=== PATIENT | male | born 1950 | race Caucasian/White ===

== ENCOUNTER 2019-05-26 05:28 | Observation (INO) ==
--- NOTE | 2019-05-26 05:36 | Emergency Department Note ---
ED Disposition <Jae Ramirez - Last Filed: 05/26/19 08:30> Condition on Discharge: Fair - Critical Care Critical Care Time: No <Anjum Hendricks - Last Filed: 05/27/19 08:10> Clinical Impression: Community acquired pneumonia Qualifiers: Laterality: left Lung location: lower lobe of lung Qualified Code(s): J18.1 - Lobar pneumonia, unspecified organism Disposition: Admitted as Observation Attestation: On 05/26/19, the high probability of a clinically significant, sudden or life threatening deterioration of the following system(s) required my full and direct attention, intervention and personal management. The time I documented below is in addition to time spent performing reported procedures but includes the following listed in this critical care notation. Medical Decision Making - Lab Data Result diagrams: 05/26/19 05:30 05/26/19 05:30 <Jae Ramirez - Last Filed: 05/26/19 08:30> - Conrad Inquiry Pt receiving controlled substance: No Conrad was queried for this patient: Yes Reference #:: [id number] Comment: 39 rxs. - Lab Data Result diagrams: 05/27/19 06:21 05/27/19 06:21 - Radiology Data #1 Image(s): Chest Image Reviewed: Yes I reviewed the patient's radiology image - Physician Consults Physician Consulted: Yudy Time: 08:15 Reason -: Admission Comment/Response: Agrees to admit the patient to the hospital. We discussed the patient's clinical information, including history, exam, laboratory and radiology results and ED course. Per hospital procedure, I will write temporary bridge inpatient orders on the patient. Specific orders requested by the admitting physician: Continue Rocephin, Zithromax, nebulizer treatments - Reevaluation(s) Time: 07:12 <Anjum Hendricks - Last Filed: 05/27/19 08:10> Vital Signs: 05/26/19 05:32 05/26/19 06:19 05/26/19 07:34 Temperature 98.1 F 99.9 F H Temperature Source Oral Oral Pulse Rate Pulse Rate [Right] 103 H 94 H 89 Respiratory Rate 20 18 Blood Pressure Blood Pressure [Right Arm] 154/72 H 160/58 H Blood Pressure Mean [Right Arm] 99 92 Blood Pressure Source Blood Pressure Source [Right Arm] Automatic Cuff Blood Pressure Position Blood Pressure Position [Right Arm] Supine 02 Sat by Pulse Oximetry 96 94 L Oxygen Delivery Method Room Air 05/26/19 08:21 05/26/19 08:37 05/26/19 08:42 Temperature 98.6 F 98.9 F Temperature Source Oral Temporal Artery Scan Pulse Rate 92 H Pulse Rate [Right] 88 88 Respiratory Rate 18 14 Blood Pressure 115/54 L Blood Pressure [Right Arm] 130/67 117/57 L Blood Pressure Mean [Right Arm] 88 77 Blood Pressure Source Automatic Cuff Blood Pressure Source [Right Arm] Automatic Cuff Blood Pressure Position Supine Blood Pressure Position [Right Arm] Supine 02 Sat by Pulse Oximetry 93 L 95 Oxygen Delivery Method Room Air Nasal Cannula - Lab Data Lab Results 05/26/19 05:30: WBC 9.4, RBC 4.83, Hgb 13.9 L, Hct 44.7, MCV 92.6, MCH 28.9, MCHC 31.2 L, RDW 13.5, Plt Count 226, MPV 7.7, Neut % (Auto) 87.5 H, Lymph % (Auto) 8.8 L, [place] % (Auto) 2.3, Eos % (Auto) 1.2, Baso % (Auto) 0.1, Neut # (Auto) 8.2 H, Lymph # (Auto) 0.8, [place] # (Auto) 0.2, Eos # (Auto) 0.1, Baso # (Auto) 0.0, Total Counted 100, Neutrophils % (Manual) 81 H, Band Neutrophils % 3.0, Lymphocytes % (Manual) 9 L, Atypical Lymphs % 3.0, Monocytes % (Manual) 4, Platelet Estimate Normal 05/26/19 05:30: Sodium 144, Potassium 3.4 L, Chloride 105, Carbon Dioxide 30, Anion Gap 12.4, BUN 14, Creatinine 0.84, Estimated Creat Clear 127, Estimated GFR 91, Est GFR ( Amer) 110, Glucose 119 H, Calcium 8.4 L, Total Bilirubin 0.8, AST 22, ALT 33, Alkaline Phosphatase 52, Troponin I < 0.02, Total Protein 6.6, Albumin 3.5, Globulin 3.1, Albumin/Globulin Ratio 1.1 05/26/19 05:30: D-Dimer 293 05/26/19 06:00: Lactate 1.2 05/26/19 06:13: Urine Color Yellow, Urine Appearance Clear, Urine pH 7.0, Ur Specific [place] 1.015, Urine Protein Negative, Urine Glucose (UA) Trace, Urine Ketones Negative, Urine Blood Negative, Urine Nitrate Negative, Urine Bilirubin Negative, Urine Urobilinogen 1.0, Ur Leukocyte Esterase Negative, Urine RBC None, Urine WBC None, Ur Squamous Epith Cells Occasional, Urine Bacteria Trace Orders (Tests/Meds): ED MEDICATIONS Generic Name Dose Route Start Last Admin Trade Name Freq PRN Reason Stop Dose Admin Acetaminophen 650 mg 05/26/19 09:02 Acetaminophen 325mg Tab PO 06/25/19 09:01 Q4HP PRN As Needed for Fever or Pain Albuterol/Ipratropium 3 ml 05/26/19 10:00 05/27/19 06:10 Duoneb 3ml Neb IH 06/25/19 09:59 3 ml QIDRT KOBE Administration Amlodipine Besylate 10 mg 05/26/19 09:02 05/26/19 11:52 Norvasc 10mg Tablet PO 06/25/19 09:01 10 mg DAILY KOBE Administration Cyclobenzaprine HCl 10 mg 05/26/19 09:02 Flexeril 10mg Tablet PO 06/25/19 09:01 TIDP PRN Muscle Spasm Finasteride 5 mg 05/26/19 21:00 05/26/19 20:36 Proscar 5mg Tablet PO 06/25/19 20:59 5 mg HS KOBE Administration Azithromycin 500 mg/ Sodium 250 mls @ 250 mls/hr 05/27/19 07:00 05/27/19 06:22 Chloride IV 06/09/19 06:59 250 mls/hr Q24H KOBE Administration Protocol Ceftriaxone Sodium 1 gm/ 50 mls @ 100 mls/hr 05/27/19 08:00 Sodium Chloride IV 06/09/19 07:59 Q24H KOBE Protocol Sodium Chloride 1,000 mls @ 50 mls/hr 05/26/19 09:02 05/27/19 06:22 Sod Chlor 0.9% 1000ml Bag IV 06/25/19 09:01 50 mls/hr .Q20H KOBE Administration Ondansetron HCl 4 mg 05/26/19 09:02 Zofran 4mg/2ml Vial IV 06/25/19 09:01 Q8HP PRN Nausea Oxycodone HCl 30 mg 05/26/19 09:07 Oxyir 5mg Tablet PO 06/25/19 09:06 Q6HP PRN Severe Pain Sodium Chloride 3 ml 05/26/19 09:28 Sodium Chloride 3% 15ml [facility] 06/25/19 09:27 ONCE PRN INDUCE [employer]UM [employer]LECTION Sodium Chloride 10 ml 05/26/19 10:39 Saline Flush 10ml Syringe IV 06/25/19 10:38 NEEDED PRN Maintain IV Site Tamsulosin HCl 0.4 mg 05/26/19 21:00 05/26/19 20:42 Flomax 0.4mg Capsule PO 06/25/19 20:59 Not Given HS KOBE Terazosin HCl 10 mg 05/26/19 21:00 05/26/19 20:39 Hytrin 5mg Capsule PO 06/25/19 20:59 10 mg HS KOBE Administration Discontinued Medications Generic Name Dose Route Start Last Admin Trade Name Freq PRN Reason Stop Dose Admin Acetaminophen 650 mg 05/26/19 06:25 05/26/19 06:41 Acetaminophen 325mg Tab PO 05/26/19 06:26 650 mg ONCE ONE Administration Albuterol/Ipratropium 3 ml 05/26/19 10:00 05/26/19 07:42 Duoneb 3ml [facility] 06/25/19 09:59 3 ml QIDRT KOBE Administration Finasteride 5 mg 05/26/19 09:02 05/26/19 16:20 Proscar 5mg Tablet PO 06/25/19 09:01 Not Given DAILY KOBE Azithromycin 500 mg/ Sodium 250 mls @ 250 mls/hr 05/26/19 06:15 05/26/19 06:41 Chloride IV 06/09/19 06:14 250 mls/hr Q24H KOBE Administration Protocol Ceftriaxone Sodium 1 gm/ 50 mls @ 100 mls/hr 05/26/19 06:15 05/26/19 06:20 Sodium Chloride IV 06/09/19 06:14 100 mls/hr Q24H KOBE Administration Protocol Pt's Own Med 7.5 mg 05/27/19 09:00 Meloxicam 7.5 Mg Tab PO 06/26/19 08:59 DAILY KOBE ORDERS Category Date Time Status Blood Culture Stat Micro 05/26/19 06:00 Received - Radiology Data #1 Airspace disease left base (Anjum Hendricks) - ECG Data Tracing #1 EKG interpreted by Anjum Hendricks MD: Rhythm: sinus tachycardia Rate: 106 [place]: normal Ectopy: none Conduction: normal ST Segment Changes: Nonspecific T Wave Changes: Nonspecific Q Waves: none No evidence of acute ischemia or injury Prior electrocardiagrams reviewed. No change from prior tracings. (Tushar Hendricks ) - Reevaluation(s) Reevaluation #1: Patient states he does not feel good at all. Does not feel well enough to go home. States short of breath off and on. (Anjum Hendricks) Medical Decision Narrative: Rounds are made , patient had been dispos'd to admit to [facility]. He has no complaints, seems compfortable, appreciaie ofr [facility] (Jae Ramirez) General Adult HPI <Jae Ramirez - Last Filed: 05/26/19 08:30> <Anjum Hendricks - Last Filed: 05/27/19 08:10> - General Stated complaint: Tachycardia Time Seen by Provider: 05/26/19 05:34 - History of Present Illness HPI narrative: Woke up from sleep tonight feeling like he had some sinus drainage and had a coughing spell. Benson like he was short of breath. Used his rescue inhaler. D eveloped shaking and chills. Had pain on both sides of his neck. Applied a pulse oximeter and saw that his heart rate was in the 140s and oxygen saturation was 92%. Currently says he feels weak, cold, and short of breath. Says he has a diagnosis of COPD. Smokes 1 cigarette every 2 to 3 days. No recent hospitalizations. (Anjum Hendricks) - Related Data Home Medications Medication Instructions Recorded Confirmed Amlodipine Besylate [Norvasc 10mg 10 mg PO DAILY 04/09/19 05/26/19 tablet] Tamsulosin HCl [Flomax 0.4mg 0.4 mg PO HS 04/09/19 05/26/19 capsule] cyclobenzaprine 10 mg tablet 10 mg PO TID PRN 04/22/19 05/26/19 finasteride 5 mg tablet 5 mg PO HS 04/22/19 05/26/19 oxycodone 30 mg tablet 30 mg PO Q4-6H PRN 04/22/19 05/26/19 terazosin 10 mg capsule 10 mg PO QHS 04/22/19 05/26/19 Meloxicam 15 mg PO DAILY 05/26/19 05/26/19 Testosterone Cypionate 200 mg IM WEEKLY 05/26/19 05/26/19 Previous Rx's Medication Instructions Recorded Azithromycin [Azithromycin 500mg 500 mg PO DAILY 1 Days #1 tab 05/27/19 Tab] Cefdinir [Omnicef 300mg Capsule] 300 mg PO BID 7 Days #14 cap 05/27/19 Allergies Allergy/AdvReac Type Severity Reaction Status Date / Time No Known Allergies Allergy Verified 05/26/19 05:37 [facility] History I have reviewed the patient's past medical history: Yes Medical History: Reports:: Diabetes Mellitus Type 1, Hypertension Amputation: No Fractures: No - Social History Smoking Status: Former smoker Alcohol Intake: never Alcohol Intake Frequency:: other Substance Use Type: denies use Occupational Status: employed Housing: house Household Members: none <EladioAnjum - Last Filed: 05/27/19 08:10> - Hepatitis A Screen Attestation statement:: This patient has been screened for Hepatitis A risk factors. ROS Obtained: Yes All systems reviewed & no additional complaints - Constitutional Constitutional: Reports chills, Denies fever(s), Reports weakness - ENT Ears, Nose, Mouth, and Throat: Reports post nasal drip - Cardiovascular Cardiovascular: Denies chest pain, Reports rapid heart rate - Respiratory Respiratory: Yes cough, Yes dyspnea - Gastrointestinal Gastrointestingal: Denies: abdominal pain, vomiting <JaleesaefrainAnjum - Last Filed: 05/27/19 08:10> Physical Exam - General General appearance: alert, in no apparent distress - Head Head exam: atraumatic, normocephalic - Eye Eye exam: Present: normal appearance, EOMI - ENT ENT exam: Present: mucous membranes moist - Neck Neck exam: Present: normal inspection, trachea midline - Chest Chest inspection: Present: normal inspection, symmetric chest wall rise - Respiratory Respiratory exam: Present: normal lung sounds bilaterally. Absent: respiratory distress - Cardiovascular Cardiovascular exam: Present: regular rate, normal rhythm, normal heart sounds, other (HR 90) - Abdominal Exam Abdominal exam: Present: soft, normal bowel sounds. Absent: distention, tenderness, guarding - Extremities Exam Extremities exam: Present: normal inspection - Neurological Exam Neurological exam: Present: alert, oriented X3 - Psychiatric Psychiatric exam: Present: anxious - Skin Skin exam: Present: warm, dry <Anjum Hendricks - Last Filed: 05/27/19 08:10>
[2019-05-26 05:51] LABS: Basophils % 0.1 % (0.1-2.0); Eosinophils # 0.1 K/mm3 (0.0-0.4); Eosinophils % 1.2 % (0.1-12.0); Hematocrit 44.7 % (42.0-52.0); Hemoglobin 13.9 g/dL (14.1-18.0); Lymphocytes # 0.8 K/mm3 (0.7-4.5); Lymphocytes % 8.8 % (10-50); Mean Corpuscular HGB Conc 31.2 g/dL (31.8-35.4); Mean Corpuscular Volume 92.6 fl (80-94); Mean Platelet Volume 7.7 fl (7.4-10.4); Monocytes # 0.2 K/mm3 (0.1-1.0); Monocytes % 2.3 % (1.7-9.3); Neutrophils # 8.2 K/mm3 (1.8-7.8); Neutrophils % 87.5 % (37.0-80.0); Platelet Count 226 K/mm3 (142-424); Red Blood Count 4.83 M/mm3 (4.60-6.20); Red Cell Distribution Width 13.5 % (11.5-17.5); White Blood Count 9.4 K/mm3 (4.8-10.8)
[2019-05-26 06:02] LABS: Alanine Aminotransferase 33 U/L (12-78); Albumin Level 3.5 gm/dL (3.4-5.0); Albumin/Globulin Ratio 1.1 (1.1-1.8); Alkaline Phosphatase 52 U/L (46-116); Anion Gap 12.4 mEq/L (5-15); Aspartate Amino Transferase 22 U/L (15-37); Bilirubin,Total 0.8 mg/dL (0.2-1.0); Blood Urea Nitrogen 14 mg/dL (7-18); Calcium 8.4 mg/dL (8.5-10.1); Carbon Dioxide 30 mmol/L (21.0-32.0); Chloride 105 mmol/L (98-107); Globulin 3.1 gm/dl (1.3-3.2); Glucose 119 mg/dL (74-106); Sodium 144 mmol/L (136-145); Total Protein,Serum 6.6 gm/dL (6.4-8.2)
[2019-05-26 06:09] LABS: Lymphocytes % 9 % (10-50); Monocytes % 4 % (2-9); Neutrophils % 81 % (42-76); Total Cells Counted 100
[2019-05-26 07:20] LABS: Microscopic, Urine URINE MICROSCOPIC (MICROSCOPIC)
[2019-05-26 07:22] LABS: Appearance,Urine CLEAR (Clear); Bilirubin,Urine Negative (Negative); Blood, Urine Negative (Negative); Color,Urine YELLOW (Yellow); Glucose,Urine (UA) TRACE (Negative); Ketones,Urine Negative (Negative); Leukocyte Esterase,Urine Negative (Negative); Protein,Urine Negative (Negative); Specific Gravity, Urine 1.015 (1.005-1.030)
[2019-05-26 07:28] LABS: Bacteria,Urine Trace /lpf; Squamous Epithelial Cell,Urine Occasional #/hpf (0-5)
--- NOTE | 2019-05-26 12:49 | Pharmacy Consult Notes ---
[facility] Pharmacy VTE Monitoring - Patient Demographics Admission date: 05/26/19 Report Date: 05/26/19 Time: 12:49 Allergies/Adverse Reactions: Patient Allergies No Known Allergies Allergy (Verified 05/26/19 05:37) Height: 1.88 m Weight: 128.537 kg Patient Problems: Current Active Problems (Updated 05/26/19 @ 07:13 by Anjum Hendricks MD) Community acquired pneumonia (Acute) - VTE Risk Labs: VTE Related Lab Results Hgb 13.9 g/dL (14.1-18.0) L 05/26/19 05:30 Hct 44.7 % (42.0-52.0) 05/26/19 05:30 Plt Count 226 K/mm3 (142-424) 05/26/19 05:30 BUN 14 mg/dL (7-18) 05/26/19 05:30 Creatinine 0.84 mg/dL (0.70-1.30) 05/26/19 05:30 Estimated Creat Clear 127 mL/min (50-200) 05/26/19 05:30 VTE Score: 3 VTE Risk Level: Low Risk - Prophylaxis VTE Prophylaxis Ordered?: Yes Types of VTE Prophylaxis: TEDS Knee High Location of Applied Device: Bilateral Lower Extremeties
--- NOTE | 2019-05-26 14:07 | History & Physical Report ---
*Admission Date: 05/26/19 *Chief complaint: Cough/congestion/shortness of air *History of present illness: 68-year-old white male, patient of Dr. Lopez, who suffers from obesity, asthma/emphysema, insulin requiring diabetes and chronic opiate dependence who came to the emergency department early this morning with a chief complaint of chest heaviness, coughing and a feeling of subjective fever and shortness of air. In the emergency department work-up revealed new infiltrate in the left chest consistent with bacterial pneumonia. Given his multiple comorbid conditions he was admitted to hospital for intravenous antibiotics and enhanced pulmonary toilet. [facility] History I have reviewed the patient's past medical history: Yes Medical History: Reports:: Asthma, Chronic Obstructive Pulmonary Disease (COPD), Diabetes Mellitus Type 2, Hypertension Denies:: Cancer, Internal Pacemaker, MRSA *Have you ever received a pneumonia vaccine?: Yes *Have you received a flu vaccine this season?: Yes Other Surgeries: No: Pacemaker Amputation: No Fractures: No - *Social History Educational Level: Completed High School Smoking Status: Light tobacco smoker Tobacco Type: cigarettes # Packs/Day (cigarettes): 1 Alcohol Intake: former Alcohol Intake Frequency:: other Substance Use Type: denies use *Occupational Status:: retired Housing: house Household Members: none *Travel in the last 8 weeks: None - Psychiatric History Expresses thoughts of harming self/others: None Suicide Plan Description: No Plan Family Hx:: No significant family history Review of Systems - Review of Systems Review of systems:: pertinent systems reviewed and negative unless documented below - Constitutional Reports fatigue, Reports fever(s), Denies anorexia, Denies body ache(s), Denies malaise - Eyes Denies blind spots, Denies blurry vision, Denies bulging eyes - ENT Denies abnormal hearing, Denies dizziness, Denies dry mouth - *Cardiovascular Reports shortness of breath, Reports shortness of breath with activity, Denies chest pain, Denies excessive sweating, Denies generalized swelling, Denies irregular heart rhythm - *Respiratory Reports change in phlegm color, Reports chest congestion, Reports cough, Reports shortness of breath, Reports shortness of breath with activity, Reports excessive phlegm production - *Gastrointestinal Denies abdominal pain, Denies change in stools - *Musculoskeletal Denies abnormal walking - Integumentary/Breasts Denies acne, Denies hair loss, Denies bleeding lesions - *Neurologic Reports weakness, Denies abnormal walking, Denies abnormal hearing Meds Home Medications Medication Instructions Recorded Confirmed Type Amlodipine Besylate [Norvasc 10mg 10 mg PO DAILY 04/09/19 05/26/19 History tablet] Tamsulosin HCl [Flomax 0.4mg 0.4 mg PO HS 04/09/19 05/26/19 History capsule] cyclobenzaprine 10 mg tablet 10 mg PO TID PRN 04/22/19 05/26/19 History finasteride 5 mg tablet 5 mg PO HS 04/22/19 05/26/19 History oxycodone 30 mg tablet 30 mg PO Q4-6H PRN 04/22/19 05/26/19 History terazosin 10 mg capsule 10 mg PO QHS 04/22/19 05/26/19 History Meloxicam 15 mg PO DAILY 05/26/19 05/26/19 History Allergies Allergy/AdvReac Type Severity Reaction Status Date / Time No Known Allergies Allergy Verified 05/26/19 05:37 Exam Vital signs and Labs for Last 24 Hours: Temp Pulse Resp BP Pulse Ox 98.9 F 92 H 14 115/54 L 95 05/26/19 08:42 05/26/19 08:42 05/26/19 08:42 05/26/19 08:42 05/26/19 08:37 Laboratory Results - last 24 hr 05/26/19 05:30: WBC 9.4, RBC 4.83, Hgb 13.9 L, Hct 44.7, MCV 92.6, MCH 28.9, MCHC 31.2 L, RDW 13.5, Plt Count 226, MPV 7.7, Neut % (Auto) 87.5 H, Lymph % (Auto) 8.8 L, [place] % (Auto) 2.3, Eos % (Auto) 1.2, Baso % (Auto) 0.1, Neut # (Auto) 8.2 H, Lymph # (Auto) 0.8, [place] # (Auto) 0.2, Eos # (Auto) 0.1, Baso # (Auto) 0.0, Total Counted 100, Neutrophils % (Manual) 81 H, Band Neutrophils % 3.0, Lymphocytes % (Manual) 9 L, Atypical Lymphs % 3.0, Monocytes % (Manual) 4, Platelet Estimate Normal 07/01/19 05:30: Sodium 144, Potassium 3.4 L, Chloride 105, Carbon Dioxide 30, Anion Gap 12.4, BUN 14, Creatinine 0.84, Estimated Creat Clear 127, Estimated GFR 91, Est GFR ( Amer) 110, Glucose 119 H, Calcium 8.4 L, Total Bili lemos 0.8, AST 22, ALT 33, Alkaline Phosphatase 52, Troponin I < 0.02, Total Protein 6.6, Albumin 3.5, Globulin 3.1, Albumin/Globulin Ratio 1.1 05/26/19 05:30: D-Dimer 293 05/26/19 06:00: Lactate 1.2 05/26/19 06:13: Urine Color Yellow, Urine Appearance Clear, Urine pH 7.0, Ur Specific [place] 1.015, Urine Protein Negative, Urine Glucose (UA) Trace, Urine Ketones Negative, Urine Blood Negative, Urine Nitrate Negative, Urine Bilirubin Negative, Urine Urobilinogen 1.0, Ur Leukocyte Esterase Negative, Urine RBC None, Urine WBC None, Ur Squamous Epith Cells Occasional, Urine Bacteria Trace I & O for Last 24 hours: Intake & Output 05/24/19 05/25/19 05/26/19 05/27/19 11:59 11:59 11:59 11:59 Intake Total 300 / 300 240 / 240 Balance 300 / 300 240 / 240 Weight 283 lb 6 oz Narrative: Patient is pleasant, alert, oropharynx clear and moist. No JVD. Lungs have rhonchi in both bases, especially on the left side. No expiratory wheezing. fairly good air entry. Heart rate regular. Abdomen soft and nontender, obesity limits exam. No edema or clubbing or cyanosis. Able to move all extremities well. No cranial nerve deficits. Assessment and Plan (1) Obesity Current visit: Yes Status: Acute Category: Medical Code(s): E66.9 - Obesity, unspecified Complicates all aspects of his care (2) Chronic, continuous use of opioids Current visit: Yes Status: Acute Category: Medical Code(s): F11.90 - Opioid use, unspecified, uncomplicated Complicates all aspects of his care, perhaps contributes to respiratory insufficiency (3) Community acquired pneumonia Current visit: Yes Status: Acute Qualifiers: Laterality: left Lung location: lower lobe of lung Qualified Code(s): J18.1 - Lobar pneumonia, unspecified organism Category: Medical Code(s): J18.9 - Pneumonia, unspecified organism Agree with admission for pulmonary toilet, IV antibiotics (4) Emphysema lung Current visit: Yes Status: Acute Category: Medical Code(s): J43.9 - Emphysema, unspecified Uncertain emphysema type, record deficit. Continue pulmonary toilet
[2019-05-27 06:41] LABS: Basophils % 0.3 % (0.1-2.0); Eosinophils # 0.1 K/mm3 (0.0-0.4); Hematocrit 40.6 % (42.0-52.0); Lymphocytes # 1.4 K/mm3 (0.7-4.5); Mean Corpuscular HGB Conc 31.9 g/dL (31.8-35.4); Mean Corpuscular Volume 92.8 fl (80-94); Mean Platelet Volume 8.2 fl (7.4-10.4); Monocytes # 0.3 K/mm3 (0.1-1.0); Monocytes % 4.9 % (1.7-9.3); Neutrophils # 4.4 K/mm3 (1.8-7.8); Neutrophils % 71.9 % (37.0-80.0); Platelet Count 209 K/mm3 (142-424); Red Blood Count 4.38 M/mm3 (4.60-6.20); Red Cell Distribution Width 13.6 % (11.5-17.5); White Blood Count 6.2 K/mm3 (4.8-10.8)
[2019-05-27 07:00] LABS: Albumin/Globulin Ratio 1.1 (1.1-1.8); Anion Gap 9.1 mEq/L (5-15); Bilirubin,Total 0.9 mg/dL (0.2-1.0); Calcium 8.2 mg/dL (8.5-10.1); Globulin 2.8 gm/dl (1.3-3.2); Total Protein,Serum 5.8 gm/dL (6.4-8.2)
--- NOTE | 2019-05-27 08:01 | Discharge Summary ---
General - General Admission date:: 05/26/19 Discharge date: 05/27/19 HPI HPI: 68-year-old white male, patient of Dr. Lopez, who suffers from obesity, asthma/emphysema, insulin requiring diabetes and chronic opiate dependence who came to the emergency department early this morning with a chief complaint of chest heaviness, coughing and a feeling of subjective fever and shortness of air. In the emergency department work-up revealed new infiltrate in the left chest consistent with bacterial pneumonia. Given his multiple comorbid conditions he was admitted to hospital for intravenous antibiotics and enhanced pulmonary toilet. Hospital Course Hospital Course: Mr. Cowart was admitted to medicine for management of pneumonia. Initiated on IV antibiotics. Required no oxygen during admission. Remained hemodynamically stable without fever. Stated he felt better the day after admission. Was transition oral antibiotics to complete course at home for community-acquired pneumonia. Instructed to follow-up with his primary care, Dr. Lopez, in the coming days. Patient stated he had a follow-up the day after discharge already scheduled. Denied chest pain, shortness of breath, fever, nausea vomiting. Objective Vital signs: Temp Pulse Resp BP Pulse Ox 97.8 F 74 20 143/78 H 93 L 05/27/19 04:00 05/27/19 06:10 05/27/19 04:00 05/27/19 04:00 05/27/19 06:10 Narrative: Patient is pleasant, alert, oropharynx clear and moist. No jaundice, No JVD. Lungs there to auscultation bilaterally without wheeze or crackles. No appreciable rhonchi. Heart rate regular, no murmurs Abdomen soft and nontender, obesity limits exam. No edema or clubbing or cyanosis. Able to move all extremities well. No cranial nerve deficits. Results Labs on day of discharge: Labs from last 24 hours 05/27/19 05/27/19 05/26/19 06:21 06:21 20:49 WBC 6.2 D RBC 4.38 L Hgb 13.0 L Hct 40.6 L MCV 92.8 MCH 29.6 MCHC 31.9 RDW 13.6 Plt Count 209 MPV 8.2 Neut % (Auto) 71.9 Lymph % (Auto) 22.0 [place] % (Auto) 4.9 Eos % (Auto) 1.0 Baso % (Auto) 0.3 Neut # (Auto) 4.4 Lymph # (Auto) 1.4 [place] # (Auto) 0.3 Eos # (Auto) 0.1 Baso # (Auto) 0.0 Sodium 144 Potassium 3.1 L Chloride 108 H Carbon Dioxide 30 Anion Gap 9.1 BUN 13 Creatinine 0.70 Estimated Creat Clear 130 Estimated GFR 112 Est GFR ( Amer) 136 D Glucose 129 H POC Glucose 139 H Calcium 8.2 L Total Bilirubin 0.9 AST 16 D ALT 29 Alkaline Phosphatase 44 L Total Protein 5.8 L Albumin 3.0 L D Globulin 2.8 Albumin/Globulin Ratio 1.1 DS: Diagnosis - Discharge Diagnosis (1) Obesity Status: Chronic (2) Chronic, continuous use of opioids Status: Chronic (3) Community acquired pneumonia Status: Acute (4) Emphysema lung Status: Chronic Discharge Plan - Patient Discharge Instructions ACTIVITY: Continue current activity DIET: continue same diet Patient Instructions: DI for Pneumonia -- Adult - Follow up Plan Follow up with: Edgar Lopez [Primary Care Provider] - Disposition: Home, Self-[facility] Medications: Home Medications Medication Instructions Recorded Confirmed Type Amlodipine Besylate [Norvasc 10mg 10 mg PO DAILY 04/09/19 05/26/19 History tablet] Tamsulosin HCl [Flomax 0.4mg 0.4 mg PO HS 04/09/19 05/26/19 History capsule] cyclobenzaprine 10 mg tablet 10 mg PO TID PRN 04/22/19 05/26/19 History finasteride 5 mg tablet 5 mg PO HS 04/22/19 05/26/19 History oxycodone 30 mg tablet 30 mg PO Q4-6H PRN 04/22/19 05/26/19 History terazosin 10 mg capsule 10 mg PO QHS 04/22/19 05/26/19 History Meloxicam 15 mg PO DAILY 05/26/19 05/26/19 History Testosterone Cypionate 200 mg IM WEEKLY 05/26/19 05/26/19 History Azithromycin [Azithromycin 500mg 500 mg PO DAILY 1 Days #1 tab 05/27/19 Rx Tab] Cefdinir [Omnicef 300mg Capsule] 300 mg PO BID 7 Days #14 cap 05/27/19 Rx Prescriptions/Medication Reconciliation: New Azithromycin [Azithromycin 500mg Tab] 500 mg PO DAILY 1 Days #1 tab Cefdinir [Omnicef 300mg Capsule] 300 mg PO BID 7 Days #14 cap Continued finasteride 5 mg tablet 5 mg PO HS cyclobenzaprine 10 mg tablet 10 mg PO TID PRN PRN Reason: Muscle Spasm oxycodone 30 mg tablet 30 mg PO Q4-6H PRN PRN Reason: pain terazosin 10 mg capsule 10 mg PO QHS Tamsulosin HCl [Flomax 0.4mg capsule] 0.4 mg PO HS Amlodipine Besylate [Norvasc 10mg tablet] 10 mg PO DAILY Meloxicam 15 mg PO DAILY Testosterone Cypionate 200 mg IM WEEKLY
== END 2019-05-27 09:01 | disposition home or self-care (01) ==
LOC: ER 05:28 → 2ND 05:28
PROVIDERS: ADMIT Internal Medicine Adolescent Medicine; ATTEND Internal Medicine Adolescent Medicine
CPT/HCPCS: 36415; 71020; 71046; 80053; 81001; 82962; 83605; 84484; 85007; 85025; 85378; 87040; 87070; 87205; 93005; 94640; 96365; 96375; 99285; G0378; J0456

== ENCOUNTER → 2019-07-02 06:46 | Outpatient (CLI) | payer MEDICARE, OTHER, SELFPAY ==
--- NOTE | 2019-07-02 06:53 | XR_ITS ---
XR chest 2V HISTORY: Follow-up pneumonia ITS.REASON: S/P PNEUMONIA LLL, COPD ORDERING PHYSICIAN: Edgar Lopez PATIENT AGE: 68 years COMPARISON: 05/26/2019 FINDINGS: Left lower lobe pneumonia has improved. There is COPD. Unremarkable cardiovascular structures. Calcified granuloma is present in the right mid lung. No acute bony findings. IMPRESSION: COPD with interval resolved left lower lobe pneumonia
== END ==
PROVIDERS: PCP Internal Medicine; Visit Provider Internal Medicine
DX: J18.9 Pneumonia, unspecified organism (principal); J44.9 Chronic obstructive pulmonary disease, unspecified
CPT/HCPCS: 71046

== ENCOUNTER → 2019-12-19 06:28 | Outpatient (CLI) | payer MEDICARE, OTHER, SELFPAY ==
--- NOTE | 2019-12-19 06:40 | XR_ITS ---
PROCEDURE: XR LUMBAR SPINE MIN 4V CLINICAL INDICATION: LBP COMPARISON: No exams were available for comparison FINDINGS: There is no acute fracture or dislocation. There appear to be bone graft fragments within the L3-4, L4-5, and L5-S1 disc spaces. There is degenerative loss of these disc spaces greatest at L5-S1. Some posterior marginal osteophyte or bone graft fragment appears to project posterior to the vertebral body endplate at L3 likely causing some central canal impingement. Bilateral laminectomy defects are noted at L4 and L5. There is mild sclerosis of both sacroiliac joints compatible with mild sacroiliitis. Atherosclerotic calcifications are seen throughout the abdominal aorta and iliac vessels. IMPRESSION: No acute findings. Postsurgical and degenerative findings as described. Dictated by: Caden Sánchez 12/19/2019 08:21 Electronically signed by Caden Sánchez in [place] 12/19/2019 08:21
== END ==
PROVIDERS: PCP Internal Medicine; Visit Provider Internal Medicine
DX: M54.42 Lumbago with sciatica, left side (principal)
CPT/HCPCS: 72110

== ENCOUNTER → 2019-12-25 11:47 | Outpatient (CLI) | payer MEDICARE, OTHER, SELFPAY ==
[2019-12-25 12:05] LABS: Blood Urea Nitrogen 15 mg/dL (7-18); Creatinine,Serum 0.85 mg/dL (0.70-1.30); Estimated Glomerular Filt Rate 89 ml/min (>60); GFR (African American) 108 ML/MIN (>60)
== END ==
PROVIDERS: PCP Internal Medicine; Visit Provider Internal Medicine
DX: Z01.818 Encounter for other preprocedural examination (principal)
CPT/HCPCS: 36415; 82565; 84520

== ENCOUNTER → 2020-01-07 07:21 | Outpatient (CLI) | payer MEDICARE, OTHER, SELFPAY ==
--- NOTE | 2020-01-07 08:30 | US_ITS ---
PROCEDURE: US ABDOMEN COMPLETE CLINICAL INDICATION: EPIGASTRIC PAIN, NAUSEA COMPARISON: No exams were available for comparison FINDINGS: PANCREAS: Unremarkable. No obvious mass or abnormal fluid collection. No ductal dilatation LIVER: Fatty liver. A small cyst is present in the mid aspect of the liver at 15 mm x 19 mm RIGHT KIDNEY: Unremarkable. Normal size and echogenicity. No hydronephrosis LEFT KIDNEY: Unremarkable. Normal size and echogenicity. No hydronephrosis GALLBLADDER: No stones, gallbladder wall thickening, pericholecystic fluid, or biliary dilatation. AORTA: No evidence of aneurysmal dilatation. SPLEEN: Unremarkable. Normal size and echogenicity ASCITES: None demonstrated. IMPRESSION: No acute finding. Fatty liver Dictated by: Mikal Luna MD 01/07/2020 18:17 Electronically signed by Mikal Luna MD in [place] 01/07/2020 18:17
--- NOTE | 2020-01-07 09:00 | FL_ITS ---
PROCEDURE: FL UPPER GI W AIR CLINICAL INDICATION: EPIGASTRIC PAIN, NAUSEA Patient has had prior gastric lap band procedure COMPARISON: XR LUMBAR SPINE MIN 4V from 12/19/2019 TECHNIQUE: FLUOROSCOPY TIME : 2 minutes and 15 seconds FINDINGS: The gastric lap band appears to be in good position with adequate angle. The lap band does allow flow of contrast into the stomach although somewhat limited. There is mild dilatation of the esophagus. No evidence of hiatal hernia or esophageal mass or erosion. Stomach and duodenum have an unremarkable appearance. No evidence of mass or ulcer. There is a small duodenal diverticulum projecting from the transverse portion of the duodenum superiorly. Surgical clips are present at the epigastric region. IMPRESSION: 1. Gastric lap band in place with mild esophageal dilatation. No evidence of slippage or abnormal angle. 2. Small duodenal diverticulum. 3. Otherwise negative upper GI with air contrast Dictated by: Mikal Luna MD 01/09/2020 08:44 Electronically signed by Mikal Luna MD in [place] 01/09/2020 08:44
== END ==
PROVIDERS: PCP Internal Medicine; Visit Provider Internal Medicine
DX: R10.13 Epigastric pain (principal); R11.0 Nausea
CPT/HCPCS: 74246; 76700

== ENCOUNTER → 2020-08-20 10:05 | Outpatient (CLI) | payer MEDICARE, SELFPAY ==
--- NOTE | 2020-08-20 10:10 | CA_ITS ---
APPROVED REPORT Left Lower Extremity Venous Study for DVT. Major Donor Coordinator: Andreina Schrader RVT Indications Lower Extremity Pain: Left Varicose Veins PT C/O PAIN LATERAL THIGH X SEVERAL DAYS IN AREA OF A VARICOSE VEIN Findings Study suggests no evidence of DVT of the left lower extremity. Study suggests superficial thrombophlebitis lateral mid to distal thigh in area of patient's complaint. Conclusion Study suggests no evidence of DVT of the left lower extremity. Study suggests superficial thrombophlebitis lateral mid to distal thigh in area of patient's complaint. Critical Notification Physician Notified Date: 08/20/2020 Time: 10:35 Physician Name: Waylon Lopez office Electronically signed by : Mikal Luna MD 08/20/2020 17:35:41
== END ==
PROVIDERS: PCP Internal Medicine; Visit Provider Internal Medicine
DX: M79.605 Pain in left leg (principal)
CPT/HCPCS: 93971

== ENCOUNTER → 2021-02-02 08:42 | Outpatient (CLI) | payer MEDICARE, SELFPAY ==
[2021-02-02 08:49] LABS: Adenovirus F 40/41, stool Not Detected (NotDetected); Astrovirus Not Detected (NotDetected); Campylobacter Not Detected (NotDetected); Cryptosporidium Not Detected (NotDetected); Cyclospora Cayetanesis Not Detected (NotDetected); Entamoeba histolytica Not Detected (NotDetected); Enteroaggregative E coli Not Detected (NotDetected); Enteropathogenic E coli Not Detected (NotDetected); Enterotoxigenic E coli Not Detected (NotDetected); Giardia lamblia Not Detected (NotDetected); Norovirus Not Detected (NotDetected); Plesimonas Shigalloides, PCR Not Detected (NotDetected); Rotavirus A Not Detected (NotDetected); Salmonella, PCR Not Detected (NotDetected); Sapovirus Not Detected (NotDetected); Shiga-like toxin E coli Not Detected (NotDetected); Shigella Enterovasive E coli Not Detected (NotDetected); Vibrio Cholerae Not Detected (NotDetected); Vibrio, PCR Not Detected (NotDetected); Yersinia Entercolitica, PCR Not Detected (NotDetected)
[2021-02-02 15:00] LABS: Clostridium Difficile A/B, PCR Detected (NotDetected)
== END ==
PROVIDERS: Visit Provider Internal Medicine
DX: R19.7 Diarrhea, unspecified (principal); A04.72 Enterocolitis due to Clostridium difficile, not specified as recurrent
CPT/HCPCS: 87506

== ENCOUNTER → 2021-03-15 09:42 | Outpatient (CLI) | payer MEDICARE, SELFPAY ==
[2021-03-15 10:26] LABS: Adenovirus F 40/41, stool Not Detected (NotDetected); Astrovirus Not Detected (NotDetected); Campylobacter Not Detected (NotDetected); Clostridium Difficile A/B, PCR Not Detected (NotDetected); Cryptosporidium Not Detected (NotDetected); Cyclospora Cayetanesis Not Detected (NotDetected); Entamoeba histolytica Not Detected (NotDetected); Enteroaggregative E coli Not Detected (NotDetected); Enteropathogenic E coli Not Detected (NotDetected); Enterotoxigenic E coli Not Detected (NotDetected); Giardia lamblia Not Detected (NotDetected); Norovirus Not Detected (NotDetected); Plesimonas Shigalloides, PCR Not Detected (NotDetected); Rotavirus A Not Detected (NotDetected); Salmonella, PCR Not Detected (NotDetected); Sapovirus Not Detected (NotDetected); Shiga-like toxin E coli Not Detected (NotDetected); Shigella Enterovasive E coli Not Detected (NotDetected); Vibrio Cholerae Not Detected (NotDetected); Vibrio, PCR Not Detected (NotDetected); Yersinia Entercolitica, PCR Not Detected (NotDetected)
== END ==
PROVIDERS: Visit Provider Internal Medicine
DX: R19.7 Diarrhea, unspecified (principal)
CPT/HCPCS: 87506

== ENCOUNTER 2021-07-18 13:03 | Emergency (ER) | payer MEDICARE, OTHER, SELFPAY ==
--- NOTE | 2021-07-18 13:11 | XR_ITS ---
PROCEDURE: XR KNEE RT 3V CLINICAL INDICATION: fall, knee pain COMPARISON: CR XR KNEE LT 3V from 07/18/2021 FINDINGS: No fracture or dislocation. The joint spaces are well-preserved. No significant degenerative/arthritic changes. No erosive changes evident. Other findings:None. IMPRESSION: No acute findings. Dictated by: Mikal Luna MD 07/18/2021 13:46 Mikal Luna MD in [place] 07/18/2021 13:46
--- NOTE | 2021-07-18 13:11 | XR_ITS ---
PROCEDURE: XR KNEE LT 3V CLINICAL INDICATION: fall, knee pain COMPARISON: No exams were available for comparison FINDINGS: No fracture or dislocation. No lytic or blastic change. There is normal mineralization. The joint spaces are well-preserved. No significant degenerative/arthritic changes. No erosive changes evident. Other findings:None. IMPRESSION: No acute findings. Dictated by: Mikal Luna MD 07/18/2021 13:47 Mikal Luna MD in [place] 07/18/2021 13:47
--- NOTE | 2021-07-18 14:19 | HMH.EDUTC ---
[facility] Disposition Clinical Impression: Fall Qualifiers: Encounter type: initial encounter Qualified Code(s): W19.XXXA - Unspecified fall, initial encounter Right knee pain Qualifiers: Chronicity: acute Qualified Code(s): M25.561 - Pain in right knee Left knee pain Qualifiers: Chronicity: acute Qualified Code(s): M25.562 - Pain in left knee Disposition: Home, Self-Care Condition on Discharge: Good Additional Instructions: Rest the extremities, apply ice for 15 minutes as tolerated three or four times per day, Elevate the extremity as tolerated while you are resting. Take ibuprofen for pain. I sent in a prescription to your pharmacy. Follow up with Dr. Yoon (orthopedics) in a few days if you're not getting better. I put in a referral but you need to call his office and schedule an appointment. Follow up with your regular doctor. GO TO THE ER FOR ANY WORSENING SYMPTOMS Prescriptions: Ibuprofen [Ibuprofen 600mg Tablet] 600 mg PO Q6HP PRN #30 tab PRN Reason: Mild Pain Transmission Status: Received by [facility] Referrals: Edgar Lopez [Primary Care Provider] - Brandon Yoon MD [Staff Physician] - Time of Disposition: 14:37 Medical Decision Making - Medical Records Medical records reviewed: No: I reviewed the patient's medical records. - Conrad Inquiry Pt receiving controlled substance: No Vital Signs: 07/18/21 14:57 07/18/21 14:59 Temperature 98.4 F 98.5 F Temperature Source Oral Oral Pulse Rate 87 Pulse Rate [Right] 87 Respiratory Rate 16 16 Blood Pressure 120/70 Blood Pressure [Right Arm] 116/78 Blood Pressure Mean [Right Arm] 90 Blood Pressure Source Automatic Cuff Blood Pressure Source [Right Arm] Automatic Cuff Blood Pressure Position Sitting 02 Sat by Pulse Oximetry 98 Oxygen Delivery Method Room Air Room Air [facility] HPI - General Stated complaint: a/o right knee injury Time Seen by Provider: 07/18/21 14:19 - History of Present Illness Provider Complaint: 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 He has bilateral knee pain but his right is worse than his left. - Related Data Home Medications Medication Instructions Recorded Confirmed Amlodipine Besylate [Norvasc 10mg 10 mg PO DAILY 04/09/19 01/20/20 tablet] Tamsulosin HCl [Flomax 0.4mg 0.4 mg PO HS 04/09/19 01/20/20 capsule] cyclobenzaprine 10 mg tablet 10 mg PO TID PRN 04/22/19 01/20/20 finasteride 5 mg tablet 5 mg PO HS 04/22/19 01/20/20 oxycodone 30 mg tablet 30 mg PO Q4-6H PRN 04/22/19 01/20/20 terazosin 10 mg capsule 10 mg PO QHS 04/22/19 01/20/20 Meloxicam 15 mg PO DAILY 05/26/19 01/20/20 Testosterone Cypionate 200 mg IM WEEKLY 05/26/19 01/20/20 Previous Rx's Medication Instructions Recorded Azithromycin [Azithromycin 500mg 500 mg PO DAILY 1 Days #1 tab 05/27/19 Tab] Cefdinir [Omnicef 300mg Capsule] 300 mg PO BID 7 Days #14 cap 05/27/19 Ibuprofen [Ibuprofen 600mg 600 mg PO Q6HP PRN #30 tab 07/18/21 Tablet] Allergies Allergy/AdvReac Type Severity Reaction Status Date / Time No Known Allergies Allergy Verified 01/20/20 10:56 [facility] History - Hepatitis A Screen Attestation statement:: This patient has been screened for Hepatitis A risk factors. I have reviewed the patient's past medical history: Yes Medical History: Reports:: Asthma, Chronic Obstructive Pulmonary Disease (COPD), Diabetes Mellitus Type 1, Diabetes Mellitus Type 2, Hypertension Denies:: Cancer, Internal Pacemaker, MRSA Other Surgeries: Yes: Colonoscopy. No: Pacemaker Amputation: No Fractures: No - Social History Smoking Status: Light tobacco smoker Tobacco Type: cigarettes # Packs/Day (cigarettes): 1 Alcohol Intake: former Alcohol Intake Frequency:: other Substance Use Type: denies use Occupational Status: retired Housing: house Household Members: none Family Hx:: No significant family history ROS Obtained: Yes All systems
[2021-07-18 14:57] VITALS: BP 116/78; PULSE 87; RESP 16; TEMP 36.9; O2SAT 98; BMI 33.9
[2021-07-18 14:59] VITALS: BP 120/70; PULSE 87; RESP 16; TEMP 36.9; O2SAT 98
== END 2021-07-18 15:00 | disposition home or self-care (01) ==
PROVIDERS: Emergency Provider Nurse Practitioner Family; PCP Internal Medicine
DX: M25.561 Pain in right knee (principal); M25.562 Pain in left knee; W01.0XXA Fall on same level from slipping, tripping and stumbling without subsequent striking against object, initial encounter; Y92.019 Unspecified place in single-family (private) house as the place of occurrence of the external cause; I10 Essential (primary) hypertension; J44.9 Chronic obstructive pulmonary disease, unspecified; E11.9 Type 2 diabetes mellitus without complications; F17.210 Nicotine dependence, cigarettes, uncomplicated; Z79.899 Other long term (current) drug therapy
CPT/HCPCS: 29505; G0463; 73562; 99202

== ENCOUNTER → 2021-08-29 11:55 | Outpatient (CLI) | payer MEDICARE, OTHER, SELFPAY ==
--- NOTE | 2021-08-29 11:59 | XR_ITS ---
PROCEDURE: XR KNEE RT 3V CLINICAL INDICATION: RT KNEE PAIN COMPARISON: CR XR KNEE LT 3V from 07/18/2021 CR XR KNEE RT 3V from 07/18/2021 FINDINGS: No fracture or dislocation. No lytic or blastic change. There is normal mineralization. The joint spaces are well-preserved. No significant degenerative/arthritic changes. No erosive changes evident. Other findings:Small enthesophyte along the superior patella IMPRESSION: No acute findings. Dictated by: Mikal Luna MD 08/29/2021 18:03 Mikal Luna MD in [place] 08/29/2021 18:03
== END ==
PROVIDERS: PCP Internal Medicine; Visit Provider Internal Medicine
DX: M25.561 Pain in right knee (principal)
CPT/HCPCS: 73562

== ENCOUNTER → 2021-10-12 14:06 | Outpatient (CLI) | payer MEDICARE, OTHER, SELFPAY ==
--- NOTE | 2021-10-12 14:09 | MR_ITS ---
PROCEDURE: MR KNEE RT WO CON CLINICAL INDICATION: RT KNEE PAIN AND EDEMA S/P FALL COMPARISON: CR XR KNEE RT 3V from 08/29/2021 TECHNIQUE: Routine multiplanar multi echo sequences are performed without gadolinium enhancement. FINDINGS: Cruciate ligaments appear intact as do the collateral ligaments, patellar tendon, and quadriceps tendon. There is increased T2 signal involving the posterior horn of the lateral meniscus somewhat diffuse. Laterally in this region there is linear increased T2 signal with questionable extension to the posterior free edge of the meniscus. This does raise the question of a nondisplaced meniscal horizontal tear. No bone bruise apparent. No fracture. The patellar cartilage is preserved. There is minimal lateral patellar subluxation. The medial meniscal femoral ligament is thinned. No significant effusion. IMPRESSION: 1. Questionable nondisplaced horizontal tear posterior horn lateral meniscus extending to the posterior free edge. 2. Minimal lateral patellar subluxation with poorly defined medial meniscal femoral ligament which could be due to ligamentous sprain or partial tear. Dictated by: Mikal Luna MD 10/14/2021 08:01 Mikal Luna MD in [place] 10/14/2021 08:01
== END ==
PROVIDERS: PCP Internal Medicine; Visit Provider Internal Medicine
DX: M25.561 Pain in right knee (principal); M25.461 Effusion, right knee
CPT/HCPCS: 73721

== ENCOUNTER → 2021-10-18 13:41 | Outpatient (CLI) | payer MEDICARE, OTHER, SELFPAY ==
[2021-10-18 15:03] LABS: Chloride 99 mmol/L (98-107); Potassium 4.8 mmoL/L (3.5-5.1); Sodium 137 mmol/L (136-145)
[2021-10-18 15:05] LABS: Blood Urea Nitrogen 19 mg/dl (9-20); Estimated Glomerular Filt Rate 96 ml/min (>60); GFR (African American) 116 ML/MIN (>60)
[2021-10-18 15:06] LABS: Alanine Aminotransferase 26 U/L (12-78); Albumin Level 4.3 g/dl (3.5-5.0); Albumin/Globulin Ratio 1.9 (1.1-1.8); Alkaline Phosphatase 48 U/L (38-126); Anion Gap 12.8 mEq/L (5-15); Aspartate Amino Transferase 46 U/L (17-59); Bilirubin,Total 0.8 mg/dl (0.2-1.3); Calcium 9.2 mg/dl (8.4-10.2); Carbon Dioxide 30 mmol/L (22.0-30.0); Chol/HDL Ratio 5.4 (1-3.5); Cholesterol 266 mg/dl (140-200); Globulin 2.3 g/dL (1.3-3.2); Glucose 138 mg/dl (74-100); HDL Cholesterol 49 mg/dl (40-60); Total Protein,Serum 6.6 g/dl (6.3-8.2); Triglycerides 252 mg/dl (30-150); VLDL Cholesterol 50 mg/dL (0-40)
[2021-10-18 15:17] LABS: Direct LDL Cholesterol 182.23 mg/dL (100-129)
== END ==
PROVIDERS: Visit Provider Internal Medicine
DX: E11.9 Type 2 diabetes mellitus without complications (principal); I10 Essential (primary) hypertension; E29.1 Testicular hypofunction; J44.9 Chronic obstructive pulmonary disease, unspecified; F51.01 Primary insomnia
CPT/HCPCS: 80053; 80061; 83036

== ENCOUNTER → 2021-10-19 13:26 | Outpatient (CLI) | payer MEDICARE, OTHER, SELFPAY | PROVIDERS: Visit Provider Internal Medicine | DX: N39.0 Urinary tract infection, site not specified (principal) | CPT/HCPCS: 82043 ==

== ENCOUNTER → 2022-02-13 13:46 | Outpatient (CLI) | payer MEDICARE, OTHER, SELFPAY ==
[2022-02-13 16:39] LABS: Vitamin B12 582 pg/mL (239-931)
== END ==
PROVIDERS: Visit Provider Internal Medicine
DX: E53.8 Deficiency of other specified B group vitamins (principal)
CPT/HCPCS: 82607

== ENCOUNTER → 2022-03-24 11:39 | Outpatient (CLI) | payer MEDICARE, OTHER, SELFPAY ==
[2022-03-24 13:03] LABS: Blood Urea Nitrogen 13 mg/dl (9-20); Estimated Glomerular Filt Rate 133 ml/min (>60); GFR (African American) 161 ML/MIN (>60)
== END ==
PROVIDERS: PCP Internal Medicine; Visit Provider Internal Medicine
DX: Z01.812 Encounter for preprocedural laboratory examination (principal); M54.50 Low back pain, unspecified
CPT/HCPCS: 36415; 82565; 84520

== ENCOUNTER 2022-03-24 14:00 | Outpatient (RCR) | payer MEDICARE, OTHER, SELFPAY | END 2022-03-24 15:00 | disposition home or self-care (01) | LOC: PT 14:00 | PROVIDERS: Visit Provider Orthopaedic Surgery | DX: M17.11 Unilateral primary osteoarthritis, right knee (principal) | CPT/HCPCS: 97760 ==

== ENCOUNTER → 2022-03-27 09:06 | Outpatient (CLI) | payer MEDICARE, OTHER, SELFPAY ==
--- NOTE | 2022-03-27 09:10 | MR_ITS ---
FINAL REPORT CLINICAL HISTORY: INCREASED LEG WEAKNESS, CHRONIC BACK PAIN. HX LUMBAR SURGERY IN 90'S. LBP WITH BILATERAL LEG PAIN. NUMBNESS AND TINGLING BILATERAL FEET [id number]. NO INJURY OR TRAUMA. 25ML PROHANCE GIVEN. FINDINGS: Multiplanar MR imaging of the lumbar spine was performed without and with contrast. On the sagittal T2-weighted images, disc degeneration is seen at multiple levels. There is fusion of L3-4, L4-5, and L5-S1. The vertebral alignment is normal. There is no evidence of fracture. The conus is seen at approximately the L1 level and has an unremarkable appearance. T12-L1: Annular bulge and facet arthropathy are present. There is no significant canal stenosis or neural foraminal narrowing. L1-2: An annular bulge and facet arthropathy are present. There is no significant canal stenosis or neural foraminal narrowing. L2-3: An annular bulge and facet arthropathy are present with mild right neural foraminal narrowing. L3-4: This level is fused. There are L3 laminectomies with moderate bilateral neural foraminal narrowing. L4-5: This level is fused. There are L4 laminectomies with severe right and mild left neural foraminal narrowing. L5-S1: This level is fused. There are L5 laminectomies with severe right and mild left neural foraminal narrowing. No abnormal contrast enhancement is identified. IMPRESSION: Multilevel mild degenerative disc disease and spondylosis with areas of neural foraminal narrowing as described. Postsurgical changes from L3-4 through L5-S1 as detailed above. Reviewed, Interpreted and Dictated by Oni Lozada III, MD Transcribed by Nellie Kaufman Authenticated by Oni Lozada III, MD on 03/27/2022 11:48:14 [facility]
== END ==
PROVIDERS: PCP Internal Medicine; Visit Provider Internal Medicine
DX: M54.50 Low back pain, unspecified (principal); R53.1 Weakness
CPT/HCPCS: 72158; 76376; A9576

== ENCOUNTER → 2022-04-17 13:11 | Outpatient (CLI) | payer MEDICARE, OTHER, SELFPAY ==
[2022-04-17 14:22] LABS: Microalbumin/Creatinine Ratio 46.1
[2022-04-17 14:28] LABS: Basophils # 0.1 K/mm3 (0-0.2); Basophils % 0.7 % (0.1-2.0); Eosinophils % 0.4 % (0.1-12.0); Hematocrit 52.1 % (42.0-52.0); Hemoglobin 17.6 g/dL (14.1-18.0); Lymphocytes # 0.9 K/mm3 (0.7-4.5); Lymphocytes % 7.9 % (10-50); Mean Corpuscular HGB Conc 33.7 g/dL (31.8-35.4); Mean Corpuscular Hemoglobin 31.1 pg (27.0-31.2); Mean Corpuscular Volume 92.3 fl (80-94); Mean Platelet Volume 9.3 fl (7.4-10.4); Monocytes # 0.6 K/mm3 (0.1-1.0); Monocytes % 5.3 % (1.7-9.3); Neutrophils # 9.9 K/mm3 (1.8-7.8); Neutrophils % 85.6 % (37.0-80.0); Platelet Count 279 K/mm3 (142-424); Red Blood Count 5.65 M/mm3 (4.60-6.20); White Blood Count 11.5 K/mm3 (4.8-10.8)
[2022-04-17 14:30] LABS: MANUAL DIFFERENTIAL MANUAL DIFFERENTIAL (MANUAL DIFF)
[2022-04-17 14:31] LABS: Alanine Aminotransferase 27 U/L (12-78); Albumin Level 4.1 g/dl (3.5-5.0); Albumin/Globulin Ratio 1.9 (1.1-1.8); Alkaline Phosphatase 66 U/L (38-126); Anion Gap 11.9 mEq/L (5-15); Aspartate Amino Transferase 33 U/L (17-59); Bilirubin,Total 0.6 mg/dl (0.2-1.3); Blood Urea Nitrogen 17 mg/dl (9-20); Carbon Dioxide 30 mmol/L (22.0-30.0); Chloride 100 mmol/L (98-107); Chol/HDL Ratio 2.9 (1-3.5); Cholesterol 138 mg/dl (140-200); Estimated Glomerular Filt Rate 133 ml/min (>60); GFR (African American) 161 ML/MIN (>60); Globulin 2.2 g/dL (1.3-3.2); Glucose 102 mg/dl (74-100); HDL Cholesterol 48 mg/dl (40-60); Potassium 3.9 mmoL/L (3.5-5.1); Sodium 138 mmol/L (136-145); Total Protein,Serum 6.3 g/dl (6.3-8.2); Triglycerides 105 mg/dl (30-150); VLDL Cholesterol 21 mg/dL (0-40)
[2022-04-17 14:32] LABS: Creatinine,Urine Random 92 mg/dL (Not Estab.)
[2022-04-17 14:42] LABS: Direct LDL Cholesterol 66.87 mg/dL (100-129)
[2022-04-17 15:17] LABS: Hemoglobin A1C 8.3 % (4.0-6.0)
[2022-04-17 20:05] LABS: Burr Cells 1+; Lymphocytes % 8 % (10-50); Monocytes % 7 % (2-9); Neutrophils % 85 % (42-76); Platelet Estimate Normal; Total Cells Counted 100
== END ==
PROVIDERS: PCP Internal Medicine; Visit Provider Internal Medicine
DX: E11.42 Type 2 diabetes mellitus with diabetic polyneuropathy (principal); E11.59 Type 2 diabetes mellitus with other circulatory complications; I10 Essential (primary) hypertension; E29.1 Testicular hypofunction; J44.9 Chronic obstructive pulmonary disease, unspecified
CPT/HCPCS: 80053; 80061; 82043; 82570; 83036; 85007; 85025

== ENCOUNTER → 2022-05-22 13:20 | Outpatient (CLI) | payer MEDICARE, OTHER, SELFPAY ==
[2022-05-23 14:10] LABS: C difficile Toxins AB, EIA Negative (Negative)
== END ==
PROVIDERS: PCP Internal Medicine; Visit Provider Internal Medicine
DX: A04.72 Enterocolitis due to Clostridium difficile, not specified as recurrent (principal)
CPT/HCPCS: 87324

== ENCOUNTER → 2022-09-20 12:49 | Outpatient (CLI) | payer MEDICARE, OTHER, SELFPAY ==
[2022-09-20 17:15] LABS: Hemoglobin A1C 7.1 % (4.0-6.0)
[2022-09-20 18:33] LABS: Alanine Aminotransferase 23 U/L (12-78); Albumin Level 3.8 g/dl (3.5-5.0); Albumin/Globulin Ratio 1.7 (1.1-1.8); Alkaline Phosphatase 73 U/L (38-126); Anion Gap 15.8 mEq/L (5-15); Aspartate Amino Transferase 30 U/L (17-59); Bilirubin,Total 0.7 mg/dl (0.2-1.3); Blood Urea Nitrogen 16 mg/dl (9-20); Calcium 8.7 mg/dl (8.4-10.2); Carbon Dioxide 30 mmol/L (22.0-30.0); Chloride 96 mmol/L (98-107); Chol/HDL Ratio 2.7 (1-3.5); Cholesterol 137 mg/dl (140-200); Estimated Glomerular Filt Rate 111 ml/min (>60); GFR (African American) 135 ML/MIN (>60); Globulin 2.2 g/dL (1.3-3.2); Glucose 147 mg/dl (74-100); HDL Cholesterol 51 mg/dl (40-60); Potassium 3.8 mmoL/L (3.5-5.1); Sodium 138 mmol/L (136-145); Triglycerides 161 mg/dl (30-150); VLDL Cholesterol 32 mg/dL (0-40)
[2022-09-20 18:43] LABS: Direct LDL Cholesterol 65.19 mg/dL (100-129)
[2022-09-22 09:02] LABS: Testosterone,Total 117 ng/dL (264-916)
== END ==
PROVIDERS: PCP Internal Medicine; Visit Provider Internal Medicine
DX: E11.42 Type 2 diabetes mellitus with diabetic polyneuropathy (principal); I10 Essential (primary) hypertension; E29.1 Testicular hypofunction; M15.0 Primary generalized (osteo)arthritis; J44.9 Chronic obstructive pulmonary disease, unspecified
CPT/HCPCS: 80053; 80061; 83036; 84403

== ENCOUNTER 2022-12-29 15:50 | Emergency (ER) | payer MEDICARE, SELFPAY ==
[2022-12-29 16:05] VITALS: BP 133/74; PULSE 77; RESP 19; TEMP 36.6; O2SAT 98; BMI 34.7
--- NOTE | 2022-12-29 16:29 | EXP.UTC ---
Discharge Plan Disposition Patient Disposition: Home, Self-Care Condition: Good Prescriptions Prescriptions: New amoxicillin-pot clavulanate 875-125 mg Tablet 1 tab PO Q12H 7 Days Qty: 14 0RF No Action finasteride 5 mg tablet 5 mg PO HS cyclobenzaprine 10 mg tablet 10 mg PO TID PRN (Reason: Muscle Spasm) oxycodone 30 mg tablet 30 mg PO Q4-6H PRN (Reason: pain) terazosin 10 mg capsule 10 mg PO QHS tamsulosin 0.4 MG capsule 0.4 mg PO HS amlodipine 10 MG tablet 10 mg PO DAILY meloxicam 7.5 MG tablet 15 mg PO DAILY testosterone cypionate 200 oil 200 mg IM WEEKLY cefdinir 300 MG capsule 300 mg PO BID 7 Days Qty: 14 0RF azithromycin 500 MG tablet 500 mg PO DAILY 1 Days Qty: 1 0RF ibuprofen 600 MG tablet 600 mg PO Q6HP PRN (Reason: Mild Pain) Qty: 30 0RF Referrals Follow up/Referrals: Edgar Lopez MD [Primary Care Provider] - See instructions Activity Restrictions/Add. Instructions Additional Instructions/Restrictions: Clean area with antibacterial soap and water Take antibitoics as prescribed Watch area for signs of infection such as redness, streaks, swelling or drainage if seen follow up with your Family Doctor immediately Return if needed Straight to ER if any life threatening symptoms Clinical Impressions Clinical Impression: Cat bite Qualifiers: Encounter type: initial encounter Qualified Code(s): W55.01XA - Bitten by cat, initial encounter Instructions Patient Instructions: DI for Cat Bite, Amoxicillin and Clavulanic Acid Discharge ED Provider: Eva Bingham [facility] [place] HPI General Stated complaint: AO [id number] bit by kitten L index finger Mode of Arrival: Ambulatory Source of Information: Patient and Spouse Limitations: No Limitations Time Seen by Provider: 12/29/22 16:30 Description of Symptoms (Recalled from Triage Doc. by RN): PATIENT C/O CAT BITE TO LEFT INDEX FINGER THAT HAPPENED TODAY. PATIENT VERBALIZES NEED FOR TDAP HEENT Symptoms (Recalled from RN notes): No Resp Symptoms (Recalled from RN notes): No Skin Symptoms (Recalled from RN notes): Yes MS Symptoms (Recalled from RN notes): No Functional Status (Recalled from RN notes): WNL History of Present Illness Provider Complaint: Patient states that he was trying to get a kitten out of the road and the kitten was scared and bite him on the left index finger and scratched him several times on the hand States that he knew he needed a tetanus shot since his was outdated Related Data Home Medications Medication Instructions Recorded Confirmed amlodipine 10 mg tablet 10 mg PO DAILY High blood pressure 04/09/19 03/24/22 tamsulosin 0.4 mg capsule 0.4 mg PO HS unknown 04/09/19 03/24/22 cyclobenzaprine 10 mg tablet 10 mg PO TID PRN Muscle Spasm 04/22/19 03/24/22 finasteride 5 mg tablet 5 mg PO HS prostate 04/22/19 03/24/22 oxycodone 30 mg tablet 30 mg PO Q4-6H PRN pain 04/22/19 03/24/22 terazosin 10 mg capsule 10 mg PO QHS prostate 04/22/19 03/24/22 meloxicam 7.5 mg tablet 15 mg PO DAILY Pain 05/26/19 03/24/22 testosterone cypionate 200 mg/mL 200 mg IM WEEKLY Supplement 05/26/19 03/24/22 intramuscular oil Previous Rx's Medication Instructions Recorded azithromycin 500 mg tablet 500 mg PO DAILY 1 day #1 tab 05/27/19 cefdinir 300 mg capsule 300 mg PO BID 7 days #14 caps 05/27/19 ibuprofen 600 mg tablet 600 mg PO Q6HP PRN Mild Pain #30 07/18/21 tabs amoxicillin 875 mg-potassium 1 tab PO Q12H 7 days #14 tabs 12/29/22 clavulanate 125 mg tablet Allergies Allergy/AdvReac Type Severity Reaction Status Date / Time No Known Allergies Allergy Verified 03/24/22 13:09 Worker's Comp Is this a Worker's Comp case?: No [facility] Disclaimer: The information contained in this section may have been updated after the patient was seen, as this information can be updated by other users. Medical History (Updated 12/29/22 @ 16:39 by Eva Bingham APRN) COPD (chronic
[2022-12-29 16:35] VITALS: BP 133/74; PULSE 77; RESP 19; TEMP 36.6; O2SAT 98
== END 2022-12-29 16:47 | disposition home or self-care (01) ==
PROVIDERS: Emergency Provider Nurse Practitioner; PCP Internal Medicine
DX: W55.01XA Bitten by cat, initial encounter (principal); S60.411A Abrasion of left index finger, initial encounter; S60.512A Abrasion of left hand, initial encounter; Z23 Encounter for immunization
CPT/HCPCS: 90471; 90715; 99212; 99213; G0463

== ENCOUNTER → 2023-03-23 11:55 | Outpatient (CLI) | payer MEDICARE, SELFPAY ==
[2023-03-23 12:56] LABS: Basophils % 0.4 % (0.1-2.0); Eosinophils # 0.1 K/mm3 (0.0-0.4); Eosinophils % 1.4 % (0.1-12.0); Hematocrit 46.1 % (42.0-52.0); Hemoglobin 15.1 g/dL (14.1-18.0); Lymphocytes # 1.5 K/mm3 (0.7-4.5); Lymphocytes % 20.6 % (10-50); Mean Corpuscular HGB Conc 32.7 g/dL (31.8-35.4); Mean Corpuscular Hemoglobin 29.6 pg (27.0-31.2); Mean Corpuscular Volume 90.6 fl (80-94); Mean Platelet Volume 9.8 fl (7.4-10.4); Monocytes # 0.4 K/mm3 (0.1-1.0); Monocytes % 5.8 % (1.7-9.3); Neutrophils # 5.1 K/mm3 (1.8-7.8); Neutrophils % 71.9 % (37.0-80.0); Platelet Count 277 K/mm3 (142-424); Red Blood Count 5.09 M/mm3 (4.60-6.20); White Blood Count 7.1 K/mm3 (4.8-10.8)
[2023-03-23 13:13] LABS: Alanine Aminotransferase 37 U/L (12-78); Albumin Level 4.1 g/dl (3.5-5.0); Albumin/Globulin Ratio 1.9 (1.1-1.8); Alkaline Phosphatase 52 U/L (38-126); Aspartate Amino Transferase 42 U/L (17-59); Bilirubin,Total 0.7 mg/dl (0.2-1.3); Blood Urea Nitrogen 19 mg/dl (9-20); Calcium 9.5 mg/dl (8.4-10.2); Carbon Dioxide 27 mmol/L (22.0-30.0); Chloride 101 mmol/L (98-107); Chol/HDL Ratio 2.9 (1-3.5); Cholesterol 128 mg/dl (140-200); Estimated Glomerular Filt Rate 95 ml/min (>60); GFR (African American) 115 ML/MIN (>60); Globulin 2.2 g/dL (1.3-3.2); Glucose 121 mg/dl (74-100); HDL Cholesterol 44 mg/dl (40-60); Sodium 138 mmol/L (136-145); Total Protein,Serum 6.3 g/dl (6.3-8.2); Triglycerides 170 mg/dl (30-150); VLDL Cholesterol 34 mg/dL (0-40)
[2023-03-23 13:24] LABS: Direct LDL Cholesterol 60.89 mg/dL (100-129)
[2023-03-23 13:43] LABS: Prostate Specific Ag Screen 6.4 ng/ml (0.0-4.0)
[2023-03-25 08:13] LABS: Testosterone,Total 793 ng/dL (264-916)
== END ==
PROVIDERS: PCP Internal Medicine; Visit Provider Internal Medicine
DX: E11.42 Type 2 diabetes mellitus with diabetic polyneuropathy (principal); Z79.84 Long term (current) use of oral hypoglycemic drugs; Z12.5 Encounter for screening for malignant neoplasm of prostate
CPT/HCPCS: 80053; 80061; 83036; 84403; 85025; G0103

== ENCOUNTER → 2023-03-26 12:31 | Outpatient (CLI) | payer MEDICARE, SELFPAY ==
[2023-03-26 13:49] LABS: Creatinine,Urine Random 58 mg/dL (Not Estab.)
[2023-03-26 13:53] LABS: Microalbumin/Creatinine Ratio 43.2
== END ==
PROVIDERS: PCP Internal Medicine; Visit Provider Internal Medicine
DX: R10.13 Epigastric pain (principal); I10 Essential (primary) hypertension; E11.42 Type 2 diabetes mellitus with diabetic polyneuropathy; Z79.84 Long term (current) use of oral hypoglycemic drugs
CPT/HCPCS: 82043; 82570

== ENCOUNTER 2023-04-04 08:31 | Day surgery (SDC) | payer MEDICARE, OTHER, SELFPAY ==
[2023-04-04 09:57] VITALS: BP 112/65; PULSE 70; RESP 18; TEMP 36.5; O2SAT 99; BMI 34.7
[2023-04-04 10:46] LABS: POC Glucose,Bedside 137 (70-110)
--- NOTE | 2023-04-04 10:47 | EXP.ANES.CKL ---
[facility] Disclaimer: The information contained in this section may have been updated after the patient was seen, as this information can be updated by other users. Medical History COPD (chronic obstructive pulmonary disease) Diabetes mellitus, type 2 Hyperlipidemia Hypertension Surgical History Hx of laparoscopic gastric banding Family History Other Family history of cancer Social History Smoking Status: Former smoker alcohol intake: former substance use type: denies use current occupational status: retired Travel in the last 8 weeks: None household members: none housing: house lives independently: Yes marital status: single education level: high school service: Yes current occupational exposures/hazards: No caffeine: Yes special frank needs: No do you feel safe at home: Yes victim of physical abuse: No victim of emotional abuse: No victim of sexual abuse: No would you like helpful sources: No [facility] Anesthesia Checklist Patient Identification Patient Identification: Arm Band and Verbal (Name & ) Structural Data Admitted From: Home Planned Operative Procedure/s: EGD Consent for Planned Operative Procedure(s) Verified: Yes NPO Status Verified Time NPO: 00:00 Airway Assessment C-Spine Mobility Assessed: Yes TMJ Mobility Assessed: Yes Dentition: Edentulous Neurological Assessment Level of Consciousness: Awake Hx Seizures: No Numbness or tingling in extremities: No Anesthesia Plan Anesthesia Risk discussed: Yes Anesthesia Plan: Verified ASA Class: III Anesthesia Type: MAC
[2023-04-04 10:58] VITALS: O2SAT 97
--- NOTE | 2023-04-04 11:14 | HMH.SCOPE ---
Procedure: Date: 04/04/23 Patient Date of :: 1950 Procedure Performed:: EGD Indications:: Epigastric pain. The patient reports improvement in symptom wih otc H2RA use Performing Provider:: Yuri Solares MD Referring Provider:: Edgar Lopez MD Sedation:: See RN records Procedure:: The gastroscope was gently passed through the incisoral orifice into the oral cavity and under direct visualization the esophagus was intubated. The endoscope was passed down the esophagus, through the stomach, and into the duodenum. Color, texture, mucosa, and anatomy of the esophagus, stomach, and duodenum were carefully examined with the scope. Findings:: Oropharynx: normal Esophagus: normal EG Junction: intact at 40 cm Cardia: normal Fundus: normal Body: diffuse erythema. biopsies obtained Antrum: diffuse erythema. biopsies obtained Duodenal bulb: normal Duodenum (second and third portion): normal Impression: diffuse gastric erythema Recommendations:: Await pathology results Can use pepcid or prilosec otc as needed Complications:: None Estimated blood obtained (mL): 0
[2023-04-04 11:15] VITALS: BP 109/56; PULSE 66; RESP 18; TEMP 36.3; O2SAT 94
[2023-04-04 11:25] VITALS: BP 110/77; PULSE 65; RESP 17; O2SAT 93
[2023-04-04 11:35] VITALS: BP 109/59; PULSE 65; RESP 16; O2SAT 95
[2023-04-04 11:45] VITALS: BP 115/71; PULSE 64; RESP 16; TEMP 36.6; O2SAT 99
== END 2023-04-04 12:00 | disposition home or self-care (01) ==
PROVIDERS: PCP Internal Medicine; Visit Provider Internal Medicine
PROC: 0DJ08ZZ Inspection of Upper Intestinal Tract, Via Natural or Artificial Opening Endoscopic (ICD-10-PCS; CPT 43235; principal; 2023-04-04 10:30)
DX: K29.70 Gastritis, unspecified, without bleeding (principal); B96.81 Helicobacter pylori [H. pylori] as the cause of diseases classified elsewhere; Z79.899 Other long term (current) drug therapy; E11.9 Type 2 diabetes mellitus without complications
CPT/HCPCS: 43239; 82962; 88305

== ENCOUNTER → 2023-05-04 14:58 | Outpatient (CLI) | payer MEDICARE, OTHER, SELFPAY ==
--- NOTE | 2023-05-04 15:03 | XR_ITS ---
FINAL REPORT CLINICAL HISTORY: LEFT SHOULDER PAIN x mos, NKT, pain radiates distally w occasional numbness. FINDINGS: Three views show no evidence of acute displaced fracture or dislocation of the visualized bony architecture. The joint spaces appear normal. IMPRESSION: Unremarkable exam. Reviewed, Interpreted and Dictated by Julieta Reeves MD Transcribed by Lizette Anderson Authenticated and [facility]
== END ==
PROVIDERS: PCP Internal Medicine; Visit Provider Internal Medicine
DX: M25.512 Pain in left shoulder (principal)
CPT/HCPCS: 73030

== ENCOUNTER → 2023-05-08 13:39 | Outpatient (CLI) | payer MEDICARE, OTHER, SELFPAY ==
--- NOTE | 2023-05-08 13:43 | MR_ITS ---
FINAL REPORT CLINICAL HISTORY: LEFT SHOULDER PAIN...ROTATOR CUFF SYNDROME. limited rom. weakness in arm. no injury or trauma FINDINGS: Multiplanar MR imaging of the left shoulder was performed without contrast. Motion on many of the images decreases exam sensitivity there is a partial-thickness articular surface tear at the anterior footprint of the infraspinatus tendon involving greater than 50% of tendon thickness. There is no full-thickness rotator cuff tendon tear. There is mild AC joint degenerative change. A small amount fluid is seen in the subacromial/subdeltoid bursa. The glenoid labrum is intact. The long head of the biceps tendon is intact. A small glenohumeral joint effusion is seen. There is no evidence of fracture or dislocation. The musculature is intact. There is no evidence of soft tissue mass. IMPRESSION: Partial thickness tear of the anterior infraspinatus tendon, greater than 50%. Mild AC joint arthrosis. Reviewed, Interpreted and Dictated by Oni Lozada III, MD Transcribed by Alejandro Garcia Authenticated and [facility]
== END ==
PROVIDERS: PCP Internal Medicine; Visit Provider Internal Medicine
DX: M75.102 Unspecified rotator cuff tear or rupture of left shoulder, not specified as traumatic (principal); M25.512 Pain in left shoulder
CPT/HCPCS: 73221

== ENCOUNTER → 2023-09-17 14:38 | Outpatient (CLI) | payer MEDICARE, OTHER, SELFPAY ==
[2023-09-17 15:25] LABS: Alanine Aminotransferase 25 U/L (12-78); Albumin Level 4.1 g/dl (3.5-5.0); Albumin/Globulin Ratio 1.9 (1.1-1.8); Alkaline Phosphatase 44 U/L (38-126); Anion Gap 13.9 mEq/L (5-15); Aspartate Amino Transferase 35 U/L (17-59); Bilirubin,Total 0.8 mg/dl (0.2-1.3); Blood Urea Nitrogen 15 mg/dl (9-20); Calcium 9.5 mg/dl (8.4-10.2); Carbon Dioxide 32 mmol/L (22.0-30.0); Chloride 97 mmol/L (98-107); Chol/HDL Ratio 2.7 (1-3.5); Cholesterol 117 mg/dl (140-200); Estimated Glomerular Filt Rate 95 ml/min (>60); GFR (African American) 115 ML/MIN (>60); Globulin 2.2 g/dL (1.3-3.2); Glucose 151 mg/dl (74-100); HDL Cholesterol 44 mg/dl (40-60); Potassium 3.9 mmoL/L (3.5-5.1); Sodium 139 mmol/L (136-145); Total Protein,Serum 6.3 g/dl (6.3-8.2); Triglycerides 143 mg/dl (30-150); VLDL Cholesterol 29 mg/dL (0-40)
[2023-09-17 15:36] LABS: Direct LDL Cholesterol 59.04 mg/dL (100-129)
[2023-09-17 17:00] LABS: Hemoglobin A1C 6.5 % (4.0-6.0)
== END ==
PROVIDERS: PCP Internal Medicine; Visit Provider Internal Medicine
DX: E11.42 Type 2 diabetes mellitus with diabetic polyneuropathy (principal); R10.13 Epigastric pain; I10 Essential (primary) hypertension; E78.5 Hyperlipidemia, unspecified; J44.9 Chronic obstructive pulmonary disease, unspecified; M54.42 Lumbago with sciatica, left side; Z79.84 Long term (current) use of oral hypoglycemic drugs
CPT/HCPCS: 80053; 80061; 83036

== ENCOUNTER → 2023-09-19 10:23 | Outpatient (CLI) | payer MEDICARE, OTHER, SELFPAY ==
[2023-09-20 13:10] LABS: H. pylori Breath Test Negative (Negative)
== END ==
PROVIDERS: PCP Internal Medicine; Visit Provider Internal Medicine
DX: R10.13 Epigastric pain (principal); Z86.19 Personal history of other infectious and parasitic diseases
CPT/HCPCS: 83013

== ENCOUNTER → 2023-09-27 09:55 | Outpatient (CLI) | payer MEDICARE, OTHER, SELFPAY ==
--- NOTE | 2023-09-27 10:07 | ECG_ITS ---
APPROVED REPORT Exam: Resting ECG HR:66 bpm ECG Measurements Heart Rate 66 AXES MO 157 P 22 QRSd 102 QRS 6 QT 386 T -34 QTc 400 Conclusion SINUS RHYTHM WITH OCCASIONAL SUPRAVENTRICULAR PREMATURE COMPLEXES NONSPECIFIC ST & T-WAVE ABNORMALITY BORDERLINE ECG UNCONFIRMED REPORT Electronically signed by : Rayo Jimenes MD 09/27/2023 21:36:49
--- NOTE | 2023-09-27 10:23 | XR_ITS ---
FINAL REPORT CLINICAL HISTORY: HTN FINDINGS: Two views of the chest were obtained. The heart size and pulmonary vascularity are within normal limits. The mediastinum is normal. No acute pulmonary abnormality is identified. There is no pneumothorax. The bony thorax is intact. There are postoperative changes in the upper abdomen. IMPRESSION: No active cardiopulmonary disease. Reviewed, Interpreted and Dictated by Oni Lozada III, MD Transcribed by Nellie Kaufman Authenticated and [facility]
[2023-09-27 10:53] LABS: Basophils % 0.5 % (0.1-2.0); Eosinophils # 0.1 K/mm3 (0.0-0.4); Eosinophils % 1.9 % (0.1-12.0); Hematocrit 47.5 % (42.0-52.0); Hemoglobin 16.4 g/dL (14.1-18.0); Lymphocytes # 1.3 K/mm3 (0.7-4.5); Lymphocytes % 25.6 % (10-50); Mean Corpuscular HGB Conc 34.6 g/dL (31.8-35.4); Mean Corpuscular Hemoglobin 31.3 pg (27.0-31.2); Mean Corpuscular Volume 90.4 fl (80-94); Mean Platelet Volume 8.3 fl (7.4-10.4); Monocytes # 0.4 K/mm3 (0.1-1.0); Monocytes % 7.6 % (1.7-9.3); Neutrophils # 3.1 K/mm3 (1.8-7.8); Neutrophils % 64.3 % (37.0-80.0); Platelet Count 239 K/mm3 (142-424); Red Blood Count 5.25 M/mm3 (4.60-6.20); Red Cell Distribution Width 13.3 % (11.5-17.5); White Blood Count 4.9 K/mm3 (4.8-10.8)
[2023-09-27 11:25] LABS: Anion Gap 13.5 mEq/L (5-15); Blood Urea Nitrogen 16 mg/dl (9-20); Calcium 9.7 mg/dl (8.4-10.2); Carbon Dioxide 32 mmol/L (22.0-30.0); Chloride 97 mmol/L (98-107); Estimated Glomerular Filt Rate 95 ml/min (>60); GFR (African American) 115 ML/MIN (>60); Glucose 133 mg/dl (74-100); Potassium 3.5 mmoL/L (3.5-5.1); Sodium 139 mmol/L (136-145)
[2023-09-27 12:29] LABS: Hemoglobin A1C 6.4 % (4.0-6.0)
== END ==
PROVIDERS: PCP Internal Medicine; Visit Provider Orthopaedic Surgery
DX: Z87.898 Personal history of other specified conditions (principal); R73.09 Other abnormal glucose; Z01.818 Encounter for other preprocedural examination
CPT/HCPCS: 36415; 71046; 80048; 83036; 85025; 93005

== ENCOUNTER 2024-04-16 16:52 | Outpatient (CLI) | payer MEDICARE, OTHER, SELFPAY ==
[2024-04-16 17:26] LABS: Basophils % 0.4 % (0.1-2.0); Eosinophils # 0.1 K/mm3 (0.0-0.4); Eosinophils % 1.8 % (0.1-12.0); Hematocrit 47.1 % (42.0-52.0); Hemoglobin 15.6 g/dL (14.1-18.0); Lymphocytes # 1.4 K/mm3 (0.7-4.5); Lymphocytes % 21.1 % (10-50); Mean Corpuscular HGB Conc 33.1 g/dL (31.8-35.4); Mean Corpuscular Hemoglobin 31.1 pg (27.0-31.2); Mean Corpuscular Volume 93.9 fl (80-94); Mean Platelet Volume 8.8 fl (7.4-10.4); Monocytes # 0.4 K/mm3 (0.1-1.0); Monocytes % 6.4 % (1.7-9.3); Neutrophils # 4.7 K/mm3 (1.8-7.8); Neutrophils % 70.4 % (37.0-80.0); Platelet Count 254 K/mm3 (142-424); Red Blood Count 5.02 M/mm3 (4.60-6.20); Red Cell Distribution Width 13.9 % (11.5-17.5); White Blood Count 6.7 K/mm3 (4.8-10.8)
[2024-04-16 18:42] LABS: Alanine Aminotransferase 29 U/L (12-78); Albumin Level 4.5 g/dl (3.5-5.0); Alkaline Phosphatase 47 U/L (38-126); Anion Gap 15.5 mEq/L (5-15); Aspartate Amino Transferase 38 U/L (17-59); Blood Urea Nitrogen 18 mg/dl (9-20); Carbon Dioxide 29 mmol/L (22.0-30.0); Chloride 99 mmol/L (98-107); Chol/HDL Ratio 1.9 (1-3.5); Cholesterol 145 mg/dl (140-200); Estimated Glomerular Filt Rate 95 ml/min (>60); GFR (African American) 115 ML/MIN (>60); Globulin 2.3 g/dL (1.3-3.2); Glucose 91 mg/dl (74-100); HDL Cholesterol 75 mg/dl (40-60); Potassium 4.5 mmoL/L (3.5-5.1); Sodium 139 mmol/L (136-145); Total Protein,Serum 6.8 g/dl (6.3-8.2); Triglycerides 113 mg/dl (30-150); VLDL Cholesterol 23 mg/dL (0-40)
[2024-04-16 18:58] LABS: Direct LDL Cholesterol 61.58 mg/dL (100-129)
[2024-04-16 19:43] LABS: Prostate Specific Ag Screen 6.7 ng/ml (0.0-4.0)
[2024-04-16 19:59] LABS: Creatinine,Urine Random 146 mg/dL (Not Estab.)
[2024-04-16 20:06] LABS: Microalbumin/Creatinine Ratio 50.9
[2024-04-16 20:44] LABS: Hemoglobin A1C 6.3 % (4.0-6.0)
== END 2024-04-16 23:59 | disposition home or self-care (01) ==
LOC: LAB.DROPOF 16:53
PROVIDERS: PCP Internal Medicine; Visit Provider Internal Medicine
DX: E11.42 Type 2 diabetes mellitus with diabetic polyneuropathy (principal); I10 Essential (primary) hypertension; M15.0 Primary generalized (osteo)arthritis; E78.5 Hyperlipidemia, unspecified; J44.9 Chronic obstructive pulmonary disease, unspecified; Z79.899 Other long term (current) drug therapy; Z12.5 Encounter for screening for malignant neoplasm of prostate
CPT/HCPCS: 80053; 80061; 82043; 82570; 83036; 85025; G0103

== ENCOUNTER 2024-06-04 07:34 | Day surgery (SDC) | payer MEDICARE, OTHER, SELFPAY ==
--- NOTE | 2024-06-04 07:56 | P.PNANES_ITS ---
[facility] Disclaimer: The information contained in this section may have been updated after the patient was seen, as this information can be updated by other users. Medical History Diabetes mellitus, type 2 COPD (chronic obstructive pulmonary disease) Hyperlipidemia Hypertension Surgical History Hx of laparoscopic gastric banding Family History Other Family history of cancer Social History Smoking Status: Former smoker tobacco type: cigarettes packs per day: 1 alcohol intake: former substance use type: denies use current occupational status: retired Travel in the last 8 weeks: None household members: none housing: house lives independently: Yes marital status: single education level: high school service: Yes current occupational exposures/hazards: No caffeine: Yes special frank needs: No do you feel safe at home: Yes victim of physical abuse: No victim of emotional abuse: No victim of sexual abuse: No would you like helpful sources: No [facility] Anesthesia Checklist Patient Identification Patient Identification: Arm Band and Verbal (Name & ) Structural Data Admitted From: Home Planned Operative Procedure/s: Colonoscopy Consent for Planned Operative Procedure(s) Verified: Yes NPO Status Verified Time NPO: 00:00 Additional verifications Anesthesia Reactions: No Airway Assessment Mallampati Score:: Class IV C-Spine Mobility Assessed: Yes TMJ Mobility Assessed: Yes Dentition: Poor Dentition (Few remaining) Neurological Assessment Level of Consciousness: Awake Hx Seizures: No Numbness or tingling in extremities: No Anesthesia Plan Anesthesia Risk discussed: Yes Anesthesia Plan: Verified ASA Class: III Anesthesia Type: MAC
[2024-06-04] MEDS: LACTATED RINGERS 1000ML 1,000 ML 25 ML IV (08:01)
[2024-06-04 08:05] VITALS: BP 136/74; PULSE 67; RESP 18; TEMP 36.7; O2SAT 95; BMI 33.3
[2024-06-04 08:25] LABS: POC Glucose,Bedside 117 (70-110)
[2024-06-04 08:35] VITALS: O2SAT 97
--- NOTE | 2024-06-04 08:43 | P.PCN_ITS ---
Procedure: Date: 06/04/24 Patient Date of :: 1950 Procedure Performed:: Colonoscopy Indications:: The patient is a 73-year-old who presents for surveillance colonoscopy for a prior history of polyps in the past Performing Provider:: Yuri Solares MD Referring Provider:: Edgar Lopez MD Sedation:: See RN records Procedure:: After placing the patient in the left lateral decubitus position, the colonosc opy was gently inserted into the rectum and under direct visualization advanced to the descending colon. The patient tolerated the procedure well. Findings:: The quality of the bowel preparation was inadequate for polyp detection (characterized by thick brown and green substance adherent to the mucosa with partially digested food material). The substance would not easily irrigate off the mucosa. The procedure was aborted Recommendations:: The patient will need to repeat colonoscopy and take the bowel preparation as prescribed Recommend 2-day liquid diet and split dose bowel preparation Complications:: none Estimated blood obtained (mL): 0 Colonoscopy Component Colonoscopy Component Was a colonoscopy performed during today's procedure?: Yes Recommended follow up colonoscopy of at least 10 years?: Yes
[2024-06-04 08:45] VITALS: BP 102/60; PULSE 69; RESP 18; TEMP 36.7; O2SAT 96
[2024-06-04 08:54] VITALS: BP 96/55; PULSE 61; RESP 16; O2SAT 98
[2024-06-04 09:14] VITALS: BP 110/71; PULSE 66; RESP 16; O2SAT 98
== END 2024-06-04 09:15 | disposition home or self-care (01) ==
PROVIDERS: PCP Internal Medicine; Visit Provider Internal Medicine
PROC: (CPT G0104; principal; 2024-06-04 09:00)
DX: Z12.11 Encounter for screening for malignant neoplasm of colon (principal); Z86.010 Personal history of colon polyps; E11.8 Type 2 diabetes mellitus with unspecified complications
CPT/HCPCS: G0104; 82962; J7120

== ENCOUNTER 2024-07-08 11:01 | Outpatient (POV) | payer MEDICARE, OTHER, SELFPAY | END 2024-07-08 23:59 | disposition home or self-care (01) | LOC: SC 11:02 | PROVIDERS: PCP Internal Medicine; Visit Provider Dermatology | DX: Z00.00 Encounter for general adult medical examination without abnormal findings (principal) ==

== ENCOUNTER 2024-10-15 10:47 | Day surgery (SDC) | payer MEDICARE, OTHER, SELFPAY ==
[2024-10-14 11:03] VITALS: BMI 33.3
[2024-10-15] MEDS: LACTATED RINGERS 1000ML 1,000 ML 25 ML IV (11:27)
[2024-10-15 11:30] VITALS: BP 154/91; PULSE 101; RESP 18; TEMP 36.6; O2SAT 98
[2024-10-15 11:42] LABS: POC Glucose,Bedside 90 (70-110)
[2024-10-15 12:16] VITALS: O2SAT 98
--- NOTE | 2024-10-15 12:16 | EXP.HP ---
History of Present Illness *Admission Date: 10/15/24 *Reason for visit:: Surveillance-history of adenomatous polyps *History of present illness: Mr. Cowart is a 73-year-old gentleman who is here for surveillance colonoscopy. He had a colonoscopy 6 or 7 years ago at which time polyps were removed. He did have an attempted colonoscopy in May 2024 but it was unprepped (Yuri Solares). The examination is deemed medically necessary for colonoscopy. The patient has been seen, interviewed and examined prior to the procedure by both myself and the anesthesia provider. [facility] Disclaimer: The information contained in this section may have been updated after the patient was seen, as this information can be updated by other users. Medical History (Updated 10/15/24 @ 12:18 by Kvng Galo II, MD) Impacted cerumen of right ear BPPV (benign paroxysmal positional vertigo) Helicobacter pylori gastritis Diabetes mellitus, type 2 COPD (chronic obstructive pulmonary disease) Hyperlipidemia Hypertension Surgical History History of colonoscopy with polypectomy History of cataract surgery History of shoulder surgery History of back surgery Hx of laparoscopic gastric banding Family History Other Family history of cancer Social History Smoking Status: Former smoker tobacco type: cigarettes packs per day: 1 alcohol intake: former substance use type: denies use current occupational status: retired Travel in the last 8 weeks: None household members: none housing: house lives independently: Yes marital status: single education level: high school service: Yes current occupational exposures/hazards: No caffeine: Yes special frank needs: No do you feel safe at home: Yes victim of physical abuse: No victim of emotional abuse: No victim of sexual abuse: No would you like helpful sources: No Other Medical History Have you received the Flu Vaccine for this season: No Have you received the Pneumonia Vaccine: Yes Review of Systems Review of Systems Review of systems (narrative): Negative *Cardiovascular Comments: Negative *Gastrointestinal Comments: Negative *Genitourinary Comments: Negative *Musculoskeletal Comments: Negative *Neurologic Comments: Negative Meds Home Medications and Allergies Home Medications ?Medication ?Instructions ?Recorded ?Confirmed ?Type amlodipine 10 mg tablet 10 mg PO DAILY High blood pressure 04/09/19 10/15/24 History albuterol sulfate 2.5 mg/3 mL 2.5 mg inhalation Q4H PRN SOA 04/02/23 10/15/24 History (0.083 %) solution for nebulization indapamide 2.5 mg tablet 2.5 mg PO DAILY HTN 04/04/23 10/15/24 History vitamin B6-vitamin E-magnesium 1 tab PO DAILY Supplement 04/04/23 10/15/24 History tablet needle (disp) 18 G 18 gauge x 1 #100 ea 06/13/24 10/14/24 Rx (BD Regular [place]) albuterol sulfate 90 mcg/actuation 2 puff inhalation Q4-6H PRN 08/06/24 10/15/24 Rx aerosol inhaler shortness of breath or wheezing #8.5 grams gabapentin 300 mg capsule 300 mg PO DAILY 08/06/24 10/15/24 History metformin 1,000 mg tablet 1,000 mg PO BID Diabetes #180 tabs 08/06/24 10/15/24 Rx oxycodone 30 mg tablet 30 mg PO Q4-6H PRN pain #30 tabs 08/06/24 10/15/24 Rx rosuvastatin 20 mg tablet 20 mg PO DAILY Cholesterol 08/06/24 10/15/24 History sildenafil 100 mg tablet 100 mg PO DAILY 08/06/24 10/15/24 History testosterone cypionate 200 mg/mL 300 mg (1.5 mL) IM WEEKLY #10 mL 08/26/24 10/15/24 Rx intramuscular oil syringe with needle 3 mL 25 x 1 #7 ea 08/28/24 10/14/24 Rx 1/2 (BD Luer-Charissa Syringe) meloxicam 7.5 mg tablet See Rx Instructions .Route 09/12/24 10/15/24 Rx .COMPLEX #180 tabs New Prescriptions to Start Prescriptions: Allergies Allergy/AdvReac Type Severity Reaction Status Date / Time No Known Allergies Allergy Verified 10/15/24 11:28 Exam Data for Last 24 hours Vital signs and Labs for Last 24 Hours: Temp Pulse Resp BP Pulse Ox O2 Del Method O2 Flow Rate 97.9 F 101 H 18 154/91 H 98 Nasal Cannula 5 10/15/24 11:30 10/15/24 11:30 10/15/24 11:30 10/15/24 11:30 10/15/24 11:30 10/15/24 12:16 10/15/24 12:16 Laboratory Results - last 24 hr 10/15/24 11:33: POC Glucose 90 I & O for Last 24 hours: Intake & Output 10/12/24 10/13/24 10/14/24 10/15/24 23:59 23:59 23:59 23:59 Weight 260 lb *Routine HEENT Exam Head: Present normocephalic Eye: Present EOMI and PERRL ENT: Present mucous membranes moist *Routine Neck Exam Neck: Present supple *Routine Respiratory Exam Respiratory: Present CTA bilaterally *Routine Cardiovascular Exam Cardiovascular: Present RRR *Routine Abdominal Exam Abdominal: Present soft and normoactive bowel sounds; Absent tenderness *Routine Rectal Exam Rectal:: deferred *Routine Genitalia Exam Genitalia:: deferred *Routine Extremities Exam Extremities: Absent cyanosis, clubbing or edema *Routine Skin Exam Skin: Present warm; Absent rash *Routine Neurological Exam Neurological: Present alert and oriented X3 Assessment and Plan *Assessment and plan (1) Personal history of adenomatous and serrated colon polyps: Status: Acute Category: Medical Code(s): Z86.0101 - Personal history of adenomatous and serrated colon polyps Plan A/P: 1. Personal history of adenomatous polyps is the preprocedural diagnosis. The patient will be anesthetized/sedated using MAC sedation. The patient has been seen and examined. Cardiac and lung assessment prior to the examination is stable. Proceed with planned colonoscopy
--- NOTE | 2024-10-15 12:18 | HMH.PROCNOTE ---
[facility] Procedure Note Date: 10/15/24 Time: 12:37 Procedure Note:: Colonoscopy Procedure Report: Colonoscopy with cold snare polypectomy Endoscopist: Kvng Galo II, MD Referring physician: Edgar Lopez MD Date of Procedure: October 15, 2024 Equipment: Olympus 190 variable stiffness pediatric colonoscope Sedation: MAC sedation Indication: Mr. Cowart is a 73-year-old gentleman who is here for follow-up surveillance colonoscopy secondary to a personal history of adenomatous polyps. His last colonoscopy was 6 to 7 years ago (report is not available). He reports no abdominal pain, weight loss, change in his bowel habits or rectal bleeding. He reports no family history of colon cancer. He did have an attempted colonoscopy in May 2024 but the preparation was poor and the exam was not complete (only to descending colon). Procedure: Prior to the procedure, a history and physical exam was performed, and patient's medications and allergies were reviewed. The risks, benefits and alternatives of the sedation and procedure were discussed with the patient. All questions were answered and informed consent was obtained. The patient was brought to the procedure room. Patient identification and proposed procedure were verified by the physician and the nurse. The patient was placed in a left lateral decubitus position and the scope was passed under direct vision. Throughout the procedure, the patient's blood pressure, pulse, and oxygen saturations were monitored continuously. The colonoscopy was accomplished without difficulty. The patient tolerated the procedure well. Findings: On digital rectal examination there was normal rectal tone. There were no external hemorrhoids. The colonoscope was introduced through the anal canal to the rectum and advanced to the cecum. The ileocecal valve and appendiceal orifice were identified. The scope was advanced a short distance into the ileum which appeared grossly normal. The scope was then withdrawn into the colon. There was submucosal spot ink/Angela ink tattoo in the proximal ascending colon and this was examined carefully to ensure no residual polyp. There was some mucosal cobblestoning on the ileocecal valve and this was removed via cold snare polypectomy to ensure no residual adenoma. There was a second 5 mm polyp in the descending colon removed via cold snare polypectomy. There were extensively scattered diverticuli throughout the descending and sigmoid colon (LEFT colon). The rectum itself was normal. Upon retroflexion within the rectum there were grade 2 internal hemorrhoids. The preparation was good throughout with Gackle Preparation Score of 8 out of 9. The cecal time was 12 minutes. Impression: 1. Colonic polyps x 2 2. Submucosal Angela ink/spot ink tattoo identified in ascending colon where former polyp was removed 3. Extensive left-sided diverticulosis 4. Grade 2 internal hemorrhoids Plan: I will follow-up the polyp histology and recommend repeat surveillance colonoscopy again in 5 years. I would encourage psyllium bulking fiber supplementation on a long-term daily maintenance basis.
--- NOTE | 2024-10-15 12:32 | P.PNANES_ITS ---
[facility] Disclaimer: The information contained in this section may have been updated after the patient was seen, as this information can be updated by other users. Medical History (Updated 10/15/24 @ 12:18 by Kvng Galo II, MD) Impacted cerumen of right ear BPPV (benign paroxysmal positional vertigo) Helicobacter pylori gastritis Diabetes mellitus, type 2 COPD (chronic obstructive pulmonary disease) Hyperlipidemia Hypertension Surgical History History of colonoscopy with polypectomy History of cataract surgery History of shoulder surgery History of back surgery Hx of laparoscopic gastric banding Family History Other Family history of cancer Social History Smoking Status: Former smoker tobacco type: cigarettes packs per day: 1 alcohol intake: former substance use type: denies use current occupational status: retired Travel in the last 8 weeks: None household members: none housing: house lives independently: Yes marital status: single education level: high school service: Yes current occupational exposures/hazards: No caffeine: Yes special frank needs: No do you feel safe at home: Yes victim of physical abuse: No victim of emotional abuse: No victim of sexual abuse: No would you like helpful sources: No [facility] Anesthesia Checklist Patient Identification Patient Identification: Arm Band Structural Data Admitted From: Home Planned Operative Procedure/s: Colonoscopy Consent for Planned Operative Procedure(s) Verified: Yes Verified Documents: Surgical Consent and History and Physical NPO Status Verified Time NPO: 00:00 Additional verifications Anesthesia Reactions: No Airway Assessment Mallampati Score:: Class II C-Spine Mobility Assessed: Yes TMJ Mobility Assessed: Yes Dentition: Dentures-good fit (removed) Neurological Assessment Level of Consciousness: Awake, Alert and Appropriate Anesthesia Plan Anesthesia Risk discussed: Yes Anesthesia Plan: Verified ASA Class: III Anesthesia Type: MAC
[2024-10-15 12:43] VITALS: BP 119/61; PULSE 72; RESP 16; TEMP 36.7; O2SAT 97
[2024-10-15 12:53] VITALS: BP 113/67; PULSE 72; RESP 16; O2SAT 98
[2024-10-15 13:03] VITALS: BP 138/89; PULSE 78; RESP 18; O2SAT 97
[2024-10-15 13:13] VITALS: BP 119/84; PULSE 71; RESP 18; O2SAT 98
== END 2024-10-15 13:30 | disposition home or self-care (01) ==
PROVIDERS: PCP Internal Medicine; Visit Provider Internal Medicine Gastroenterology
PROC: (CPT 45385; principal; 2024-10-15 12:30)
DX: K63.5 Polyp of colon (principal); K57.30 Diverticulosis of large intestine without perforation or abscess without bleeding; K64.1 Second degree hemorrhoids; Z86.0101 Personal history of adenomatous and serrated colon polyps; E11.8 Type 2 diabetes mellitus with unspecified complications; Z79.84 Long term (current) use of oral hypoglycemic drugs
CPT/HCPCS: 45385; 82962; J7120

== ENCOUNTER 2024-11-06 14:11 | Outpatient (CLI) | payer MEDICARE, OTHER, SELFPAY ==
[2024-11-06 14:45] LABS: Alanine Aminotransferase 29 U/L (12-78); Albumin Level 4.5 g/dl (3.5-5.0); Albumin/Globulin Ratio 2.1 (1.1-1.8); Alkaline Phosphatase 44 U/L (38-126); Aspartate Amino Transferase 47 U/L (17-59); Blood Urea Nitrogen 19 mg/dl (9-20); Calcium 9.8 mg/dl (8.4-10.2); Carbon Dioxide 34 mmol/L (22.0-30.0); Chloride 99 mmol/L (98-107); Chol/HDL Ratio 2.5 (1-3.5); Cholesterol 128 mg/dl (140-200); Estimated Glomerular Filt Rate 73 ml/min (>60); GFR (African American) 89 ML/MIN (>60); Globulin 2.1 g/dL (1.3-3.2); Glucose 98 mg/dl (74-100); HDL Cholesterol 52 mg/dl (40-60); Sodium 140 mmol/L (136-145); Total Protein,Serum 6.6 g/dl (6.3-8.2); Triglycerides 119 mg/dl (30-150); VLDL Cholesterol 24 mg/dL (0-40)
[2024-11-06 14:56] LABS: Direct LDL Cholesterol 61.29 mg/dL (100-129)
[2024-11-06 16:19] LABS: Hemoglobin A1C 6.3 % (4.0-6.0)
== END 2024-11-06 23:59 | disposition home or self-care (01) ==
LOC: LAB.DROPOF 14:12
PROVIDERS: PCP Internal Medicine; Visit Provider Internal Medicine
DX: I10 Essential (primary) hypertension (principal); E78.5 Hyperlipidemia, unspecified; E11.42 Type 2 diabetes mellitus with diabetic polyneuropathy
CPT/HCPCS: 80053; 80061; 83036

== ENCOUNTER 2025-04-15 11:31 | Outpatient (CLI) | payer MEDICARE, SELFPAY ==
[2025-04-16 08:59] LABS: Basophils % 0.5 % (0.1-2.0); Eosinophils # 0.1 Kmm3 (0.0-0.4); Eosinophils % 1.6 % (0.1-12.0); Hematocrit 52.1 % (42.0-52.0); Hemoglobin 16.4 g/dL (14.1-18.0); Immature Granulocytes # 0.01 10^3uL; Immature Granulocytes % 0.2 %; Lymphocytes # 1.1 K/mm3 (0.7-4.5); Lymphocytes % 24.5 % (10-50); Mean Corpuscular HGB Conc 31.5 g/dL (31.8-35.4); Mean Corpuscular Hemoglobin 29.5 pg (27.0-31.2); Mean Corpuscular Volume 93.9 fl (80-94); Mean Platelet Volume 10.6 fl (7.4-10.4); Monocytes # 0.3 K/mm3 (0.1-1.0); Monocytes % 7.8 % (1.7-9.3); Neutrophils # 2.9 K/mm3 (1.8-7.8); Neutrophils % 65.4 % (37.0-80.0); Nucleated Red Blood Cells # 0 10^3/uL; Nucleated Red Blood Cells % 0 %; Platelet Count 200 K/mm3 (142-424); Red Blood Count 5.55 M/mm3 (4.60-6.20); Red Cell Distribution Width 13.3 % (11.5-17.5); Red Cell Distribution Width-SD 45.5 fL; White Blood Count 4.4 K/mm3 (4.8-10.8)
[2025-04-16 09:16] LABS: Microalbumin/Creatinine Ratio 52.4
[2025-04-16 09:32] LABS: Creatinine,Urine Random 143 mg/dL (Not Estab.)
[2025-04-16 09:53] LABS: Hemoglobin A1C 7.1 % (4.0-6.0)
[2025-04-17 08:13] LABS: Testosterone,Total 331 ng/dL (264-916)
--- OUTSIDE RECORDS SUMMARY | 2025-04-21 11:36 | XMS_ITS | Encounter Summary ---
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 This section includes the names of all active insurance providers for the patient. Insurance Provider Type of Coverage Plan Name Start of Policy Coverage End of Policy Coverage Group Number Member ID Insurance Provider's Telephone Number Policy Guzman's Name Patient's Relationship to Policy Guzman JAS JONES SUPPS (AM CONT) MEDIGAP PLAN N PLAN N Jan 25, 2016 INSPRO [id number] Arik LIRA PATIENT MEDICARE (WNR) MEDICARE (M) PART A Oct 26, 2000 PART A [id number] SORAYAArik DORCAS PATIENT MEDICARE (WNR) MEDICARE (M) PART B Oct 26, 2000 PART B [id number] Arik LIRA PATIENT MEDICARE (WNR) MEDICARE (M) PART A Oct 26, 2000 PART A [id number] Arik LIRA PATIENT MEDICARE (WNR) MEDICARE (M) PART B Oct 26, 2000 PART B [id number] Arik LIRA PATIENT MEDICARE (WNR) MEDICARE (M) PART A Oct 26, 2000 PART A [id number] Arik LIRA PATIENT MEDICARE (WNR) MEDICARE (M) PART B Oct 26, 2000 PART B [id number] Arik LIRA PATIENT MEDICARE PART D (WNR) MEDICARE (M) PART D Jan 25, 2016 PART D [id number] Arik LIRA PATIENT Selected Encounter This section includes the information on record at [place] for the Encounter. Date/Time Encounter Type Encounter Description Reason Provider Source Jan 01, 2025 09:30 AM OFFICE O/P EST MOD 30 MIN PRIMARY CARE/MEDICINE ICD-10-CM I10 Essential (primary) hypertension CINDY PHAM Soila Encounter Template Text not used by [place] Assessments - Encounter Diagnoses This section includes the primary and secondary diagnoses documented for the Encounter. Date/Time Primary/Secondary Diagnosis Diagnosis Name Provider Source Jan 01, 2025 11:12 AM PRIMARY Essential (primary) hypertension ANKITGOP I K [facility] Jan 01, 2025 11:12 AM SECONDARY Low back pain, unspecified GUNDUMALLA,GOP I K [facility] Jan 01, 2025 11:12 AM SECONDARY Male erectile dysfunction, unspecified GUNDUMALLA,GOP I K [facility] Jan 01, 2025 11:12 AM SECONDARY Type 2 diabetes mellitus without complications GUNLEATHAMALALESSANDROGOP I K [facility] Lab Results: +/- 30 days of the encounter This section includes the Chemistry and Hematology Lab Results on record with [place] for the patient. Radiology Reports and Pathology Reports are provided separately, in subsequent sections. Lab Results This section contains the Chemistry/Hematology Results that were resulted 30 days before or 30 daysafter the date of the Encounter. Date/Time Source Result Type Result - Unit Interpretation Reference Range Specimen Type Comment Jan 01, 2025 10:34 AM [facility] N MICROALBUMIN/CREAT RATIO URINE Specimen Type: URINE No comment entered. Ordering Provider: LORENZO PHAM Report Released Date/Time: Jan 01, 2025 10:08 AM Reporting Lab: [facility] [address] [place] [phone] Performing Lab: [address] [address] CREATININE 171.5 mg/dL MICROALBUMIN QUANT 112.8 mg/L H 0.0-30.0 .MICROALBUMIN/CREA RATIO 65.8 ug/mg{creat} Jan 01, 2025 10:34 AM [facility] DRUG SCREEN IN-HOUSE ROUTINE URINE Specimen Type: URINE Comment: Screening method results are unconfirmed and are for medical use only. Unconfirmed screening results must not be used for non-medical purposes. Opiates test most sensitive for morphine, codeine and heroin and less sensitive for hydrocodone and hydromorphone where higher concentrations are needed for cut-off detection. Ordering Provider: LORENZO PHAM Report Released Date/Time: Jan 01, 2025 10:08 AM Reporting Lab: [address] [address] Performing Lab: [address] [address] TETRAHYDROCANNABINOL SCREEN NEG Cuto ff < 50 AMPHETAMINE SCR NEG Cutoff < 1000 BARBITURATES SCR NEG Cutoff < 200 BENZODIAZEPINES SCR NEG Cutoff < 200 COCAINE METABOLITE SCR NEG Cutoff < 300 OPIATES SCR NEG Cutoff < 300 METHADONE SCR NEG Cutoff < 300 OXYCODONE SCR NEG Cutoff < 200 Jan 01, 2025 10:25 AM [facility] GLYCOHEMOGLOBIN BLOOD Specimen Type: BLOOD Comment: [facility] guidelines for A1c interpretation: Glycemic control targets are based on Shared Decision Making between clinicians and patients. Criteria used to establish an A1c target recommendation can be found at https://www.md.gov/qualityandpatientsafety/ and include the use of result accuracy and precision(CV) of the A1c tests clinicians utilize at their own sites of practice. Values obtained from A1C measurements can vary. For typical A1C assays, a reported value of 7.0 could actually be between 6.72 and 7.28 if measured by a reference method. A reported value of 9.0 could actually be between 8.73 and 9.27. Ref: https://ngsp.org/CAPdata.asp. The in-house [employer] D-100 analyzer has a historical CV <= 2%. Contact the laboratory for further performance characteristics of this assay. Ordering Provider: LORENZO PHAM Report Released Date/Time: Jan 01, 2025 10:08 AM Reporting Lab: [address] [phone] Performing Lab: [address] [phone] GLYCOHEMOGLOBIN 6.8 H 4.4-5.6 Jan 01, 2025 10:25 AM [facility] TESTOSTERONE (SIDDIQUI) SERUM Specimen Type: SE RUM Comment: The National Institutes of Health (NIH) recommendations state: <12 ng/mL - Deficient 20 - 50 ng/mL - Optimal Levels - adequate for most people. >50 ng/mL - Increased risk of hypercalciuria/other health problems - clinical correlation is required. These reference ranges represent clinical decision values rather than population-based reference values. TESTOSTERONE MALES: >=50 years 220.0-900.0 ng/dL <50 years 240.0-930.0 ng/dL TESTOSTERONE FEMALES: >=50 years 12.4-35.8 ng/dL <50 years 13.8-53.4 ng/dL Ordering Provider: LORENZO PHAM Report Released Date/Time: Jan 01, 2025 09:59 AM Reporting Lab: [address] [phone] Performing Lab: [address] [address] TESTOSTERONE (SIDDIQUI) >1500.00 ng/dL H 220 .00-900.00 Jan 01, 2025 10:25 AM [facility] TSH PLASMA Specimen Type: PLASM A Comment: Estimated Glomerular Filtration Rate (eGFR) calculated using the 2020 Chronic Kidney Disease-Epidemiology (CKD-EPI) Collaboration creatinine equation; units of measure are mL/min/1.73 m2. Results are only valid for adults (>=18 years) whose serum creatinine is in a steady state. eGFR calculations are not valid for patients with acute kidney injury and for patients on dialysis. Creatinine-based estimates of kidney function may also be inaccurate in patients with reduced creatinine generation due to decreased muscle mass (e.g., malnutrition, severe hypoalbuminemia, sarcopenia, chronic neuromuscular disease, amputations, severe heart failure or liver disease) and in patients with increased creatinine generation due to increased muscle mass (e.g., muscle builders, anabolic steroids) or increased dietary intake. As drug clearance is proportional to total GFR and not GFR indexed to body surface area (BSA), in individuals with a BSA substantially different than 1.73 m2, drug dosing should be based on the reported eGFR value de-indexed from BSA by multiplying by the individual's BSA and dividing by 1.73. CKD is diagnosed based on abnormalities of kidney structure or function, present for >3 months, with implications for health and disease. CKD is classified and staged based on cause, eGFR and albuminuria (quantified as urine albumin to creatinine ratio). An eGFR >60 mL/min/1.73 m2 in the absence of increased urine albumin excretion or structural abnormalities does not represent CKD. eGFR CKD Interpretation (mL/min/1.73 m2) stage >=90 G1 Normal 60-89 G2 Mild decrease 45-59 G3A Mild to moderate decrease 30-44 G3B Moderate to severe decrease 15-29 G4 Severe decrease <15 G5 Kidney failure Ordering Provider: LORENZO PHAM Report Released Date/Time: Jan 01, 2025 10:08 AM Reporting Lab: [address] [phone] Performing Lab: [address] [address] TSH 0.7951 m[IU]/mL 0.3500-4.9400 Jan 01, 2025 10:25 AM [facility] 25-OH VITAMIN D SERUM Specime n Type: SERUM Comment: The National Institutes of Health (NIH) recommendations state: <12 ng/mL - Deficient 20 - 50 ng/mL - Optimal Levels - adequate for most people. >50 ng/mL - Increased risk of hypercalciuria/other health problems - clinical correlation is required. These reference ranges represent clinical decision values rather than population-based reference values. Ordering Provider: LORENZO PHAM Report Released Date/Time: Jan 01, 2025 10:08 AM Reporting Lab: [address] [address] Performing Lab: [address] [address] 25-OH VITAMIN D 44.0 ng/mL 20.0-50.0 Jan 01, 2025 10:25 AM [facility] LIPID PROFILE PLASMA Specimen Type: PLASM A Comment: Estimated Glomerular Filtration Rate (eGFR) calculated using the 2020 Chronic Kidney Disease-Epidemiology (CKD-EPI) Collaboration creatinine equation; units of measure are mL/min/1.73 m2. Results are only valid for adults (>=18 years) whose serum creatinine is in a steady state. eGFR calculations are not valid for patients with acute kidney injury and for patients on dialysis. Creatinine-based estimates of kidney function may also be inaccurate in patients with reduced creatinine generation due to decreased muscle mass (e.g., malnutrition, severe hypoalbuminemia, sarcopenia, chronic neuromuscular disease, amputations, severe heart failure or liver disease) and in patients with increased creatinine generation due to increased muscle mass (e.g., muscle builders, anabolic steroids) or increased dietary intake. As drug clearance is proportional to total GFR and not GFR indexed to body surface area (BSA), in individuals with a BSA substantially different than 1.73 m2, drug dosing should be based on the reported eGFR value de-indexed from BSA by multiplying by the individual's BSA and dividing by 1.73. CKD is diagnosed based on abnormalities of kidney structure or function, present for >3 months, with implications for health and disease. CKD is classified and staged based on cause, eGFR and albuminuria (quantified as urine albumin to creatinine ratio). An eGFR >60 mL/min/1.73 m2 in the absence of increased urine albumin excretion or structural abnormalities does not represent CKD. eGFR CKD Interpretation (mL/min/1.73 m2) stage >=90 G1 Normal 60-89 G2 Mild decrease 45-59 G3A Mild to moderate decrease 30-44 G3B Moderate to severe decrease 15-29 G4 Severe decrease <15 G5 Kidney failure Ordering Provider: LORENZO PHAM Report Released Date/Time: Jan 01, 2025 10:08 AM Reporting Lab: [facility] [address] [place] [phone] Performing Lab: [address] [address] CHOLESTEROL 152 mg/dL 0-199 TRIGLYCERIDE 111 mg/dL 0-149 HDL CHOLESTEROL 49 mg/dL 40-69 DIRECT LDL CHOL. 91 mg/dL 0-100 Jan 01, 2025 10:25 AM [facility] PANEL 5 PLASMA Specimen Type: PLASM A Comment: Estimated Glomerular Filtration Rate (eGFR) calculated using the 2020 Chronic Kidney Disease-Epidemiology (CKD-EPI) Collaboration creatinine equation; units of measure are mL/min/1.73 m2. Results are only valid for adults (>=18 years) whose serum creatinine is in a steady state. eGFR calculations are not valid for patients with acute kidney injury and for patients on dialysis. Creatinine-based estimates of kidney function may also be inaccurate in patients with reduced creatinine generation due to decreased muscle mass (e.g., malnutrition, severe hypoalbuminemia, sarcopenia, chronic neuromuscular disease, amputations, severe heart failure or liver disease) and in patients with increased creatinine generation due to increased muscle mass (e.g., muscle builders, anabolic steroids) or increased dietary intake. As drug clearance is proportional to total GFR and not GFR indexed to body surface area (BSA), in individuals with a BSA substantially different than 1.73 m2, drug dosing should be based on the reported eGFR value de-indexed from BSA by multiplying by the individual's BSA and dividing by 1.73. CKD is diagnosed based on abnormalities of kidney structure or function, present for >3 months, with implications for health and disease. CKD is classified and staged based on cause, eGFR and albuminuria (quantified as urine albumin to creatinine ratio). An eGFR >60 mL/min/1.73 m2 in the absence of increased urine albumin excretion or structural abnormalities does not represent CKD. eGFR CKD Interpretation (mL/min/1.73 m2) stage >=90 G1 Normal 60-89 G2 Mild decrease 45-59 G3A Mild to moderate decrease 30-44 G3B Moderate to severe decrease 15-29 G4 Severe decrease <15 G5 Kidney failure Ordering Provider: LORENZO PHAM Report Released Date/Time: Jan 01, 2025 10:08 AM Reporting Lab: [address] [phone] Performing Lab: [address] [address] CREATININE 1.13 mg/dL 0.72-1.25 UREA NITROGEN 15 mg/dL 9-25 GLUCOSE 119 mg/dL H 74-100 SODIUM 139 mmol/L 136-145 POTASSIUM 4.0 mmol/L 3.5-5.1 CHLORIDE 100 mmol/L 98-107 CO2 30 mmol/L H 22-29 CALCIUM 9.9 mg/dL 8.4-10.2 TOTAL PROTEIN 6.6 g/dL 6.4-8.3 ALBUMIN 4.2 g/dL 3.5-5.2 TOTAL BILIRUBIN 0.7 mg/dL 0.2-1.2 AST 26 U/L 5-34 ALT 23 U/L 0-55 ANION GAP 9 meq/L 3-19 ALK PHOS 49 U/L 40-150 eGFR (CKD-EPI) 68 Jan 01, 2025 10:25 AM [facility] CBC/PLT BLOOD Specimen Type: BLOOD Comment: CRITICAL CALLED TO & READ BACK BY: LORENZO PHAM 01/01/25@1122 DMT Ordering Provider: LORENZO PHAM Report Released Date/Time: Jan 01, 2025 10:08 AM Reporting Lab: [address] [address] Performing Lab: [address] [address] WBC 5.1 10*3/uL 5.0-10.0 RBC 6.07 10*6/uL 4.6-6.2 HGB 18.0 g/dL 14.0-18.0 HCT 54.3 HH 42.0-52.0 MCV 89.5 fL 80.0-94.0 MCH 29.7 pg 27.0-31.0 MCHC 33.1 g/dL 32.0-36.0 PLT 243 10*3/uL 150-450 MPV 9.5 fL 9.0-13.1 RDW 13.1 11.0-16.0 NRBC 0.0 0.0-0.0 Jan 01, 2025 10:25 AM [facility] PAN[facility] 1 PLASMA Specimen Type: PLASM A Comment: Estimated Glomerular Filtration Rate (eGFR) calculated using the 2020 Chronic Kidney Disease-Epidemiology (CKD-EPI) Collaboration creatinine equation; units of measure are mL/min/1.73 m2. Results are only valid for adults (>=18 years) whose serum creatinine is in a steady state. eGFR calculations are not valid for patients with acute kidney injury and for patients on dialysis. Creatinine-based estimates of kidney function may also be inaccurate in patients with reduced creatinine generation due to decreased muscle mass (e.g., malnutrition, severe hypoalbuminemia, sarcopenia, chronic neuromuscular disease, amputations, severe heart failure or liver disease) and in patients with increased creatinine generation due to increased muscle mass (e.g., muscle builders, anabolic steroids) or increased dietary intake. As drug clearance is proportional to total GFR and not GFR indexed to body surface area (BSA), in individuals with a BSA substantially different than 1.73 m2, drug dosing should be based on the reported eGFR value de-indexed from BSA by multiplying by the individual's BSA and dividing by 1.73. CKD is diagnosed based on abnormalities of kidney structure or function, present for >3 months, with implications for health and disease. CKD is classified and staged based on cause, eGFR and albuminuria (quantified as urine albumin to creatinine ratio). An eGFR >60 mL/min/1.73 m2 in the absence of increased urine albumin excretion or structural abnormalities does not represent CKD. eGFR CKD Interpretation (mL/min/1.73 m2) stage >=90 G1 Normal 60-89 G2 Mild decrease 45-59 G3A Mild to moderate decrease 30-44 G3B Moderate to severe decrease 15-29 G4 Severe decrease <15 G5 Kidney failure Ordering Provider: LORENZO PHAM Report Released Date/Time: Jan 01, 2025 10:08 AM Reporting Lab: [address] [address] Performing Lab: [address] [address] CREATININE 1.08 mg/dL 0.72-1.25 UREA NITROGEN 15 mg/dL 9-25 GLUCOSE 118 mg/dL H 74-100 SODIUM 138 mmol/L 136-145 POTASSIUM 4.1 mmol/L 3.5-5.1 CHLORIDE 101 mmol/L 98-107 CO2 28 mmol/L 22-29 CALCIUM 9.9 mg/dL 8.4-10.2 ANION GAP 9 meq/L 3-19 eGFR (CKD-EPI) 72 Jan 01, 2025 10:25 AM [facility] PSA (DIAGNOSTIC) SERUM Specim en Type: SERUM No comment entered. Ordering Provider: LORENZO PHAM Report Released Date/Time: Jan 01, 2025 10:10 AM Reporting Lab: [address] [address] Performing Lab: [address] [address] PSA (DIAGNOSTIC) 8.413 ng/mL H 0-3.999 Vital Signs: All taken on the encounter date This section contains inpatient and outpatient Vital Signs collected on the date of the Encounter. Date/Time Temperature Pulse Blood Pressure Respiratory Rate SP02 Pain Height Weight Body Mass Index Source Jan 01, 2025 09:37 AM 97.8 80 113/74 0 266.4 32 [facility] Social History: Smoking Status (Most current) and Tobacco Use (All prior to encounter date) This section includes the most current, and the historical, smoking and tobacco- related health factors from the [place] facility where the Encounter took place. Current Smoking Status This section includes the most current smoking, or tobacco-related health factor, from the [place] facility where the Encounter took place. Date/Time Current Smoking Status Comment Osman davis Jan 01, 2025 09:30 AM VA-TOBACCO USE THANG E DAYS CIGARETTES [facility] Tobacco Use History This section includes a history of the smoking, or tobacco-related health factors, that were collected on or before the date of the Encounter. The data comes from the [place] facility where the Encounter took place. Date/Time Smoking Status/Tobacco Use Comment F acility Jan 01, 2025 09:30 AM VA-TOBACCO USE THANG E DAYS CIGARETTES [facility] Jan 30, 2024 09:30 AM VA-TOBACCO FORMER USER [facility] Jan 30, 2024 09:30 AM VA-TOBACCO QUIT 1 TO < 5 YRS [facility] Jan 19, 2021 09:30 AM VA-TOBACCO DOESNT USE WI 30 MIN WAKEUP [facility] Jan 19, 2021 09:30 AM VA-TOBACCO USE 30 YEARS OR MORE [facility] Jan 19, 2021 09:30 AM VA-TOBACCO USE ADVICE [facility] Jan 19, 2021 09:30 AM VA-TOBACCO USE 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 INFORMATION SPECIALIST NO [facility] Jan 19, 2021 09:30 AM VA-TOBACCO USE MED NO [facility] Jan 19, 2021 09:30 AM VA-TOBACCO USER SOME DAYS [facility] Sep 29, 2019 01:15 PM VA-TOBACCO FORMER USER [facility] Sep 29, 2019 01:15 PM VA-TOBACCO QUIT 15 YRS OR MORE [facility] April 07, 2017 08:04 AM V9 CURRENT TOBACCO USER [facility] April 07, 2017 08:04 AM V9 TOBACCO OFFERED [facility] April 07, 2017 08:04 AM V9 TOBACCO USE-DEC LINED MEDS [facility] April 03, 2016 08:54 AM V9 LIFETIME NON-US ER OF TOBACCO [facility] Mar 10, 2015 08:27 AM V9 QUIT TOBACCO >7 YEARS AGO [facility] Nov 27, 2013 08:07 AM V9 QUIT TOBACCO >7 YEARS AGO [facility] Sep 25, 2012 07:46 AM V9 LIFETIME NON-US ER OF TOBACCO [facility] Sep 25, 2012 07:46 AM V9 TOBACCO OFFERED [facility] Sep 21, 2011 01:06 PM V9 QUIT TOBACCO >7 YEARS AGO [facility] Mar 21, 2010 08:25 AM V9 QUIT TOBACCO >7 YEARS AGO [facility] April 06, 2008 08:15 AM V9 QUIT TOBACCO >7 YEARS AGO [facility] Feb 15, 2007 09:03 AM V9 QUIT TOBACCO >1 2 MO & <7 YRS AGO [facility] Jun 01, 2006 07:58 AM HF V9 CURRENT NON-SMOKER quir 3 years ago [facility] Encounter Notes: All associated encounter notes This section contains the clinical notes associated to the Encounter. Date/Time Encounter Note(s) Provider Source Jan 01, 2025 03:03 PM ADDENDUM: LOCAL TITLE: Addendum STANDARD TITLE: ADDENDUM DATE OF NOTE: JAN 01, 2025@15:03:11 ENTRY DATE: JAN 01, 2025@15:03:12 AUTHOR: LORENZO PHAM COSIGNER: URGENCY: STATUS: COMPLETED Testosterone level supratherapeutic and above 1500ng/dl. Will advise to discontinue testosterone supplements. /kain/ LORENZO PHAM Primary Care Physician Signed: 01/01/2025 15:04 Receipt Acknowledged By: 01/01/2025 16:07 /charis STEELE aircraft body repairer --- Original Document --- 01/01/25 Pc Chart Review Note: Available Lab results reviewed. Hemoglobin A1c acceptable. Patient has elevated hematocrit and needs to discontinue testosterone because of concerns for blood clots, CAD and stroke. PSA is elevated as well and needs to be followed by urology. Risk of prostate cancer increases with testosterone therapy. Patient follows with community urologist Dr. Turner. Patient to discuss these labs with his primary care physician and urologist. Please notify patient and send a copy of lab reports. Thanks. /charis PHAM Primary Care Physician Signed: 01/01/2025 14:09 Receipt Acknowledged By: 01/01/2025 15:53 /charis STEELE aircraft body repairer 01/01/2025 ADDENDUM STATUS: COMPLETED pt advised of lab results/pcp recs. Pt voiced understanding to fu w/outside Urologist and recs. to stop testosterone. /charis STEELE aircraft body repairer Signed: 01/01/2025 15:57 [facility]AM [facility] Jan 01, 2025 02:06 PM PRIMARY CARE NOTE: LOCAL TITLE: Pc Chart Review Note STANDARD TITLE: PRIMARY CARE NOTE DATE OF NOTE: JAN 01, 2025@14:06 ENTRY DATE: JAN 01, 2025@14:06:13 AUTHOR: LORENZO PHAM EXP COSIGNER: URGENCY: STATUS: COMPLETED Pc Chart Review Note Has ADDENDA Available Lab results reviewed. Hemoglobin A1c acceptable. Patient has elevated hematocrit and needs to discontinue testosterone because of concerns for blood clots, CAD and stroke. PSA is elevated as well and needs to be followed by urology. Risk of prostate cancer increases with testosterone therapy. Patient follows with community urologist Dr. Turner. Patient to discuss these labs with his primary care physician and urologist. Please notify patient and send a copy of lab reports. Thanks. /kain/ LORENZO PHAM Primary Care Physician Signed: 01/01/2025 14:09 Receipt Acknowledged By: 01/01/2025 15:53 /charis STEELE aircraft body repairer 01/01/2025 ADDENDUM STATUS: COMPLETED Testosterone level supratherapeutic and above 1500ng/dl. Will advise to discontinue testosterone supplements. /kain/ LORENZO PHAM Primary Care Physician Signed: 01/01/2025 15:04 Receipt Acknowledged By: * AWAITING SIGNATURE * ALEX WARD 01/01/2025 ADDENDUM STATUS: COMPLETED pt advised of lab results/pcp recs. Pt voiced understanding to fu w/outside Urologist and recs. to stop testosterone. /charis STEELE aircraft body repairer Signed: 01/01/2025 15:57 LORENZO PHAM [facility] Jan 01, 2025 11:22 AM PRIMARY CARE NOTE: LOCAL TITLE: Pc Chart Review Note STANDARD TITLE: PRIMARY CARE NOTE DATE OF NOTE: JAN 01, 2025@11:22 ENTRY DATE: JAN 01, 2025@11:22:47 AUTHOR: LORENZO PHAM EXP COSIGNER: URGENCY: STATUS: COMPLETED Pc Chart Review Note Has ADDENDA Lab results reviewed. Received panic report/urgent alert from the lab. Hematocrit is 54. Please advised to discontinue testosterone until further orders. High risk of stroke,blood clots and myocardial infarction with elevated hematocrit on testosterone therapy. Advise to stay hydrated and take 81 mg of aspirin enteric-coated daily. Medicine was ordered. This is a panic lab report and other labs are pending. Please notify patient and send a copy of lab reports. Thanks. /charis PHAM Primary Care Physician Signed: 01/01/2025 11:25 Receipt Acknowledged By: 01/01/2025 13:34 /charis STEELE aircraft body repairer 01/01/2025 ADDENDUM STATUS: COMPLETED Called pt received vm - Please enter remote code and then phone went unable to reach pt, Will continue to attempt to contact. /charsi STEELE aircraft body repairer Signed: 01/01/2025 11:40 01/01/2025 ADDENDUM STATUS: COMPLETED Called pt received enter remote code unable to leave message. /charis STEELE aircraft body repairer Signed: 01/01/2025 11:59 01/01/2025 ADDENDUM STATUS: COMPLETED called pt phone rang but only answer is please enter remote code after that phone goes - unable to leave message. /charis STEELE aircraft body repairer Signed: 01/01/2025 12:27 01/01/2025 ADDENDUM STATUS: COMPLETED called -pt received no answer or vm where I could leave message. /charis STEELE aircraft body repairer Signed: 01/01/2025 12:45 LORENZO PHAM [facility] Jan 01, 2025 11:20 AM PRIMARY CARE NOTE: LOCAL TITLE: Pc Chart Review Note STANDARD TITLE: PRIMARY CARE NOTE DATE OF NOTE: JAN 01, 2025@11:20 ENTRY DATE: JAN 01, 2025@11:20:21 AUTHOR: LORENZO PHAM EXP COSIGNER: URGENCY: STATUS: COMPLETED Pc Chart Review Note Has ADDENDA Please obtain records pertaining to colonoscopy done at [facility] about 3 months ago including pathology reports and GI recommendations. Thank you. /charis PHAM Primary Care Physician Signed: 01/01/2025 11:21 Receipt Acknowledged By: 01/02/2025 12:14 /kain/ Tash LLOYD 01/02/2025 ADDENDUM STATUS: COMPLETED Requested Medical Records as requested in previous notes, awaiting their arrival, will give to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
--- OUTSIDE RECORDS SUMMARY | 2025-04-21 11:36 | XMS_ITS | Data Portability ---
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 Follow-up with Dr. Duque. [email or web address] Not available 05/19/2021 10:11:37 Plan of Treatment Reminders Order Date Submit Date Provider Last Modified By Organization Details Last Modified Time Details Appointments None recorded. Lab urinalysis panel, auto [address] [facility], [address], [place], [address], 4 12:32:20 PSA, serum or plasma [address] [facility], [address], [place], [address], 3 20:55:14 urinalysis panel, auto [address] [facility], [address], [address], [place], [address], 3 20:55:13 urinalysis panel, auto 2022 023 [email or web address] [facility], [address], [address], [place], [address], 3 22:40:20 Referral None recorded. Procedures None recorded. Surgeries None recorded. Imaging None recorded. Medication Orders sildenafil 100 mg tablet 2022 023 TIFFANY [facility], [address] [place] [address], [id number], 3 20:55:59 cefuroxime axetil 500 mg tablet 2022 023 [email or web address] [facility], [address] [place] [address], [id number], 4 10:05:21 Patient TargetsNo targets recorded. Patient InstructionsNo instructions recorded. Reason for Referral None Reported. Results Created Date Observation Date Name Description Value Unit Range Abnormal Flag Note LastModifiedBy Organization Detail LastModifiedTime 05/18/2005/18/2023 urina lysis panel , auto Unknown Analyte Clean Catch Not Available [facility] [address], [place], [address], 05/18/2023 11:32:06 05/18/20 23 05/18/2023 urina lysis panel , auto Unknown Analyte Yellow Not Available [facility] [address], [place], [address], 05/18/2023 11:32:06 05/18/20 23 05/18/2023 urina lysis panel , auto Unknown Analyte Clear Not Available [facility] [address], [place], [address], 05/18/2023 11:32:06 05/18/20 23 05/18/2023 urina lysis panel , auto Unknown Analyte 1.010 Not Available [facility] [address], [place], [address], 05/18/2023 11:32:06 05/18/20 23 05/18/2023 urina lysis panel , auto Unknown Analyte 7.0 Not Available [facility] [address], [place], [address], 05/18/2023 11:32:06 05/18/20 23 05/18/2023 urina lysis panel , auto Unknown Analyte Negati ve Not Available [facility] [address], [place], [address], 05/18/2023 11:32:06 05/18/20 23 05/18/2023 urina lysis panel , auto Unknown Analyte Negati ve Not Available [facility] [address], [place], [address], 05/18/2023 11:32:06 05/18/20 23 05/18/2023 urina lysis panel , auto Unknown Analyte Trace Not Available [facility] [address], [place], [address], 05/18/2023 11:32:06 05/18/20 23 05/18/2023 urina lysis panel , auto Unknown Analyte >1000 mg/dl Not Available [facility] [address], [place], [address], 05/18/2023 11:32:06 05/18/20 23 05/18/2023 urina lysis panel , auto Unknown Analyte Negati ve Not Available [facility] [address], [place], [address], 05/18/2023 11:32:06 05/18/20 23 05/18/2023 urina lysis panel , auto Unknown Analyte 4 mg/dl Not Available [facility] [address], [place], [address], 05/18/2023 11:32:06 05/18/20 23 05/18/2023 urina lysis panel , auto Unknown Analyte Negati ve Not Available [facility] [address], [place], [address], 05/18/2023 11:32:06 05/18/20 23 05/18/2023 urina lysis panel , auto Unknown Analyte Negati ve Not Available [facility] [address], [place], [address], 05/18/2023 11:32:06 07/17/20 23 07/17/2023 urina lysis panel , auto Unknown Analyte Clean Catch Not Available [facility] [address], [place], [address], 07/17/2023 16:06:14 07/17/2007/17/2023 urina lysis panel , auto Unknown Analyte Yellow Not Available [facility] [address], [place], [address], 07/17/2023 16:06:14 07/17/20 23 07/17/2023 urina lysis panel , auto Unknown Analyte Clear Not Available [facility] [address], [place], [address], 07/17/2023 16:06:14 07/17/20 23 07/17/2023 urina lysis panel , auto Unknown Analyte 1.015 Not Available [facility] [address], [place], [address], 07/17/2023 16:06:14 07/17/20 23 07/17/2023 urina lysis panel , auto Unknown Analyte 1.003- 1.035 Not Available [facility] [address], [place], [address], 07/17/2023 16:06:14 07/17/20 23 07/17/2023 urina lysis panel , auto Unknown Analyte 6.5 Not Available [facility] [address], [place], [address], 07/17/2023 16:06:14 07/17/20 23 07/17/2023 urina lysis panel , auto Unknown Analyte 5.0-8. 0 Not Available [facility] [address], [place], [address], 07/17/2023 16:06:14 07/17/20 23 07/17/2023 urina lysis panel , auto Unknown Analyte 25 Olesya/ul Trace Not Available [facility] [address], [place], [address], 07/17/2023 16:06:14 07/17/20 23 07/17/2023 urina lysis panel , auto Unknown Analyte Negati ve Not Available [facility] [address], [place], [address], 07/17/2023 16:06:14 07/17/20 23 07/17/2023 urina lysis panel , auto Unknown Analyte Negati ve Not Available [facility] [address], [place], [address], 07/17/2023 16:06:14 07/17/20 23 07/17/2023 urina lysis panel , auto Unknown Analyte Negati ve Not Available [facility] [address], [place], [address], 07/17/2023 16:06:14 07/17/20 23 07/17/2023 urina lysis panel , auto Unknown Analyte 30 mg/dl (+) Not Available [facility] [address], [place], [address], 07/17/2023 16:06:14 07/17/20 23 07/17/2023 urina lysis panel , auto Unknown Analyte Negati ve Not Available [facility] [address], [place], [address], 07/17/2023 16:06:14 07/17/20 23 07/17/2023 urina lysis panel , auto Unknown Analyte 250 mg/dl Not Available [facility] [address], [place], [address], 07/17/2023 16:06:14 07/17/20 23 07/17/2023 urina lysis panel , auto Unknown Analyte Normal Not Available [facility] [address], [place], [address], 07/17/2023 16:06:14 07/17/20 23 07/17/2023 urina lysis panel , auto Unknown Analyte 15 mg/dl (Sm) Not Available [facility] [address], [place], [address], 07/17/2023 16:06:14 07/17/20 23 07/17/2023 urina lysis panel , auto Unknown Analyte Negati ve Not Available [facility] [address], [place], [address], 07/17/2023 16:06:14 07/17/20 23 07/17/2023 urina lysis panel , auto Unknown Analyte 4 mg/dl Not Available [facility] [address], [place], [address], 07/17/2023 16:06:14 07/17/20 23 07/17/2023 urina lysis panel , auto Unknown Analyte Normal 1 mg/dl Not Available [facility] [address], [place], [address], 07/17/2023 16:06:14 07/17/20 23 07/17/2023 urina lysis panel , auto Unknown Analyte 1 mg/dl (+) Not Available [facility] [address], [place], [address], 07/17/2023 16:06:14 07/17/20 23 07/17/2023 urina lysis panel , auto Unknown Analyte Negati ve Not Available [facility] [address], [place], [address], 07/17/2023 16:06:14 07/17/20 23 07/17/2023 urina lysis panel , auto Unknown Analyte Negati ve Not Available [facility] [address], [place], [address], 07/17/2023 16:06:14 07/17/20 23 07/17/2023 urina lysis panel , auto Unknown Analyte Negati ve Not Available [facility] [address], [place], [address], 07/17/2023 16:06:14 07/17/20 23 07/17/2023 PSA, serum or plasm a PSA 6.5 NG/mL 0.0 - 4.0 Not Available [facility] [address], [place], [address], 07/17/2023 16:05:56 06/16/20 24 06/16/2024 urina lysis panel , auto Unknown Analyte Clean Catch Not Available [facility] [address], [place], [address], 06/16/2024 10:07:02 06/16/20 24 06/16/2024 urina lysis panel , auto Unknown Analyte Yellow Not Available [facility] [address], [place], [address], 06/16/2024 10:07:02 06/16/20 24 06/16/2024 urina lysis panel , auto Unknown Analyte Clear Not Available [facility] [address], [place], [address], 06/16/2024 10:07:02 06/16/20 24 06/16/2024 urina lysis panel , auto Unknown Analyte 1.010 Not Available [facility] [address], [place], [address], 06/16/2024 10:07:02 06/16/20 24 06/16/2024 urina lysis panel , auto Unknown Analyte 1.003- 1.035 Not Available [facility] [address], [place], [address], 06/16/2024 10:07:02 06/16/20 24 06/16/2024 urina lysis panel , auto Unknown Analyte 6.0 Not Available [facility] [address], [place], [address], 06/16/2024 10:07:02 06/16/20 24 06/16/2024 urina lysis panel , auto Unknown Analyte 5.0-8. 0 Not Available [facility] [address], [place], [address], 06/16/2024 10:07:02 06/16/20 24 06/16/2024 urina lysis panel , auto Unknown Analyte 25 Olesya/ul Trace Not Available [facility] [address], [place], [address], 06/16/2024 10:07:02 06/16/20 24 06/16/2024 urina lysis panel , auto Unknown Analyte Negati ve Not Available [facility] [address], [place], [address], 06/16/2024 10:07:02 06/16/20 24 06/16/2024 urina lysis panel , auto Unknown Analyte Negati ve Not Available [facility] [address], [place], [address], 06/16/2024 10:07:02 06/16/20 24 06/16/2024 urina lysis panel , auto Unknown Analyte Negati ve Not Available [facility] [address], [place], [address], 06/16/2024 10:07:02 06/16/20 24 06/16/2024 urina lysis panel , auto Unknown Analyte 30 mg/dl (+) Not Available [facility] [address], [place], [address], 06/16/2024 10:07:02 06/16/20 24 06/16/2024 urina lysis panel , auto Unknown Analyte Negati ve Not Available [facility] [address], [place], [address], 06/16/2024 10:07:02 06/16/20 24 06/16/2024 urina lysis panel , auto Unknown Analyte >1000 mg/dl Not Available [facility] [address], [place], [address], 06/16/2024 10:07:02 06/16/20 24 06/16/2024 urina lysis panel , auto Unknown Analyte Normal Not Available [facility] [address], [place], [address], 06/16/2024 10:07:02 06/16/20 24 06/16/2024 urina lysis panel , auto Unknown Analyte 15 mg/dl (Sm) Not Available [facility] [address], [place], [address], 06/16/2024 10:07:02 06/16/20 24 06/16/2024 urina lysis panel , auto Unknown Analyte Negati ve Not Available [facility] [address], [place], [address], 06/16/2024 10:07:02 06/16/20 24 06/16/2024 urina lysis panel , auto Unknown Analyte 4 mg/dl Not Available [facility] [address], [place], [address], 06/16/2024 10:07:02 06/16/20 24 06/16/2024 urina lysis panel , auto Unknown Analyte Normal 1 mg/dl Not Available [facility] [address], [place], [address], 06/16/2024 10:07:02 06/16/20 24 06/16/2024 urina lysis panel , auto Unknown Analyte Negati ve Not Available [facility] [address], [place], [address], 06/16/2024 10:07:02 06/16/20 24 06/16/2024 urina lysis panel , auto Unknown Analyte Negati ve Not Available [facility] [address], [place], [address], 06/16/2024 10:07:02 06/16/20 24 06/16/2024 urina lysis panel , auto Unknown Analyte Negati ve Not Available [facility] [address] [facility] [address], [place], [address], 06/16/2024 10:07:02 06/16/20 24 06/16/2024 urina lysis panel , auto Unknown Analyte Negati ve Not Available [facility] [address] [facility] [address], [address], 06/16/2024 10:07:02 Result Notes None recorded. Problems No Known Problems Procedures Surgical History Date Name Laterality Status Provider Name and Address Organization Details Recorded Time Post Void Residual; [facility] 10:52:51 Imaging Results None recorded. Procedure Notes None recorded. Medical Equipment None Reported. Allergies No known drug allergies Medications Name Sig Start Date Stop Date Status Note LastModified by Organization Details LastModified Time sildenafil 100 mg tablet TAKE ONE TABLET BY MOUTH ONCE A DAY DIRECTED 2023 active Not Available Not Available Not Avai lable meloxicam 7.5 mg tablet Take 1 tablet every day by oral route. active Not Available Not Available No t Available montelukast 10 mg tablet Take 1 tablet every day by oral route. active Not Available Not Available No t Available oxycodone 30 mg tablet Take 1 tablet every 6 hours by oral route. active Not Available Not Available No t Available cefuroxime axetil 500 mg tablet Take 1 tablet every 12 hours by oral route. 06/23/ 2023 07/22 /2024 completed Not Available Not Available Not Available terazosin 10 mg capsule Take 1 capsule every day by oral route. active Not Available Not Available No t Available finasteride 5 mg tablet Take 1 tablet every day by oral route. active Not Available Not Available No t Available Flexeril 10 mg tablet Take 1 tablet 3 times a day by oral route. active Not Available Not Available No t Available Vitals Date Recorded Body height Body mass index (BMI) Body weight Provider Name and Address Organization Details Last Updated DateTime 05/16/2021 187.96 cm 34.9 kg/m2 945407.12 g Giorgi Rodriguez [facility] 05/16/2021 13:09:55 Date Recorded Body height Body mass index (BMI) Body weight Provider Name and Address Organization Details Last Updated DateTime 05/18/2023 187.96 cm 34.3 kg/m2 656940.16 g Candi Lopez [facility] 05/18/2023 11:31:53 Date Recorded Body height Body mass index (BMI) Body weight Provider Name and Address Organization Details Last Updated DateTime 06/03/2021 187.96 cm 34.9 kg/m2 194286.12 g Mackenzie Bacon [facility] 06/03/2021 10:52:35 Date Recorded Body height Body mass index (BMI) Body weight Provider Name and Address Organization Details Last Updated DateTime 06/16/2024 187.96 cm 33.4 kg/m2 516719.02 g Jesusita Justin [facility] 06/16/2024 10:05:18 Date Recorded Body height Body mass index (BMI) Body weight Provider Name and Address Organization Details Last Updated DateTime 07/17/2023 187.96 cm 34.3 kg/m2 087188.16 g Kasia Nguyen [facility] 07/17/2023 16:05:49 Social History Question Answer Notes LastModified by Organizat ion Details LastModified Time Tobacco Smoking Status [facility] 14:11:35 How Much Tobacco Do You Chew? None Information not available 04/14/2019 When Did You Quit Smoking? 11-15yearssin celastcigaret te Information not available 04/14/2019 Marital Status Informatio n not available 04/14/2019 What Was The Date Of Your Most Recent Tobacco Screening? 04/14/2019 Information n ot available 01/13/2020 How Much Tobacco Do You Smoke? No [email or web address] Information not available 04/18/2021 Sex: Unknown Functional Status Question Answer Note LastModified by Organization D etails LastModified Time What is your level of alcohol consumption? None Information not available 04/14/2019 Mental Status None recorded. Family History Relationship Description Onset Age of this Age Resolved Age Notes LastModified by Organization Details LastModified Time Father No current problems or disability Not available 04/14 14:11:24 Mother No current problems or disability Not available 04/14 14:11:24 Medical History Condition Response Coronary Artery Disease N Other N Gout N Kidney Cyst N Kidney Stones N Enlarged Prostate N Heart Arrhythmia N Erectile Dysfunction N Head Trauma/Injury N Emphysema N Sexually Transmitted Disease N Depression N Pneumonia N Incontinence N Prostate Problems N Cancer Prostate N Paralysis N Anxiety Disorder N Hemorrhoids N Obesity N Arthritis N Infertility N Acid Reflux (GERD) N Cancer N Hematuria N Stroke N Neck Injury N Previous Radiation Therapy? N Neurologic Disorder N Kidney Disease N Heart Conditions N Kidney or Bladder Problems N Constipation N Urinary Problems N Brain Injury N Ulcers Y Prostate Hypertrophy N Low Testosterone N Tuberculosis N Previous Chemotherapy? N AIDS/HIV N BPH N Urinary Tract Infection N Asthma N Cardiac Disease N Thyroid Disorder N Hepatitis N PCOS N Colon Cancer N Hernia N Colon/Rectal Disorders N Ostomy N Glaucoma N Pacemaker N Anesthesia Complications N Genitourinary Disease N Chronic Kidney Disease N Radiation Therapy N Bladder or Kidney Problems N Back Injury N High Cholesterol N High PSA N Liver Disease N Nervous System Disorder N Organ Transplant N Dialysis N Allergies/Hayfever N False Teeth Y Chronic Obstructive Pulmonary Disease N Parkinson's Disease N Chemotherapy N Transplant N Anemia N Multiple Sclerosis N Chest Pain N Back Pain N Proteinuria N Heart Attack (AZ) N Mental Illness N Diabetes Y Ovarian Cancer N Seizures/Epilepsy N Genitourinary problem(s) N Congestive Heart Failure (CHF) N Kidney Failure N Sleep Apnea N Heart Disease N Bronchitis N Hypertension Y Past Encounters Encounter ID Performer Location Encounter Start Date Encounter Closed Date Diagnosis/Indication Diagnosis SNOMED-CT Code Diagnosis ICD10 Code Diagnosis Note [id number] DINORA DUQUE MD [facility] [address] [place] [id number] 04/14/2019 13:14:05 04/14/2019 14:33:25 Retention of urine 166225238 R33.9 voiding trial catheter was removed without difficulty Benign pro static hyperplasia with outflow obstruction [id number] N40.1 continue current therapy. We will follow-up with ms in [place] in 1 week. [id number] DINORA DUQUE MD [facility] [address] [id number] 04/18/2021 10:09:32 04/18/2021 13:23:38 Benign prostatic hyperplasia with outflow obstruction [id number] N40.1 Patient is dissatisfi ed on maximum medical therapy. We will proceed with greenlight laser vaporizati on of the prostate Prostate s pecific antigen above reference range [id number] R97.20 [id number] KIN PRAJAPATI MD [facility] [address] [id number] 05/16/2021 12:19:23 05/16/2021 13:10:55 Benign prostatic hyperplasia with outflow obstruction [id number] N40.1 [id number] DINORA DUQUE MD [facility] [address] [address] [address] 06/03/2021 09:24:46 06/03/2021 13:22:02 Benign prostatic hyperplasia with outflow obstruction [id number] N40.1 Doing very well. He will gradually resume normal activities . He will follow up in 6 months [id number] DINORA DUQUE MD [facility] [address] [address] 05/18/2023 09:12:21 05/18/2023 11:15:54 Prostate specific antigen above reference range [id number] R97.20 He will follow-up in 1 month with repeat PSA Chronic prostatitis 1989 5009 N41.1 [id number] DINORA DUQUE MD [facility] [address] [place] [address] 07/17/2023 15:07:01 07/17/2023 16:15:00 Prostate specific antigen above reference range [id number] R97.20 He will follow-up in 3 month with repeat PSA Large prostate [id number] N40.0 Primary er ectile dysfunction [id number] N52.9 As above [id number] MD SHADIA GODINEZ [facility] [address] [place] [address] 06/16/2024 09:50:42 06/16/2024 10:47:49 Prostate specific antigen above reference range [id number] R97.20 He will follow-up in 6 month with repeat PSA Benign pro static hyperplasia with outflow obstruction [id number] N40.1 He will follow up in 6 months Primary er ectile dysfunction [id number] N52.9 As above Health Concerns Section Related Observation LastModified by Organization Detai ls LastModified Time None Recorded Concern Status LastModified by Organization Details LastModified Time None Recorded Advance Directives Directive None Recorded Payers Insurance Date Sequence Insurance Name Policy Number Policy Guzman Covered Member ID Guzman Member ID Guarantor Name 12/16/2024 1 [place] Daquan Cowart [id number] Daquan Cowart 07/17/2023 2 AET [id number] Daquan Cowart [id number] Daquan Cowart 12/16/2024 2 [employer] (MEDICARE SUPPLEMENT) Daquan Cowart [id number] Daquan Cowart Notes Date Note Type Note Provider Name and Address Organization Details Recorded Time 05/16/2021 text/html 70-year-old male in the office for catheter removal following laser vaporization of prostate. Hematuria has resolved. He has dysuria associated with the catheter. KIN PRAJAPATI MD [address] [place] [address], [phone], [facility] 05/19/2021 10:12:20 06/03/2021 text/html Patient is here in follow-up greenlight laser vaporization of the prostate. His catheter is been out for 3 weeks. He is voiding well. He has nocturia ? 0 -1. He is very pleased. His bladder scan residual today was 174 mL. If he continues to void well he will follow-up in 6 months with PSA. DINORA DUQUE MD [address] [place] [address] [place], [address], [facility] 06/05/2021 14:17:53 05/18/2023 text/html Patient is here last seen in May 2021. At that time he had greenlight laser vaporization of prostate. He was voiding well. He has had some recurrence of obstructive symptoms and now has nocturia 2-3 times per night. He was recently noted to have an elevated PSA and was referred for further evaluation of that. His PSA at the end of February was 6.4. It is noted that he has significant glucosuria and we discussed that this may be contributing some to his frequency symptoms. Previous PSAs were acceptable. I suggest we treat him for chronic prostatitis and see him back in 1 month with repeat PSA. DINORA DUQUE MD [address] [place] [address], [phone], [facility] 05/21/2023 22:40:48 07/17/2023 text/html Patient is here in follow-up of mildly elevated PSA as well as irritative urination symptoms. He had greenlight laser vaporization of the prostate about 2 years ago and did excellent until about 6 months ago with some recurrence of obstructive symptoms and nocturia 2-3 times per night. This he was placed on antibiotics for possible chronic prostatitis. PSA is visit in February was 6.4 and repeated today 6.5. He did notice some improvement of flow after taking the antibiotics. His symptoms are not bothersome only not as impressive as immediately following his greenlight laser. We discussed following his PSA. We will see him back in 3 months and repeat his PSA. He also mentions some difficulty achieving and maintaining erection and we discussed oral medical therapy. He would like to try sildenafil 100 mg DINORA DUQUE MD [address] [place] [address], [phone], [facility] 07/17/2023 20:55:42 06/16/2024 text/html Patient is here for scheduled 6-month follow-up otherwise last visit was last June. Has history of mildly elevated PSA. He had greenlight laser vaporization of prostate by me 3 years ago. He has had some mild recurrence of obstructive symptoms. PSA has been around 6.5. In February of last year was 6.4 and 6.5 in June. PSA was 6.7 on April 16. We discussed continued observation. DINORA DUQUE MD [address] [place] [address], [phone], [facility] 06/18/2024 12:33:06
--- OUTSIDE RECORDS SUMMARY | 2025-04-21 11:37 | XMS_ITS | Encounter Summary ---
Author Name [facility] [place] [facility] [place] [facility] [place] Address [address] [place] [address] Care Team Providers Care Delimer Name Role Phone ANKIT LORENZO Primary Care Provider Unavailab le Insurance Providers: [...] N PLAN N Jan 25, 2016 INSPRO [id number] Arik LIRA PATIENT MEDICARE (WNR) MEDICARE (M) PART A Oct 26, 2000 PART A [id number] SORAYAArik DORCAS PATIENT MEDICARE (WNR) MEDICARE (M) PART B Oct 26, 2000 PART B [id number] Arik LIRA PATIENT MEDICARE (WNR) MEDICARE (M) PART A Oct 26, 2000 PART A [id number] SORAYAArik [place] PATIENT MEDICARE (WNR) MEDICARE (M) PART B Oct 26, 2000 PART B [id number] [phone] Arik LIRA PATIENT MEDICARE (WNR) MEDICARE (M) PART A Oct 26, 2000 PART A [id number] [phone] Arik LIRA PATIENT MEDICARE (WNR) MEDICARE (M) PART B Oct 26, 2000 PART B [id number] Arik LIRA PATIENT MEDICARE PART D (WNR) MEDICARE (M) PART D Jan 25, 2016 PART D [id number] Arik LIRA PATIENT Selected Encounter This section includes the information on record at [place] for the Encounter. Date/Time Encounter Type Encounter Description Reason Pro vider Source Jan 05, 2025 03:10 PM Outpatient Encounter AMBULATORY IHE Encounter Template Text not used by [place] Lab Results: +/- 30 days of the encounter This section includes the Chemistry and Hematology Lab Results on record with [place] for the patient. Radiology Reports and Pathology Reports are provided separately, in subsequent sections. Lab Results This section contains the Chemistry/Hematology Results that were resulted 30 days before or 30 daysafter the date of the Encounter. Date/Time Source Result Type Result - Unit Interpretation Reference Range Specimen Type Comment Jan 01, 2025 10:34 AM [facility] N MICROALBUMIN/CREAT RATIO URINE Specimen Type: URINE No comment entered. Ordering Provider: LORENZO PHAM Report Released Date/Time: Jan 01, 2025 10:08 AM Reporting Lab: [place] [id number] Performing Lab: [place] [id number] CREATININE 171.5 mg/dL MICROALBUMIN QUANT 112.8 mg/L H 0.0-30.0 .MICROALBUMIN/CREA RATIO 65.8 ug/mg{creat} Jan 01, 2025 10:34 AM [facility] DRUG SCREEN IN-HOUSE ROUTINE URINE Specimen [...] Jan 01, 2025 10:08 AM Reporting Lab: [address] [address] Performing Lab: [address] [address] TETRAHYDROCANNABINOL SCREEN NEG Cuto ff < 50 AMPHETAMINE SCR NEG Cutoff < 1000 BARBITURATES SCR NEG Cutoff < 200 BENZODIAZEPINES SCR NEG Cutoff < 200 COCAINE METABOLITE SCR NEG Cutoff < 300 OPIATES SCR NEG Cutoff < 300 METHADONE SCR NEG Cutoff < 300 OXYCODONE SCR NEG Cutoff < 200 Jan 01, 2025 10:25 AM [facility] GLYCOHEMOGLOBIN BLOOD Specimen Type: BLOOD Comment: [facility] guidelines for A1c interpretation: Glycemic control targets are based on Shared Decision Making between clinicians and patients. Criteria used to establish an A1c target recommendation can be found at https://www.[place].gov/qualityandpatientsafety/ and include the use of result accuracy [...] 8.73 and 9.27. Ref: https://ngsp.org/CAPdata.asp. The in-house [employer] D-100 analyzer has a historical CV <= 2%. Contact the laboratory for further performance characteristics of this assay. Ordering Provider: LORENZO PHAM Report Released Date/Time: Jan 01, 2025 10:08 AM Reporting Lab: [address] [address] Performing Lab: [address] [address] GLYCOHEMOGLOBIN 6.8 H 4.4-5.6 Jan 01, 2025 10:25 AM [facility] 25-OH VITAMIN D SERUM Specime n [...] Jan 01, 2025 10:08 AM Reporting Lab: [address] [address] Performing Lab: [address] [address] 25-OH VITAMIN D 44.0 ng/mL 20.0-50.0 Jan 01, 2025 10:25 AM [facility] TESTOSTERONE (SIDDIQUI) SERUM Specimen Type: SE [...] Jan 01, 2025 09:59 AM Reporting Lab: [address] [address] Performing Lab: [address] [address] TESTOSTERONE (SIDDIQUI) >1500.00 ng/dL H 220 .00-900.00 Jan 01, 2025 10:25 AM [facility] TSH PLASMA Specimen Type: PLASM A [...] Jan 01, 2025 10:08 AM Reporting Lab: [address] [address] Performing Lab: [address] [address] TSH 0.7951 m[IU]/mL 0.3500-4.9400 Jan 01, 2025 10:25 AM [facility] LIPID PROFILE PLASMA Specimen Type: PLASM [...] Jan 01, 2025 10:08 AM Reporting Lab: [address] [address] Performing Lab: [address] [address] CHOLESTEROL 152 mg/dL 0-199 TRIGLYCERIDE 111 mg/dL 0-149 HDL CHOLESTEROL 49 mg/dL 40-69 DIRECT LDL CHOL. 91 mg/dL 0-100 Jan 01, 2025 10:25 AM [facility] PAN[facility] 5 PLASMA Specimen Type: PLASM A [...] Jan 01, 2025 10:08 AM Reporting Lab: [address] [address] Performing Lab: [address] [address] CREATININE 1.13 mg/dL 0.72-1.25 UREA NITROGEN 15 [...] (CKD-EPI) 68 Jan 01, 2025 10:25 AM [facility] CBC/PLT BLOOD Specimen Type: BLOOD Comment: CRITICAL CALLED TO & READ BACK BY: LORENZO PHAM 01/01/25@1122 DMT Ordering Provider: LORENZO PHAM Report Released Date/Time: Jan 01, 2025 10:08 AM Reporting Lab: [address] [address] Performing Lab: [address] [address] WBC 5.1 10*3/uL 5.0-10.0 RBC 6.07 10*6/uL 4.6-6.2 HGB 18.0 g/dL 14.0-18.0 HCT 54.3 HH 42.0-52.0 MCV 89.5 fL 80.0-94.0 MCH 29.7 pg 27.0-31.0 MCHC 33.1 g/dL 32.0-36.0 PLT 243 10*3/uL 150-450 MPV 9.5 fL 9.0-13.1 RDW 13.1 11.0-16.0 NRBC 0.0 0.0-0.0 Jan 01, 2025 10:25 AM [facility] PLASMA Specimen Type: PLASM A [...] Jan 01, 2025 10:08 AM Reporting Lab: [address] [address] Performing Lab: [address] [address] CREATININE 1.08 mg/dL 0.72-1.25 UREA NITROGEN 15 mg/dL 9-25 GLUCOSE 118 mg/dL H 74-100 SODIUM 138 mmol/L 136-145 POTASSIUM 4.1 mmol/L 3.5-5.1 CHLORIDE 101 mmol/L 98-107 CO2 28 mmol/L 22-29 CALCIUM 9.9 mg/dL 8.4-10.2 ANION GAP 9 meq/L 3-19 eGFR (CKD-EPI) 72 Jan 01, 2025 10:25 AM [facility] PSA (DIAGNOSTIC) SERUM Specim en Type: SERUM No comment entered. Ordering Provider: LORENZO PHAM Report Released Date/Time: Jan 01, 2025 10:10 AM Reporting Lab: [facility] [address] [facility] [address] Performing Lab: [facility] [address] [facility] [address] PSA (DIAGNOSTIC) 8.413 ng/mL H 0-3.999 Social History: Smoking Status (Most current) and Tobacco Use (All prior to encounter date) This section includes the most current, and the historical, smoking and tobacco- related health factors from the [place] facility where the Encounter took place. Current Smoking Status This section includes the most current smoking, or tobacco-related health factor, from the [place] facility where the Encounter took place. Date/Time Current Smoking Status Comment Facil ity Jan 01, 2025 09:30 AM VA-TOBACCO USE THANG E DAYS CIGARETTES [facility] Tobacco Use History This section includes a history of the smoking, or tobacco-related health factors, that were collected on or before the date of the Encounter. The data comes from the [place] facility where the Encounter took place. 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 [facility] Jan 19, 2021 09:30 AM VA-TOBACCO USE MED NO [facility] Jan 19, 2021 09:30 AM VA-TOBACCO USER SOME DAYS [facility] Sep 29, 2019 01:15 PM VA-TOBACCO FORMER USER [facility] Sep 29, 2019 01:15 PM VA-TOBACCO QUIT 15 YRS OR MORE [facility] April 07, 2017 08:04 AM V9 CURRENT TOBACCO USER [facility] April 07, 2017 08:04 AM V9 TOBACCO OFFERED [facility] April 07, 2017 08:04 AM V9 TOBACCO USE-DEC LINED MEDS [facility] April 03, 2016 08:54 AM V9 LIFETIME NON-US ER OF TOBACCO [facility] Mar 10, 2015 08:27 AM V9 QUIT TOBACCO >7 YEARS AGO [facility] Nov 27, 2013 08:07 AM V9 QUIT TOBACCO >7 YEARS AGO [facility] Sep 25, 2012 07:46 AM V9 LIFETIME NON-US ER OF TOBACCO [facility] Sep 25, 2012 07:46 AM V9 TOBACCO OFFERED [facility] Sep 21, 2011 01:06 PM V9 QUIT TOBACCO >7 YEARS AGO [facility] Mar 21, 2010 08:25 AM V9 QUIT TOBACCO >7 YEARS AGO [facility] April 06, 2008 08:15 AM V9 QUIT TOBACCO >7 YEARS AGO [facility] Feb 15, 2007 09:03 AM V9 QUIT TOBACCO >1 2 MO & <7 YRS AGO [facility] Jun 01, 2006 07:58 AM HF V9 CURRENT NON-SMOKER quir 3 years ago [facility] Encounter Notes: All associated encounter notes This section contains the clinical notes associated to the Encounter. Date/Time Encounter Note(s) Provider Source Jan 05, 2025 03:10 PM ADMINISTRATIVE NOT E: LOCAL TITLE: CLERICAL/ADMIN NOTE STANDARD TITLE: ADMINISTRATIVE NOTE DATE OF NOTE: JAN 05, 2025@15:10 ENTRY DATE: JAN 05, 2025@15:10:53 AUTHOR: TASH VICENTE COSIGNER: URGENCY: STATUS: COMPLETED CLERICAL/ADMIN NOTE [facility] /[facility]ain/ Tash LLOYD Signed: 01/05/2025 15:11 Receipt Acknowledged By: 01/05/2025 16:33 /es/ LORENZO PHAM Primary Care Physician 01/05/2025 ADDENDUM STATUS: COMPLETED Reviewed, and returned to [facility]. /kain/ LORENZO PHAM Primary Care Physician Signed: 01/05/2025 16:14 [facility]ASH [facility]ENTE[facility]
--- OUTSIDE RECORDS SUMMARY | 2025-04-21 11:37 | XMS_ITS ---
Author Name [facility] [place] Organization [facility] [place] Address [address] [place] [address] Care Team Providers Care Yield Loss Inspector Name Role Phone MIKACINDY AVILAPI Primary Care [...] N PLAN N Jan 25, 2016 INSPRO [id number] Arik LIRA PATIENT MEDICARE (WNR) MEDICARE (M) PART A Oct 26, 2000 PART A [id number] SORAYAArik DORCAS PATIENT MEDICARE (WNR) MEDICARE (M) PART B Oct 26, 2000 PART B [id number] Arik LIRA PATIENT MEDICARE (WNR) MEDICARE (M) PART A Oct 26, 2000 PART A [id number] Arik LIRA PATIENT MEDICARE (WNR) MEDICARE (M) PART B Oct 26, 2000 PART B [id number] Arik LIRA PATIENT MEDICARE (WNR) MEDICARE (M) PART A Oct 26, 2000 PART A [id number] Arik LIRA PATIENT MEDICARE (WNR) MEDICARE (M) PART B Oct 26, 2000 PART B [id number] [phone] Arik LIRA PATIENT MEDICARE PART D (WNR) MEDICARE (M) PART D Jan 25, 2016 PART D [id number] Arik LIRA PATIENT Selected Encounter This section includes the information on record at [place] for the Encounter. Date/Time Encounter Type Encounter Description Reason Pro vider Source Dec 18, 2024 07:56 AM Outpatient Encounter ADMIN PAT ACTIVTIES (MASNONCT) IHE Encounter Template Text not used by [place] Plan of Treatment: Future Appointments (+ 6 months) and Future Tests (+/- 45 days) The Plan of Treatment section includes future care activities for the patient from all [place] treatmentfacilities. This section includes future appointments and future orders which are active, pending or scheduled. Future Appointments This section includes appointments that were scheduled to occur 6 months from the date of the Encounter, up to a maximum of 20 appointments. The data comes from all [place] treatment facilities. Appointment Date/Time Appointment Type Appointme nt Facility Name Jan 01, 2025 09:30 AM AMBULATORY - NONE [facility] Lab Results: +/- 30 days of the encounter This section includes the Chemistry and Hematology Lab Results on record with [place] for the patient. Radiology Reports and Pathology Reports are provided separately, in subsequent sections. Lab Results This section contains the Chemistry/Hematology Results that were resulted 30 days before or 30 daysafter the date of the Encounter. Date/Time Source Result Type Result - Unit Interpretation Reference Range Specimen Type Comment Jan 01, 2025 10:34 AM [facility] N MICROALBUMIN/CREAT RATIO URINE Specimen Type: URINE No comment entered. Ordering Provider: LORENZO PHAM Report Released Date/Time: Jan 01, 2025 10:08 AM Reporting Lab: [address] [address] Performing Lab: [address] [address] CREATININE 171.5 mg/dL MICROALBUMIN QUANT 112.8 mg/L H 0.0-30.0 .MICROALBUMIN/CREA RATIO 65.8 ug/mg{creat} Jan 01, 2025 10:34 AM [facility] DRUG SCREEN IN-HOUSE ROUTINE URINE Specimen [...] Jan 01, 2025 10:08 AM Reporting Lab: [address] [address] Performing Lab: [address] [address] TETRAHYDROCANNABINOL SCREEN NEG Cuto ff < 50 AMPHETAMINE SCR NEG Cutoff < 1000 BARBITURATES SCR NEG Cutoff < 200 BENZODIAZEPINES SCR NEG Cutoff < 200 COCAINE METABOLITE SCR NEG Cutoff < 300 OPIATES SCR NEG Cutoff < 300 METHADONE SCR NEG Cutoff < 300 OXYCODONE SCR NEG Cutoff < 200 Jan 01, 2025 10:25 AM [facility] GLYCOHEMOGLOBIN BLOOD Specimen Type: BLOOD Comment: [facility] guidelines for A1c interpretation: Glycemic control targets are based on Shared Decision Making between clinicians and patients. Criteria used to establish an A1c target recommendation can be found at https://www.[place].gov/qualityandpatientsafety/ and include the use of result accuracy [...] 8.73 and 9.27. Ref: https://ngsp.org/CAPdata.asp. The in-house [employer] D-100 analyzer has a historical CV <= 2%. Contact the laboratory for further performance characteristics of this assay. Ordering Provider: LORENZO PHAM Report Released Date/Time: Jan 01, 2025 10:08 AM Reporting Lab: [address] [address] Performing Lab: [address] [address] GLYCOHEMOGLOBIN 6.8 H 4.4-5.6 Jan 01, 2025 10:25 AM [facility] TESTOSTERONE (SIDDIQUI) SERUM Specimen Type: SE [...] Jan 01, 2025 09:59 AM Reporting Lab: [address] [address] Performing Lab: [address] [address] TESTOSTERONE (SIDDIQUI) >1500.00 ng/dL H 220 .00-900.00 Jan 01, 2025 10:25 AM [facility] TSH PLASMA Specimen Type: PLASM A [...] Jan 01, 2025 10:08 AM Reporting Lab: [address] [address] Performing Lab: [address] [address] TSH 0.7951 m[IU]/mL 0.3500-4.9400 Jan 01, 2025 10:25 AM [facility] 25-OH VITAMIN D SERUM Specime n [...] Jan 01, 2025 10:08 AM Reporting Lab: [address] [address] Performing Lab: [address] [address] 25-OH VITAMIN D 44.0 ng/mL 20.0-50.0 Jan 01, 2025 10:25 AM [facility] LIPID PROFILE PLASMA Specimen Type: PLASM [...] Jan 01, 2025 10:08 AM Reporting Lab: [address] [address] Performing Lab: [address] [address] CHOLESTEROL 152 mg/dL 0-199 TRIGLYCERIDE 111 mg/dL 0-149 HDL CHOLESTEROL 49 mg/dL 40-69 DIRECT LDL CHOL. 91 mg/dL 0-100 Jan 01, 2025 10:25 AM [facility] PANEL 5 PLASMA Specimen Type: PLASM [...] Jan 01, 2025 10:08 AM Reporting Lab: [address] [address] Performing Lab: [place] [id number] CREATININE 1.13 mg/dL 0.72-1.25 UREA NITROGEN 15 [...] (CKD-EPI) 68 Jan 01, 2025 10:25 AM [facility]/PLT [facility]LOOD Specimen Type: BLOOD Comment: CRITICAL CALLED TO & READ BACK BY: LORENZO PHAM 01/01/25@1122 DMT Ordering Provider: LORENZO PHAM Report Released Date/Time: Jan 01, 2025 10:08 AM Reporting Lab: [address] [address] Performing Lab: [address] [address] WBC 5.1 10*3/uL 5.0-10.0 RBC 6.07 10*6/uL 4.6-6.2 HGB 18.0 g/dL 14.0-18.0 HCT 54.3 HH 42.0-52.0 MCV 89.5 fL 80.0-94.0 MCH 29.7 pg 27.0-31.0 MCHC 33.1 g/dL 32.0-36.0 PLT 243 10*3/uL 150-450 MPV 9.5 fL 9.0-13.1 RDW 13.1 11.0-16.0 NRBC 0.0 0.0-0.0 Jan 01, 2025 10:25 AM [facility] 1 PLASMA Specimen Type: PLASM A [...] Jan 01, 2025 10:08 AM Reporting Lab: [address] [address] Performing Lab: [address] [address] CREATININE 1.08 mg/dL 0.72-1.25 UREA NITROGEN 15 mg/dL 9-25 GLUCOSE 118 mg/dL H 74-100 SODIUM 138 mmol/L 136-145 POTASSIUM 4.1 mmol/L 3.5-5.1 CHLORIDE 101 mmol/L 98-107 CO2 28 mmol/L 22-29 CALCIUM 9.9 mg/dL 8.4-10.2 ANION GAP 9 meq/L 3-19 eGFR (CKD-EPI) 72 Jan 01, 2025 10:25 AM [facility] PSA (DIAGNOSTIC) SERUM Specim en Type: SERUM No comment entered. Ordering Provider: LORENZO PHAM Report Released Date/Time: Jan 01, 2025 10:10 AM Reporting Lab: [address] [address] Performing Lab: [address] [address] PSA (DIAGNOSTIC) 8.413 ng/mL H 0-3.999 Social History: Smoking Status (Most current) and Tobacco Use (All prior to encounter date) This section includes the most current, and the historical, smoking and tobacco- related health factors from the [place] facility where the Encounter took place. Current Smoking Status This section includes the most current smoking, or tobacco-related health factor, from the [place] facility where the Encounter took place. Date/Time Current Smoking Status Comment Osman davis Feb 27, 2005 08:04 AM HF V9 CURRENT NON-SMOKER quit 2 years ago [facility] Encounter Notes: All associated encounter notes This section contains the clinical notes associated to the Encounter. Date/Time Encounter Note(s) Provider Source Dec 18, 2024 07:56 AM ADMINISTRATIVE NOT E: LOCAL TITLE: HEALTH BENEFITS ADMINISTRATIVE NOTE STANDARD TITLE: ADMINISTRATIVE NOTE DATE OF NOTE: DEC 18, 2024@07:56 ENTRY DATE: DEC 18, 2024@07:56:32 AUTHOR: LEONID THOMAS EXP COSIGNER: URGENCY: STATUS: COMPLETED Eligible for enrollment: Yes has been enrolled and assigned to priority group 7C HBA enrolled Nov [facility] was processed to be mailed on the address on record [id number] with the return envelope was given to the to update his financal, was thankful for getting the service /es/ LEONID THOMAS Signed: 12/18/2024 07:57 LEONID THOMAS-Lydia [facility]
--- OUTSIDE RECORDS SUMMARY | 2025-04-21 11:37 | XMS_ITS | Continuity of Care Document ---
Author Name [facility] Organization [facility] Care Team Providers Care Pulmonology Technician Name Role Phone [facility] Unavailable Unavailable Problems Combined list of problems from Department of Defense and Veterans Affairs facilities. It does not include entries that were removed or entered in error. 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 VACCIN FOR INFLUENZA - Need for prophylactic vaccination and inoculation, influe Active Condition [facility] N Flatulence, eructation, and gas pain (ICD-9-CM 787.3) Inactive Condition 09/16/2007 Sep 16, 2007 Entered By: Roman HANLEY Comment: delete [facility] PROPHY VACC. STREP PNEU Inactive Condition 03/21/2010 Mar 21, 2010 Entered By: Roman HANLEY Comment: delete per dr sean [facility] Isaías VACCIN FOR INFLUENZA Inactive Condition April 06, 2008 Entered By: Roman HANLEY Comment: delete varun whalen [place] Diagnosis: ICD-10-CM Z71.89 Other specified counseling Active Diagnosis [facility] Diagnosis: ICD-10-CM I10 Essential (primary) hypertension Active Diagnosis [facility] Diagnosis: ICD-10-CM R68.89 Other general symptoms and signs Active Diagnosis [facility] Diagnosis: ICD-10-CM K92.1 Melena Active Diagnosis [facility] Medications Combined list of outpatient medications from Department of Defense and [facility] facilities.Medications provided include 1) outpatient medications from the last 15 months, and 2) patient-reported medications. Medication Details Route Status Patient Instructions Prescription Expires Prescription Number Last Dispense Date Ordering Provider Order Date Order Qty Source ASPIRIN 81MG TAB,EC TAKE ONE TABLET BY MOUTH DAILY FOR HEART ORAL ACTIVE 01/02/2026 [id number] GUNDUMALL ALORENZO K 2024 90 [place] [facility] FOLIC ACID TAB TAKE 800MCG BY MOUTH EVERY MORNING ORAL ACTIVE JOEY ORANTES IN C 2020 [place] [facility] GABAPENTIN 600MG TAB TAKE TWO TABLETS BY MOUTH AT BEDTIME ORAL ACTIVE GUNDUMALL A,LORENZO K 2024 [place] [facility] GABAPENTIN 600MG TAB TAKE ONE-HALF TABLET BY MOUTH DAILY ORAL ACTIVE GUNDUMALL A,LORENZO K 2024 [place] [facility] INDAPAMIDE 2.5MG TAB TAKE ONE TABLET BY MOUTH DAILY FOR BLOOD PRESSURE ORAL ACTIVE 02/27/2026 [id number] RYAN AMBROSIO R 2024 90 [place] [facility] INDAPAMIDE 2.5MG TAB TAKE ONE TABLET BY MOUTH DAILY FOR BLOOD PRESSURE ORAL DISCONT INUED 01/30/2025 [id number] RYAN AMBROSIO R 2023 90 [place] [facility] MELOXICAM 15MG TAB TAKE ONE TABLET BY MOUTH DAILY FOR PAIN OR INFLAMMA TION -TAKE WITH FOOD OR MILK ORAL ACTIVE 01/02/2026 [id number] GUNDUMALL A,LORENZO K 2024 90 [place] [facility] MELOXICAM 15MG TAB TAKE ONE TABLET BY MOUTH DAILY ORAL ACTIVE JOEY ORANTES IN C 2018 [place] [facility] METFORMIN HCL 500MG 24HR TAB,SA TAKE TWO TABLETS BY MOUTH EVERY MORNING AND TAKE ONE TABLET AT BEDTIME FOR BLOOD SUGAR ORAL ACTIVE 01/02/2026 [id number] GUNDUMALL A,LORENZO K 2024 270 [place] [facility] MULTIVITAMI NS W/MINERALS CAP/TAB TAKE 1 CAP(S)/T AB BY MOUTH DAILY ORAL ACTIVE JOEY ORANTES IN C 2020 [place] [facility] OXYCODONE HCL 15MG TAB TAKE TWO TABLETS BY MOUTH THREE TIMES A DAY ORAL ACTIVE JOEY ORANTES IN C 2018 [place] [facility] ROSUVASTATI N CA 40MG TAB TAKE ONE-HALF TABLET BY MOUTH AT BEDTIME FOR CHOLESTE ROL ORAL ACTIVE 01/30/2025 [id number] RYAN AMBROSIO 2023 45 [place] [facility] SILDENAFIL CITRATE 100MG TAB TAKE ONE TABLET BY MOUTH DIRECTED FOR ERECTILE DYSFUNCT ION -DO NOT TAKE WITH ANY MEDICATI ON CONTAINI NG NITRATES (LIMIT: 6 DOSES/30 DAYS OR 18 DOSES/90 DAYS, NON-REPL ACEABLE MEDICATI ON) ORAL 04/01/2025 [id number] GUNDUMALL A,LORENZO K 2024 18 [place] [facility] SILDENAFIL CITRATE 100MG TAB TAKE ONE TABLET BY MOUTH DIRECTED ORAL ACTIVE GUNDUMALL A,LORENZO K 2024 [place] [facility] TESTOSTERON E CYPIONATE 200MG/ML INJ (IN OIL) INJECT 200MG (1ML) INTO THE MUSCLE DIRECTED WEEKLY INTRAM USCULA R JOEY FUENTES IN C 2018 [place] [facility] ZINC 50MG (FROM SULFATE) CAP TAKE 1 CAPSULE BY MOUTH ONCE A DAY ORAL ACTIVE ORANTESJOEY IN C 2020 [facility] Allergies, Adverse Reactions, Alerts Combined list of allergies from Department of Defense and Veterans Affairs facilities. It does not include entries that were removed or entered in error. Substance Category Reaction Severity Reaction type Status Date Reported Comments Source LIPITOR Propensity to adverse reactions to drug (finding) Muscle pain active 3 [facility] LOVASTATIN Propensity to adverse reactions to drug (finding) Engorgement of breasts MODERATE active 8 [facility] ZOCOR Propensity to adverse reactions to drug (finding) Muscle pain MODERATE active 8 [facility] Immunizations Combined list of available immunizations from the Department of Defense and Veterans Affairs facilities. Immunization Series Date Given Administered By Site Reaction Lot Number CVX Code Drug Home Care Manager Rn Status Comments Source INFLUENZA, HIGH-DOSE, TRIVALENT, PF 1 2023 135 complet ed HISTORICA L INFORMATI ON - FROM OTHER REGISTRY, [place] [facility] TDAP 1 2022 115 complet ed HISTORICA L INFORMATI ON - FROM OTHER REGISTRY, [place] [facility] COVID-19 (PFIZER), MRNA, LNP-S, PF, 30 MCG/0.3 ML DOSE 1 2020 208 complet ed HISTORICA L INFORMATI ON - FROM OTHER REGISTRY, [place] [facility] COVID-[facility] ([facility]), MRNA, LNP-S, PF, 30 MCG/0.3 ML DOSE 2 2020 208 complet ed PFR; [id number]; 1 [place] COVID-19 (P[facility]), MRNA, LNP-S, PF, 30 MCG/0.3 ML DOSE 1 2020 208 complet ed PFR; [id number]; 1 [place] PNEUMOCOCCAL POLYSACCHARID E [id number] 1 2019 33 complet ed HISTORICA L INFORMATI ON - FROM OTHER REGISTRY, [place] [facility] INFLUENZA, INJECTABLE, QUADRIVALENT, PRESERVATIVE FREE 2018 150 complet ed [place] [facility] INFLUENZA A & B (HISTORICAL) 2014 88 complet ed [place] [facility] FLU,3 YRS (HISTORICAL) 2013 88 complet ed [place] [facility] FLU,3 YRS (HISTORICAL) 2011 88 complet ed [place] [facility] INFLUENZA A & B (HISTORICAL) 2010 88 complet ed [place] [facility] FLU,3 YRS (HISTORICAL) 2009 88 complet ed [place] [facility] TD(ADULT) UNSPECIFIED FORMULATION 2009 139 complet ed [place] [facility] TD(ADULT) UNSPECIFIED FORMULATION 2009 NONE 139 complet ed Completed Series, given IM in left deltoid Lot [id number] 01/06 [place] [facility] FLU,3 YRS (HISTORICAL) 2008 88 complet ed [place] [facility] PNEUMOCOCCAL, UNSPECIFIED FORMULATION 2008 109 complet ed [place] [facility] INFLUENZA A & B (HISTORICAL) 2007 88 complet ed [place] [facility] FLU,3 YRS (HISTORICAL) 2006 88 complet ed [place] [facility] TD(ADULT) UNSPECIFIED FORMULATION 1999 139 complet ed local [place] [facility] Results Combined list of recent chemistry, hematology and other laboratory results from Department of Defense and Veterans Affairs, ranging from 15 months to all on record, depending upon the facility. Order Name Results Value Reference Range Date Interpretation Specimen Comments Source MICROALBU MIN/CREAT RATIO CREATININE [MASS/VOLUM E] IN URINE 171.5 mg/dL 01/01 Specimen Type: URINE No comment entered. Ordering Provider: LORENZO PHAM Report Released Date/Time: Jan 01, 2025 10:08 AM Reporting Lab: [facility] [address] [address] Performing Lab: [facility] [address] [address] [facility] MICROALBU MIN/CREAT RATIO MICROALBUMI N [MASS/VOLUM E] IN URINE 112.8 mg/L 0.0 - 30.0 01/01 H Specimen Type: URINE No comment entered. Ordering Provider: LORENZO PHAM Report Released Date/Time: Jan 01, 2025 10:08 AM Reporting Lab: [place] [phone] Performing Lab: [address] [place] [address] MICROALBU MIN/CREAT RATIO MICROALBUMI N/CREATININ E [MASS RATIO] IN URINE 65.8 ug/mg{ creat} 01/01 Specimen Type: URINE No comment entered. Ordering Provider: LORENZO PHAM Report Released Date/Time: Jan 01, 2025 10:08 AM Reporting Lab: [place] [phone] Performing Lab: [address] DRUG SCREEN IN-HOUSE ROUTINE TETRAHYDROC ANNABINOL [PRESENCE] IN URINE NEG Cutoff < 50 - 50 01/01 Specimen Type: URINE Comment: Screening method results are unconfirmed and are for medical use only. Unconfirmed screening results must not be used for non-medical purposes. Opiates test most sensitive for morphine, codeine and heroin and less sensitive for hydrocodone and hydromorpho ne where higher concentrati ons are needed for cut-off detection. Ordering Provider: LORENZO PHAM Report Released Date/Time: Jan 01, 2025 10:08 AM Reporting Lab: [place] [phone] Performing Lab: [address] DRUG SCREEN IN-HOUSE ROUTINE AMPHETAMINE S [PRESENCE] IN URINE NEG Cutoff < 1000 - 1000 01/01 Specimen Type: URINE Comment: Screening method results are unconfirmed and are for medical use only. Unconfirmed screening results must not be used for non-medical purposes. Opiates test most sensitive for morphine, codeine and heroin and less sensitive for hydrocodone and hydromorpho ne where higher concentrati ons are needed for cut-off detection. Ordering Provider: LORENZO PHAM Report Released Date/Time: Jan 01, 2025 10:08 AM Reporting Lab: [address] [phone] Performing Lab: [address] [phone] [facility] DRUG SCREEN IN-HOUSE ROUTINE BARBITURATE S [PRESENCE] IN URINE BY SCREEN METHOD NEG Cutoff < 200 - 200 01/01 Specimen Type: URINE Comment: Screening method results are unconfirmed and are for medical use only. Unconfirmed screening results must not be used for non-medical purposes. Opiates test most sensitive for morphine, codeine and heroin and less sensitive for hydrocodone and hydromorpho ne where higher concentrati ons are needed for cut-off detection. Ordering Provider: LORENZO PHAM Report Released Date/Time: Jan 01, 2025 10:08 AM Reporting Lab: [address] [phone] Performing Lab: [address] [phone] [facility] DRUG SCREEN IN-HOUSE ROUTINE BENZODIAZEP LINCOLN [PRESENCE] IN URINE BY SCREEN METHOD NEG Cutoff < 200 - 200 01/01 Specimen Type: URINE Comment: Screening method results are unconfirmed and are for medical use only. Unconfirmed screening results must not be used for non-medical purposes. Opiates test most sensitive for morphine, codeine and heroin and less sensitive for hydrocodone and hydromorpho ne where higher concentrati ons are needed for cut-off detection. Ordering Provider: LORENZO PHAM Report Released Date/Time: Jan 01, 2025 10:08 AM Reporting Lab: [address] [phone] Performing Lab: [address] [address] [facility] DRUG SCREEN IN-HOUSE ROUTINE BENZOYLECGO NINE [PRESENCE] IN URINE NEG Cutoff < 300 - 300 01/01 Specimen Type: URINE Comment: Screening method results are unconfirmed and are for medical use only. Unconfirmed screening results must not be used for non-medical purposes. Opiates test most sensitive for morphine, codeine and heroin and less sensitive for hydrocodone and hydromorpho ne where higher concentrati ons are needed for cut-off detection. Ordering Provider: LORENZO PHAM Report Released Date/Time: Jan 01, 2025 10:08 AM Reporting Lab: [address] [phone] Performing Lab: [address] [address] [facility] DRUG SCREEN IN-HOUSE ROUTINE OPIATES [PRESENCE] IN URINE BY SCREEN METHOD NEG Cutoff < 300 - 300 01/01 Specimen Type: URINE Comment: Screening method results are unconfirmed and are for medical use only. Unconfirmed screening results must not be used for non-medical purposes. Opiates test most sensitive for morphine, codeine and heroin and less sensitive for hydrocodone and hydromorpho ne where higher concentrati ons are needed for cut-off detection. Ordering Provider: LORENZO PHAM Report Released Date/Time: Jan 01, 2025 10:08 AM Reporting Lab: [address] [phone] Performing Lab: [address] [address] [facility] DRUG SCREEN IN-HOUSE ROUTINE METHADONE [PRESENCE] IN URINE NEG Cutoff < 300 - 300 01/01 Specimen Type: URINE Comment: Screening method results are unconfirmed and are for medical use only. Unconfirmed screening results must not be used for non-medical purposes. Opiates test most sensitive for morphine, codeine and heroin and less sensitive for hydrocodone and hydromorpho ne where higher concentrati ons are needed for cut-off detection. Ordering Provider: LORENZO PHAM Report Released Date/Time: Jan 01, 2025 10:08 AM Reporting Lab: [address] [phone] Performing Lab: [address] [phone] [facility] DRUG SCREEN IN-HOUSE ROUTINE OXYCODONE [PRESENCE] IN URINE NEG Cutoff < 200 - 200 01/01 Specimen Type: URINE Comment: Screening method results are unconfirmed and are for medical use only. Unconfirmed screening results must not be used for non-medical purposes. Opiates test most sensitive for morphine, codeine and heroin and less sensitive for hydrocodone and hydromorpho ne where higher concentrati ons are needed for cut-off detection. Ordering Provider: LORENZO PHAM Report Released Date/Time: Jan 01, 2025 10:08 AM Reporting Lab: [address] [phone] Performing Lab: [address] [phone] [facility] GLYCOHEMO GLOBIN HEMOGLOBIN A1C/HEMOGLO BIN.TOTAL IN BLOOD BY HPLC 6.8 4.4 - 5.6 01/01 H Specimen Type: BLOOD Comment: [facility] guidelines for A1c interpretat ion: Glycemic control targets are based on Shared Decision Making between clinicians and patients. Criteria used to establish an A1c target recommendat ion can be found at https://www .[place].gov/velvet lityandpati entsafety/ and include the use of result accuracy and precision(C V) of the A1c tests clinicians utilize at their own sites of practice. Values obtained from A1C measurement s can vary. For typical A1C assays, a reported value of 7.0 could actually be between 6.72 and 7.28 if measured by a reference method. A reported value of 9.0 could actually be between 8.73 and 9.27. Ref: https://ngs p.org/CAPda ta.asp. The in-house [employer]-saambaa D-100 analyzer has a historical CV <= 2%. Contact the laboratory for further performance characteris tics of this assay. Ordering Provider: LORENZO PHAM Report Released Date/Time: Jan 01, 2025 10:08 AM Reporting Lab: [address] [phone] Performing Lab: [address] [phone] [facility] 25-OH VITAMIN D 25-HYDROXYV ITAMIN D3 [MASS/VOLUM E] IN SERUM OR PLASMA 44.0 ng/mL 20.0 - 50.0 01/01 Specimen Type: SERUM Comment: The National Institutes of Health (NIH) recommendat ions state: <12 ng/mL - Deficient 20 - 50 ng/mL - Optimal Levels - adequate for most people. >50 ng/mL - Increased risk of hypercalciu macho/other health problems - clinical correlation is required. These reference ranges represent clinical decision values rather than population- based reference values. Ordering Provider: LORENZO PHAM Report Released Date/Time: Jan 01, 2025 10:08 AM Reporting Lab: [facility] [address] [address] Performing Lab: [facility] [address] [address] [facility] TSH THYROTROPIN [UNITS/VOLU ME] IN SERUM OR PLASMA 0.7951 m[IU]/ mL 0.3500 - 4.9400 01/01 Specimen Type: PLASMA Comment: Estimated Glomerular Filtration Rate (eGFR) calculated using the 2020 Chronic Kidney Disease-Epi demiology (CKD-EPI) Collaborati on creatinine equation; units of measure are mL/min/1.73 m2. Results are only valid for adults (>=18 years) whose serum creatinine is in a steady state. eGFR calculation s are not valid for patients with acute kidney injury and for patients on dialysis. Creatinine- based estimates of kidney function may also be inaccurate in patients with reduced creatinine generation due to decreased muscle mass (e.g., malnutritio n, severe hypoalbumin emia, sarcopenia, chronic neuromuscul ar disease, amputations , severe heart failure or liver disease) and in patients with increased creatinine generation due to increased muscle mass (e.g., muscle builders, anabolic steroids) or increased dietary intake. As drug clearance is proportiona l to total GFR and not GFR indexed to body surface area (BSA), in individuals with a BSA substantial ly different than 1.73 m2, drug dosing should be based on the reported eGFR value de-indexed from BSA by multiplying by the individual' s BSA and dividing by 1.73. CKD is diagnosed based on abnormaliti es of kidney structure or function, present for >3 months, with implication s for health and disease. CKD is classified and staged based on cause, eGFR and albuminuria (quantified as urine albumin to creatinine ratio). An eGFR >60 mL/min/1.73 m2 in the absence of increased urine albumin excretion or structural abnormaliti es does not represent CKD. eGFR CKD Interpretat ion (mL/min/1.7 3 m2) stage >=90 G1 Normal 60-89 G2 Mild decrease 45-59 G3A Mild to moderate decrease 30-44 G3B Moderate to severe decrease 15-29 G4 Severe decrease <15 G5 Kidney failure Ordering Provider: LORENZO PHAM Report Released Date/Time: Jan 01, 2025 10:08 AM Reporting Lab: [facility] [address] [address] Performing Lab: [facility] [address] [facility] TESTOSTER ONE (Matter and Form) TESTOSTERON E [MASS/VOLUM E] IN SERUM OR PLASMA >1500. 00ng/d L 220.00 - 900.00 01/01 H Specimen Type: SERUM Comment: The National Institutes of Health (NIH) recommendat ions state: <12 ng/mL - Deficient 20 - 50 ng/mL - Optimal Levels - adequate for most people. >50 ng/mL - Increased risk of hypercalciu macho/other health problems - clinical correlation is required. These reference ranges represent clinical decision values rather than population- based reference values. TESTOSTERON E MALES: >=50 years 220.0-900.0 ng/dL <50 years 240.0-930.0 ng/dL TESTOSTERON E FEMALES: >=50 years 12.4-35.8 ng/dL <50 years 13.8-53.4 ng/dL Ordering Provider: LORENZO PHAM Report Released Date/Time: Jan 01, 2025 09:59 AM Reporting Lab: [facility] [address] [address] Performing Lab: [address] [address] [facility] LIPID PROFILE CHOLESTEROL [MASS/VOLUM E] IN SERUM OR PLASMA 152 mg/dL 0 - 199 01/01 Specimen Type: PLASMA Comment: Estimated Glomerular Filtration Rate (eGFR) calculated using the 2020 Chronic Kidney Disease-Epi demiology (CKD-EPI) Collaborati on creatinine equation; units of measure are mL/min/1.73 m2. Results are only valid for adults (>=18 years) whose serum creatinine is in a steady state. eGFR calculation s are not valid for patients with acute kidney injury and for patients on dialysis. Creatinine- based estimates of kidney function may also be inaccurate in patients with reduced creatinine generation due to decreased muscle mass (e.g., malnutritio n, severe hypoalbumin emia, sarcopenia, chronic neuromuscul ar disease, amputations , severe heart failure or liver disease) and in patients with increased creatinine generation due to increased muscle mass (e.g., muscle builders, anabolic steroids) or increased dietary intake. As drug clearance is proportiona l to total GFR and not GFR indexed to body surface area (BSA), in individuals with a BSA substantial ly different than 1.73 m2, drug dosing should be based on the reported eGFR value de-indexed from BSA by multiplying by the individual' s BSA and dividing by 1.73. CKD is diagnosed based on abnormaliti es of kidney structure or function, present for >3 months, with implication s for health and disease. CKD is classified and staged based on cause, eGFR and albuminuria (quantified as urine albumin to creatinine ratio). An eGFR >60 mL/min/1.73 m2 in the absence of increased urine albumin excretion or structural abnormaliti es does not represent CKD. eGFR CKD Interpretat ion (mL/min/1.7 3 m2) stage >=90 G1 Normal 60-89 G2 Mild decrease 45-59 G3A Mild to moderate decrease 30-44 G3B Moderate to severe decrease 15-29 G4 Severe decrease <15 G5 Kidney failure Ordering Provider: LORENZO PHAM Report Released Date/Time: Jan 01, 2025 10:08 AM Reporting Lab: [facility] [address] [facility] [address] Performing Lab: [facility] [address] [facility] [address] [facility] LIPID PROFILE TRIGLYCERID E [MASS/VOLUM E] IN SERUM OR PLASMA 111 mg/dL 0 - 149 01/01 Specimen Type: PLASMA Comment: Estimated Glomerular Filtration Rate (eGFR) calculated using the 2020 Chronic Kidney Disease-Epi demiology (CKD-EPI) Collaborati on creatinine equation; units of measure are mL/min/1.73 m2. Results are only valid for adults (>=18 years) whose serum creatinine is in a steady state. eGFR calculation s are not valid for patients with acute kidney injury and for patients on dialysis. Creatinine- based estimates of kidney function may also be inaccurate in patients with reduced creatinine generation due to decreased muscle mass (e.g., malnutritio n, severe hypoalbumin emia, sarcopenia, chronic neuromuscul ar disease, amputations , severe heart failure or liver disease) and in patients with increased creatinine generation due to increased muscle mass (e.g., muscle builders, anabolic steroids) or increased dietary intake. As drug clearance is proportiona l to total GFR and not GFR indexed to body surface area (BSA), in individuals with a BSA substantial ly different than 1.73 m2, drug dosing should be based on the reported eGFR value de-indexed from BSA by multiplying by the individual' s BSA and dividing by 1.73. CKD is diagnosed based on abnormaliti es of kidney structure or function, present for >3 months, with implication s for health and disease. CKD is classified and staged based on cause, eGFR and albuminuria (quantified as urine albumin to creatinine ratio). An eGFR >60 mL/min/1.73 m2 in the absence of increased urine albumin excretion or structural abnormaliti es does not represent CKD. eGFR CKD Interpretat ion (mL/min/1.7 3 m2) stage >=90 G1 Normal 60-89 G2 Mild decrease 45-59 G3A Mild to moderate decrease 30-44 G3B Moderate to severe decrease 15-29 G4 Severe decrease <15 G5 Kidney failure Ordering Provider: LORENZO PHAM Report Released Date/Time: Jan 01, 2025 10:08 AM Reporting Lab: [facility] [address] [facility] [address] Performing Lab: [facility] [address] [facility] [address] [facility] LIPID PROFILE CHOLESTEROL IN HDL [MASS/VOLUM E] IN SERUM OR PLASMA 49 mg/dL 40 - 69 01/01 Specimen Type: PLASMA Comment: Estimated Glomerular Filtration Rate (eGFR) calculated using the 2020 Chronic Kidney Disease-Epi demiology (CKD-EPI) Collaborati on creatinine equation; units of measure are mL/min/1.73 m2. Results are only valid for adults (>=18 years) whose serum creatinine is in a steady state. eGFR calculation s are not valid for patients with acute kidney injury and for patients on dialysis. Creatinine- based estimates of kidney function may also be inaccurate in patients with reduced creatinine generation due to decreased muscle mass (e.g., malnutritio n, severe hypoalbumin emia, sarcopenia, chronic neuromuscul ar disease, amputations , severe heart failure or liver disease) and in patients with increased creatinine generation due to increased muscle mass (e.g., muscle builders, anabolic steroids) or increased dietary intake. As drug clearance is proportiona l to total GFR and not GFR indexed to body surface area (BSA), in individuals with a BSA substantial ly different than 1.73 m2, drug dosing should be based on the reported eGFR value de-indexed from BSA by multiplying by the individual' s BSA and dividing by 1.73. CKD is diagnosed based on abnormaliti es of kidney structure or function, present for >3 months, with implication s for health and disease. CKD is classified and staged based on cause, eGFR and albuminuria (quantified as urine albumin to creatinine ratio). An eGFR >60 mL/min/1.73 m2 in the absence of increased urine albumin excretion or structural abnormaliti es does not represent CKD. eGFR CKD Interpretat ion (mL/min/1.7 3 m2) stage >=90 G1 Normal 60-89 G2 Mild decrease 45-59 G3A Mild to moderate decrease 30-44 G3B Moderate to severe decrease 15-29 G4 Severe decrease <15 G5 Kidney failure Ordering Provider: LORENZO PHAM Report Released Date/Time: Jan 01, 2025 10:08 AM Reporting Lab: [facility] [address] [address] Performing Lab: [facility] [address] [address] [facility] LIPID PROFILE CHOLESTEROL IN LDL [MASS/VOLUM E] IN SERUM OR PLASMA BY DIRECT ASSAY 91 mg/dL 0 - 100 01/01 Specimen Type: PLASMA Comment: Estimated Glomerular Filtration Rate (eGFR) calculated using the 2020 Chronic Kidney Disease-Epi demiology (CKD-EPI) Collaborati on creatinine equation; units of measure are mL/min/1.73 m2. Results are only valid for adults (>=18 years) whose serum creatinine is in a steady state. eGFR calculation s are not valid for patients with acute kidney injury and for patients on dialysis. Creatinine- based estimates of kidney function may also be inaccurate in patients with reduced creatinine generation due to decreased muscle mass (e.g., malnutritio n, severe hypoalbumin emia, sarcopenia, chronic neuromuscul ar disease, amputations , severe heart failure or liver disease) and in patients with increased creatinine generation due to increased muscle mass (e.g., muscle builders, anabolic steroids) or increased dietary intake. As drug clearance is proportiona l to total GFR and not GFR indexed to body surface area (BSA), in individuals with a BSA substantial ly different than 1.73 m2, drug dosing should be based on the reported eGFR value de-indexed from BSA by multiplying by the individual' s BSA and dividing by 1.73. CKD is diagnosed based on abnormaliti es of kidney structure or function, present for >3 months, with implication s for health and disease. CKD is classified and staged based on cause, eGFR and albuminuria (quantified as urine albumin to creatinine ratio). An eGFR >60 mL/min/1.73 m2 in the absence of increased urine albumin excretion or structural abnormaliti es does not represent CKD. eGFR CKD Interpretat ion (mL/min/1.7 3 m2) stage >=90 G1 Normal 60-89 G2 Mild decrease 45-59 G3A Mild to moderate decrease 30-44 G3B Moderate to severe decrease 15-29 G4 Severe decrease <15 G5 Kidney failure Ordering Provider: LORENZO PHAM Report Released Date/Time: Jan 01, 2025 10:08 AM Reporting Lab: [facility] [address] [facility] [address] Performing Lab: [facility] [address] [address] [facility] PANEL 5 CREATININE [MASS/VOLUM E] IN SERUM OR PLASMA 1.13 mg/dL 0.72 - 1.25 01/01 Specimen Type: PLASMA Comment: Estimated Glomerular Filtration Rate (eGFR) calculated using the 2020 Chronic Kidney Disease-Epi demiology (CKD-EPI) Collaborati on creatinine equation; units of measure are mL/min/1.73 m2. Results are only valid for adults (>=18 years) whose serum creatinine is in a steady state. eGFR calculation s are not valid for patients with acute kidney injury and for patients on dialysis. Creatinine- based estimates of kidney function may also be inaccurate in patients with reduced creatinine generation due to decreased muscle mass (e.g., malnutritio n, severe hypoalbumin emia, sarcopenia, chronic neuromuscul ar disease, amputations , severe heart failure or liver disease) and in patients with increased creatinine generation due to increased muscle mass (e.g., muscle builders, anabolic steroids) or increased dietary intake. As drug clearance is proportiona l to total GFR and not GFR indexed to body surface area (BSA), in individuals with a BSA substantial ly different than 1.73 m2, drug dosing should be based on the reported eGFR value de-indexed from BSA by multiplying by the individual' s BSA and dividing by 1.73. CKD is diagnosed based on abnormaliti es of kidney structure or function, present for >3 months, with implication s for health and disease. CKD is classified and staged based on cause, eGFR and albuminuria (quantified as urine albumin to creatinine ratio). An eGFR >60 mL/min/1.73 m2 in the absence of increased urine albumin excretion or structural abnormaliti es does not represent CKD. eGFR CKD Interpretat ion (mL/min/1.7 3 m2) stage >=90 G1 Normal 60-89 G2 Mild decrease 45-59 G3A Mild to moderate decrease 30-44 G3B Moderate to severe decrease 15-29 G4 Severe decrease <15 G5 Kidney failure Ordering Provider: LORENZO PHAM Report Released Date/Time: Jan 01, 2025 10:08 AM Reporting Lab: [facility] [address] [address] Performing Lab: [facility] [address] [address] [facility] PANEL 5 UREA NITROGEN [MASS/VOLUM E] IN SERUM OR PLASMA 15 mg/dL 01/01 Specimen Type: PLASMA Comment: Estimated Glomerular Filtration Rate (eGFR) calculated using the 2020 Chronic Kidney Disease-Epi demiology (CKD-EPI) Collaborati on creatinine equation; units of measure are mL/min/1.73 m2. Results are only valid for adults (>=18 years) whose serum creatinine is in a steady state. eGFR calculation s are not valid for patients with acute kidney injury and for patients on dialysis. Creatinine- based estimates of kidney function may also be inaccurate in patients with reduced creatinine generation due to decreased muscle mass (e.g., malnutritio n, severe hypoalbumin emia, sarcopenia, chronic neuromuscul ar disease, amputations , severe heart failure or liver disease) and in patients with increased creatinine generation due to increased muscle mass (e.g., muscle builders, anabolic steroids) or increased dietary intake. As drug clearance is proportiona l to total GFR and not GFR indexed to body surface area (BSA), in individuals with a BSA substantial ly different than 1.73 m2, drug dosing should be based on the reported eGFR value de-indexed from BSA by multiplying by the individual' s BSA and dividing by 1.73. CKD is diagnosed based on abnormaliti es of kidney structure or function, present for >3 months, with implication s for health and disease. CKD is classified and staged based on cause, eGFR and albuminuria (quantified as urine albumin to creatinine ratio). An eGFR >60 mL/min/1.73 m2 in the absence of increased urine albumin excretion or structural abnormaliti es does not represent CKD. eGFR CKD Interpretat ion (mL/min/1.7 3 m2) stage >=90 G1 Normal 60-89 G2 Mild decrease 45-59 G3A Mild to moderate decrease 30-44 G3B Moderate to severe decrease 15-29 G4 Severe decrease <15 G5 Kidney failure Ordering Provider: LORENZO PHAM Report Released Date/Time: Jan 01, 2025 10:08 AM Reporting Lab: [facility] [address] [address] Performing Lab: [facility] [address] [address] [facility] PANEL 5 GLUCOSE [MASS/VOLUM E] IN SERUM OR PLASMA 119 mg/dL 74 - 100 01/01 H Specimen Type: PLASMA Comment: Estimated Glomerular Filtration Rate (eGFR) calculated using the 2020 Chronic Kidney Disease-Epi demiology (CKD-EPI) Collaborati on creatinine equation; units of measure are mL/min/1.73 m2. Results are only valid for adults (>=18 years) whose serum creatinine is in a steady state. eGFR calculation s are not valid for patients with acute kidney injury and for patients on dialysis. Creatinine- based estimates of kidney function may also be inaccurate in patients with reduced creatinine generation due to decreased muscle mass (e.g., malnutritio n, severe hypoalbumin emia, sarcopenia, chronic neuromuscul ar disease, amputations , severe heart failure or liver disease) and in patients with increased creatinine generation due to increased muscle mass (e.g., muscle builders, anabolic steroids) or increased dietary intake. As drug clearance is proportiona l to total GFR and not GFR indexed to body surface area (BSA), in individuals with a BSA substantial ly different than 1.73 m2, drug dosing should be based on the reported eGFR value de-indexed from BSA by multiplying by the individual' s BSA and dividing by 1.73. CKD is diagnosed based on abnormaliti es of kidney structure or function, present for >3 months, with implication s for health and disease. CKD is classified and staged based on cause, eGFR and albuminuria (quantified as urine albumin to creatinine ratio). An eGFR >60 mL/min/1.73 m2 in the absence of increased urine albumin excretion or structural abnormaliti es does not represent CKD. eGFR CKD Interpretat ion (mL/min/1.7 3 m2) stage >=90 G1 Normal 60-89 G2 Mild decrease 45-59 G3A Mild to moderate decrease 30-44 G3B Moderate to severe decrease 15-29 G4 Severe decrease <15 G5 Kidney failure Ordering Provider: LORENZO PHAM Report Released Date/Time: Jan 01, 2025 10:08 AM Reporting Lab: [facility] [address] [address] Performing Lab: [facility] [address] [address] [facility] PANEL 5 SODIUM [MOLES/VOLU ME] IN SERUM OR PLASMA 139 mmol/L 136 - 145 01/01 Specimen Type: PLASMA Comment: Estimated Glomerular Filtration Rate (eGFR) calculated using the 2020 Chronic Kidney Disease-Epi demiology (CKD-EPI) Collaborati on creatinine equation; units of measure are mL/min/1.73 m2. Results are only valid for adults (>=18 years) whose serum creatinine is in a steady state. eGFR calculation s are not valid for patients with acute kidney injury and for patients on dialysis. Creatinine- based estimates of kidney function may also be inaccurate in patients with reduced creatinine generation due to decreased muscle mass (e.g., malnutritio n, severe hypoalbumin emia, sarcopenia, chronic neuromuscul ar disease, amputations , severe heart failure or liver disease) and in patients with increased creatinine generation due to increased muscle mass (e.g., muscle builders, anabolic steroids) or increased dietary intake. As drug clearance is proportiona l to total GFR and not GFR indexed to body surface area (BSA), in individuals with a BSA substantial ly different than 1.73 m2, drug dosing should be based on the reported eGFR value de-indexed from BSA by multiplying by the individual' s BSA and dividing by 1.73. CKD is diagnosed based on abnormaliti es of kidney structure or function, present for >3 months, with implication s for health and disease. CKD is classified and staged based on cause, eGFR and albuminuria (quantified as urine albumin to creatinine ratio). An eGFR >60 mL/min/1.73 m2 in the absence of increased urine albumin excretion or structural abnormaliti es does not represent CKD. eGFR CKD Interpretat ion (mL/min/1.7 3 m2) stage >=90 G1 Normal 60-89 G2 Mild decrease 45-59 G3A Mild to moderate decrease 30-44 G3B Moderate to severe decrease 15-29 G4 Severe decrease <15 G5 Kidney failure Ordering Provider: LORENZO PHAM Report Released Date/Time: Jan 01, 2025 10:08 AM Reporting Lab: [facility] [address] [address] Performing Lab: [facility] [address] [address] [facility] PANEL 5 POTASSIUM [MOLES/VOLU ME] IN SERUM OR PLASMA 4.0 mmol/L 3.5 - 5.1 01/01 Specimen Type: PLASMA Comment: Estimated Glomerular Filtration Rate (eGFR) calculated using the 2020 Chronic Kidney Disease-Epi demiology (CKD-EPI) Collaborati on creatinine equation; units of measure are mL/min/1.73 m2. Results are only valid for adults (>=18 years) whose serum creatinine is in a steady state. eGFR calculation s are not valid for patients with acute kidney injury and for patients on dialysis. Creatinine- based estimates of kidney function may also be inaccurate in patients with reduced creatinine generation due to decreased muscle mass (e.g., malnutritio n, severe hypoalbumin emia, sarcopenia, chronic neuromuscul ar disease, amputations , severe heart failure or liver disease) and in patients with increased creatinine generation due to increased muscle mass (e.g., muscle builders, anabolic steroids) or increased dietary intake. As drug clearance is proportiona l to total GFR and not GFR indexed to body surface area (BSA), in individuals with a BSA substantial ly different than 1.73 m2, drug dosing should be based on the reported eGFR value de-indexed from BSA by multiplying by the individual' s BSA and dividing by 1.73. CKD is diagnosed based on abnormaliti es of kidney structure or function, present for >3 months, with implication s for health and disease. CKD is classified and staged based on cause, eGFR and albuminuria (quantified as urine albumin to creatinine ratio). An eGFR >60 mL/min/1.73 m2 in the absence of increased urine albumin excretion or structural abnormaliti es does not represent CKD. eGFR CKD Interpretat ion (mL/min/1.7 3 m2) stage >=90 G1 Normal 60-89 G2 Mild decrease 45-59 G3A Mild to moderate decrease 30-44 G3B Moderate to severe decrease 15-29 G4 Severe decrease <15 G5 Kidney failure Ordering Provider: LORENZO PHAM Report Released Date/Time: Jan 01, 2025 10:08 AM Reporting Lab: [facility] [address] [address] Performing Lab: [facility] [address] [address] [facility] PANEL 5 CHLORIDE [MOLES/VOLU ME] IN SERUM OR PLASMA 100 mmol/L 98 - 107 01/01 Specimen Type: PLASMA Comment: Estimated Glomerular Filtration Rate (eGFR) calculated using the 2020 Chronic Kidney Disease-Epi demiology (CKD-EPI) Collaborati on creatinine equation; units of measure are mL/min/1.73 m2. Results are only valid for adults (>=18 years) whose serum creatinine is in a steady state. eGFR calculation s are not valid for patients with acute kidney injury and for patients on dialysis. Creatinine- based estimates of kidney function may also be inaccurate in patients with reduced creatinine generation due to decreased muscle mass (e.g., malnutritio n, severe hypoalbumin emia, sarcopenia, chronic neuromuscul ar disease, amputations , severe heart failure or liver disease) and in patients with increased creatinine generation due to increased muscle mass (e.g., muscle builders, anabolic steroids) or increased dietary intake. As drug clearance is proportiona l to total GFR and not GFR indexed to body surface area (BSA), in individuals with a BSA substantial ly different than 1.73 m2, drug dosing should be based on the reported eGFR value de-indexed from BSA by multiplying by the individual' s BSA and dividing by 1.73. CKD is diagnosed based on abnormaliti es of kidney structure or function, present for >3 months, with implication s for health and disease. CKD is classified and staged based on cause, eGFR and albuminuria (quantified as urine albumin to creatinine ratio). An eGFR >60 mL/min/1.73 m2 in the absence of increased urine albumin excretion or structural abnormaliti es does not represent CKD. eGFR CKD Interpretat ion (mL/min/1.7 3 m2) stage >=90 G1 Normal 60-89 G2 Mild decrease 45-59 G3A Mild to moderate decrease 30-44 G3B Moderate to severe decrease 15-29 G4 Severe decrease <15 G5 Kidney failure Ordering Provider: LORENZO PHAM Report Released Date/Time: Jan 01, 2025 10:08 AM Reporting Lab: [facility] [address] [address] Performing Lab: [facility] [address] [address] [facility] PANEL 5 CARBON DIOXIDE, TOTAL [MOLES/VOLU ME] IN SERUM OR PLASMA 30 mmol/L 22 - 29 01/01 H Specimen Type: PLASMA Comment: Estimated Glomerular Filtration Rate (eGFR) calculated using the 2020 Chronic Kidney Disease-Epi demiology (CKD-EPI) Collaborati on creatinine equation; units of measure are mL/min/1.73 m2. Results are only valid for adults (>=18 years) whose serum creatinine is in a steady state. eGFR calculation s are not valid for patients with acute kidney injury and for patients on dialysis. Creatinine- based estimates of kidney function may also be inaccurate in patients with reduced creatinine generation due to decreased muscle mass (e.g., malnutritio n, severe hypoalbumin emia, sarcopenia, chronic neuromuscul ar disease, amputations , severe heart failure or liver disease) and in patients with increased creatinine generation due to increased muscle mass (e.g., muscle builders, anabolic steroids) or increased dietary intake. As drug clearance is proportiona l to total GFR and not GFR indexed to body surface area (BSA), in individuals with a BSA substantial ly different than 1.73 m2, drug dosing should be based on the reported eGFR value de-indexed from BSA by multiplying by the individual' s BSA and dividing by 1.73. CKD is diagnosed based on abnormaliti es of kidney structure or function, present for >3 months, with implication s for health and disease. CKD is classified and staged based on cause, eGFR and albuminuria (quantified as urine albumin to creatinine ratio). An eGFR >60 mL/min/1.73 m2 in the absence of increased urine albumin excretion or structural abnormaliti es does not represent CKD. eGFR CKD Interpretat ion (mL/min/1.7 3 m2) stage >=90 G1 Normal 60-89 G2 Mild decrease 45-59 G3A Mild to moderate decrease 30-44 G3B Moderate to severe decrease 15-29 G4 Severe decrease <15 G5 Kidney failure Ordering Provider: LORENZO PHAM Report Released Date/Time: Jan 01, 2025 10:08 AM Reporting Lab: [facility] [address] [address] Performing Lab: [facility] [address] [address] [facility] PANEL 5 CALCIUM [MASS/VOLUM E] IN SERUM OR PLASMA 9.9 mg/dL 8.4 - 10.2 02/06 /2025 Specimen Type: PLASMA Comment: Estimated Glomerular Filtration Rate (eGFR) calculated using the 2020 Chronic Kidney Disease-Epi demiology (CKD-EPI) Collaborati on creatinine equation; units of measure are mL/min/1.73 m2. Results are only valid for adults (>=18 years) whose serum creatinine is in a steady state. eGFR calculation s are not valid for patients with acute kidney injury and for patients on dialysis. Creatinine- based estimates of kidney function may also be inaccurate in patients with reduced creatinine generation due to decreased muscle mass (e.g., malnutritio n, severe hypoalbumin emia, sarcopenia, chronic neuromuscul ar disease, amputations , severe heart failure or liver disease) and in patients with increased creatinine generation due to increased muscle mass (e.g., muscle builders, anabolic steroids) or increased dietary intake. As drug clearance is proportiona l to total GFR and not GFR indexed to body surface area (BSA), in individuals with a BSA substantial ly different than 1.73 m2, drug dosing should be based on the reported eGFR value de-indexed from BSA by multiplying by the individual' s BSA and dividing by 1.73. CKD is diagnosed based on abnormaliti es of kidney structure or function, present for >3 months, with implication s for health and disease. CKD is classified and staged based on cause, eGFR and albuminuria (quantified as urine albumin to creatinine ratio). An eGFR >60 mL/min/1.73 m2 in the absence of increased urine albumin excretion or structural abnormaliti es does not represent CKD. eGFR CKD Interpretat ion (mL/min/1.7 3 m2) stage >=90 G1 Normal 60-89 G2 Mild decrease 45-59 G3A Mild to moderate decrease 30-44 G3B Moderate to severe decrease 15-29 G4 Severe decrease <15 G5 Kidney failure Ordering Provider: LORENZO PHAM Report Released Date/Time: Jan 01, 2025 10:08 AM Reporting Lab: [facility] [address] [facility] [address] Performing Lab: [facility] [facility] [place] [id number] [facility] [address] [facility] PANEL 5 PROTEIN [MASS/VOLUM E] IN SERUM OR PLASMA 6.6 g/dL 6.4 - 8.3 01/01 Specimen Type: PLASMA Comment: Estimated Glomerular Filtration Rate (eGFR) calculated using the 2020 Chronic Kidney Disease-Epi demiology (CKD-EPI) Collaborati on creatinine equation; units of measure are mL/min/1.73 m2. Results are only valid for adults (>=18 years) whose serum creatinine is in a steady state. eGFR calculation s are not valid for patients with acute kidney injury and for patients on dialysis. Creatinine- based estimates of kidney function may also be inaccurate in patients with reduced creatinine generation due to decreased muscle mass (e.g., malnutritio n, severe hypoalbumin emia, sarcopenia, chronic neuromuscul ar disease, amputations , severe heart failure or liver disease) and in patients with increased creatinine generation due to increased muscle mass (e.g., muscle builders, anabolic steroids) or increased dietary intake. As drug clearance is proportiona l to total GFR and not GFR indexed to body surface area (BSA), in individuals with a BSA substantial ly different than 1.73 m2, drug dosing should be based on the reported eGFR value de-indexed from BSA by multiplying by the individual' s BSA and dividing by 1.73. CKD is diagnosed based on abnormaliti es of kidney structure or function, present for >3 months, with implication s for health and disease. CKD is classified and staged based on cause, eGFR and albuminuria (quantified as urine albumin to creatinine ratio). An eGFR >60 mL/min/1.73 m2 in the absence of increased urine albumin excretion or structural abnormaliti es does not represent CKD. eGFR CKD Interpretat ion (mL/min/1.7 3 m2) stage >=90 G1 Normal 60-89 G2 Mild decrease 45-59 G3A Mild to moderate decrease 30-44 G3B Moderate to severe decrease 15-29 G4 Severe decrease <15 G5 Kidney failure Ordering Provider: LORENZO PHAM Report Released Date/Time: Jan 01, 2025 10:08 AM Reporting Lab: [facility] [address] [facility] [address] Performing Lab: [facility] [address] [address] [facility] PANEL 5 ALBUMIN [MASS/VOLUM E] IN SERUM OR PLASMA 4.2 g/dL 3.5 - 5.2 01/01 Specimen Type: PLASMA Comment: Estimated Glomerular Filtration Rate (eGFR) calculated using the 2020 Chronic Kidney Disease-Epi demiology (CKD-EPI) Collaborati on creatinine equation; units of measure are mL/min/1.73 m2. Results are only valid for adults (>=18 years) whose serum creatinine is in a steady state. eGFR calculation s are not valid for patients with acute kidney injury and for patients on dialysis. Creatinine- based estimates of kidney function may also be inaccurate in patients with reduced creatinine generation due to decreased muscle mass (e.g., malnutritio n, severe hypoalbumin emia, sarcopenia, chronic neuromuscul ar disease, amputations , severe heart failure or liver disease) and in patients with increased creatinine generation due to increased muscle mass (e.g., muscle builders, anabolic steroids) or increased dietary intake. As drug clearance is proportiona l to total GFR and not GFR indexed to body surface area (BSA), in individuals with a BSA substantial ly different than 1.73 m2, drug dosing should be based on the reported eGFR value de-indexed from BSA by multiplying by the individual' s BSA and dividing by 1.73. CKD is diagnosed based on abnormaliti es of kidney structure or function, present for >3 months, with implication s for health and disease. CKD is classified and staged based on cause, eGFR and albuminuria (quantified as urine albumin to creatinine ratio). An eGFR >60 mL/min/1.73 m2 in the absence of increased urine albumin excretion or structural abnormaliti es does not represent CKD. eGFR CKD Interpretat ion (mL/min/1.7 3 m2) stage >=90 G1 Normal 60-89 G2 Mild decrease 45-59 G3A Mild to moderate decrease 30-44 G3B Moderate to severe decrease 15-29 G4 Severe decrease <15 G5 Kidney failure Ordering Provider: LORENZO PHAM Report Released Date/Time: Jan 01, 2025 10:08 AM Reporting Lab: [facility] [address] [address] Performing Lab: [facility] [address] [address] [facility] PANEL 5 BILIRUBIN.T OTAL [MASS/VOLUM E] IN SERUM OR PLASMA 0.7 mg/dL 0.2 - 1.2 01/01 Specimen Type: PLASMA Comment: Estimated Glomerular Filtration Rate (eGFR) calculated using the 2020 Chronic Kidney Disease-Epi demiology (CKD-EPI) Collaborati on creatinine equation; units of measure are mL/min/1.73 m2. Results are only valid for adults (>=18 years) whose serum creatinine is in a steady state. eGFR calculation s are not valid for patients with acute kidney injury and for patients on dialysis. Creatinine- based estimates of kidney function may also be inaccurate in patients with reduced creatinine generation due to decreased muscle mass (e.g., malnutritio n, severe hypoalbumin emia, sarcopenia, chronic neuromuscul ar disease, amputations , severe heart failure or liver disease) and in patients with increased creatinine generation due to increased muscle mass (e.g., muscle builders, anabolic steroids) or increased dietary intake. As drug clearance is proportiona l to total GFR and not GFR indexed to body surface area (BSA), in individuals with a BSA substantial ly different than 1.73 m2, drug dosing should be based on the reported eGFR value de-indexed from BSA by multiplying by the individual' s BSA and dividing by 1.73. CKD is diagnosed based on abnormaliti es of kidney structure or function, present for >3 months, with implication s for health and disease. CKD is classified and staged based on cause, eGFR and albuminuria (quantified as urine albumin to creatinine ratio). An eGFR >60 mL/min/1.73 m2 in the absence of increased urine albumin excretion or structural abnormaliti es does not represent CKD. eGFR CKD Interpretat ion (mL/min/1.7 3 m2) stage >=90 G1 Normal 60-89 G2 Mild decrease 45-59 G3A Mild to moderate decrease 30-44 G3B Moderate to severe decrease 15-29 G4 Severe decrease <15 G5 Kidney failure Ordering Provider: LORENZO PHAM Report Released Date/Time: Jan 01, 2025 10:08 AM Reporting Lab: [facility] [address] [facility] [address] Performing Lab: [facility] [address] [place] [phone] [facility] PANEL 5 ASPARTATE AMINOTRANSF ERASE [ENZYMATIC ACTIVITY/VO LUME] IN SERUM OR PLASMA 26 U/L 5 - 34 01/01 Specimen Type: PLASMA Comment: Estimated Glomerular Filtration Rate (eGFR) calculated using the 2020 Chronic Kidney Disease-Epi demiology (CKD-EPI) Collaborati on creatinine equation; units of measure are mL/min/1.73 m2. Results are only valid for adults (>=18 years) whose serum creatinine is in a steady state. eGFR calculation s are not valid for patients with acute kidney injury and for patients on dialysis. Creatinine- based estimates of kidney function may also be inaccurate in patients with reduced creatinine generation due to decreased muscle mass (e.g., malnutritio n, severe hypoalbumin emia, sarcopenia, chronic neuromuscul ar disease, amputations , severe heart failure or liver disease) and in patients with increased creatinine generation due to increased muscle mass (e.g., muscle builders, anabolic steroids) or increased dietary intake. As drug clearance is proportiona l to total GFR and not GFR indexed to body surface area (BSA), in individuals with a BSA substantial ly different than 1.73 m2, drug dosing should be based on the reported eGFR value de-indexed from BSA by multiplying by the individual' s BSA and dividing by 1.73. CKD is diagnosed based on abnormaliti es of kidney structure or function, present for >3 months, with implication s for health and disease. CKD is classified and staged based on cause, eGFR and albuminuria (quantified as urine albumin to creatinine ratio). An eGFR >60 mL/min/1.73 m2 in the absence of increased urine albumin excretion or structural abnormaliti es does not represent CKD. eGFR CKD Interpretat ion (mL/min/1.7 3 m2) stage >=90 G1 Normal 60-89 G2 Mild decrease 45-59 G3A Mild to moderate decrease 30-44 G3B Moderate to severe decrease 15-29 G4 Severe decrease <15 G5 Kidney failure Ordering Provider: LORENZO PHAM Report Released Date/Time: Jan 01, 2025 10:08 AM Reporting Lab: [facility] [address] [address] Performing Lab: [facility] [address] [address] [facility] PANEL 5 ALANINE AMINOTRANSF ERASE [ENZYMATIC ACTIVITY/VO LUME] IN SERUM OR PLASMA 23 U/L 0 - 55 01/01 Specimen Type: PLASMA Comment: Estimated Glomerular Filtration Rate (eGFR) calculated using the 2020 Chronic Kidney Disease-Epi demiology (CKD-EPI) Collaborati on creatinine equation; units of measure are mL/min/1.73 m2. Results are only valid for adults (>=18 years) whose serum creatinine is in a steady state. eGFR calculation s are not valid for patients with acute kidney injury and for patients on dialysis. Creatinine- based estimates of kidney function may also be inaccurate in patients with reduced creatinine generation due to decreased muscle mass (e.g., malnutritio n, severe hypoalbumin emia, sarcopenia, chronic neuromuscul ar disease, amputations , severe heart failure or liver disease) and in patients with increased creatinine generation due to increased muscle mass (e.g., muscle builders, anabolic steroids) or increased dietary intake. As drug clearance is proportiona l to total GFR and not GFR indexed to body surface area (BSA), in individuals with a BSA substantial ly different than 1.73 m2, drug dosing should be based on the reported eGFR value de-indexed from BSA by multiplying by the individual' s BSA and dividing by 1.73. CKD is diagnosed based on abnormaliti es of kidney structure or function, present for >3 months, with implication s for health and disease. CKD is classified and staged based on cause, eGFR and albuminuria (quantified as urine albumin to creatinine ratio). An eGFR >60 mL/min/1.73 m2 in the absence of increased urine albumin excretion or structural abnormaliti es does not represent CKD. eGFR CKD Interpretat ion (mL/min/1.7 3 m2) stage >=90 G1 Normal 60-89 G2 Mild decrease 45-59 G3A Mild to moderate decrease 30-44 G3B Moderate to severe decrease 15-29 G4 Severe decrease <15 G5 Kidney failure Ordering Provider: LORENZO PHAM Report Released Date/Time: Jan 01, 2025 10:08 AM Reporting Lab: [facility] [address] [address] Performing Lab: [facility] [address] [address] [facility] PANEL 5 ANION GAP 3 IN SERUM OR PLASMA 9 meq/L 3 - 19 01/01 Specimen Type: PLASMA Comment: Estimated Glomerular Filtration Rate (eGFR) calculated using the 2020 Chronic Kidney Disease-Epi demiology (CKD-EPI) Collaborati on creatinine equation; units of measure are mL/min/1.73 m2. Results are only valid for adults (>=18 years) whose serum creatinine is in a steady state. eGFR calculation s are not valid for patients with acute kidney injury and for patients on dialysis. Creatinine- based estimates of kidney function may also be inaccurate in patients with reduced creatinine generation due to decreased muscle mass (e.g., malnutritio n, severe hypoalbumin emia, sarcopenia, chronic neuromuscul ar disease, amputations , severe heart failure or liver disease) and in patients with increased creatinine generation due to increased muscle mass (e.g., muscle builders, anabolic steroids) or increased dietary intake. As drug clearance is proportiona l to total GFR and not GFR indexed to body surface area (BSA), in individuals with a BSA substantial ly different than 1.73 m2, drug dosing should be based on the reported eGFR value de-indexed from BSA by multiplying by the individual' s BSA and dividing by 1.73. CKD is diagnosed based on abnormaliti es of kidney structure or function, present for >3 months, with implication s for health and disease. CKD is classified and staged based on cause, eGFR and albuminuria (quantified as urine albumin to creatinine ratio). An eGFR >60 mL/min/1.73 m2 in the absence of increased urine albumin excretion or structural abnormaliti es does not represent CKD. eGFR CKD Interpretat ion (mL/min/1.7 3 m2) stage >=90 G1 Normal 60-89 G2 Mild decrease 45-59 G3A Mild to moderate decrease 30-44 G3B Moderate to severe decrease 15-29 G4 Severe decrease <15 G5 Kidney failure Ordering Provider: LORENZO PHAM Report Released Date/Time: Jan 01, 2025 10:08 AM Reporting Lab: [facility] [address] [address] Performing Lab: [facility] [address] [address] [facility] PANEL 5 ALKALINE PHOSPHATASE [ENZYMATIC ACTIVITY/VO LUME] IN SERUM OR PLASMA 49 U/L 40 - 150 01/01 Specimen Type: PLASMA Comment: Estimated Glomerular Filtration Rate (eGFR) calculated using the 2020 Chronic Kidney Disease-Epi demiology (CKD-EPI) Collaborati on creatinine equation; units of measure are mL/min/1.73 m2. Results are only valid for adults (>=18 years) whose serum creatinine is in a steady state. eGFR calculation s are not valid for patients with acute kidney injury and for patients on dialysis. Creatinine- based estimates of kidney function may also be inaccurate in patients with reduced creatinine generation due to decreased muscle mass (e.g., malnutritio n, severe hypoalbumin emia, sarcopenia, chronic neuromuscul ar disease, amputations , severe heart failure or liver disease) and in patients with increased creatinine generation due to increased muscle mass (e.g., muscle builders, anabolic steroids) or increased dietary intake. As drug clearance is proportiona l to total GFR and not GFR indexed to body surface area (BSA), in individuals with a BSA substantial ly different than 1.73 m2, drug dosing should be based on the reported eGFR value de-indexed from BSA by multiplying by the individual' s BSA and dividing by 1.73. CKD is diagnosed based on abnormaliti es of kidney structure or function, present for >3 months, with implication s for health and disease. CKD is classified and staged based on cause, eGFR and albuminuria (quantified as urine albumin to creatinine ratio). An eGFR >60 mL/min/1.73 m2 in the absence of increased urine albumin excretion or structural abnormaliti es does not represent CKD. eGFR CKD Interpretat ion (mL/min/1.7 3 m2) stage >=90 G1 Normal 60-89 G2 Mild decrease 45-59 G3A Mild to moderate decrease 30-44 G3B Moderate to severe decrease 15-29 G4 Severe decrease <15 G5 Kidney failure Ordering Provider: LORENZO PHAM Report Released Date/Time: Jan 01, 2025 10:08 AM Reporting Lab: [facility] [address] [address] Performing Lab: [facility] [address] [address] [facility] 5 GLOMERULAR FILTRATION RATE/1.73 SQ M.PREDICTED [VOLUME RATE/AREA] IN SERUM, PLASMA OR BLOOD BY CREATININE- BASED FORMULA (CKD-EPI 2020) 68 01/01 Specimen Type: PLASMA Comment: Estimated Glomerular Filtration Rate (eGFR) calculated using the 2020 Chronic Kidney Disease-Epi demiology (CKD-EPI) Collaborati on creatinine equation; units of measure are mL/min/1.73 m2. Results are only valid for adults (>=18 years) whose serum creatinine is in a steady state. eGFR calculation s are not valid for patients with acute kidney injury and for patients on dialysis. Creatinine- based estimates of kidney function may also be inaccurate in patients with reduced creatinine generation due to decreased muscle mass (e.g., malnutritio n, severe hypoalbumin emia, sarcopenia, chronic neuromuscul ar disease, amputations , severe heart failure or liver disease) and in patients with increased creatinine generation due to increased muscle mass (e.g., muscle builders, anabolic steroids) or increased dietary intake. As drug clearance is proportiona l to total GFR and not GFR indexed to body surface area (BSA), in individuals with a BSA substantial ly different than 1.73 m2, drug dosing should be based on the reported eGFR value de-indexed from BSA by multiplying by the individual' s BSA and dividing by 1.73. CKD is diagnosed based on abnormaliti es of kidney structure or function, present for >3 months, with implication s for health and disease. CKD is classified and staged based on cause, eGFR and albuminuria (quantified as urine albumin to creatinine ratio). An eGFR >60 mL/min/1.73 m2 in the absence of increased urine albumin excretion or structural abnormaliti es does not represent CKD. eGFR CKD Interpretat ion (mL/min/1.7 3 m2) stage >=90 G1 Normal 60-89 G2 Mild decrease 45-59 G3A Mild to moderate decrease 30-44 G3B Moderate to severe decrease 15-29 G4 Severe decrease <15 G5 Kidney failure Ordering Provider: LORENZO PHAM Report Released Date/Time: Jan 01, 2025 10:08 AM Reporting Lab: [facility] [address] [address] Performing Lab: [facility] [address] [address] [facility] CBC/PLT LEUKOCYTES [#/VOLUME] IN BLOOD BY AUTOMATED COUNT 5.1 10*3/u L 5.0 - 10.0 01/01 Specimen Type: BLOOD Comment: CRITICAL CALLED TO and READ BACK BY: LORENZO PHAM 01/01/25@11 22 DMT Ordering Provider: LORENZO PHAM Report Released Date/Time: Jan 01, 2025 10:08 AM Reporting Lab: [facility] [address] [address] Performing Lab: [address] [address] [facility] CBC/PLT ERYTHROCYTE S [#/VOLUME] IN BLOOD BY AUTOMATED COUNT 6.07 10*6/u L 4.6 - 6.2 01/01 Specimen Type: BLOOD Comment: CRITICAL CALLED TO and READ BACK BY: LORENZO PHAM 01/01/25@11 22 DMT Ordering Provider: LORENZO PHAM Report Released Date/Time: Jan 01, 2025 10:08 AM Reporting Lab: [address] [address] Performing Lab: [address] [phone] [place] [address] CBC/PLT HEMOGLOBIN [MASS/VOLUM E] IN BLOOD 18.0 g/dL 14.0 - 18.0 01/01 Specimen Type: BLOOD Comment: CRITICAL CALLED TO and READ BACK BY: LORENZO PHAM 01/01/25@11 22 DMT Ordering Provider: LORENZO PHAM Report Released Date/Time: Jan 01, 2025 10:08 AM Reporting Lab: [facility] [address] Performing Lab: [address] [address] [facility] CBC/PLT HEMATOCRIT [VOLUME FRACTION] OF BLOOD BY AUTOMATED COUNT 54.3 42.0 - 52.0 01/01 [facility] Specimen Type: BLOOD Comment: CRITICAL CALLED TO and READ BACK BY: LORENZO PHAM 01/01/25@11 22 DMT Ordering Provider: LORENZO PHAM Report Released Date/Time: Jan 01, 2025 10:08 AM Reporting Lab: [address] [address] Performing Lab: [address] [address] [facility] CBC/PLT MCV [ENTITIC VOLUME] BY AUTOMATED COUNT 89.5 fL 80.0 - 94.0 01/01 Specimen Type: BLOOD Comment: CRITICAL CALLED TO and READ BACK BY: LORENZO PHAM 01/01/25@11 22 DMT Ordering Provider: LORENZO PHAM Report Released Date/Time: Jan 01, 2025 10:08 AM Reporting Lab: [address] [address] Performing Lab: [address] [address] [facility] CBC/PLT MCH [ENTITIC MASS] BY AUTOMATED COUNT 29.7 pg 27.0 - 31.0 01/01 Specimen Type: BLOOD Comment: CRITICAL CALLED TO and READ BACK BY: LORENZO PHAM 01/01/25@11 22 DMT Ordering Provider: LORENZO PHAM Report Released Date/Time: Jan 01, 2025 10:08 AM Reporting Lab: [address] [address] Performing Lab: [address] [phone] [place] [address] CBC/PLT MCHC [MASS/VOLUM E] BY AUTOMATED COUNT 33.1 g/dL 32.0 - 36.0 01/01 Specimen Type: BLOOD Comment: CRITICAL CALLED TO and READ BACK BY: LORENZO PHAM 01/01/25@11 22 DMT Ordering Provider: LORENZO PHAM Report Released Date/Time: Jan 01, 2025 10:08 AM Reporting Lab: [address] [address] Performing Lab: [address] [address] [facility] CBC/PLT PLATELETS [#/VOLUME] IN BLOOD 243 10*3/u L 150 - 450 01/01 Specimen Type: BLOOD Comment: CRITICAL CALLED TO and READ BACK BY: LORENZO PHAM 01/01/25@11 22 DMT Ordering Provider: LORENZO PHAM Report Released Date/Time: Jan 01, 2025 10:08 AM Reporting Lab: [address] [address] Performing Lab: [address] [phone] [place] [address] CBC/PLT PLATELET MEAN VOLUME [ENTITIC VOLUME] IN BLOOD 9.5 fL 9.0 - 13.1 01/01 Specimen Type: BLOOD Comment: CRITICAL CALLED TO and READ BACK BY: LORENZO PHAM 01/01/25@11 22 DMT Ordering Provider: LORENZO PHAM Report Released Date/Time: Jan 01, 2025 10:08 AM Reporting Lab: [place] [phone] Performing Lab: [place] [phone] [place] [address] CBC/PLT ERYTHROCYTE DISTRIBUTIO N WIDTH [ENTITIC VOLUME] BY AUTOMATED COUNT 13.1 11.0 - 16.0 01/01 Specimen Type: BLOOD Comment: CRITICAL CALLED TO and READ BACK BY: LORENZO PHAM 01/01/25@11 22 DMT Ordering Provider: LORENZO PHAM Report Released Date/Time: Jan 01, 2025 10:08 AM Reporting Lab: [facility] [address] Performing Lab: [place] [phone] [facility] CBC/PLT NUCLEATED ERYTHROCYTE S/100 ERYTHROCYTE S IN BLOOD 0.0 0.0 - 0.0 01/01 Specimen Type: BLOOD Comment: CRITICAL CALLED TO and READ BACK BY: LORENZO PHAM 01/01/25@11 22 DMT Ordering Provider: LORENZO PHAM Report Released Date/Time: Jan 01, 2025 10:08 AM Reporting Lab: [address] [address] Performing Lab: [place] [phone] [facility] PANEL 1 CREATININE [MASS/VOLUM E] IN SERUM OR PLASMA 1.08 mg/dL 0.72 - 1.25 01/01 Specimen Type: PLASMA Comment: Estimated Glomerular Filtration Rate (eGFR) calculated using the 2020 Chronic Kidney Disease-Epi demiology (CKD-EPI) Collaborati on creatinine equation; units of measure are mL/min/1.73 m2. Results are only valid for adults (>=18 years) whose serum creatinine is in a steady state. eGFR calculation s are not valid for patients with acute kidney injury and for patients on dialysis. Creatinine- based estimates of kidney function may also be inaccurate in patients with reduced creatinine generation due to decreased muscle mass (e.g., malnutritio n, severe hypoalbumin emia, sarcopenia, chronic neuromuscul ar disease, amputations , severe heart failure or liver disease) and in patients with increased creatinine generation due to increased muscle mass (e.g., muscle builders, anabolic steroids) or increased dietary intake. As drug clearance is proportiona l to total GFR and not GFR indexed to body surface area (BSA), in individuals with a BSA substantial ly different than 1.73 m2, drug dosing should be based on the reported eGFR value de-indexed from BSA by multiplying by the individual' s BSA and dividing by 1.73. CKD is diagnosed based on abnormaliti es of kidney structure or function, present for >3 months, with implication s for health and disease. CKD is classified and staged based on cause, eGFR and albuminuria (quantified as urine albumin to creatinine ratio). An eGFR >60 mL/min/1.73 m2 in the absence of increased urine albumin excretion or structural abnormaliti es does not represent CKD. eGFR CKD Interpretat ion (mL/min/1.7 3 m2) stage >=90 G1 Normal 60-89 G2 Mild decrease 45-59 G3A Mild to moderate decrease 30-44 G3B Moderate to severe decrease 15-29 G4 Severe decrease <15 G5 Kidney failure Ordering Provider: LORENZO PHAM Report Released Date/Time: Jan 01, 2025 10:08 AM Reporting Lab: [facility] [address] [address] Performing Lab: [facility] [address] [address] [facility] PANEL 1 UREA NITROGEN [MASS/VOLUM E] IN SERUM OR PLASMA 15 mg/dL 01/01 Specimen Type: PLASMA Comment: Estimated Glomerular Filtration Rate (eGFR) calculated using the 2020 Chronic Kidney Disease-Epi demiology (CKD-EPI) Collaborati on creatinine equation; units of measure are mL/min/1.73 m2. Results are only valid for adults (>=18 years) whose serum creatinine is in a steady state. eGFR calculation s are not valid for patients with acute kidney injury and for patients on dialysis. Creatinine- based estimates of kidney function may also be inaccurate in patients with reduced creatinine generation due to decreased muscle mass (e.g., malnutritio n, severe hypoalbumin emia, sarcopenia, chronic neuromuscul ar disease, amputations , severe heart failure or liver disease) and in patients with increased creatinine generation due to increased muscle mass (e.g., muscle builders, anabolic steroids) or increased dietary intake. As drug clearance is proportiona l to total GFR and not GFR indexed to body surface area (BSA), in individuals with a BSA substantial ly different than 1.73 m2, drug dosing should be based on the reported eGFR value de-indexed from BSA by multiplying by the individual' s BSA and dividing by 1.73. CKD is diagnosed based on abnormaliti es of kidney structure or function, present for >3 months, with implication s for health and disease. CKD is classified and staged based on cause, eGFR and albuminuria (quantified as urine albumin to creatinine ratio). An eGFR >60 mL/min/1.73 m2 in the absence of increased urine albumin excretion or structural abnormaliti es does not represent CKD. eGFR CKD Interpretat ion (mL/min/1.7 3 m2) stage >=90 G1 Normal 60-89 G2 Mild decrease 45-59 G3A Mild to moderate decrease 30-44 G3B Moderate to severe decrease 15-29 G4 Severe decrease <15 G5 Kidney failure Ordering Provider: LORENZO PHAM Report Released Date/Time: Jan 01, 2025 10:08 AM Reporting Lab: [facility] [address] [address] Performing Lab: [facility] [address] [address] [facility] PANEL 1 GLUCOSE [MASS/VOLUM E] IN SERUM OR PLASMA 118 mg/dL 74 - 100 01/01 H Specimen Type: PLASMA Comment: Estimated Glomerular Filtration Rate (eGFR) calculated using the 2020 Chronic Kidney Disease-Epi demiology (CKD-EPI) Collaborati on creatinine equation; units of measure are mL/min/1.73 m2. Results are only valid for adults (>=18 years) whose serum creatinine is in a steady state. eGFR calculation s are not valid for patients with acute kidney injury and for patients on dialysis. Creatinine- based estimates of kidney function may also be inaccurate in patients with reduced creatinine generation due to decreased muscle mass (e.g., malnutritio n, severe hypoalbumin emia, sarcopenia, chronic neuromuscul ar disease, amputations , severe heart failure or liver disease) and in patients with increased creatinine generation due to increased muscle mass (e.g., muscle builders, anabolic steroids) or increased dietary intake. As drug clearance is proportiona l to total GFR and not GFR indexed to body surface area (BSA), in individuals with a BSA substantial ly different than 1.73 m2, drug dosing should be based on the reported eGFR value de-indexed from BSA by multiplying by the individual' s BSA and dividing by 1.73. CKD is diagnosed based on abnormaliti es of kidney structure or function, present for >3 months, with implication s for health and disease. CKD is classified and staged based on cause, eGFR and albuminuria (quantified as urine albumin to creatinine ratio). An eGFR >60 mL/min/1.73 m2 in the absence of increased urine albumin excretion or structural abnormaliti es does not represent CKD. eGFR CKD Interpretat ion (mL/min/1.7 3 m2) stage >=90 G1 Normal 60-89 G2 Mild decrease 45-59 G3A Mild to moderate decrease 30-44 G3B Moderate to severe decrease 15-29 G4 Severe decrease <15 G5 Kidney failure Ordering Provider: LORENZO PHAM Report Released Date/Time: Jan 01, 2025 10:08 AM Reporting Lab: [facility] [address] [facility] [address] Performing Lab: [facility] [address] [facility] [address] [facility] PANEL 1 SODIUM [MOLES/VOLU ME] IN SERUM OR PLASMA 138 mmol/L 136 - 145 01/01 Specimen Type: PLASMA Comment: Estimated Glomerular Filtration Rate (eGFR) calculated using the 2020 Chronic Kidney Disease-Epi demiology (CKD-EPI) Collaborati on creatinine equation; units of measure are mL/min/1.73 m2. Results are only valid for adults (>=18 years) whose serum creatinine is in a steady state. eGFR calculation s are not valid for patients with acute kidney injury and for patients on dialysis. Creatinine- based estimates of kidney function may also be inaccurate in patients with reduced creatinine generation due to decreased muscle mass (e.g., malnutritio n, severe hypoalbumin emia, sarcopenia, chronic neuromuscul ar disease, amputations , severe heart failure or liver disease) and in patients with increased creatinine generation due to increased muscle mass (e.g., muscle builders, anabolic steroids) or increased dietary intake. As drug clearance is proportiona l to total GFR and not GFR indexed to body surface area (BSA), in individuals with a BSA substantial ly different than 1.73 m2, drug dosing should be based on the reported eGFR value de-indexed from BSA by multiplying by the individual' s BSA and dividing by 1.73. CKD is diagnosed based on abnormaliti es of kidney structure or function, present for >3 months, with implication s for health and disease. CKD is classified and staged based on cause, eGFR and albuminuria (quantified as urine albumin to creatinine ratio). An eGFR >60 mL/min/1.73 m2 in the absence of increased urine albumin excretion or structural abnormaliti es does not represent CKD. eGFR CKD Interpretat ion (mL/min/1.7 3 m2) stage >=90 G1 Normal 60-89 G2 Mild decrease 45-59 G3A Mild to moderate decrease 30-44 G3B Moderate to severe decrease 15-29 G4 Severe decrease <15 G5 Kidney failure Ordering Provider: LORENZO PHAM Report Released Date/Time: Jan 01, 2025 10:08 AM Reporting Lab: [facility] [address] [facility] [address] Performing Lab: [facility] [address] [facility] [phone] [facility] PANEL 1 POTASSIUM [MOLES/VOLU ME] IN SERUM OR PLASMA 4.1 mmol/L 3.5 - 5.1 01/01 Specimen Type: PLASMA Comment: Estimated Glomerular Filtration Rate (eGFR) calculated using the 2020 Chronic Kidney Disease-Epi demiology (CKD-EPI) Collaborati on creatinine equation; units of measure are mL/min/1.73 m2. Results are only valid for adults (>=18 years) whose serum creatinine is in a steady state. eGFR calculation s are not valid for patients with acute kidney injury and for patients on dialysis. Creatinine- based estimates of kidney function may also be inaccurate in patients with reduced creatinine generation due to decreased muscle mass (e.g., malnutritio n, severe hypoalbumin emia, sarcopenia, chronic neuromuscul ar disease, amputations , severe heart failure or liver disease) and in patients with increased creatinine generation due to increased muscle mass (e.g., muscle builders, anabolic steroids) or increased dietary intake. As drug clearance is proportiona l to total GFR and not GFR indexed to body surface area (BSA), in individuals with a BSA substantial ly different than 1.73 m2, drug dosing should be based on the reported eGFR value de-indexed from BSA by multiplying by the individual' s BSA and dividing by 1.73. CKD is diagnosed based on abnormaliti es of kidney structure or function, present for >3 months, with implication s for health and disease. CKD is classified and staged based on cause, eGFR and albuminuria (quantified as urine albumin to creatinine ratio). An eGFR >60 mL/min/1.73 m2 in the absence of increased urine albumin excretion or structural abnormaliti es does not represent CKD. eGFR CKD Interpretat ion (mL/min/1.7 3 m2) stage >=90 G1 Normal 60-89 G2 Mild decrease 45-59 G3A Mild to moderate decrease 30-44 G3B Moderate to severe decrease 15-29 G4 Severe decrease <15 G5 Kidney failure Ordering Provider: LORENZO PHAM Report Released Date/Time: Jan 01, 2025 10:08 AM Reporting Lab: [facility] [address] [phone] Performing Lab: TUAN-Carrie [facility] [address] [facility] [phone] [facility] PANEL 1 CHLORIDE [MOLES/VOLU ME] IN SERUM OR PLASMA 101 mmol/L 98 - 107 01/01 Specimen Type: PLASMA Comment: Estimated Glomerular Filtration Rate (eGFR) calculated using the 2020 Chronic Kidney Disease-Epi demiology (CKD-EPI) Collaborati on creatinine equation; units of measure are mL/min/1.73 m2. Results are only valid for adults (>=18 years) whose serum creatinine is in a steady state. eGFR calculation s are not valid for patients with acute kidney injury and for patients on dialysis. Creatinine- based estimates of kidney function may also be inaccurate in patients with reduced creatinine generation due to decreased muscle mass (e.g., malnutritio n, severe hypoalbumin emia, sarcopenia, chronic neuromuscul ar disease, amputations , severe heart failure or liver disease) and in patients with increased creatinine generation due to increased muscle mass (e.g., muscle builders, anabolic steroids) or increased dietary intake. As drug clearance is proportiona l to total GFR and not GFR indexed to body surface area (BSA), in individuals with a BSA substantial ly different than 1.73 m2, drug dosing should be based on the reported eGFR value de-indexed from BSA by multiplying by the individual' s BSA and dividing by 1.73. CKD is diagnosed based on abnormaliti es of kidney structure or function, present for >3 months, with implication s for health and disease. CKD is classified and staged based on cause, eGFR and albuminuria (quantified as urine albumin to creatinine ratio). An eGFR >60 mL/min/1.73 m2 in the absence of increased urine albumin excretion or structural abnormaliti es does not represent CKD. eGFR CKD Interpretat ion (mL/min/1.7 3 m2) stage >=90 G1 Normal 60-89 G2 Mild decrease 45-59 G3A Mild to moderate decrease 30-44 G3B Moderate to severe decrease 15-29 G4 Severe decrease <15 G5 Kidney failure Ordering Provider: LOREZNO PHAM Report Released Date/Time: Jan 01, 2025 10:08 AM Reporting Lab: [facility] [address] [place] [phone] Performing Lab: [facility] [address] [address] [facility] PANEL 1 CARBON DIOXIDE, TOTAL [MOLES/VOLU ME] IN SERUM OR PLASMA 28 mmol/L 22 - 29 01/01 Specimen Type: PLASMA Comment: Estimated Glomerular Filtration Rate (eGFR) calculated using the 2020 Chronic Kidney Disease-Epi demiology (CKD-EPI) Collaborati on creatinine equation; units of measure are mL/min/1.73 m2. Results are only valid for adults (>=18 years) whose serum creatinine is in a steady state. eGFR calculation s are not valid for patients with acute kidney injury and for patients on dialysis. Creatinine- based estimates of kidney function may also be inaccurate in patients with reduced creatinine generation due to decreased muscle mass (e.g., malnutritio n, severe hypoalbumin emia, sarcopenia, chronic neuromuscul ar disease, amputations , severe heart failure or liver disease) and in patients with increased creatinine generation due to increased muscle mass (e.g., muscle builders, anabolic steroids) or increased dietary intake. As drug clearance is proportiona l to total GFR and not GFR indexed to body surface area (BSA), in individuals with a BSA substantial ly different than 1.73 m2, drug dosing should be based on the reported eGFR value de-indexed from BSA by multiplying by the individual' s BSA and dividing by 1.73. CKD is diagnosed based on abnormaliti es of kidney structure or function, present for >3 months, with implication s for health and disease. CKD is classified and staged based on cause, eGFR and albuminuria (quantified as urine albumin to creatinine ratio). An eGFR >60 mL/min/1.73 m2 in the absence of increased urine albumin excretion or structural abnormaliti es does not represent CKD. eGFR CKD Interpretat ion (mL/min/1.7 3 m2) stage >=90 G1 Normal 60-89 G2 Mild decrease 45-59 G3A Mild to moderate decrease 30-44 G3B Moderate to severe decrease 15-29 G4 Severe decrease <15 G5 Kidney failure Ordering Provider: LORENZO PHAM Report Released Date/Time: Jan 01, 2025 10:08 AM Reporting Lab: [facility] [address] [address] Performing Lab: [facility] [address] [phone] [facility] PANEL 1 CALCIUM [MASS/VOLUM E] IN SERUM OR PLASMA 9.9 mg/dL 8.4 - 10.2 01/01 Specimen Type: PLASMA Comment: Estimated Glomerular Filtration Rate (eGFR) calculated using the 2020 Chronic Kidney Disease-Epi demiology (CKD-EPI) Collaborati on creatinine equation; units of measure are mL/min/1.73 m2. Results are only valid for adults (>=18 years) whose serum creatinine is in a steady state. eGFR calculation s are not valid for patients with acute kidney injury and for patients on dialysis. Creatinine- based estimates of kidney function may also be inaccurate in patients with reduced creatinine generation due to decreased muscle mass (e.g., malnutritio n, severe hypoalbumin emia, sarcopenia, chronic neuromuscul ar disease, amputations , severe heart failure or liver disease) and in patients with increased creatinine generation due to increased muscle mass (e.g., muscle builders, anabolic steroids) or increased dietary intake. As drug clearance is proportiona l to total GFR and not GFR indexed to body surface area (BSA), in individuals with a BSA substantial ly different than 1.73 m2, drug dosing should be based on the reported eGFR value de-indexed from BSA by multiplying by the individual' s BSA and dividing by 1.73. CKD is diagnosed based on abnormaliti es of kidney structure or function, present for >3 months, with implication s for health and disease. CKD is classified and staged based on cause, eGFR and albuminuria (quantified as urine albumin to creatinine ratio). An eGFR >60 mL/min/1.73 m2 in the absence of increased urine albumin excretion or structural abnormaliti es does not represent CKD. eGFR CKD Interpretat ion (mL/min/1.7 3 m2) stage >=90 G1 Normal 60-89 G2 Mild decrease 45-59 G3A Mild to moderate decrease 30-44 G3B Moderate to severe decrease 15-29 G4 Severe decrease <15 G5 Kidney failure Ordering Provider: LORENZO PHAM Report Released Date/Time: Jan 01, 2025 10:08 AM Reporting Lab: [facility] [address] [address] Performing Lab: [facility] [address] [address] [facility] PANEL 1 ANION GAP 3 IN SERUM OR PLASMA 9 meq/L 3 - 19 01/01 Specimen Type: PLASMA Comment: Estimated Glomerular Filtration Rate (eGFR) calculated using the 2020 Chronic Kidney Disease-Epi demiology (CKD-EPI) Collaborati on creatinine equation; units of measure are mL/min/1.73 m2. Results are only valid for adults (>=18 years) whose serum creatinine is in a steady state. eGFR calculation s are not valid for patients with acute kidney injury and for patients on dialysis. Creatinine- based estimates of kidney function may also be inaccurate in patients with reduced creatinine generation due to decreased muscle mass (e.g., malnutritio n, severe hypoalbumin emia, sarcopenia, chronic neuromuscul ar disease, amputations , severe heart failure or liver disease) and in patients with increased creatinine generation due to increased muscle mass (e.g., muscle builders, anabolic steroids) or increased dietary intake. As drug clearance is proportiona l to total GFR and not GFR indexed to body surface area (BSA), in individuals with a BSA substantial ly different than 1.73 m2, drug dosing should be based on the reported eGFR value de-indexed from BSA by multiplying by the individual' s BSA and dividing by 1.73. CKD is diagnosed based on abnormaliti es of kidney structure or function, present for >3 months, with implication s for health and disease. CKD is classified and staged based on cause, eGFR and albuminuria (quantified as urine albumin to creatinine ratio). An eGFR >60 mL/min/1.73 m2 in the absence of increased urine albumin excretion or structural abnormaliti es does not represent CKD. eGFR CKD Interpretat ion (mL/min/1.7 3 m2) stage >=90 G1 Normal 60-89 G2 Mild decrease 45-59 G3A Mild to moderate decrease 30-44 G3B Moderate to severe decrease 15-29 G4 Severe decrease <15 G5 Kidney failure Ordering Provider: LORENZO PHAM Report Released Date/Time: Jan 01, 2025 10:08 AM Reporting Lab: [facility] [address] [address] Performing Lab: [facility] [address] [address] [facility] PANEL 1 GLOMERULAR FILTRATION RATE/1.73 SQ M.PREDICTED [VOLUME RATE/AREA] IN SERUM, PLASMA OR BLOOD BY CREATININE- BASED FORMULA (CKD-EPI 2020) 72 01/01 Specimen Type: PLASMA Comment: Estimated Glomerular Filtration Rate (eGFR) calculated using the 2020 Chronic Kidney Disease-Epi demiology (CKD-EPI) Collaborati on creatinine equation; units of measure are mL/min/1.73 m2. Results are only valid for adults (>=18 years) whose serum creatinine is in a steady state. eGFR calculation s are not valid for patients with acute kidney injury and for patients on dialysis. Creatinine- based estimates of kidney function may also be inaccurate in patients with reduced creatinine generation due to decreased muscle mass (e.g., malnutritio n, severe hypoalbumin emia, sarcopenia, chronic neuromuscul ar disease, amputations , severe heart failure or liver disease) and in patients with increased creatinine generation due to increased muscle mass (e.g., muscle builders, anabolic steroids) or increased dietary intake. As drug clearance is proportiona l to total GFR and not GFR indexed to body surface area (BSA), in individuals with a BSA substantial ly different than 1.73 m2, drug dosing should be based on the reported eGFR value de-indexed from BSA by multiplying by the individual' s BSA and dividing by 1.73. CKD is diagnosed based on abnormaliti es of kidney structure or function, present for >3 months, with implication s for health and disease. CKD is classified and staged based on cause, eGFR and albuminuria (quantified as urine albumin to creatinine ratio). An eGFR >60 mL/min/1.73 m2 in the absence of increased urine albumin excretion or structural abnormaliti es does not represent CKD. eGFR CKD Interpretat ion (mL/min/1.7 3 m2) stage >=90 G1 Normal 60-89 G2 Mild decrease 45-59 G3A Mild to moderate decrease 30-44 G3B Moderate to severe decrease 15-29 G4 Severe decrease <15 G5 Kidney failure Ordering Provider: LORENZO PHAM Report Released Date/Time: Jan 01, 2025 10:08 AM Reporting Lab: [facility] [address] [address] Performing Lab: [facility] [address] [address] [facility] Vital Signs Combined list of inpatient and outpatient Vital Signs from [facility] of Defense and [facility], ranging from 12 months to all on record, depending upon the facility. Vital Sign Value Date Comments Source SYSTOLIC BLOOD PRESSURE 113 01/01/2025 09:37:09 [facility] DIASTOLIC BLOOD PRESSURE 74 01/01/2025 09:37:09 [facility] WEIGHT 266.4 01/01/2025 [facility]37[facility] 32 kg/m2 01[facility]01/2025 09:37:09 [facility] PAIN 0 01/01/2025 09:37:09 [facility]RI[facility] SARK[facility] TEMPERATURE 97.8 01/01/2025 09:37:09 KALIN DERAS [facility] PULSE 80 01/01/2025 09:37:09 [facility] Encounters Combined list of: 1) Encounters from Department of [facility] facilities going backup to the last 18 months, not all [place] inpatient encounters are included; 2) Encounters from the Department of [facility] facilities going backup to 280 months. Location Location Details Encounter Type Encounter Number Reason For Visit Attending Provider ADM Date DC Date Status Disposition Source [facility] OFF/OP EST MARCH X REQ PHY/QHP [id number] Diagnos is: ICD-10- CM K92.1 HAYDEN Chu R 01/04 [place] [facility] HC PRO PHONE CALL 5-10 MIN [id number] Diagnos is: ICD-10- CM R68.89 Other general symptom s and signs GOVINDINGRIDANNALISA NNAH R 01/07 [place] [facility] Outpatient Encounter [id number] 01/10 [place] [facility] Outpatient Encounter [id number] 01/29 [place] [facility] OFFICE O/P NEW LOW 30 MIN [id number] Diagnos is: ICD-10- CM I10 Essenti al (primar y) hyperte nsHAYDEN Munroe R 01/29 [place] [facility] Outpatient Encounter [id number] 10/15 [place] [facility] Outpatient Encounter [id number] 11/06 [place] [facility] Outpatient Encounter [id number] 12/11 [place] Outpatient Encounter [id number] 12/11 [place] Outpatient Encounter [id number] 12/18 [place] OFFICE O/P EST MOD 30 MIN [id number] Diagnos is: ICD-10- CM I10 Essenti al (primar y) hyperte nsmai BRENNANMARGARITALORENZO K 01/01 [place] [facility] PH1 ASSMT&MGMT NQHP 5-10 [id number] Diagnos is: ICD-10- CM Z71.89 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 Social History Type Response Date Comment Source Tobacco smoking status NHIS VA-TOBACCO USE SOME DAYS CIGARETTES 01/01/2025 [facility] History of tobacco use VA-TOBACCO NEVER USED OTHER TYPE 01/01/2025 [facility] 01[facility]19/2021 [facility] OR MORE 09/29/2019 [facility] History of tobacco use V9 CURRENT TOBACCO USER 04/07/2017 [facility] History of tobacco use V9 LIFETIME NON-USER OF TOBACCO 04/03/2016 [facility] History of tobacco use V9 QUIT TOBACCO >7 YEARS AGO 03/10/2015 [facility] History of tobacco use V9 QUIT TOBACCO >7 YEARS AGO 11/27/2013 [facility] History of tobacco use V9 LIFETIME NON-USER OF TOBACCO 09/25/2012 [facility] History of tobacco use V9 QUIT TOBACCO >7 YEARS AGO 09/21/2011 [facility] History of tobacco use 9 QUIT TOBACCO >7 YEARS AGO 03/21/2010 [facility] History of tobacco use V9 QUIT TOBACCO >7 YEARS AGO 04/06/2008 [facility] History of tobacco use 9 QUIT TOBACCO >12 MO and <7 YRS AGO 02/15/2007 [facility] History of tobacco use HF V9 CURRENT NON-SMOKER 06/01/2006 quir 3 years ago [facility] History of tobacco use HF V9 CURRENT NON-SMOKER 02/27/2005 quit 2 years ago [facility]
--- OUTSIDE RECORDS SUMMARY | 2025-04-21 11:37 | XMS_ITS | Encounter Summary ---
Author Name [facility] Organization [facility] Address [address] [place] [address] Care Team Providers Care Batch Maker Name Role Phone MIKACINDY AVILAPI Primary Care [...] N PLAN N Jan 25, 2016 INSPRO [id number] Arik LIRA PATIENT MEDICARE (WNR) MEDICARE (M) PART B Oct 26, 2000 PART B [id number] SORAYAArik DORCAS PATIENT MEDICARE (WNR) MEDICARE (M) PART A Oct 26, 2000 PART A [id number] Arik LIRA PATIENT MEDICARE (WNR) MEDICARE (M) PART A Oct 26, 2000 PART A [id number] Arik LIRA PATIENT MEDICARE (WNR) MEDICARE (M) PART B Oct 26, 2000 PART B [id number] Arik LIRA PATIENT MEDICARE (WNR) MEDICARE (M) PART A Oct 26, 2000 PART A [id number] Arik LIRA PATIENT MEDICARE (WNR) MEDICARE (M) PART B Oct 26, 2000 PART B [id number] Arik LIRA PATIENT MEDICARE PART D (WNR) MEDICARE (M) PART D Jan 25, 2016 PART D [id number] Arik LIRA PATIENT Selected Encounter This section includes the information on record at [place] for the Encounter. Date/Time Encounter Type Encounter Description Reason Pro vider Source Dec 11, 2024 03:27 PM Outpatient Encounter ADMIN PAT ACTIVTIES (MASNONCT) IHE Encounter Template Text not used by [place] Plan of Treatment: Future Appointments (+ 6 months) and Future Tests (+/- 45 days) The Plan of Treatment section includes future care activities for the patient from all [place] treatmentfacilities. This section includes future appointments and future orders which are active, pending or scheduled. Future Appointments This section includes appointments that were scheduled to occur 6 months from the date of the Encounter, up to a maximum of 20 appointments. The data comes from all [place] treatment facilities. Appointment Date/Time Appointment Type Appointme nt Facility Name Jan 01, 2025 09:30 AM AMBULATORY - NONE [facility] Lab Results: +/- 30 days of the encounter This section includes the Chemistry and Hematology Lab Results on record with [place] for the patient. Radiology Reports and Pathology Reports are provided separately, in subsequent sections. Lab Results This section contains the Chemistry/Hematology Results that were resulted 30 days before or 30 daysafter the date of the Encounter. Date/Time Source Result Type Result - Unit Interpretation Reference Range Specimen Type Comment Jan 01, 2025 10:34 AM [facility] MICROALBUMIN/CREAT RATIO URINE Specimen Type: URINE No comment entered. Ordering Provider: LORENZO PHAM Report Released Date/Time: Jan 01, 2025 10:08 AM Reporting Lab: [address] [address] Performing Lab: [address] [address] CREATININE 171.5 mg/dL MICROALBUMIN QUANT 112.8 mg/L H 0.0-30.0 .MICROALBUMIN/CREA RATIO 65.8 ug/mg{creat} Jan 01, 2025 10:34 AM [facility] DRUG SCREEN IN-HOUSE ROUTINE URINE Specimen [...] Jan 01, 2025 10:08 AM Reporting Lab: [address] [address] Performing Lab: [address] [address] TETRAHYDROCANNABINOL SCREEN NEG Cuto ff < 50 AMPHETAMINE SCR NEG Cutoff < 1000 BARBITURATES SCR NEG Cutoff < 200 BENZODIAZEPINES SCR NEG Cutoff < 200 COCAINE METABOLITE SCR NEG Cutoff < 300 OPIATES SCR NEG Cutoff < 300 METHADONE SCR NEG Cutoff < 300 OXYCODONE SCR NEG Cutoff < 200 Jan 01, 2025 10:25 AM [facility] GLYCOHEMOGLOBIN BLOOD Specimen Type: BLOOD Comment: [place] guidelines for A1c interpretation: Glycemic control targets are based on Shared Decision Making between clinicians and patients. Criteria used to establish an A1c target recommendation can be found at https://www.[place].gov/qualityandpatientsafety/ and include the use of result accuracy [...] 8.73 and 9.27. Ref: https://ngsp.org/CAPdata.asp. The in-house [employer]-Vayusa D-100 analyzer has a historical CV <= 2%. Contact the laboratory for further performance characteristics of this assay. Ordering Provider: LORENZO PHAM Report Released Date/Time: Jan 01, 2025 10:08 AM Reporting Lab: [address] [address] Performing Lab: [address] [address] GLYCOHEMOGLOBIN 6.8 H 4.4-5.6 Jan 01, 2025 10:25 AM [facility] TESTOSTERONE (SIDDIQUI) SERUM Specimen Type: SE [...] Jan 01, 2025 09:59 AM Reporting Lab: [address] [address] Performing Lab: [address] [address] TESTOSTERONE (SIDDIQUI) >1500.00 ng/dL H 220 .00-900.00 Jan 01, 2025 10:25 AM [facility] TSH PLASMA Specimen Type: PLASM A [...] Jan 01, 2025 10:08 AM Reporting Lab: [address] [address] Performing Lab: [address] [address] TSH 0.7951 m[IU]/mL 0.3500-4.9400 Jan 01, 2025 10:25 AM [facility] 25-OH VITAMIN D SERUM Specime n [...] Jan 01, 2025 10:08 AM Reporting Lab: [address] [address] Performing Lab: [address] [address] 25-OH VITAMIN D 44.0 ng/mL 20.0-50.0 Jan 01, 2025 10:25 AM [facility] LIPID PROFILE PLASMA Specimen Type: PLASM [...] Jan 01, 2025 10:08 AM Reporting Lab: [address] [address] Performing Lab: [address] [address] CHOLESTEROL 152 mg/dL 0-199 TRIGLYCERIDE 111 mg/dL 0-149 HDL CHOLESTEROL 49 mg/dL 40-69 DIRECT LDL CHOL. 91 mg/dL 0-100 Jan 01, 2025 10:25 [facility] CBC/PLT BLOOD Specimen Type: BLOOD Comment: CRITICAL CALLED TO & READ BACK BY: LORENZO PHAM 01/01/25@1122 DMT Ordering Provider: LORENZO PHAM Report Released Date/Time: Jan 01, 2025 10:08 AM Reporting Lab: [facility] [address] [facility] [address] Performing Lab: [address] [address] WBC 5.1 10*3/uL 5.0-10.0 RBC 6.07 10*6/uL 4.6-6.2 HGB 18.0 g/dL 14.0-18.0 HCT 54.3 HH 42.0-52.0 MCV 89.5 fL 80.0-94.0 MCH 29.7 pg 27.0-31.0 MCHC 33.1 g/dL 32.0-36.0 PLT 243 10*3/uL 150-450 MPV 9.5 fL 9.0-13.1 RDW 13.1 11.0-16.0 NRBC 0.0 0.0-0.0 Jan 01, 2025 10:25 AM [facility] PANEL 5 PLASMA Specimen Type: PLASM [...] Jan 01, 2025 10:08 AM Reporting Lab: [address] [address] Performing Lab: [address] [address] CREATININE 1.13 mg/dL 0.72-1.25 UREA NITROGEN 15 [...] 2025 10:25 AM [facility] PANEL 1 PLASMA Specimen [...] Jan 01, 2025 10:08 AM Reporting Lab: [address] [address] Performing Lab: [address] [address] CREATININE 1.08 mg/dL 0.72-1.25 UREA NITROGEN 15 mg/dL 9-25 GLUCOSE 118 mg/dL H 74-100 SODIUM 138 mmol/L 136-145 POTASSIUM 4.1 mmol/L 3.5-5.1 CHLORIDE 101 mmol/L 98-107 CO2 28 mmol/L 22-29 CALCIUM 9.9 mg/dL 8.4-10.2 ANION GAP 9 meq/L 3-19 eGFR (CKD-EPI) 72 Jan 01, 2025 10:25 AM [facility] PSA (DIAGNOSTIC) SERUM Specim en Type: SERUM No comment entered. Ordering Provider: LORENZO PHAM Report Released Date/Time: Jan 01, 2025 10:10 AM Reporting Lab: [address] [address] Performing Lab: [address] [address] PSA (DIAGNOSTIC) 8.413 ng/mL H 0-3.999 Social History: Smoking Status (Most current) and Tobacco Use (All prior to encounter date) This section includes the most current, and the historical, smoking and tobacco- related health factors from the [place] facility where the Encounter took place. Current Smoking Status This section includes the most current smoking, or tobacco-related health factor, from the [place] facility where the Encounter took place. Date/Time Current Smoking Status Comment Osman davis Feb 27, 2005 08:04 AM HF V9 CURRENT NON-SMOKER quit 2 years ago [facility] Encounter Notes: All associated encounter notes This section contains the clinical notes associated to the Encounter. Date/Time Encounter Note(s) Provider Source Dec 11, 2024 03:27 PM PRIMARY CARE ADMIN ISTRATIVE NOTE: LOCAL TITLE: PC ADMINISTRATIVE NOTE STANDARD TITLE: PRIMARY CARE ADMINISTRATIVE NOTE DATE OF NOTE: DEC 11, 2024@15:27 ENTRY DATE: DEC 11, 2024@15:27:31 AUTHOR: BRITTANY DAILEY EXP COSIGNER: URGENCY: STATUS: COMPLETED 11 MTH RECALL PER 01/30/2024 RTC (TRANSFER FROM [facility]) @ DONNA PERRY 01/01/2025 09:30 ARMIDA PACT H 16-2 APPOINTMENT REMINDER MAILED TO THE /kain/ Brittany Dailey [employer] Signed: 12/11/2024 15:28 BRITTANY DAILEY [facility]
== END 2025-04-15 23:59 | disposition home or self-care (01) ==
LOC: LAB.DROPOF 04-21 11:35
PROVIDERS: PCP Internal Medicine; Visit Provider Internal Medicine
DX: E11.42 Type 2 diabetes mellitus with diabetic polyneuropathy (principal); I10 Essential (primary) hypertension; R79.89 Other specified abnormal findings of blood chemistry; Z79.84 Long term (current) use of oral hypoglycemic drugs; Z87.891 Personal history of nicotine dependence
CPT/HCPCS: 82043; 82570; 83036; 84403; 85025

== ENCOUNTER 2025-04-21 08:00 | Outpatient (CLI) | payer MEDICARE, OTHER, SELFPAY ==
[2025-04-21 16:14] LABS: Alanine Aminotransferase 29 U/L (12-78); Albumin Level 4.4 g/dl (3.5-5.0); Albumin/Globulin Ratio 2.2 (1.1-1.8); Alkaline Phosphatase 51 U/L (38-126); Anion Gap 10.7 mEq/L (5-15); Aspartate Amino Transferase 39 U/L (17-59); Bilirubin,Total 0.9 mg/dl (0.2-1.3); Blood Urea Nitrogen 21 mg/dl (9-20); Calcium 9.3 mg/dl (8.4-10.2); Carbon Dioxide 33 mmol/L (22.0-30.0); Chloride 99 mmol/L (98-107); Chol/HDL Ratio 2.5 (1-3.5); Cholesterol 126 mg/dl (140-200); Estimated Glomerular Filt Rate 82 ml/min (>60); GFR (African American) 100 ML/MIN (>60); Glucose 106 mg/dl (74-100); HDL Cholesterol 50 mg/dl (40-60); Potassium 4.7 mmoL/L (3.5-5.1); Sodium 138 mmol/L (136-145); Total Protein,Serum 6.4 g/dl (6.3-8.2); Triglycerides 130 mg/dl (30-150); VLDL Cholesterol 26 mg/dL (0-40)
[2025-04-21 16:25] LABS: Direct LDL Cholesterol 58.38 mg/dL (100-129)
--- OUTSIDE RECORDS SUMMARY | 2025-04-22 13:03 | XMS_ITS | Data Portability ---
Author Organization [facility] Juliana marin, CKS FINGAL CLOSED Address [address] [facility] [address] [place] [address] Care Team Providers Care It Operations Analyst Name Role Phone MANDY LOPEZ Primary Care Provider Assessment Encounter Date Assessment Date Assessment LastModified by Organization Details LastModified Time 05/16/2021 05/16/2021 catheter removed for voiding trial. Follow-up with Dr. Duque. [email or web address] Not available 05/19/2021 10:11:37 Plan of Treatment Reminders Order Date Submit Date Provider Last Modified By Organization Details Last Modified Time Details Appointments None recorded. Lab urinalysis panel, auto [address] [facility], [address], [place], [address], 4 12:32:20 PSA, serum or plasma [address] [facility], [address], [address], [place], [address], 3 20:55:14 urinalysis panel, auto [address] [facility], [address], [address], [place], [address], 3 20:55:13 urinalysis panel, auto 2022 023 [email or web address] [facility], [address], [address], [place], [address], 3 22:40:20 Referral None recorded. Procedures None recorded. Surgeries None recorded. Imaging None recorded. Medication Orders sildenafil 100 mg tablet 2022 023 TIFFANY [facility], [address] [place] [address], [id number], 3 20:55:59 cefuroxime axetil 500 mg tablet 2022 023 [email or web address] Formerly [facility], [address] [place] [address], [id number], 4 10:05:21 Patient TargetsNo targets recorded. Patient InstructionsNo instructions recorded. Reason for Referral None Reported. Results Created Date Observation Date Name Description Value Unit Range Abnormal Flag Note LastModifiedBy Organization Detail LastModifiedTime 05/18/2005/18/2023 urina lysis panel , auto Unknown Analyte Clean Catch Not Available [facility] [address], [place], [address], 05/18/2023 11:32:06 05/18/20 23 05/18/2023 urina lysis panel , auto Unknown Analyte Yellow Not Available [facility] [address], [place], [address], 05/18/2023 11:32:06 05/18/20 23 05/18/2023 urina lysis panel , auto Unknown Analyte Clear Not Available [facility] [address], [place], [address], 05/18/2023 11:32:06 05/18/20 23 05/18/2023 urina lysis panel , auto Unknown Analyte 1.010 Not Available [facility] [address], [place], [address], 05/18/2023 11:32:06 05/18/20 23 05/18/2023 urina lysis panel , auto Unknown Analyte 7.0 Not Available [facility] [address], [place], [address], 05/18/2023 11:32:06 05/18/20 23 05/18/2023 urina lysis panel , auto Unknown Analyte Negati ve Not Available [facility] [address], [place], [address], 05/18/2023 11:32:06 05/18/20 23 05/18/2023 urina lysis panel , auto Unknown Analyte Negati ve Not Available [facility] [address], [place], [address], 05/18/2023 11:32:06 05/18/20 23 05/18/2023 urina lysis panel , auto Unknown Analyte Trace Not Available [facility] [address], [place], [address], 05/18/2023 11:32:06 05/18/20 23 05/18/2023 urina lysis panel , auto Unknown Analyte >1000 mg/dl Not Available [facility] [address], [place], [address], 05/18/2023 11:32:06 05/18/20 23 05/18/2023 urina lysis panel , auto Unknown Analyte Negati ve Not Available [facility] [address], [place], [address], 05/18/2023 11:32:06 05/18/20 23 05/18/2023 urina lysis panel , auto Unknown Analyte 4 mg/dl Not Available [facility] [address], [place], [address], 05/18/2023 11:32:06 05/18/20 23 05/18/2023 urina lysis panel , auto Unknown Analyte Negati ve Not Available [facility] [address], [place], [address], 05/18/2023 11:32:06 05/18/20 23 05/18/2023 urina lysis panel , auto Unknown Analyte Negati ve Not Available [facility] [address], [place], [address], 05/18/2023 11:32:06 07/17/20 23 07/17/2023 urina lysis panel , auto Unknown Analyte Clean Catch Not Available [facility] [address], [place], [address], 07/17/2023 16:06:14 07/17/2007/17/2023 urina lysis panel , auto Unknown Analyte Yellow Not Available [facility] [address], [place], [address], 07/17/2023 16:06:14 07/17/20 23 07/17/2023 urina lysis panel , auto Unknown Analyte Clear Not Available [facility] [address], [place], [address], 07/17/2023 16:06:14 07/17/20 23 07/17/2023 urina lysis panel , auto Unknown Analyte 1.015 Not Available [facility] [address], [place], [address], 07/17/2023 16:06:14 07/17/20 23 07/17/2023 urina lysis panel , auto Unknown Analyte 1.003- 1.035 Not Available [facility] [address], [place], [address], 07/17/2023 16:06:14 07/17/20 23 07/17/2023 urina lysis panel , auto Unknown Analyte 6.5 Not Available [facility] [address], [place], [address], 07/17/2023 16:06:14 07/17/20 23 07/17/2023 urina lysis panel , auto Unknown Analyte 5.0-8. 0 Not Available [facility] [address], [place], [address], 07/17/2023 16:06:14 07/17/20 23 07/17/2023 urina lysis panel , auto Unknown Analyte 25 Olesya/ul Trace Not Available [facility] [address], [place], [address], 07/17/2023 16:06:14 07/17/20 23 07/17/2023 urina lysis panel , auto Unknown Analyte Negati ve Not Available [facility] [address], [place], [address], 07/17/2023 16:06:14 07/17/20 23 07/17/2023 urina lysis panel , auto Unknown Analyte Negati ve Not Available [facility] [address], [place], [address], 07/17/2023 16:06:14 07/17/20 23 07/17/2023 urina lysis panel , auto Unknown Analyte Negati ve Not Available [facility] [address], [place], [address], 07/17/2023 16:06:14 07/17/20 23 07/17/2023 urina lysis panel , auto Unknown Analyte 30 mg/dl (+) Not Available [facility] [address], [place], [address], 07/17/2023 16:06:14 07/17/20 23 07/17/2023 urina lysis panel , auto Unknown Analyte Negati ve Not Available [facility] [address], [place], [address], 07/17/2023 16:06:14 07/17/20 23 07/17/2023 urina lysis panel , auto Unknown Analyte 250 mg/dl Not Available [facility] [address], [place], [address], 07/17/2023 16:06:14 07/17/20 23 07/17/2023 urina lysis panel , auto Unknown Analyte Normal Not Available [facility] [address], [place], [address], 07/17/2023 16:06:14 07/17/20 23 07/17/2023 urina lysis panel , auto Unknown Analyte 15 mg/dl (Sm) Not Available [facility] [address], [place], [address], 07/17/2023 16:06:14 07/17/20 23 07/17/2023 urina lysis panel , auto Unknown Analyte Negati ve Not Available [facility] [address], [place], [address], 07/17/2023 16:06:14 07/17/20 23 07/17/2023 urina lysis panel , auto Unknown Analyte 4 mg/dl Not Available [facility] [address], [place], [address], 07/17/2023 16:06:14 07/17/20 23 07/17/2023 urina lysis panel , auto Unknown Analyte Normal 1 mg/dl Not Available [facility] [address], [place], [address], 07/17/2023 16:06:14 07/17/20 23 07/17/2023 urina lysis panel , auto Unknown Analyte 1 mg/dl (+) Not Available [facility] [address], [place], [address], 07/17/2023 16:06:14 07/17/20 23 07/17/2023 urina lysis panel , auto Unknown Analyte Negati ve Not Available [facility] [address], [place], [address], 07/17/2023 16:06:14 07/17/20 23 07/17/2023 urina lysis panel , auto Unknown Analyte Negati ve Not Available [facility] [address], [place], [address], 07/17/2023 16:06:14 07/17/20 23 07/17/2023 urina lysis panel , auto Unknown Analyte Negati ve Not Available [facility] [address], [place], [address], 07/17/2023 16:06:14 07/17/20 23 07/17/2023 PSA, serum or plasm a PSA 6.5 NG/mL 0.0 - 4.0 Not Available [facility] [address], [place], [address], 07/17/2023 16:05:56 06/16/20 24 06/16/2024 urina lysis panel , auto Unknown Analyte Clean Catch Not Available [facility] [address], [place], [address], 06/16/2024 10:07:02 06/16/20 24 06/16/2024 urina lysis panel , auto Unknown Analyte Yellow Not Available [facility] [address], [place], [address], 06/16/2024 10:07:02 06/16/20 24 06/16/2024 urina lysis panel , auto Unknown Analyte Clear Not Available [facility] [address], [place], [address], 06/16/2024 10:07:02 06/16/20 24 06/16/2024 urina lysis panel , auto Unknown Analyte 1.010 Not Available [facility] [address], [place], [address], 06/16/2024 10:07:02 06/16/20 24 06/16/2024 urina lysis panel , auto Unknown Analyte 1.003- 1.035 Not Available [facility] [address], [place], [address], 06/16/2024 10:07:02 06/16/20 24 06/16/2024 urina lysis panel , auto Unknown Analyte 6.0 Not Available [facility] [address], [place], [address], 06/16/2024 10:07:02 06/16/20 24 06/16/2024 urina lysis panel , auto Unknown Analyte 5.0-8. 0 Not Available [facility] [address], [place], [address], 06/16/2024 10:07:02 06/16/20 24 06/16/2024 urina lysis panel , auto Unknown Analyte 25 Olesya/ul Trace Not Available [facility] [address], [place], [address], 06/16/2024 10:07:02 06/16/20 24 06/16/2024 urina lysis panel , auto Unknown Analyte Negati ve Not Available [facility] [address], [place], [address], 06/16/2024 10:07:02 06/16/20 24 06/16/2024 urina lysis panel , auto Unknown Analyte Negati ve Not Available [facility] [address], [place], [address], 06/16/2024 10:07:02 06/16/20 24 06/16/2024 urina lysis panel , auto Unknown Analyte Negati ve Not Available [facility] [address], [place], [address], 06/16/2024 10:07:02 06/16/20 24 06/16/2024 urina lysis panel , auto Unknown Analyte 30 mg/dl (+) Not Available [facility] [address], [place], [address], 06/16/2024 10:07:02 06/16/20 24 06/16/2024 urina lysis panel , auto Unknown Analyte Negati ve Not Available [facility] [address], [place], [address], 06/16/2024 10:07:02 06/16/20 24 06/16/2024 urina lysis panel , auto Unknown Analyte >1000 mg/dl Not Available [facility] [address], [place], [address], 06/16/2024 10:07:02 06/16/20 24 06/16/2024 urina lysis panel , auto Unknown Analyte Normal Not Available [facility] [address], [place], [address], 06/16/2024 10:07:02 06/16/20 24 06/16/2024 urina lysis panel , auto Unknown Analyte 15 mg/dl (Sm) Not Available [facility] [address], [place], [address], 06/16/2024 10:07:02 06/16/20 24 06/16/2024 urina lysis panel , auto Unknown Analyte Negati ve Not Available [facility] [address], [place], [address], 06/16/2024 10:07:02 06/16/20 24 06/16/2024 urina lysis panel , auto Unknown Analyte 4 mg/dl Not Available [facility] [address], [place], [address], 06/16/2024 10:07:02 06/16/20 24 06/16/2024 urina lysis panel , auto Unknown Analyte Normal 1 mg/dl Not Available [facility] [address], [place], [address], 06/16/2024 10:07:02 06/16/20 24 06/16/2024 urina lysis panel , auto Unknown Analyte Negati ve Not Available [facility] [address], [place], [address], 06/16/2024 10:07:02 06/16/20 24 06/16/2024 urina lysis panel , auto Unknown Analyte Negati ve Not Available [facility] [address], [place], [address], 06/16/2024 10:07:02 06/16/20 24 06/16/2024 urina lysis panel , auto Unknown Analyte Negati ve Not Available [facility] [address] [facility] [address], [place], [address], 06/16/2024 10:07:02 06/16/20 24 06/16/2024 urina lysis panel , auto Unknown Analyte Negati ve Not Available [facility] [address] [facility] [address], [place], [address], 06/16/2024 10:07:02 Result Notes None recorded. Problems No Known Problems Procedures Surgical History Date Name Laterality Status Provider Name and Address Organization Details Recorded Time Post Void Residual; [facility] 10:52:51 Imaging Results None recorded. Procedure [...] Updated DateTime 05/16/2021 187.96 cm 34.9 kg/m2 060479.12 g Giorgi Rodriguez [facility] 05/16/2021 13:09:55 Date Recorded Body height Body mass index (BMI) Body weight Provider Name and Address Organization Details Last Updated DateTime 05/18/2023 187.96 cm 34.3 kg/m2 463782.16 g Candi Lopez [facility] 05/18/2023 11:31:53 Date Recorded Body height Body mass index (BMI) Body weight Provider Name and Address Organization Details Last Updated DateTime 06/03/2021 187.96 cm 34.9 kg/m2 449836.12 g Mackenzie Bacon [facility] 06/03/2021 10:52:35 Date Recorded Body height Body mass index (BMI) Body weight Provider Name and Address Organization Details Last Updated DateTime 06/16/2024 187.96 cm 33.4 kg/m2 697562.02 g Jesusita Justin [facility] 06/16/2024 10:05:18 Date Recorded Body height Body mass index (BMI) Body weight Provider Name and Address Organization Details Last Updated DateTime 07/17/2023 187.96 cm 34.3 kg/m2 268522.16 g Kasia Nguyen [facility] 07/17/2023 16:05:49 Social History Question Answer Notes LastModified by Organizat ion Details LastModified Time Tobacco Smoking Status [facility] 14:11:35 How Much Tobacco Do You Chew? None Information not available 04/14/2019 When Did You Quit Smoking? 11-15yearssin celastcigaret te Information not available 04/14/2019 Marital Status Informatio n not available 04/14/2019 What Was The Date Of Your Most Recent Tobacco Screening? 04/14/2019 Information n ot available 01/13/2020 How Much Tobacco Do You Smoke? No [email or web address] Information not available 04/18/2021 Sex: Unknown Functional [...] Disease N Other N Gout N Kidney Stones N Kidney Cyst N Enlarged Prostate N Heart Arrhythmia N Emphysema N Erectile Dysfunction N Head Trauma/Injury N Sexually Transmitted Disease N Depression N Pneumonia N Incontinence N Prostate Problems N Cancer Prostate N Paralysis N Anxiety Disorder N Hemorrhoids N Obesity N Arthritis N Infertility N Acid Reflux (GERD) N Cancer N Hematuria N Stroke N Neck Injury N Neurologic Disorder N Previous Radiation Therapy? N Kidney Disease N Heart Conditions N Kidney or Bladder Problems N Urinary Problems N Constipation N Brain Injury N Ulcers Y Prostate [...] Disease N Parkinson's Disease N Chemotherapy N Anemia N Transplant N Back Pain N Chest Pain N Multiple Sclerosis N Proteinuria N Heart Attack ([place]) N Mental Illness N Diabetes Y Ovarian Cancer N Seizures/Epilepsy N Genitourinary problem(s) N Congestive Heart Failure (CHF) N Kidney Failure N Sleep Apnea N Bronchitis N Heart Disease N Hypertension Y Past Encounters Encounter ID Performer Location Encounter Start Date Encounter Closed Date Diagnosis/Indication Diagnosis SNOMED-CT Code Diagnosis ICD10 Code Diagnosis Note [id number] DINORA DUQUE MD [facility] [address] [place] [address] 04/14/2019 13:14:05 04/14/2019 14:33:25 Retention of urine 697190204 R33.9 voiding trial catheter was removed without difficulty Benign pro static hyperplasia with outflow obstruction 450795543 N40.1 continue current therapy. We will follow-up with ca in [place] in 1 week. [id number] DINORA DUQUE MD [place] [address] [address] 04/18/2021 10:09:32 04/18/2021 13:23:38 Benign prostatic hyperplasia with outflow obstruction 704056131 N40.1 Patient is dissatisfi ed on maximum medical therapy. We will proceed with greenlight laser vaporizati on of the prostate Prostate s pecific antigen above reference range 149548929 R97.20 [id number] KIN PRAJAPATI MD [place] [facility] [address] [address] 05/16/2021 12:19:23 05/16/2021 13:10:55 Benign prostatic hyperplasia with outflow obstruction 389736785 N40.1 [id number] DINORA DUQUE MD [facility] [address] [address] 06/03/2021 09:24:46 06/03/2021 13:22:02 Benign prostatic hyperplasia with outflow obstruction 333898119 N40.1 Doing very well. He will gradually resume normal activities . He will follow up in 6 months [id number] DINORA DUQUE MD C[facility] [address] [address] 05/18/2023 09:12:21 05/18/2023 11:15:54 Prostate specific antigen above reference range 115318820 R97.20 He will follow-up in 1 month with repeat PSA Chronic prostatitis 1989 5009 N41.1 [id number] DINORA DUQUE MD [facility] [address] [place] [address] 07/17/2023 15:07:01 07/17/2023 16:15:00 Prostate specific antigen above reference range 863812855 R97.20 He will follow-up in 3 month with repeat PSA Large prostate 327293924 N40.0 Primary er ectile dysfunction 885221705 N52.9 As above [id number] MD [facility] [address] [place] [address] 06/16/2024 09:50:42 06/16/2024 10:47:49 Prostate specific antigen above reference range 753892090 R97.20 He will follow-up in 6 month with repeat PSA Benign pro static hyperplasia with outflow obstruction 169130073 N40.1 He will follow up in 6 months Primary er ectile dysfunction 915614358 N52.9 As above Health Concerns Section Related Observation LastModified by Organization Detai ls LastModified Time None Recorded Concern Status LastModified by Organization Details LastModified Time None Recorded Advance Directives Directive None Recorded Payers Insurance Date Sequence Insurance Name Policy Number Policy Guzman Covered Member ID Guzman Member ID Guarantor Name 12/16/2024 1 [place] Daquan Cowart [id number] Daquan Cowart 07/17/2023 2 AET [id number] Daquan Cowart [id number] Daquan Cowart 12/16/2024 2 [employer] (MEDICARE SUPPLEMENT) Daquan Cowart [id number] Daquan Cowart Notes Date Note Type Note Provider Name and Address Organization Details Recorded Time 05/16/2021 text/html 70-year-old male in the office for catheter removal following laser vaporization of prostate. Hematuria has resolved. He has dysuria associated with the catheter. KIN PRAJAPATI MD [address] [place] [address], [phone], [facility] 05/19/2021 10:12:20 06/03/2021 text/html Patient is here in follow-up greenlight laser vaporization of the prostate. His catheter is been out for 3 weeks. He is voiding well. He has nocturia ? 0 -1. He is very pleased. His bladder scan residual today was 174 mL. If he continues to void well he will follow-up in 6 months with PSA. DINORA DUQUE MD [address] [place] [address] [place], [address], [facility] [facility] 06/05/2021 14:17:53 05/18/2023 text/html Patient is here [...] month with repeat PSA. DINORA DUQUE MD [address] [place] [address], [id number], [facility] 05/21/2023 22:40:48 07/17/2023 text/html Patient is here [...] try sildenafil 100 mg DINORA DUQUE MD [address] [place] [address], [id number], [facility] 07/17/2023 20:55:42 06/16/2024 text/html Patient is here [...] We discussed continued observation. DINORA DUQUE MD [address] [place] [address], [id number], [facility] 06/18/2024 12:33:06
--- OUTSIDE RECORDS SUMMARY | 2025-04-22 13:04 | XMS_ITS | Continuity of Care Document ---
Author Name [facility] Organization [facility] Care Team Providers Care Insurance Executive Name Role Phone [facility] Unavailable Unavailable Problems Combined list of problems from Department of Defense and Veterans Affairs facilities. It does not include entries that were removed or entered in error. 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) Active Condition [facility] Elevated Prostate Specific Antigen (PSA) (ICD-9-CM 790.93) Active Condition [facility] Erectile dysfunction Active Condition [facility] Gastroesophageal reflux disease Active Condition [facility] Hyperlipidemia (SNOMED CT 65553325) Active Condition [facility] Hypertension (SNOMED CT 54875626) Active Condition [facility] Hypertrophy (Benign) of Prostate without Urinary obstruction (ICD-9-CM 600.00) Active Condition [place] [facility] Low back pain (SNOMED CT 839058064) Active Condition [facility] 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 STREP PNEU Inactive Condition 03/21/2010 Mar 21, 2010 Entered By: Roman HANLEY Comment: delete per dr sean [facility] Isaías VACCIN FOR INFLUENZA Inactive Condition April 06, 2008 Entered By: Roman HANLEY Comment: delete varun whalen [facility] Diagnosis: ICD-10-CM Z71.89 Other specified counseling Active Diagnosis [facility] Diagnosis: ICD-10-CM I10 Essential (primary) hypertension Active Diagnosis [facility] Diagnosis: ICD-10-CM R68.89 Other general symptoms and signs Active Diagnosis [facility] Diagnosis: ICD-10-CM K92.1 Melena Active Diagnosis [facility] Medications Combined list of outpatient medications from Department of Defense and [facility] facilities.Medications provided include 1) outpatient medications from the last 15 months, and 2) patient-reported medications. Medication Details Route Status Patient Instructions Prescription Expires Prescription Number Last Dispense Date Ordering Provider Order Date Order Qty Source ASPIRIN 81MG TAB,EC TAKE ONE TABLET BY MOUTH DAILY FOR HEART ORAL ACTIVE 01/02/2026 [id number] GUNDUMALL ALORENZO K 2024 90 [place] [facility] FOLIC ACID TAB TAKE 800MCG BY MOUTH EVERY MORNING ORAL ACTIVE JOEY ORANTES IN C 2020 [place] [facility] GABAPENTIN 600MG TAB TAKE TWO TABLETS BY MOUTH AT BEDTIME ORAL ACTIVE GUNDUMALL A,LORENZO K 2024 [place] [facility] GABAPENTIN 600MG TAB TAKE ONE-HALF TABLET BY MOUTH DAILY ORAL ACTIVE GUNDUMALL A,LORENZO K 2024 [place] [facility] INDAPAMIDE 2.5MG TAB TAKE ONE TABLET BY MOUTH DAILY FOR BLOOD PRESSURE ORAL ACTIVE 02/27/2026 [id number] 5 RYAN AMBROSIO R 2024 90 [place] [facility] INDAPAMIDE 2.5MG TAB TAKE ONE TABLET BY MOUTH DAILY FOR BLOOD PRESSURE ORAL DISCONT INUED 01/30/2025 [id number] 4 RYAN AMBROSIO R 2023 90 [place] [facility] MELOXICAM 15MG TAB TAKE ONE TABLET BY MOUTH DAILY FOR PAIN OR INFLAMMA TION -TAKE WITH FOOD OR MILK ORAL ACTIVE 01/02/2026 [id number] 5 GUNDUMALL A,LORENZO K 2024 90 [place] [facility] MELOXICAM 15MG TAB TAKE ONE TABLET BY MOUTH DAILY ORAL ACTIVE JOEY ORANTES IN C 2018 [place] [facility] METFORMIN HCL 500MG 24HR TAB,SA TAKE TWO TABLETS BY MOUTH EVERY MORNING AND TAKE ONE TABLET AT BEDTIME FOR BLOOD SUGAR ORAL ACTIVE 01/02/2026 [id number] 5 GUNDUMALL A,LORENZO K 2024 270 [place] [facility] MULTIVITAMI NS W/MINERALS CAP/TAB TAKE 1 CAP(S)/T AB BY MOUTH DAILY ORAL ACTIVE JOEY ORANTES IN C 2020 [place] [facility] OXYCODONE HCL 15MG TAB TAKE TWO TABLETS BY MOUTH THREE TIMES A DAY ORAL ACTIVE JOEY ORANTES IN C 2018 [place] [facility] ROSUVASTATI N CA 40MG TAB TAKE ONE-HALF TABLET BY MOUTH AT BEDTIME FOR CHOLESTE ROL ORAL ACTIVE 01/30/2025 [id number] 4 RYAN AMBROSIO 2023 45 [place] [facility] SILDENAFIL CITRATE 100MG TAB TAKE ONE TABLET BY MOUTH DIRECTED FOR ERECTILE DYSFUNCT ION -DO NOT TAKE WITH ANY MEDICATI ON CONTAINI NG NITRATES (LIMIT: 6 DOSES/30 DAYS OR 18 DOSES/90 DAYS, NON-REPL ACEABLE MEDICATI ON) ORAL 04/01/2025 [id number] 5 GUNDUMALL A,LORENZO K 2024 18 [place] [facility] SILDENAFIL CITRATE 100MG TAB TAKE ONE TABLET BY MOUTH DIRECTED ORAL ACTIVE GUNDUMALL A,LORENZO K 2024 [place] [facility] TESTOSTERON E CYPIONATE 200MG/ML INJ (IN OIL) INJECT 200MG (1ML) INTO THE MUSCLE DIRECTED WEEKLY INTRAM USCULA R JOEY FUENTES IN C 2018 [place] [facility] ZINC 50MG (FROM SULFATE) CAP TAKE 1 CAPSULE BY MOUTH ONCE A DAY ORAL ACTIVE ORANTESJOEY IN C 2020 [facility] Allergies, Adverse Reactions, Alerts Combined list of allergies from Department of Defense and Veterans Affairs facilities. It does not include entries that were removed or entered in error. Substance Category Reaction Severity Reaction type Status Date Reported Comments Source LIPITOR Propensity to adverse reactions to drug (finding) Muscle pain active 3 [facility] LOVASTATIN Propensity to adverse reactions to drug (finding) Engorgement of breasts MODERATE active 8 [facility] ZOCOR Propensity to adverse reactions to drug (finding) Muscle pain MODERATE active 8 [facility] Immunizations Combined list of available immunizations from the Department of Defense and Veterans Affairs facilities. Immunization Series Date Given Administered By Site Reaction Lot Number CVX Code Drug Gta Status Comments Source INFLUENZA, HIGH-DOSE, TRIVALENT, PF 1 2023 135 complet ed HISTORICA L INFORMATI ON - FROM OTHER REGISTRY, [place] [facility] TDAP 1 2022 115 complet ed HISTORICA L INFORMATI ON - FROM OTHER REGISTRY, [place] [facility] COVID-19 (PFIZER), MRNA, LNP-S, PF, 30 MCG/0.3 ML DOSE 1 2020 208 complet ed HISTORICA L INFORMATI ON - FROM OTHER REGISTRY, [place] [facility] COVID-19 ([facility]), MRNA, LNP-S, PF, 30 MCG/0.3 ML DOSE 2 2020 208 complet ed PFR; [id number]; 1 [place] COVID-19 (PFIZER), MRNA, LNP-S, PF, 30 MCG/0.3 ML DOSE 1 2020 208 complet ed PFR; [id number]; 1 [place] PNEUMOCOCCAL POLYSACCHARID E PPV23 1 2019 33 complet ed HISTORICA L INFORMATI ON - FROM OTHER REGISTRY, [place] [facility] INFLUENZA, INJECTABLE, QUADRIVALENT, PRESERVATIVE FREE [...] 2025 10:08 AM Reporting Lab: [facility] [address] [address] Performing Lab: [facility] [address] [address] [facility] MICROALBU MIN/CREAT RATIO MICROALBUMI N [MASS/VOLUM E] IN URINE 112.8 mg/L 0.0 - 30.0 01/01 H Specimen Type: URINE No comment entered. Ordering Provider: LORENZO PHAM Report Released Date/Time: Jan 01, 2025 10:08 AM Reporting Lab: [place] [phone] Performing Lab: [address] [place] [address] MICROALBU MIN/CREAT RATIO MICROALBUMI N/CREATININ E [MASS RATIO] IN URINE 65.8 ug/mg{ creat} 01/01 Specimen Type: URINE No comment entered. Ordering Provider: LORENZO PHAM Report Released Date/Time: Jan 01, 2025 10:08 AM Reporting Lab: [place] [phone] Performing Lab: [address] DRUG SCREEN IN-HOUSE ROUTINE TETRAHYDROC ANNABINOL [...] Jan 01, 2025 10:08 AM Reporting Lab: [place] [phone] Performing Lab: [address] DRUG SCREEN IN-HOUSE ROUTINE AMPHETAMINE S [...] Jan 01, 2025 10:08 AM Reporting Lab: [address] [address] Performing Lab: [address] [address] [facility] DRUG SCREEN IN-HOUSE ROUTINE BARBITURATE S [PRESENCE] [...] Jan 01, 2025 10:08 AM Reporting Lab: [address] [address] Performing Lab: [address] [address] [facility] DRUG SCREEN IN-HOUSE ROUTINE BENZODIAZEP LINCOLN [PRESENCE] [...] Jan 01, 2025 10:08 AM Reporting Lab: [address] [address] Performing Lab: [address] [address] [facility] DRUG SCREEN IN-HOUSE ROUTINE BENZOYLECGO NINE [PRESENCE] [...] Jan 01, 2025 10:08 AM Reporting Lab: [address] [address] Performing Lab: [address] [address] [facility] DRUG SCREEN IN-HOUSE ROUTINE OPIATES [PRESENCE] IN [...] Jan 01, 2025 10:08 AM Reporting Lab: [address] [address] Performing Lab: [address] [address] [facility] DRUG SCREEN IN-HOUSE ROUTINE METHADONE [PRESENCE] IN [...] Jan 01, 2025 10:08 AM Reporting Lab: [address] [address] Performing Lab: [address] [address] [facility] DRUG SCREEN IN-HOUSE ROUTINE OXYCODONE [PRESENCE] IN [...] Jan 01, 2025 10:08 AM Reporting Lab: [address] [address] Performing Lab: [address] [address] [facility] GLYCOHEMO GLOBIN HEMOGLOBIN A1C/HEMOGLO BIN.TOTAL IN BLOOD BY HPLC 6.8 4.4 - 5.6 01/01 H Specimen Type: BLOOD Comment: [facility] guidelines for A1c interpretat ion: Glycemic control targets are based on Shared Decision Making between clinicians and patients. Criteria used to establish an A1c target recommendat ion can be found at https://www .wv.gov/velvet lityandpati entsafety/ and include the use of [...] 9.27. Ref: https://ngs p.org/CAPda ta.asp. The in-house [employer] Holdco D-100 analyzer has a historical CV <= 2%. Contact the laboratory for further performance characteris tics of this assay. Ordering Provider: LORENZO PHAM Report Released Date/Time: Jan 01, 2025 10:08 AM Reporting Lab: [address] [address] Performing Lab: [address] [address] [facility] 25-OH VITAMIN D 25-HYDROXYV ITAMIN D3 [MASS/VOLUM [...] 2025 10:08 AM Reporting Lab: [facility] [address] [address] Performing Lab: [facility] [address] [address] [facility] TSH THYROTROPIN [UNITS/VOLU ME] IN SERUM OR [...] 01, 2025 10:08 AM Reporting Lab: [facility] [address] [address] Performing Lab: [id number] [address] [facility] TESTOSTER ONE ([employer]) TESTOSTERON E [MASS/VOLUM E] IN SERUM OR [...] 01, 2025 09:59 AM Reporting Lab: [facility] [address] [address] Performing Lab: KANIKA[address] [address] [facility] LIPID PROFILE CHOLESTEROL [MASS/VOLUM E] IN SERUM [...] 2025 10:08 AM Reporting Lab: [facility] [address] [facility] [address] Performing Lab: [facility] [address] [facility] [address] [facility] LIPID PROFILE TRIGLYCERID E [MASS/VOLUM E] IN [...] 2025 10:08 AM Reporting Lab: [facility] [address] [facility] [address] Performing Lab: [facility] [address] [facility] [address] [facility] LIPID PROFILE CHOLESTEROL IN HDL [MASS/VOLUM E] [...] Jan 01, 2025 10:08 AM Reporting Lab: [place]ER[place] [address] [address] Performing Lab: TUANCarrie [facility] [address] [address] [facility] LIPID PROFILE CHOLESTEROL IN LDL [MASS/VOLUM E] [...] 2025 10:08 AM Reporting Lab: [facility] [address] [facility] [address] Performing Lab: [facility] [address] [address] [facility] PANEL 5 CREATININE [MASS/VOLUM E] IN SERUM [...] <15 G5 Kidney failure Ordering Provider: LORENZO PAHM Report Released Date/Time: Jan 01, 2025 10:08 AM Reporting Lab: [facility] [address] [address] Performing Lab: [facility] [address] [address] [facility] PANEL 5 UREA NITROGEN [MASS/VOLUM E] IN [...] 2025 10:08 AM Reporting Lab: [facility] [address] [address] Performing Lab: [facility] [address] [address] [facility] PANEL 5 GLUCOSE [MASS/VOLUM E] IN SERUM [...] 2025 10:08 AM Reporting Lab: [facility] [address] [address] Performing Lab: [facility] [address] [address] [facility] PANEL 5 SODIUM [MOLES/VOLU ME] IN SERUM [...] 2025 10:08 AM Reporting Lab: [facility] [address] [address] Performing Lab: [facility] [address] [address] [facility] PANEL 5 POTASSIUM [MOLES/VOLU ME] IN SERUM [...] 2025 10:08 AM Reporting Lab: [facility] [address] [address] Performing Lab: [facility] [address] [address] [facility] PANEL 5 CHLORIDE [MOLES/VOLU ME] IN SERUM [...] 2025 10:08 AM Reporting Lab: [facility] [address] [address] Performing Lab: [facility] [address] [address] [facility] PANEL 5 CARBON DIOXIDE, TOTAL [MOLES/VOLU ME] [...] 2025 10:08 AM Reporting Lab: [facility] [address] [address] Performing Lab: [facility] [address] [address] [facility] PANEL 5 CALCIUM [MASS/VOLUM E] IN SERUM [...] 2025 10:08 AM Reporting Lab: [facility] [address] [facility] [address] Performing Lab: [facility] [place] [id number] [facility] [address] [facility] PANEL 5 PROTEIN [MASS/VOLUM E] IN SERUM [...] 2025 10:08 AM Reporting Lab: [facility] [address] [facility] [address] Performing Lab: [facility] [address] [address] [facility] PANEL 5 ALBUMIN [MASS/VOLUM E] IN SERUM [...] 2025 10:08 AM Reporting Lab: [facility] L[facility]Y[place] [address] [address] Performing Lab: [facility] [address] [address] [facility] PANEL 5 BILIRUBIN.T OTAL [MASS/VOLUM E] IN [...] 01, 2025 10:08 AM Reporting Lab: T[facility]ANCar[facility] [address] [facility] [address] Performing Lab: [facility] [address] [place] [address] [facility] PANEL 5 ASPARTATE AMINOTRANSF ERASE [ENZYMATIC ACTIVITY/VO [...] 2025 10:08 AM Reporting Lab: [facility] [address] [address] Performing Lab: [facility] [address] [address] [facility] PANEL 5 ALANINE AMINOTRANSF ERASE [ENZYMATIC ACTIVITY/VO [...] 2025 10:08 AM Reporting Lab: [facility] [address] [address] Performing Lab: [facility] [address] [address] [facility] PANEL 5 ANION GAP 3 IN SERUM [...] 2025 10:08 AM Reporting Lab: [facility] [address] [address] Performing Lab: [facility] [address] [address] [facility] PANEL 5 ALKALINE PHOSPHATASE [ENZYMATIC ACTIVITY/VO LUME] [...] 2025 10:08 AM Reporting Lab: [facility] [address] [address] Performing Lab: [facility] [address] [address] [facility] 5 GLOMERULAR FILTRATION RATE/1.73 SQ M.PREDICTED [...] 01, 2025 10:08 AM Reporting Lab: [facility] [address] [address] Performing Lab: [facility] [address] [address] [facility] CBC/PLT LEUKOCYTES [#/VOLUME] IN BLOOD BY AUTOMATED COUNT 5.1 10*3/u L 5.0 - 10.0 01/01 Specimen Type: BLOOD Comment: CRITICAL CALLED TO and READ BACK BY: LORENZO PHAM 01/01/25@11 22 DMT Ordering Provider: LORENZO PHAM Report Released Date/Time: Jan 01, 2025 10:08 AM Reporting Lab: [facility] [address] [address] Performing Lab: [address] [address] [facility] CBC/PLT ERYTHROCYTE S [#/VOLUME] IN BLOOD BY AUTOMATED COUNT 6.07 10*6/u L 4.6 - 6.2 01/01 Specimen Type: BLOOD Comment: CRITICAL CALLED TO and READ BACK BY: LORENZO PHAM 01/01/25@11 22 DMT Ordering Provider: LORENZO PHAM Report Released Date/Time: Jan 01, 2025 10:08 AM Reporting Lab: [address] [address] Performing Lab: [address] [place] [address] CBC/PLT HEMOGLOBIN [MASS/VOLUM E] IN BLOOD 18.0 g/dL 14.0 - 18.0 01/01 Specimen Type: BLOOD Comment: CRITICAL CALLED TO and READ BACK BY: LORENZO PHAM 01/01/25@11 22 DMT Ordering Provider: LORENZO PHAM Report Released Date/Time: Jan 01, 2025 10:08 AM Reporting Lab: [id number] [address] Performing Lab: [address] [address] [facility] CBC/PLT HEMATOCRIT [VOLUME FRACTION] OF BLOOD BY AUTOMATED COUNT 54.3 42.0 - 52.0 01/01 HH Specimen Type: BLOOD Comment: CRITICAL CALLED TO and READ BACK BY: LORENZO PHAM 01/01/25@11 22 DMT Ordering Provider: LORENZO PHAM Report Released Date/Time: Jan 01, 2025 10:08 AM Reporting Lab: [address] [address] Performing Lab: [address] [address] [facility] CBC/PLT MCV [ENTITIC VOLUME] BY AUTOMATED COUNT 89.5 fL 80.0 - 94.0 01/01 Specimen Type: BLOOD Comment: CRITICAL CALLED TO and READ BACK BY: LORENZO PHAM 01/01/25@11 22 DMT Ordering Provider: LORENZO PHAM Report Released Date/Time: Jan 01, 2025 10:08 AM Reporting Lab: [address] [address] Performing Lab: [address] [address] [facility] CBC/PLT MCH [ENTITIC MASS] BY AUTOMATED COUNT 29.7 pg 27.0 - 31.0 01/01 Specimen Type: BLOOD Comment: CRITICAL CALLED TO and READ BACK BY: LORENZO PHAM 01/01/25@11 22 DMT Ordering Provider: LORENZO PHAM Report Released Date/Time: Jan 01, 2025 10:08 AM Reporting Lab: [address] [address] Performing Lab: [address] [phone] [place] [address] CBC/PLT MCHC [MASS/VOLUM E] BY AUTOMATED COUNT 33.1 g/dL 32.0 - 36.0 01/01 Specimen Type: BLOOD Comment: CRITICAL CALLED TO and READ BACK BY: LORENZO PHAM 01/01/25@11 22 DMT Ordering Provider: LORENZO PHAM Report Released Date/Time: Jan 01, 2025 10:08 AM Reporting Lab: [address] [address] Performing Lab: [address] [address] [facility] CBC/PLT PLATELETS [#/VOLUME] IN BLOOD 243 10*3/u L 150 - 450 01/01 Specimen Type: BLOOD Comment: CRITICAL CALLED TO and READ BACK BY: LORENZO PHAM 01/01/25@11 22 DMT Ordering Provider: LORENZO PHAM Report Released Date/Time: Jan 01, 2025 10:08 AM Reporting Lab: [address] [address] Performing Lab: [address] [place] [address] CBC/PLT PLATELET MEAN VOLUME [ENTITIC VOLUME] IN BLOOD 9.5 fL 9.0 - 13.1 01/01 Specimen Type: BLOOD Comment: CRITICAL CALLED TO and READ BACK BY: LORENZO PHAM 01/01/25@11 22 DMT Ordering Provider: LORENZO PHAM Report Released Date/Time: Jan 01, 2025 10:08 AM Reporting Lab: [place] [phone] Performing Lab: [place] [phone] [place] [address] CBC/PLT ERYTHROCYTE DISTRIBUTIO N WIDTH [ENTITIC VOLUME] BY AUTOMATED COUNT 13.1 11.0 - 16.0 01/01 Specimen Type: BLOOD Comment: CRITICAL CALLED TO and READ BACK BY: LORENZO PHAM 01/01/25@11 22 DMT Ordering Provider: LORENZO PHAM Report Released Date/Time: Jan 01, 2025 10:08 AM Reporting Lab: [id number] [address] Performing Lab: [place] [phone] [facility] CBC/PLT NUCLEATED ERYTHROCYTE S/100 ERYTHROCYTE S IN BLOOD 0.0 0.0 - 0.0 01/01 Specimen Type: BLOOD Comment: CRITICAL CALLED TO and READ BACK BY: LORENZO PHAM 01/01/25@11 22 DMT Ordering Provider: LORENZO PHAM Report Released Date/Time: Jan 01, 2025 10:08 AM Reporting Lab: [address] [address] Performing Lab: [place] [phone] [facility] PANEL 1 CREATININE [MASS/VOLUM E] IN SERUM [...] 2025 10:08 AM Reporting Lab: [facility] [address] [address] Performing Lab: [facility] [address] [address] [facility] PANEL 1 UREA NITROGEN [MASS/VOLUM E] IN [...] 01, 2025 10:08 AM Reporting Lab: [facility] [address] [address] Performing Lab: [facility] [address] [address] [facility] PANEL 1 GLUCOSE [MASS/VOLUM E] IN SERUM [...] 2025 10:08 AM Reporting Lab: [facility] [address] [facility] [address] Performing Lab: [facility] [address] [facility] [address] [facility] PANEL 1 SODIUM [MOLES/VOLU ME] IN SERUM [...] 2025 10:08 AM Reporting Lab: [facility] [address] [facility] [address] Performing Lab: [facility] [address] [facility] [address] [facility] PANEL 1 POTASSIUM [MOLES/VOLU ME] IN SERUM [...] 2025 10:08 AM Reporting Lab: [facility] [address] [address] Performing Lab: TUAN-Carrie [facility] [address] [facility] [address] [facility] PANEL 1 CHLORIDE [MOLES/VOLU ME] IN SERUM [...] 2025 10:08 AM Reporting Lab: [facility] [address] [place] [address] Performing Lab: [facility] [address] [address] [facility] PANEL 1 CARBON DIOXIDE, TOTAL [MOLES/VOLU ME] [...] 2025 10:08 AM Reporting Lab: [facility] [address] [address] Performing Lab: [facility] [address] [address] [facility] PANEL 1 CALCIUM [MASS/VOLUM E] IN SERUM [...] 2025 10:08 AM Reporting Lab: [facility] [address] [address] Performing Lab: [facility] [address] [address] [facility] PANEL 1 ANION GAP 3 IN SERUM [...] 2025 10:08 AM Reporting Lab: [facility] [address] [address] Performing Lab: [facility] [address] [address] [facility] PANEL 1 GLOMERULAR FILTRATION RATE/1.73 SQ M.PREDICTED [...] 2025 10:08 AM Reporting Lab: [facility] [address] [address] Performing Lab: [facility] [address] [address] [facility] Vital Signs Combined list of inpatient and outpatient Vital Signs from Department of [employer] and [employer], ranging from 12 months to all on record, depending upon the facility. Vital Sign Value Date Comments Source SYSTOLIC BLOOD PRESSURE 113 01/01/2025 09:37:09 [facility] DIASTOLIC BLOOD PRESSURE 74 01/01/2025 09:37:09 [facility] WEIGHT 266.4 01/01/2025 09:37:09 [facility] BMI 32 kg/m2 01/01/2025 09:37:09 [facility] PAIN 0 01/01/2025 09:37:09 KRISTIAN SARKAR [facility] TEMPERATURE 97.8 01/01/2025 09:37:09 KALIN DERAS [facility] PULSE 80 01/01/2025 09:37:09 KRISTIAN SARKAR [facility] Encounters Combined list of: 1) Encounters from Department of [facility] facilities going backup to the last 18 months, not all [place] inpatient encounters are included; 2) Encounters from the Department of [facility] facilities going backup to 280 months. Location Location Details Encounter Type Encounter Number Reason For Visit Attending Provider ADM Date DC Date Status Disposition Source [facility] OFF/OP EST MARCH X REQ PHY/QHP [id number] Diagnos is: ICD-10- CM K92.1 HAYDEN Chu R 01/04 [place] [facility] HC PRO PHONE CALL 5-10 MIN [id number] Diagnos is: ICD-10- CM R68.89 Other general symptom s and signs GOVINDINGRIDANNALISA NNAH R 01/07 [place] [facility] Outpatient Encounter [id number] 01/10 [place] [facility] Outpatient Encounter [id number] 01/29 [place] ON [facility] OFFICE O/P NEW LOW 30 MIN [id number] Diagnos is: ICD-10- CM I10 Essenti al (primar y) hyperte nsHAYDEN Munroe R 01/29 [place] [facility] Outpatient Encounter [id number] 10/15 [place] [facility] Outpatient Encounter [id number] 11/06 [place] [facility] Outpatient Encounter [id number] 12/11 [place] Outpatient Encounter [id number] 20 12/11 [place] Outpatient Encounter [id number] 12/18 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 Lydia Rosales 01/01 [place] [facility] Outpatient Encounter [id number] 01/01 [place] [facility] Outpatient Encounter [id number] 01/05 [place] [facility] Outpatient Encounter [id number] 01/05 [place] [facility] Outpatient Encounter [id number] 01/14 [place] [facility] Social History Combined list of available smoking, tobacco, and other social history from Department of Defense and Veterans [facility] facilities. Social History Type Response Date Comment Source Tobacco smoking status NHIS VA-TOBACCO USE SOME DAYS CIGARETTES 01/01/2025 [facility] History of tobacco use VA-TOBACCO NEVER USED OTHER TYPE 01/01/2025 [facility]19[facility]20[facility]/29/2019 [facility] History of tobacco use V9 CURRENT TOBACCO USER 04/07/2017 [facility] History of tobacco use V9 LIFETIME NON-USER OF TOBACCO 04/03/2016 [facility] History of tobacco use V9 QUIT TOBACCO >7 YEARS AGO 03/10/2015 [facility] History of tobacco use V9 QUIT TOBACCO >7 YEARS AGO 11/27/2013 [facility] History of tobacco use V9 LIFETIME NON-USER OF TOBACCO 09/25/2012 [facility] History of tobacco use V9 QUIT TOBACCO >7 YEARS AGO 09/21/2011 [facility] History of tobacco use 9 QUIT TOBACCO >7 YEARS AGO 03/21/2010 [facility] History of tobacco use V9 QUIT TOBACCO >7 YEARS AGO 04/06/2008 [facility] History of tobacco use 9 QUIT TOBACCO >12 MO and <7 YRS AGO 02/15/2007 [facility] History of tobacco use HF V9 CURRENT NON-SMOKER 06/01/2006 quir 3 years ago [facility] History of tobacco use HF V9 CURRENT NON-SMOKER 02/27/2005 quit 2 years ago [facility]
== END 2025-04-21 23:59 | disposition home or self-care (01) ==
LOC: LAB.DROPOF 04-22 13:02
PROVIDERS: PCP Internal Medicine; Visit Provider Internal Medicine
DX: E11.42 Type 2 diabetes mellitus with diabetic polyneuropathy (principal); I10 Essential (primary) hypertension; E78.5 Hyperlipidemia, unspecified
CPT/HCPCS: 80053; 80061

== ENCOUNTER 2025-10-15 09:20 | Outpatient (CLI) | payer MEDICARE, OTHER, SELFPAY ==
[2025-10-15 14:36] LABS: Hemoglobin A1C 6.8 % (4.0-6.0)
[2025-10-15 14:38] LABS: Alanine Aminotransferase 27 U/L (12-78); Albumin Level 4.5 g/dl (3.5-5.0); Albumin/Globulin Ratio 2.3 (1.1-1.8); Alkaline Phosphatase 58 U/L (38-126); Anion Gap 11.1 mEq/L (5-15); Aspartate Amino Transferase 37 U/L (17-59); Bilirubin,Total 0.9 mg/dl (0.2-1.3); Blood Urea Nitrogen 15 mg/dl (9-20); Calcium 9.9 mg/dl (8.4-10.2); Carbon Dioxide 29 mmol/L (22.0-30.0); Chloride 99 mmol/L (98-107); Cholesterol 139 mg/dl (140-200); Creatinine,Serum 0.80 mg/dl (0.66-1.25); Estimated Glomerular Filt Rate 94 ml/min (>60); GFR (African American) 114 ML/MIN (>60); Globulin 2.0 g/dL (1.3-3.2); Glucose 115 mg/dl (74-100); HDL Cholesterol 64 mg/dl (40-60); Potassium 4.1 mmoL/L (3.5-5.1); Sodium 135 mmol/L (136-145); Total Protein,Serum 6.5 g/dl (6.3-8.2); Triglycerides 105 mg/dl (30-150)
--- OUTSIDE RECORDS SUMMARY | 2025-10-16 13:47 | XMS_ITS | Encounter Summary ---
Author Organization [facility] Address [address] [place] [address] Care Team Providers Care Telegraph Lineman Name Role Phone Rayo Jimenes MD Primary Care Provider [phone] Encounter Details Date Type Department Care Team (Late st Contact Info) Description 08/17/2022 [facility] Orders [facility] [address] [place] [address] Cyn Hamilton MD [address] [facility] [address] [place] [address] Positive LIZ (antinuclear antibody) (Primary [...] findings documented in this encounter Care Teams Telegraph Lineman Relationship Specialty Start Date End Date Rayo Jimenes MD [address] [place] [address] PCP - General 04/08/21 documented as of this encounter
--- OUTSIDE RECORDS SUMMARY | 2025-10-16 13:47 | XMS_ITS | Encounter Summary ---
Author Organization [employer] ([place], [place], [place], [place], [place]) Address [address] [place] [address] Care Team Providers Care Drapery Estimator Name Role Phone Unavailable Primary Care Provider Unavailabl e Encounter Details Date Type Department Care Team (Late st Contact Info) Description 05/12/2021 Transcribed Document [facility] [place] Family Medicine [address] [place] [address] ProviderJess MD [address] [place] [address] Social History Tobacco Use Types [...] Jess ProviderMD - 05/12/2021 10:13 AM CDT [facility] Main OR PostOp Summary Primary Physician: DINORA DUQUE MD-URO Finalized Date/Time: 05/12/21 13:50:53 Pt. Name: LACY COWARTO.B./Sex: 1950 Male Med Rec #: [id number] Physician: DINORA DUQUE MD-URO Financial #: [id number] Pt. Type: O Room/Bed: Admit/Disch: 05/12/21 07:11:00 - Institution: [facility] Main OR PostOp Case Times Entry 1 In PACU II 05/12/21 12:35:00 Ready for PACU II 05/12/21 13:33:00 Discharge Discharge from PACU 05/12/21 13:33:00 II Last Modified By: BOBO OLIVERA RN 05/12/21 13:50:50 Finalized By: BOBO OLIVERA, RN Document Signatures Signed By: BOBO OLIVERA RN 05/12/21 13:50 Electronically signed by Ezio [facility] Conversion Tonsorial Artist Cerner at 03/16/2023 1:16 PM CDT documented in this encounter Plan of Treatment Not on file documented as of this encounter Visit Diagnoses Not on filedocumented in this encounter
--- OUTSIDE RECORDS SUMMARY | 2025-10-16 13:47 | XMS_ITS | Encounter Summary ---
Author Organization [employer] ([place], [place], [place], [place], [place]) Address [address] [place] [address] Care Team Providers Care Adventure Challenge Instructor Name Role Phone Unavailable Primary Care Provider Unavailabl e Encounter Details Date Type Department Care Team (Late st Contact Info) Description 05/12/2021 Transcribed Document [facility] [place] [facility] [place] Critical [place] [address] ProviderJess MD [address] [place] [address] Social History Tobacco Use Types [...] and water are not available, use hand electrical machine builder. ? Change your dressing as told by [...] or a bad smell. Medicines ??? Take tlgn-vvn-msakkin and prescription medicines only as told by [...] provider. Document Revised: 02/10/2019 Document Reviewed: 03/04/2017 [employer] Patient Education ? 2020 [employer] Pharmacology General Anesthesia, Adult, Care After [...] activities are safe for you. ??? Take npmk-wzk-uhulipz and prescription medicines only as told by [...] provider. Document Revised: 11/15/2018 Document Reviewed: 06/28/2018 [employer] Patient Education ? 2020 [employer] Procedures Outpatient Surgery, Adult, Care After [...] and water are not available, use hand electrical machine builder. ? Change your dressing as told by [...] or a bad smell. Medicines ??? Take tlak-ico-xkqsxkr and prescription medicines only as told by [...] provider. Document Revised: 02/10/2019 Document Reviewed: 03/04/2017 [employer] Patient Education ? 2020 [employer] Urology Green Light Laser Prostate Treatment, Care [...] these instructions at home: Medicines ??? Take vxlm-rxa-vawjzet and prescription medicines only as told by [...] provider. Document Revised: 03/04/2020 Document Reviewed: 05/23/2018 [employer] Patient Education ? 2019 [employer] documented in this encounter Plan of Treatment Not on file documented as of this encounter Visit Diagnoses Not on filedocumented in this encounter
--- OUTSIDE RECORDS SUMMARY | 2025-10-16 13:47 | XMS_ITS | Encounter Summary ---
Author Organization [employer] ([place], [place], [place], [place], [place]) Address [address] [place] [address] Care Team Providers Care Latex Dipper Name Role Phone Unavailable Primary Care Provider Unavailabl e Encounter Details Date Type Department Care Team (Late st Contact Info) Description 05/12/2021 Transcribed Document [facility] [place] [address] [place] [address] ProviderJess MD [address] [place] [address] Social History Tobacco Use Types [...] Jess ProviderMD - 05/12/2021 10:13 AM CDT [facility] Main OR IntraOp Summary Primary Physician: DINORA DUQUE MD-URO Finalized Date/Time: 05/24/21 09:44:39 Pt. Name: LACY COWARTO.B./Sex: 1950 Male Med Rec #: [id number] Physician: DINORA DUQUE MD-URO Financial #: [id number] Pt. Type: O Room/Bed: Admit/Disch: 05/12/21 07:11:00 - 05/12/21 13:33:00 Institution: [facility] IntraOp Case Attendance Entry 1 Entry 2 Entry 3 Case Attendee DINORA DUQUE, Lisa Freire Crna OTHER, ATTENDEE #1 MARLI Role Performed Surgeon/Proceduralist, PROCESS ENGINEERING MANAGER/Nurse Revenue Stamp Cutter Student First Time In 05/12/21 09:48:00 05/12/21 09:48:00 05/12/21 09:48:00 Time Out 05/12/21 11:22:00 05/12/21 11:22:00 05/12/21 11:22:00 Procedure Prostate Green Light Prostate Green Light Prostate Green Light Laser Laser Laser Other Attendee VENKATESH JACOBS, PROCESS ENGINEERING MANAGER STUDENT Superficial Wound Closed By: Last Modified By: Lupis Guzman, Lupis Porter RN Shannon, Karen, RN 05/12/21 11:23:22 05/12/21 11:23:22 05/12/21 11:23:22 Entry 4 Entry 5 Entry 6 Case Attendee WILLIAM KING MD-ANS CONWAY, CANDY L. Shannon, Karen, TIA Role Performed Anesthesiologist of Scrub, First Necktie Operator Pockets And Pieces, First Record Time In 05/12/21 09:48:00 05/12/21 [...] Attendee OTHER, ATTENDEE #2 Role Performed Laser Supervisor Beater Room Time In 05/12/21 09:48:00 Time Out 05/12/21 11:22:00 Procedure Prostate Green Light Laser Other Attendee DAVE SEXTON Superficial Wound Closed By: Last Modified By: Lupis Guzman, TIA 05/12/21 11:23:22 [facility] IntraOp Case Attendance Audit 05/12/21 11:23:22 Early Head Start Director: LUCIANO Modifier: LUCIANO 1 <+> Time Out [...] Procedure Prostate Green Light Laser 05/12/21 10:24:30 Early Head Start Director: YAMILKANOKM Modifier: SHANNOKM <+> 1 Procedure 2 <*> Procedure Prostate Green Light Laser 3 <*> Procedure Prostate Green Light Laser 4 <*> Procedure Prostate Green Light Laser 5 <*> Procedure Prostate Green Light Laser 6 <*> Procedure Prostate Green Light Laser 7 <*> Procedure Prostate Green Light Laser 05/12/21 10:17:21 Early Head Start Director: YAMILKANOKM Modifier: SHANNOKM <+> 1 Time In [...] 7 <*> Procedure Prostate Green Light Laser [facility] IntraOp Case Times Entry 1 Patient In Room Time 05/12/21 09:48:00 Out Room Time 05/12/21 11:22:00 Anesthesia Start Time 05/12/21 09:48:00 Stop Time 05/12/21 11:22:00 Surgery / Procedure Times Start Time 05/12/21 10:13:00 Stop Time 05/12/21 11:10:00 Last Modified By: Lupis Guzman RN 05/12/21 11:22:30 [facility] IntraOp Case Times Audit 05/12/21 11:22:30 Early Head Start Director: YAMILKANOKM Modifier: SHANNOKM <+> 1 Out Room Time <+> 1 Stop Time 05/12/21 11:10:28 Early Head Start Director: YAMILKANOKM Modifier: SHANNOKM <+> 1 Stop Time 05/12/21 10:29:25 Early Head Start Director: YAMILKANOKM Modifier: SHANNOKM <+> 1 Start Time [facility] IntraOp Communication Entry 1 Communication To Family/Significant other Comment START Communication By Lupis Guzman RN Date and Time 05/12/21 10:17:00 Last Modified By: Lupis Guzman RN 05/12/21 10:17:13 [facility] IntraOp Delays Entry 1 Delay Reason Instrument delay Duration 10 Minute(s) Last Modified By: Lupis Guzman RN 05/12/21 10:25:39 [facility] IntraOp Departure from OR Entry 1 Integumentary Assessment Integumentary WDL Assessment WDL Transfer/Handoff Transfer to PACU Phase I Handoff Method Phone call Post-op Transport Stretcher/Gurney Via Patient Transport Lisa Freire Crna, Accompanied by OTHER, ATTENDEE #1 Last Modified By: Lupis Guzman RN 05/12/21 11:22:38 [facility] IntraOp Departure from OR Audit 05/12/21 11:22:38 Early Head Start Director: LUCIANO Modifier: YAMILKANOKM 1 <*> Patient Transport Accompanied by OTHER, ATTENDEE #1 05/12/21 10:36:25 Early Head Start Director: LUCIANO Modifier: GRAYKM <+> 1 Patient Transport Accompanied by [facility] IntraOp Fire Risk Assessment Entry 1 Fire [...] Modified By: Lupis Guzman RN 05/12/21 10:17:50 [facility] IntraOp General Case Blanchard Grinder Operator 1 Case Information OR Cysto 01 [facility] Case Level 1 Room Verified Yes Wound Class I - Clean Specialty Urology Anesthesia Type General ASA Class 3 Diagnosis Preop Diagnosis BENIGN PROSTATIC HYPERTROPHY IWHT BLADDER OUTLET OBSTRUCTION Postop Same As Preop Yes Postop Diagnosis BENIGN PROSTATIC HYPERTROPHY IWHT BLADDER OUTLET OBSTRUCTION Last Modified By: Lupis Guzman RN 05/12/21 10:21:53 [facility] IntraOp Intraoperative Assessment Entry 1 Valid History / Yes Physical in Chart Preoperative Yes Checklist Reviewed/Evaluated Allergies Reviewed Yes Patient is Latex No Sensitive Isolation Not applicable Precautions Noted Level of WDL Consciousness (WDL = Alert, Oriented to Person, Place, and Time) Skin Assessment Yes Verified Present Upon IVs Arrival to OR Last Modified By: Lupis Guzman RN 05/12/21 10:20:58 [facility] IntraOp Intraoperative Equipment Entry 1 Type Monitoring Equipment Intraop Monitoring Electrocardiogram Three lead placement (ECG) Electrode Placement Blood Pressure Non-Invasive BP Device Source Antiembolic Devices Antiembolic Devices Sequential compression device, knee high Antiembolic Device Bilateral Location Antiembolic Device [id number] ID Number Scopes Photo/Video Documentation Photo No Video No Intraop Equipment Sequential compression Comment devices on and in operation prior to induction of anesthesia. Last Modified By: Lupis Guzman RN 05/12/21 10:23:58 [facility] IntraOp Medication Admin Entry 1 Entry 2 Medication/Irrigant SHAWNEE IRR 0.9% NACL B&O 16A Suppository - 1000ML --[id number] Combo Med List Time Administered 05/12/21 10:15:00 05/12/21 11:10:00 Route of Irrigation (for laser) SUPPKOSITORY Administration Dose Dose 71307 1 Unit of Measure ml Volume Administered By DINORA DUQUE, DINORA DUQUE MD-URO -URO Procedure Irrigation Irrigant Volume In Irrigant Volume Out Last Modified By: Lupis Guzman RN Shannon, Karen, RN 05/12/21 11:19:36 05/12/21 11:10:48 [facility] IntraOp Medication Admin Audit 05/12/21 11:19:36 Early Head Start Director: LUCIANO Modifier: YAMILKANOKM <+> 1 Dose <+> 1 Time Administered <+> 1 Unit of Measure 05/12/21 11:10:48 Early Head Start Director: LUCIANO Modifier: YAMILKANOKM 2 <*> Medication/Irrigant B&O 16A Suppository - [id number] 2 <*> Time Administered 05/12/21 11:00:00 05/12/21 10:27:54 Early Head Start Director: YAMILKANOKOLBY Modifier: SHANNOKM <+> 2 Medication/Irrigant <+> 2 Route of Administration <+> 2 Administered By <+> 2 Dose <+> 2 Time Administered [facility] IntraOp Patient Positioning Entry 1 Procedure Prostate [...] Modified By: Lupis Guzman RN 05/12/21 10:24:28 [facility] IntraOp Sign In Entry 1 Patient, Site, [...] Modified By: Lupis Guzman RN 05/12/21 10:24:41 [facility] IntraOp Sign Out Entry 1 RN Confirmation [...] Modified By: Lupis Guzman RN 05/12/21 11:23:11 [facility] IntraOp Skin Prep Entry 1 Procedure Prostate Green Light Laser Prescribed Yes Pre-Surgical Prep Completed Prep Area Genitalia Intraop Prep Integumentary WDL Assessment WDL Prep Agents Betadine solution Prep by Lupis Guzman RN Hair Removal Last Modified By: Lupis Guzman RN 05/12/21 10:23:34 [facility] IntraOp Surgical Procedures Entry 1 Procedure Prostate Green Light Laser Additional (GREEN LIGHT Procedure LASER,VAPORIZATION OF Description PROSTATE) Primary Procedure Yes Primary Surgeon DINORA DUQUE MD-URO Start 05/12/21 10:13:00 Stop 05/12/21 11:10:00 Anesthesia Type General Specialty Urology Wound Class I - Clean Last Modified By: Lupis Guzman RN 05/12/21 11:23:29 [facility] IntraOp Surgical Procedures Audit 05/12/21 11:23:29 Early Head Start Director: LUCIANO Modifier: LUCIANO <+> 1 Stop 05/12/21 10:24:30 Early Head Start Director: LUCIANO Modifier: LUCIANO <+> 1 Primary Procedure <+> 1 Primary Surgeon <+> 1 Specialty <+> 1 Start <+> 1 Wound Class <+> 1 Anesthesia Type <+> 1 Additional Procedure Description [facility] IntraOp Temp Regulation Devices Entry 1 Temp Regulation Temperature Warm blankets, Forced Regulation Device Air Warming device, Room temperature Temperature Upper body Regulation Site Temperature Patient's temperature Regulation Comment monitored by anesthesia provider. Forced air warming device settings controlled by anesthesia provider. Last Modified By: Lupis Guzman RN 05/12/21 10:24:02 [facility] IntraOP Time Out Entry 1 Procedure to [...] Modified By: Lupis Guzman RN 05/12/21 10:25:16 [facility] IntraOP Time Out Audit 05/12/21 10:25:16 Early Head Start Director: LUCIANO Modifier: LUCIANO 1 <+> Time Out Pause Time 1 <*> Procedure to be Performed Prostate Green Light Laser Case Comments <None> Finalized By: KAMLESH BENNETT Document Signatures Signed By: Lupis Guzman RN 05/12/21 11:25 KAMLESH BENNETT 05/24/21 09:44 Unfinalized History Date/Time Username Reason for Unfinalizing Freetext Reason for Unfinalizing 05/24/21 09:43 WATTSDR Correct Billing Electronically signed by [facility], [facility] Conversion All Round Butcher Cerner at 03/16/2023 1:32 PM CDT documented in this encounter Plan of Treatment Not on file documented as of this encounter Visit Diagnoses Not on filedocumented in this encounter
--- OUTSIDE RECORDS SUMMARY | 2025-10-16 13:47 | XMS_ITS | Encounter Summary ---
Author Organization [employer] ([place], [place], [place], [place], [place]) Address [address] [place] [address] Care Team Providers Care Wardrobe Supervisor Name Role Phone Unavailable Primary Care Provider Unavailabl e Encounter Details Date Type Department Care Team (Late st Contact Info) Description 05/12/2021 Transcribed Document [facility] [place] [facility] [address] ProviderJess MD [address] [place] [address] Social History Tobacco Use Types [...] Source : Measured Height Entry Format : [place] Height, Feet : 6 ft(Converted to: 183 cm, 72 Inch) Height, Inches : 2 Inch(Converted to: 0 ft 2 Inch, 5.08 cm) Clinical Height : 187.96 cm Weight Source : Standing scale Weight Entry Format : [place] Clinical Dosing Weight : 122.55 kg Weight, Pounds : 269.6 lb Body Surface Area (BSA) : 2.47 m2 Body Mass Index : 34.7 kg/m2 (HI) Planada Body Weight : 81 kg Sera Mirza [...] Sera Tariq RN - 05/12/2021 8:20 EDT [place] Suicide Severity Rating Scale (C-SSRS) CSSRS Past [...] Tovar Support Person/Pt Rep Contact Information : [phone] Want Family/Rep/Phys Notified of Admit : No Emergency Contact #1 : Sharifa Tovar Emergency Contact #1 Emergency Contact #1 Relationship : daughter Emergency Contact #2 : , Emergency Contact #2 Phone Number : , Emergency Contact #2 Relationship : , Primary Language : [place] Communication Barrier : None Forensics Analyst Needed : No Sera Mirza RN - [...] Sera Mirza RN - 05/12/2021 8:20 EDT Electronically signed by Kylie Holguin Conversion Graphic Pre Press Trades Worker Cerner at 03/16/2023 1:31 PM CDT documented in this encounter Plan of Treatment Not on file documented as of this encounter Visit Diagnoses Not on filedocumented in this encounter
--- OUTSIDE RECORDS SUMMARY | 2025-10-16 13:47 | XMS_ITS | Encounter Summary ---
Author Organization [employer] ([place], [place], [place], [place], [place]) Address [address] [place] [address] Care Team Providers Care Supervisor Wire Rope Fabrication Name Role Phone Unavailable Primary Care Provider Unavailabl e Encounter Details Date Type Department Care Team (Late st Contact Info) Description 05/12/2021 Transcribed Document [facility] [place] [address] ProviderJess MD [address] [place] [address] Social History Tobacco Use Types [...] vaporization of the prostate. ANESTHESIA: General. DRAINS: 22-Swiss 2-way Badillo catheter. SPECIMENS: None. ESTIMATED BLOOD [...] and draped in a normal fashion. The 24-Swiss continuous-flow resectoscope sheath was introduced over the [...] days for catheter removal and voiding trial. /[id number] Oracio Turner MD TDA/AQ / TDA / MODL /[id number] CC: MD Oracio Sweeney MD Electronically signed by Ezio [facility] Conversion Dairy Worker Cerner at 03/16/2023 1:12 PM CDT documented in this encounter Plan of Treatment Not on file documented as of this encounter Visit Diagnoses Not on filedocumented in this encounter
--- OUTSIDE RECORDS SUMMARY | 2025-10-16 13:47 | XMS_ITS | Encounter Summary ---
Author Organization [employer] ([place], [place], [place], [place], [place]) Address [address] [place] [address] Care Team Providers Care Route Delivery Supervisor Name Role Phone Unavailable Primary Care Provider Unavailabl e Encounter Details Date Type Department Care Team (Late st Contact Info) Description 05/12/2021 Transcribed Document [facility] [place] Family Medicine [address] [place] [address] ProviderJess MD [address] [place] [address] Social History Tobacco Use Types [...] Jess ProviderMD - 05/12/2021 10:13 AM CDT [facility] Main OR PACU Summary Primary Physician: DINORA DUQUE MD-URO Finalized Date/Time: 05/12/21 13:10:25 Pt. Name: LACY COWARTO.B./Sex: 1950 Male Med Rec #: [id number] Physician: DINORA DUQUE MD-URO Financial #: [id number] Pt. Type: O Room/Bed: Admit/Disch: 05/12/21 07:11:00 - Institution: [facility] Main OR PACU I Case Times Entry 1 In PACU I 05/12/21 11:24:00 Ready for PACU 05/12/21 12:00:00 Discharge Discharge from PACU 05/12/21 12:30:00 I Last Modified By: ARNULFO BUSTILLO RN 05/12/21 13:09:56 [facility] Main OR PACU Acuity Entry 1 Start Time 05/12/21 12:00:00 Stop Time 05/12/21 12:30:00 Acuity Level [facility] PACU Acuity I Last Modified By: ARNULFO BUSTILLO RN 05/12/21 13:10:23 Finalized By: ARNULFO BUSTILLO, RN Document Signatures Signed By: ARUNLFO BUSTILLO RN 05/12/21 13:10 Electronically signed by Ezio [facility] Conversion Procedure Manager Cerner at 03/16/2023 1:19 PM CDT documented in this encounter Plan of Treatment Not on file documented as of this encounter Visit Diagnoses Not on filedocumented in this encounter
--- OUTSIDE RECORDS SUMMARY | 2025-10-16 13:47 | XMS_ITS | Encounter Summary ---
Author Organization [employer] ([place], [place], [place], [place], [place]) Address [address] [place] [address] Care Team Providers Care Emergency Veterinary Technician Name Role Phone Unavailable Primary Care Provider Unavailabl e Encounter Details Date Type Department Care Team (Late st Contact Info) Description 05/12/2021 Transcribed Document [facility] [place] Family Medicine [facility] [place] [address] ProviderJess MD [address] [place] [address] Social History Tobacco Use Types [...] mellitus - diet controlled / SNOMED CT 289637899 / Confirmed Smoker / SNOMED CT 239854881 / Confirmed Hypertension / SNOMED CT 4931180714 / Confirmed GERD / SNOMED CT 245150428 / Confirmed Prostate disorder / SNOMED CT 79946235 / Confirmed COPD / SNOMED CT 50630799 / Confirmed Cataracts, bilateral / SNOMED CT 912464814 / Confirmed Back pain / SNOMED CT 771367186 / Confirmed At risk for sleep apnea / IMO 98476665 / Confirmed, Active Problems (9) At risk for sleep apnea Back pain Cataracts, bilateral COPD GERD Hypertension Prostate disorder BPH Smoker Type 2 diabetes mellitus - diet controlled Histories Past Medical History: No active or resolved past medical history items have been selected or recorded. Family History: No family history items have been selected or recorded. Procedure history: Cataracts ([id number]) in the month of 04/2020 at 69 [...] EDT Height Source Measured Height Entry Format [place] Height/Length, MONTSERRATIAN (ft) 6 ft Height/Length MONTSERR[place]IAN 2 Inch CLINICALHEIGHT 187.96 cm [place] Body Weight 81 kg Weight Source Standing scale Weight Entry Format [place] Weight Greenlandic lb 269.6 lb CLINICALWEIGHT 122.55 kg Body [...] of motion, Normal strength. Integumentary: Warm, Dry, [place]. Neurologic: Alert, Oriented. Psychiatric: Cooperative, Appropriate mood & affect. Review / Management Results review: No qualifying data available. Impression and Plan Condition: Stable. Electronically signed by Kylie Holguin Conversion Grinder Set Up Operator Centerless Cerner at 03/16/2023 1:14 PM CDT documented in this encounter Plan of Treatment Not on file documented as of this encounter Visit Diagnoses Not on filedocumented in this encounter
--- OUTSIDE RECORDS SUMMARY | 2025-10-16 13:47 | XMS_ITS | Clinical Summary ---
Author Organization [facility] Address [address] [place] [address] Phone Care Team Providers Care Upset Welding Machine Operator Name Role Phone Nonstaff, Referring Primary Care [...] [place] [address] ANTH PPO Care Teams Upset Welding Machine Operator Relationship Specialty Start Date End Date Nonstaff, Referring PCP - General 03/28/12
--- OUTSIDE RECORDS SUMMARY | 2025-10-16 13:47 | XMS_ITS | Clinical Summary ---
Author Organization [facility] Address [address] [place] [address] Care Team Providers Care Service Manager Name Role Phone Rayo Jimenes MD Primary Care Provider [phone] Social History Tobacco Use Types Packs/Day Years Used Date Smoking Tobacco: Never Assessed Sex and Gender Information Value Date Recorded Sex Assigned at Not on file Legal Sex Male 8:06 PM EDT Gender Identity Not on file Sexual Orientation Not on file Plan of Treatment Not on file Care Teams Service Manager Relationship Specialty Start Date End Date Rayo Jimenes MD [address] [place] [address] PCP - General 04/08/21
--- OUTSIDE RECORDS SUMMARY | 2025-10-16 13:47 | XMS_ITS | Clinical Summary ---
Author Organization [employer] ([place], [place], [place], [place], [place]) Address [address] [place] [address] Care Team Providers Care Snow Technician Name Role Phone Unavailable Primary Care [...]
--- OUTSIDE RECORDS SUMMARY | 2025-10-16 13:47 | XMS_ITS | Encounter Summary ---
Author Organization [employer] ([place], [place], [place], [place], [place]) Address [address] [place] [address] Care Team Providers Care Land Leveler Name Role Phone Unavailable Primary Care Provider Unavailabl e Encounter Details Date Type Department Care Team (Late st Contact Info) Description 05/12/2021 Transcribed Document [facility] [place] Medicine [address] [place] [address] ProviderJess MD [address] [place] [address] Social History Tobacco Use [...] Jess ProviderMD - 05/12/2021 10:13 AM CDT [facility] Main OR Preop Summary Primary Physician: DINORA DUQUE MD-URO Finalized Date/Time: 05/12/21 11:43:08 Pt. Name: LACY COWARTO.B./Sex: 1950 Male Med Rec #: [id number] Physician: DINORA DUQUE MD-URO Financial #: [id number] Pt. Type: O Room/Bed: Admit/Disch: 05/12/21 07:11:00 - Institution: [facility] PreOp Case Times Entry 1 In Preop 05/12/21 07:47:00 Ready for Holding n/a Room Patient Ready for 05/12/21 08:55:00 Surgery Patient Out of Preop 05/12/21 09:45:00 Patient Out of n/a Holding Room Last Modified By: Sera Mirza RN 05/12/21 11:43:06 [facility] PreOp Case Times Audit 05/12/21 11:43:06 Event Planning Intern: [id number] Modifier: [id number] <+> 1 Patient Out of Preop Finalized By: Sera Mirza RN Document Signatures Signed By: Sera Mirza RN 05/12/21 11:43 Electronically signed by Ezio [facility] Conversion Air Force Senior Officer Cerner at 03/16/2023 1:16 PM CDT documented in this encounter Plan of Treatment Not on file documented as of this encounter Visit Diagnoses Not on filedocumented in this encounter
--- OUTSIDE RECORDS SUMMARY | 2025-10-16 13:47 | XMS_ITS | Referral Summary ---
Author Organization [employer] ([place], [place], [place], [place], [place]) Address [address] [place] [address] Care Team Providers Care Senior Foreman Name Role Phone Unavailable Primary Care Provider [...]
--- OUTSIDE RECORDS SUMMARY | 2025-10-16 13:47 | XMS_ITS | Clinical Summary ---
Author Organization [facility] [facility] Address [address] [place] [address] Care Team Providers Care Esters And Emulsifiers Supervisor Name Role Phone Edgar Lopez MD Primary Care Provider [phone] Allergies No known active allergies Medications cyclobenzaprine [...] history exists [facility] Care Teams Esters And Emulsifiers Supervisor Relationship Specialty Start Date End Date Edgar Lopez MD [address] [facility] [address] [place] [address] PCP - General Internal Medicine 01/13/19
--- OUTSIDE RECORDS SUMMARY | 2025-10-16 13:47 | XMS_ITS | Encounter Summary ---
Author Organization [employer] ([place], [place], [place], [place], [place]) Address [address] [place] [address] Care Team Providers Care Inspector Firearms Name Role Phone Unavailable Primary Care Provider Unavailabl e Encounter Details Date Type Department Care Team (Late st Contact Info) Description 05/12/2021 Transcribed Document [facility] [place] [address] [place] [address] ProviderJess MD [address] [place] [address] Social History Tobacco Use Types [...] Jess ProviderMD - 05/12/2021 1:04 PM CDT [facility] [place] [address] LACY COWART :1950 Visit Time:05/12/2021 What [...] appointment scheduled for Sunday05/16/21 at 12:45pm Where: [address] [place] [address]- Medications What How Much When Instructions Next Dose acetaminophen-hydrocodone (Pevely 5 mg-325 mg oral tablet) 1 Tablet(s) Oral Every 6 Hours as needed for for pain Pickup at [facility] nitrofurantoin (Macrobid 100 mg oral capsule) 1 Capsule(s) Oral Two Times A Day Duration: 14 Day(s) Pickup at [facility] albuterol (albuterol 2.5 mg/ 3 mL (0.083%) [...] Milligram(s) Oral Every Day Pharmacy Information [facility]: [address] [address] [address] [place] [phone] Take your medications faithfully. Do NOT skip [...] these instructions at home: Medicines ??? Take xian-khh-uyzmdgx and prescription medicines only as told by [...] provider. Document Revised: 03/04/2020 Document Reviewed: 05/23/2018 [employer] Patient Education ?? 2020 [employer]. Outpatient Surgery, Adult, Care After These instructions [...] and water are not available, use hand director special education. ? Change your dressing as told by [...] or a bad smell. Medicines ??? Take vnmd-fet-ebcgfrd and prescription medicines only as told by [...] provider. Document Revised: 02/10/2019 Document Reviewed: 03/04/2017 [employer] Patient Education ?? 2020 [employer]. Outpatient Surgery, Adult, Care After These instructions [...] and water are not available, use hand director special education. ? Change your dressing as told by [...] or a bad smell. Medicines ??? Take swme-ktd-vtrwdzi and prescription medicines only as told by [...] provider. Document Revised: 02/10/2019 Document Reviewed: 03/04/2017 [employer] Patient Education ?? 2020 [employer] General Anesthesia, Adult, Care After This [...] activities are safe for you. ??? Take vhpp-vtk-aijakek and prescription medicines only as told by [...] provider. Document Revised: 11/15/2018 Document Reviewed: 06/28/2018 [employer] Patient Education ?? 2020 [employer]. Emergency Awareness and Preventative Care STROKE is [...] Assistance with quitting is available by contacting 9-536-LJURNOW. This is a free resource providing counseling, [...] was given the opportunity to ask questions. Patient/Recovery Coordinator Name: Patient/Recovery Coordinator Signature: Relationship to Patient: Clinician/Hospital Recovery Coordinator Signature: Date: Electronically signed by Ezio, [facility] Conversion Hemodialysis Patient Care Specialist Cerner at 03/16/2023 1:20 PM CDT documented in this encounter Plan of Treatment Not on file documented as of this encounter Visit Diagnoses Not on filedocumented in this encounter
== END 2025-10-15 23:59 | disposition home or self-care (01) ==
LOC: LAB.DROPOF 10-16 13:45
PROVIDERS: PCP Internal Medicine; Visit Provider Internal Medicine
DX: E11.42 Type 2 diabetes mellitus with diabetic polyneuropathy (principal); E78.5 Hyperlipidemia, unspecified; Z12.5 Encounter for screening for malignant neoplasm of prostate
CPT/HCPCS: 80053; 80061; 83036; 84403; G0103

== ENCOUNTER 2025-10-16 09:49 | Outpatient (CLI) | payer MEDICARE, OTHER, SELFPAY ==
--- NOTE | 2025-10-16 09:52 | XR_ITS ---
FINAL REPORT CLINICAL HISTORY: Right knee pain and stiffness COMPARISON: None FINDINGS: Three views of the right knee were obtained. There is no acute fracture or dislocation. Visualized joint spaces are normally aligned. Soft tissues are unremarkable. IMPRESSION: No acute bony abnormality. Reviewed, Interpreted and Dictated by Lane Echols MD Transcribed by Bria Camarena Authenticated and [facility]
--- NOTE | 2025-10-16 09:52 | XR_ITS ---
FINAL REPORT CLINICAL HISTORY: Left knee pain and stiffness COMPARISON: None FINDINGS: LEFT KNEE 3 views of the left knee were obtained. There is no acute fracture or dislocation. Visualized joint spaces are normally aligned. Soft tissues are unremarkable. IMPRESSION: No acute bony abnormality. Reviewed, Interpreted and Dictated by Lane Echols MD Transcribed by Bria Camarena Authenticated and [facility]
--- OUTSIDE RECORDS SUMMARY | 2025-10-16 09:52 | XMS_ITS | Clinical Summary ---
[facility] Address [address] [place] [address] Care Team Providers Care [employer]chandising Coordinator Name Role Phone Edgar Lopez MD Primary Care Provider [phone] Allergies No known active allergies Medications cyclobenzaprine (FLEXERIL) 10 MG tablet Take 10 mg by mouth 3 (Three) Times a Day As Needed for Muscle Spasms. Active meloxicam (MOBIC) 7.5 MG tablet Take 7.5 mg by mouth Daily. Active rosuvastatin (CRESTOR) 20 MG tablet Take 1 tablet by mouth Daily. Active finasteride (PROPECIA) 1 MG tablet Take 5 mg by mouth Daily. Active indapamide (LOZOL) 1.25 MG tablet Take 2 mg by mouth Every Morning. Active metFORMIN (GLUCOPHAGE) 1000 MG tablet Take 1 tablet by mouth 2 (Two) Times a Day With Meals. 07/03/2022 Active oxyCODONE (ROXICODONE) 30 MG immediate release tablet Every 6 (Six) Hours As Needed. Active Testosterone Cypionate (DEPOTESTOTERON E CYPIONATE) 200 MG/ML injection Every 7 (Seven) Days. 07/19/2022 Active B-D 3CC LUER-DIEGO SYR 25GX1/2 25G X 1-1/2 3 ML misc 07/19/2022 Active tiZANidine (ZANAFLEX) 4 MG tablet Take 1 tablet by mouth As Needed for Muscle Spasms. 06/19/2022 Active zolpidem (AMBIEN) 10 MG tablet 1 tablet At Night As Needed for Sleep. 06/19/2022 Active gabapentin (NEURONTIN) 300 MG capsuleIndicati ons:Polyneuropa thy Take 2 capsules at night 60 capsule 5 10/05/2022 Active docusate sodium (Colace) 100 MG capsule Take 1 capsule by mouth 2 (Two) Times a Day. 20 capsule 10/11/2023 11:52 AM EST 10/11/2023 Active ondansetron (Zofran) 4 MG tablet Take 1 tablet by mouth Every 8 (Eight) Hours As Needed for Nausea or Vomiting. 12 tablet 10/11/2023 11:52 AM EST 10/11/2023 Active oxyCODONE (ROXICODONE) 5 MG immediate release tabletIndicatio ns:Nontraumatic complete tear of left rotator cuff Take 1 tablet by mouth Every 4 (Four) Hours As Needed for Moderate Pain. 24 tablet 10/11/2023 11:52 AM EST 10/11/2023 Active Family History Medical History Relation Name Comments Heart attack Mother Relation Name Status Comments Mother Social History Tobacco Use Types Packs/Day Years Used Date Smoking Tobacco: Some Days Smokeless Tobacco: Never Tobacco Cessation:Ready to Q uit: Not Asked; Counseling Given: Not Answered Alcohol Use Standard Drinks/Week Comments No 0 (1 standard drink = 0.6 oz pur e alcohol) AUDIT-C Answer Date Recorded Frequency of Alcohol Consumption Never 12/17/2018 Average Number of Drinks Not on file 019 Frequency of Binge Drinking Not on file 11/27 Abuse Screen Answer Date Recorded Unsafe at Home or Work/School Not on file Feels Threatened by Someone? Not on file 09/2023 Does Anyone Keep You from Co ntacting Others or Doint Things Outside the Home? Not on file 09/05/2023 Physical Sign of Abuse Present Not on file 1 Housing Stability Answer Date Recorded Current Living Arrangements Not on file 08/26 Potentially Unsafe Housing Conditions Not on tracy e 09/05/2023 Family and Community Support Answer Beni e Recorded Help with Day-to-Day Activities Not on file 09/05/2023 Lonely or Isolated Not on file 09/05/2023 Employment Answer Date Recorded Do you want help finding or keeping work or a ender b? Not on file 09/05/2023 Disabilities Answer Date Recorded Concentrating, Remembering, or Making Decisions Difficulty Not on file 09/05/2023 Doing Errands Independently Difficulty Not on fi le 09/05/2023 Education Answer Date Recorded Help with school or training? Not on file Preferred Language Not on file 09/05/2023 Sex and Gender Information Value Date Recorded Sex Assigned at Not on file Legal Sex Male 3:17 PM EST Gender Identity Not on file Sexual Orientation Not on file Last Filed Vital Signs Vital Sign Reading Time Taken Comments Blood Pressure 128/76 10/05/2022 1:07 PM EST Pulse 86 10/05/2022 1:07 PM EST Temperature - - Respiratory Rate - - Oxygen Saturation 97% 10/05/2022 1:07 PM EST Inhaled Oxygen Concentration - - Weight 124 kg (273 lb 3.2 oz) 10/05/2022 1:07 PM EST Height 188 cm (6' 2 ) 10/05/2022 1:07 PM EST Body Mass Index 35.08 10/05/2022 1:07 PM EST Plan of Treatment Health Maintenance Due Date Last Done Comments TDAP/TD VACCINES (1 - Tdap) 1969 COLOGUARD 1995 COLON CANCER SCREENING 5 YEA R SIGMOIDOSCOPY 1995 CT COLONOGRAPHY 1995 FECAL OCCULT BLOOD TEST 1995 FIT Testing (1 year) 1995 ZOSTER VACCINE (1 of 2) 2000 ANNUAL PHYSICAL 12/16/2018 HEPATITIS C SCREENING 12/16/2018 Pneumococcal Vaccine 50+ (2 of 2 - PCV) 08/30/2021 08/30/2020 INFLUENZA VACCINE 06/26/2025 08/24/2023, , 08/28/2022, Additional history exists COVID-19 Vaccine (2 - 2024-2 6 season) 2025 08/10/2021 COLONOSCOPY 03/21/2031 03/21/2021, 12/07/2016 COLORECTAL CANCER SCREENING 03/21/2031 AAA SCREEN ONCE Completed 01/07/2020, 01/07/2020 HEMOGLOBIN A1C Discontinued 06/13/2023, 05/26, 03/23/2023, Additional history exists [facility] Care Teams [employer] Merchandising Coordinator Relationship Specialty Start Date End Date Edgar Lopez MD [address] [facility] [address] [place] [id number] PCP - General Internal Medicine 01/13/19
--- OUTSIDE RECORDS SUMMARY | 2025-10-16 09:52 | XMS_ITS | Encounter Summary ---
Author Organization [employer] ([place], [place], [place], [place], [place]) Address [address] [place] [address] Care Team Providers Care Forming Fixer Name Role Phone Unavailable Primary Care Provider Unavailabl e Encounter Details Date Type Department Care Team (Late st Contact Info) Description 05/12/2021 Transcribed Document [facility] [place] Family Medicine [facility] [place] [address] ProviderJess MD [address] [place] [address] Social History Tobacco Use Types Packs/Day Years Used Date Smoking Tobacco: Never Assessed Sex and Gender Information Value Date Recorded Sex Assigned at Male 05/25/2022 4:08 PM CDT Legal Sex Male 7:21 PM CDT Gender Identity Male 05/25/2022 4:08 PM CDT Sexual Orientation Not on file documented as of this encounter Miscellaneous Notes * Cerner Conversion Note - Jess Rubin MD - 05/12/2021 1:01 PM CDT Patient Education Materials Follows: Outpatient Surgery, Adult, Care After These instructions provide you with information about caring for yourself after your procedure. Your health care provider may also give you more specific instructions. Your treatment has been planned according to current medical practices, but problems sometimes occur. Call your health care provider if you have any problems or questions after your procedure. What can I expect after the procedure? After the procedure, it is common to have: ??? Tenderness and numbness at the surgical site. ??? Swelling and bruising around the surgical site. ??? Nausea. Follow these instructions at home: For at least 24 hours after the procedure: ??? Have a responsible adult stay with you. It is important to have someone help care for you until you are awake and alert. ??? Rest as needed. ??? Do not: ? Participate in activities in which you could fall or become injured. ? Drive. ? Use heavy machinery. ? Drink alcohol. ? Take sleeping pills or medicines that cause drowsiness. ? Make important decisions or sign legal documents. ? Take care of children on your own. Activity ??? Return to your normal activities as told by your health care provider. Ask your health care provider what activities are safe for you. ??? Do not lift anything that is heavier than 10 lb (4.5 kg), or the limit that your health care provider tells you, until your health care provider says it is okay. ??? Do not play contact sports until your health care provider says it is okay. Incision care ??? Follow instructions from your health care provider about how to take care of an incision, if you have one. Make sure you: ? Wash your hands with soap and water before you change your bandage (dressing). If soap and water are not available, use hand lifts and cranes inspector. ? Change your dressing as told by your health care provider. ? Leave stitches (sutures), skin glue, or adhesive strips in place. These skin closures may need to stay in place for 2 weeks or longer. If adhesive strip edges start to loosen and curl up, you may trim the loose edges. Do not remove adhesive strips completely unless your health care provider tells you to do that. ??? Check your incision area every day for signs of infection. Check for: ? More redness, swelling, or pain. ? More fluid or blood. ? Warmth. ? Pus or a bad smell. Medicines ??? Take euqi-kbg-hodbmrr and prescription medicines only as told by your health care provider. ??? Do not drive or use heavy machinery while taking prescription pain medicines. Eating and drinking ??? Follow the diet recommended by your health care provider. ??? When you are hungry, begin eating light and bland foods such as toast. Gradually return to your regular diet. ??? If you vomit: ? Drink water, juice, or soup when you can drink without vomiting. ? Make sure you have little or no nausea before eating solid foods. General instructions ??? If you have sleep apnea, surgery and certain medicines can increase your risk for breathing problems. Follow instructions from your HCP about wearing your sleep device: ? Anytime you are sleeping, including during daytime naps. ? While taking prescription pain medicines, sleeping medicines, or medicines that make you drowsy. ??? Do not use any tobacco products, such as cigarettes, chewing tobacco, and e-cigarettes, for as long as possible. ??? If you smoke, do not smoke without supervision. ??? Keep all follow-up visits as told by your health care provider. This is important. Contact a health care provider if: ??? You have more redness, swelling, or pain around your incision. ??? You have more fluid or blood coming from your incision. ??? Your incision feels warm to the touch. ??? You have pus or a bad smell coming from your incision. ??? You have a fever. ??? You feel light-headed or you faint. ??? You develop a rash. ??? You keep feeling nauseous or keep vomiting. ??? You have very bad pain, even after taking the medicines your health care provider has prescribed or recommended. ??? You have constipation. Get help right away if: ??? You are unable to pass urine. ??? You have trouble breathing. Summary ??? Have a responsible adult stay with you for at least 24 hours after the procedure. ??? Nausea is common after a procedure. Make sure you have little or no nausea before eating solid foods. Follow the diet recommended by your health care provider. ??? Ask your health care provider what activities are safe for you. This information is not intended to replace advice given to you by your health care provider. Make sure you discuss any questions you have with your health care provider. Document Revised: 02/10/2019 Document Reviewed: 03/04/2017 [employer] Patient Education ? 2020 [employer] Pharmacology General Anesthesia, Adult, Care After This sheet gives you information about how to care for yourself after your procedure. Your health care provider may also give you more specific instructions. If you have problems or questions, contact your health care provider. What can I expect after the procedure? After the procedure, the following side effects are common: ??? Pain or discomfort at the IV site. ??? Nausea. ??? Vomiting. ??? Sore throat. ??? Trouble concentrating. ??? Feeling cold or chills. ??? Weak or tired. ??? Sleepiness and fatigue. ??? Soreness and body aches. These side effects can affect parts of the body that were not involved in surgery. Follow these instructions at home: For at least 24 hours after the procedure: ??? Have a responsible adult stay with you. It is important to have someone help care for you until you are awake and alert. ??? Rest as needed. ??? Do not: ? Participate in activities in which you could fall or become injured. ? Drive. ? Use heavy machinery. ? Drink alcohol. ? Take sleeping pills or medicines that cause drowsiness. ? Make important decisions or sign legal documents. ? Take care of children on your own. Eating and drinking ??? Follow any instructions from your health care provider about eating or drinking restrictions. ??? When you feel hungry, start by eating small amounts of foods that are soft and easy to digest (bland), such as toast. Gradually return to your regular diet. ??? Drink enough fluid to keep your urine pale yellow. ??? If you vomit, rehydrate by drinking water, juice, or clear broth. General instructions ??? If you have sleep apnea, surgery and certain medicines can increase your risk for breathing problems. Follow instructions from your health care provider about wearing your sleep device: ? Anytime you are sleeping, including during daytime naps. ? While taking prescription pain medicines, sleeping medicines, or medicines that make you drowsy. ??? Return to your normal activities as told by your health care provider. Ask your health care provider what activities are safe for you. ??? Take btpv-wei-dfenkxk and prescription medicines only as told by your health care provider. ??? If you smoke, do not smoke without supervision. ??? Keep all follow-up visits as told by your health care provider. This is important. Contact a health care provider if: ??? You have nausea or vomiting that does not get better with medicine. ??? You cannot eat or drink without vomiting. ??? You have pain that does not get better with medicine. ??? You are unable to pass urine. ??? You develop a skin rash. ??? You have a fever. ??? You have redness around your IV site that gets worse. Get help right away if: ??? You have difficulty breathing. ??? You have chest pain. ??? You have blood in your urine or stool, or you vomit blood. Summary ??? After the procedure, it is common to have a sore throat or nausea. It is also common to feel tired. ??? Have a responsible adult stay with you for the first 24 hours after general anesthesia. It is important to have someone help care for you until you are awake and alert. ??? When you feel hungry, start by eating small amounts of foods that are soft and easy to digest (bland), such as toast. Gradually return to your regular diet. ??? Drink enough fluid to keep your urine pale yellow. ??? Return to your normal activities as told by your health care provider. Ask your health care provider what activities are safe for you. This information is not intended to replace advice given to you by your health care provider. Make sure you discuss any questions you have with your health care provider. Document Revised: 11/15/2018 Document Reviewed: 06/28/2018 [employer] Patient Education ? 2020 [employer] Procedures Outpatient Surgery, Adult, Care After These instructions provide you with information about caring for yourself after your procedure. Your health care provider may also give you more specific instructions. Your treatment has been planned according to current medical practices, but problems sometimes occur. Call your health care provider if you have any problems or questions after your procedure. What can I expect after the procedure? After the procedure, it is common to have: ??? Tenderness and numbness at the surgical site. ??? Swelling and bruising around the surgical site. ??? Nausea. Follow these instructions at home: For at least 24 hours after the procedure: ??? Have a responsible adult stay with you. It is important to have someone help care for you until you are awake and alert. ??? Rest as needed. ??? Do not: ? Participate in activities in which you could fall or become injured. ? Drive. ? Use heavy machinery. ? Drink alcohol. ? Take sleeping pills or medicines that cause drowsiness. ? Make important decisions or sign legal documents. ? Take care of children on your own. Activity ??? Return to your normal activities as told by your health care provider. Ask your health care provider what activities are safe for you. ??? Do not lift anything that is heavier than 10 lb (4.5 kg), or the limit that your health care provider tells you, until your health care provider says it is okay. ??? Do not play contact sports until your health care provider says it is okay. Incision care ??? Follow instructions from your health care provider about how to take care of an incision, if you have one. Make sure you: ? Wash your hands with soap and water before you change your bandage (dressing). If soap and water are not available, use hand lifts and cranes inspector. ? Change your dressing as told by your health care provider. ? Leave stitches (sutures), skin glue, or adhesive strips in place. These skin closures may need to stay in place for 2 weeks or longer. If adhesive strip edges start to loosen and curl up, you may trim the loose edges. Do not remove adhesive strips completely unless your health care provider tells you to do that. ??? Check your incision area every day for signs of infection. Check for: ? More redness, swelling, or pain. ? More fluid or blood. ? Warmth. ? Pus or a bad smell. Medicines ??? Take kxbe-hnp-qmmjsmg and prescription medicines only as told by your health care provider. ??? Do not drive or use heavy machinery while taking prescription pain medicines. Eating and drinking ??? Follow the diet recommended by your health care provider. ??? When you are hungry, begin eating light and bland foods such as toast. Gradually return to your regular diet. ??? If you vomit: ? Drink water, juice, or soup when you can drink without vomiting. ? Make sure you have little or no nausea before eating solid foods. General instructions ??? If you have sleep apnea, surgery and certain medicines can increase your risk for breathing problems. Follow instructions from your HCP about wearing your sleep device: ? Anytime you are sleeping, including during daytime naps. ? While taking prescription pain medicines, sleeping medicines, or medicines that make you drowsy. ??? Do not use any tobacco products, such as cigarettes, chewing tobacco, and e-cigarettes, for as long as possible. ??? If you smoke, do not smoke without supervision. ??? Keep all follow-up visits as told by your health care provider. This is important. Contact a health care provider if: ??? You have more redness, swelling, or pain around your incision. ??? You have more fluid or blood coming from your incision. ??? Your incision feels warm to the touch. ??? You have pus or a bad smell coming from your incision. ??? You have a fever. ??? You feel light-headed or you faint. ??? You develop a rash. ??? You keep feeling nauseous or keep vomiting. ??? You have very bad pain, even after taking the medicines your health care provider has prescribed or recommended. ??? You have constipation. Get help right away if: ??? You are unable to pass urine. ??? You have trouble breathing. Summary ??? Have a responsible adult stay with you for at least 24 hours after the procedure. ??? Nausea is common after a procedure. Make sure you have little or no nausea before eating solid foods. Follow the diet recommended by your health care provider. ??? Ask your health care provider what activities are safe for you. This information is not intended to replace advice given to you by your health care provider. Make sure you discuss any questions you have with your health care provider. Document Revised: 02/10/2019 Document Reviewed: 03/04/2017 [employer] Patient Education ? 2020 [employer]. Urology Green Light Laser Prostate Treatment, Care After This sheet gives you information about how to care for yourself after your procedure. Your health care provider may also give you more specific instructions. If you have problems or questions, contact your health care provider. What can I expect after the procedure? After the procedure, it is common to have: ??? Swelling and discomfort around your urethra. The opening of the urethra is at the end of the penis. ??? Blood in your urine. This should go away after a few days. ??? Trouble urinating or sudden need to urinate (urgency). These problems should get better over time. You may continue to have a thin tube (catheter) inserted into your urethra to help drain your urine from your bladder for a few days after the procedure. Follow these instructions at home: Medicines ??? Take wdge-rri-rbtzfab and prescription medicines only as told by your health care provider. ??? If you were prescribed an antibiotic medicine, take it as told by your health care provider. Do not stop taking the antibiotic even if you start to feel better. Bathing ??? Do not take baths, swim, or use a hot tub until your health care provider approves. Ask your health care provider if you may take showers. You may only be allowed to take sponge baths. Activity ??? Do not drive for 24 hours if you were given a medicine to help you relax (sedative) during your procedure. ??? Do not drive or use heavy machinery while taking prescription pain medicine. ??? Ask your health care provider what activities are safe for you. Most people can return to normal activities within a few days. ? Do not have sex or engage in sexual activity until your health care provider approves. ? Do not lift anything that is heavier than 10 lb (4.5 kg), or the limit that you are told, until your health care provider says that it is safe. General instructions ??? If you have a urinary catheter, care for it as told by your health care provider. This may include: ? Washing your hands before and after touching the catheter. ? Emptying your drainage bag when it is ??? full, or emptying it at least 2?3 times a day. ? Keeping the area around the catheter clean and dry. ? Avoiding any bends or breaks in the catheter. ? Keeping air out of the catheter. ? Making sure that the catheter is not placed under water. ??? Do not use any products that contain nicotine or tobacco, such as cigarettes and e-cigarettes. If you need help quitting, ask your health care provider. ??? Drink enough fluid to keep your urine pale yellow. ??? Keep all follow-up visits as told by your health care provider. This is important. Contact a health care provider if: ??? You have trouble: ? Having a bowel movement. ? Getting an erection. ??? You have swelling around your urethra and it gets worse. ??? You have blood in your urine for more than 2 days after the procedure. ??? You have pain or burning when you urinate, or other problems that do not go away or cause discomfort. ??? You have problems with your catheter or your catheter is blocked. ??? You have a fever. ??? You have nausea or you vomit. ??? You have swelling in your legs. Get help right away if: ??? Your urine has blood clots in it. ??? Your urine is dark red. ??? You cannot urinate after your catheter is removed. ??? You have blood in your stool. ??? You have severe pain that does not get better with medicine. ??? You have shortness of breath. Summary ??? After the procedure, it is common to have swelling and discomfort around your urethra and blood in your urine for a few days. ??? Some men may have problems urinating after this procedure. These problems should go away after a few days. If you have pain or burning while urinating, contact your health care provider. ??? If you have a catheter after this procedure, care for it as told by your health care provider. ??? If you have severe pain, dark red urine, or urine with blood clots, get medical help right away. This information is not intended to replace advice given to you by your health care provider. Make sure you discuss any questions you have with your health care provider. Document Revised: 03/04/2020 Document Reviewed: 05/23/2018 [employer] Patient Education ? 2019 [employer] documented in this encounter Plan of Treatment Not on file documented as of this encounter Visit Diagnoses Not on filedocumented in this encounter
--- OUTSIDE RECORDS SUMMARY | 2025-10-16 09:52 | XMS_ITS | Encounter Summary ---
Author Organization [employer] ([place], [place], [place], [place], [place]) Address [address] [place] [address] Care Team Providers Care Exercise Physiology Professor Name Role Phone Unavailable Primary Care Provider Unavailabl e Encounter Details Date Type Department Care Team (Late st Contact Info) Description 05/12/2021 Transcribed Document [facility] [place] Family Medicine [address] [place] [address] ProviderJess MD [address] [place] [address] Social History Tobacco Use Types Packs/Day Years Used Date Smoking Tobacco: Never Assessed Sex and Gender Information Value Date Recorded Sex Assigned at Male 05/25/2022 4:08 PM CDT Legal Sex Male 7:21 PM CDT Gender Identity Male 05/25/2022 4:08 PM CDT Sexual Orientation Not on file documented as of this encounter Miscellaneous Notes * Cerner Conversion Note - Jess ProviderMD - 05/12/2021 10:13 AM CDT [facility] Main OR PACU Summary Primary Physician: DINORA DUQUE MD-URO Finalized Date/Time: 05/12/21 13:10:25 Pt. Name: LACY COWARTO.B./Sex: 1950 Male Med Rec #: [id number] Physician: DINORA DUQUE MD-URO Financial #: [id number] Pt. Type: O Room/Bed: Admit/Disch: 05/12/21 07:11:00 - Institution: [facility] Main OR PACU I Case Times Entry 1 In PACU I 05/12/21 11:24:00 Ready for PACU 05/12/21 12:00:00 Discharge Discharge from PACU 05/12/21 12:30:00 I Last Modified By: ARNULFO BUSTILLO RN 05/12/21 13:09:56 [facility] Main OR PACU Acuity Entry 1 Start Time 05/12/21 12:00:00 Stop Time 05/12/21 12:30:00 Acuity Level [facility] PACU Acuity I Last Modified By: ARNULFO BUSTILLO RN 05/12/21 13:10:23 Finalized By: ARNULFO BUSTILLO, RN Document Signatures Signed By: ARNULFO BUSTILLO RN 05/12/21 13:10 Electronically signed by Ezio [facility] Conversion Licensed Journeyman Electrician Cerner at 03/16/2023 1:19 PM CDT documented in this encounter Plan of Treatment Not on file documented as of this encounter Visit Diagnoses Not on filedocumented in this encounter
--- OUTSIDE RECORDS SUMMARY | 2025-10-16 09:52 | XMS_ITS | Encounter Summary ---
Author Organization [employer] ([place], [place], [place], [place], [place]) Address [address] [place] [address] Care Team Providers Care Reinforcing Bar Setter Name Role Phone Unavailable Primary Care Provider Unavailabl e Encounter Details Date Type Department Care Team (Late st Contact Info) Description 05/12/2021 Transcribed Document [facility] [place] Family Medicine [address] [place] [address] ProviderJess MD [address] [place] [address] Social History Tobacco Use Types [...] Jess ProviderMD - 05/12/2021 10:13 AM CDT [facility] Main OR Preop Summary Primary Physician: DINORA DUQUE MD-URO Finalized Date/Time: 05/12/21 11:43:08 Pt. Name: LACY COWARTO.B./Sex: 1950 Male Med Rec #: [id number] Physician: DINORA DUQUE MD-URO Financial #: [id number] Pt. Type: O Room/Bed: Admit/Disch: 05/12/21 07:11:00 - Institution: [facility] PreOp Case Times Entry 1 In Preop 05/12/21 07:47:00 Ready for Holding n/a Room Patient Ready for 05/12/21 08:55:00 Surgery Patient Out of Preop 05/12/21 09:45:00 Patient Out of n/a Holding Room Last Modified By: Sera Mirza RN 05/12/21 11:43:06 [facility] PreOp Case Times Audit 05/12/21 11:43:06 Tankman: [id number] Modifier: [id number] <+> 1 Patient Out of Preop Finalized By: Sera Mirza RN Document Signatures Signed By: Sera Mirza RN 05/12/21 11:43 Electronically signed by Ezio [facility] Conversion Jewelry Setter Cerner at 03/16/2023 1:16 PM CDT documented in this encounter Plan of Treatment Not on file documented as of this encounter Visit Diagnoses Not on filedocumented in this encounter
--- OUTSIDE RECORDS SUMMARY | 2025-10-16 09:52 | XMS_ITS | Clinical Summary ---
Author Organization [facility] Address [address] [place] [address] Care Team Providers Care Pharmaceutical Assistant Name Role Phone Rayo Jimenes MD Primary Care Provider + [phone] Social History Tobacco Use Types Packs/Day Years Used Date Smoking Tobacco: Never Assessed Sex and Gender Information Value Date Recorded Sex Assigned at Not on file Legal Sex Male 8:06 PM EDT Gender Identity Not on file Sexual Orientation Not on file Plan of Treatment Not on file Care Teams Pharmaceutical Assistant Relationship Specialty Start Date End Date Rayo Jimenes MD [address] [place] [address] PCP - General 04/08/21
--- OUTSIDE RECORDS SUMMARY | 2025-10-16 09:52 | XMS_ITS | Encounter Summary ---
Author Organization [employer] ([place], [place], [place], [place], [place]) Address [address] [place] [address] Care Team Providers Care Utility Worker Name Role Phone Unavailable Primary Care Provider Unavailabl e Encounter Details Date Type Department Care Team (Late st Contact Info) Description 05/12/2021 Transcribed Document [facility] [place] [address] [place] [address] ProviderJess MD [address] [place] [address] Social History Tobacco Use Types [...] Jess ProviderMD - 05/12/2021 10:13 AM CDT [facility] Main OR IntraOp Summary Primary Physician: DINORA DUQUE MD-URO Finalized Date/Time: 05/24/21 09:44:39 Pt. Name: LACY COWARTO.B./Sex: 1950 Male Med Rec #: [id number] Physician: DINORA DUQUE MD-URO Financial #: [id number] Pt. Type: O Room/Bed: Admit/Disch: 05/12/21 07:11:00 - 05/12/21 13:33:00 Institution: [facility] IntraOp Case Attendance Entry 1 Entry 2 Entry 3 Case Attendee DINORA DUQUE, Lisa Freire Crna OTHER, ATTENDEE #1 MARLI Role Performed Surgeon/Proceduralist, FUR TRAPPER/Nurse Grain Roaster Student First Time In 05/12/21 09:48:00 05/12/21 09:48:00 05/12/21 09:48:00 Time Out 05/12/21 11:22:00 05/12/21 11:22:00 05/12/21 11:22:00 Procedure Prostate Green Light Prostate Green Light Prostate Green Light Laser Laser Laser Other Attendee VENKATESH JACOBS, FUR TRAPPER STUDENT Superficial Wound Closed By: Last Modified By: Lupis Guzman, Lupis Porter RN Shannon, Karen, RN 05/12/21 11:23:22 05/12/21 11:23:22 05/12/21 11:23:22 Entry 4 Entry 5 Entry 6 Case Attendee WILLIAM KING MD-ANS CONWAY, CANDY L. Shannon, Karen, TIA Role Performed Anesthesiologist of Scrub, First Engineer And Geologist, First Record Time In 05/12/21 09:48:00 05/12/21 09:48:00 05/12/21 09:48:00 Time Out 05/12/21 11:22:00 05/12/21 11:22:00 05/12/21 11:22:00 Procedure Prostate Green Light Prostate Green Light Prostate Green Light Laser Laser Laser Other Attendee Superficial Wound Closed By: Last Modified By: Lupis Guzman, Lupis Porter RN Shannon, Karen, TIA 05/12/21 11:23:22 05/12/21 11:23:22 05/12/21 11:23:22 Entry 7 Case Attendee OTHER, ATTENDEE #2 Role Performed Laser Education Professional Time In 05/12/21 09:48:00 Time Out 05/12/21 11:22:00 Procedure Prostate Green Light Laser Other Attendee DAVE SEXTON Superficial Wound Closed By: Last Modified By: Lupis Guzman, TIA 05/12/21 11:23:22 [facility] IntraOp Case Attendance Audit 05/12/21 11:23:22 Ribbon Tier: LUCIANO Modifier: LUCIANO 1 <+> Time Out 1 <*> Procedure Prostate Green Light Laser 2 <+> Time Out 2 <*> Procedure Prostate Green Light Laser 3 <+> Time Out 3 <*> Procedure Prostate Green Light Laser 4 <+> Time Out 4 <*> Procedure Prostate Green Light Laser 5 <+> Time Out 5 <*> Procedure Prostate Green Light Laser 6 <+> Time Out 6 <*> Procedure Prostate Green Light Laser 7 <+> Time Out 7 <*> Procedure Prostate Green Light Laser 05/12/21 10:24:30 Ribbon Tier: YAMILKANOKM Modifier: SHANNOKM <+> 1 Procedure 2 <*> Procedure Prostate Green Light Laser 3 <*> Procedure Prostate Green Light Laser 4 <*> Procedure Prostate Green Light Laser 5 <*> Procedure Prostate Green Light Laser 6 <*> Procedure Prostate Green Light Laser 7 <*> Procedure Prostate Green Light Laser 05/12/21 10:17:21 Ribbon Tier: YAMILKANOKM Modifier: SHANNOKM <+> 1 Time In 2 <+> Time In 2 <*> Procedure Prostate Green Light Laser 3 <+> Time In 3 <*> Procedure Prostate Green Light Laser 4 <+> Time In 4 <*> Procedure Prostate Green Light Laser 5 <+> Time In 5 <*> Procedure Prostate Green Light Laser 6 <+> Time In 6 <*> Procedure Prostate Green Light Laser 7 <+> Time In 7 <*> Procedure Prostate Green Light Laser [facility] IntraOp Case Times Entry 1 Patient In Room Time 05/12/21 09:48:00 Out Room Time 05/12/21 11:22:00 Anesthesia Start Time 05/12/21 09:48:00 Stop Time 05/12/21 11:22:00 Surgery / Procedure Times Start Time 05/12/21 10:13:00 Stop Time 05/12/21 11:10:00 Last Modified By: Lupis Guzman RN 05/12/21 11:22:30 [facility] IntraOp Case Times Audit 05/12/21 11:22:30 Ribbon Tier: YAMILKANOKM Modifier: SHANNOKM <+> 1 Out Room Time <+> 1 Stop Time 05/12/21 11:10:28 Ribbon Tier: YAMILKANOKM Modifier: SHANNOKM <+> 1 Stop Time 05/12/21 10:29:25 Ribbon Tier: YAMILKANOKM Modifier: SHANNOKM <+> 1 Start Time [facility] IntraOp Communication Entry 1 Communication To Family/Significant other Comment START Communication By Lupis Guzman RN Date and Time 05/12/21 10:17:00 Last Modified By: Lupis Guzman RN 05/12/21 10:17:13 [facility] IntraOp Delays Entry 1 Delay Reason Instrument delay Duration 10 Minute(s) Last Modified By: Lupis Guzman RN 05/12/21 10:25:39 [facility] IntraOp Departure from OR Entry 1 Integumentary Assessment Integumentary WDL Assessment WDL Transfer/Handoff Transfer to PACU Phase I Handoff Method Phone call Post-op Transport Stretcher/Gurney Via Patient Transport Lisa Freire Crna, Accompanied by OTHER, ATTENDEE #1 Last Modified By: Lupis Guzman RN 05/12/21 11:22:38 [facility] IntraOp Departure from OR Audit 05/12/21 11:22:38 Ribbon Tier: LUCIANO Modifier: YAMILKANOKM 1 <*> Patient Transport Accompanied by OTHER, ATTENDEE #1 05/12/21 10:36:25 Ribbon Tier: LUCIANO Modifier: GRAYKM <+> 1 Patient Transport Accompanied by [facility] IntraOp Fire Risk Assessment Entry 1 Fire Info Surgical Site or 0- No Incision Above the Xyphoid Open O2 Source 0- No (Mask or Cannula) Available Ignition 1- Yes (ESU, Laser, Light Source) Fire Risk 1 Assessment Score Fire Score Fire Risk Yes Assessment Complete Fire Risk Lupis Guzman RN Assessment Verified By Fire Risk 05/12/21 10:17:00 Assessment Verified Date/Time Fire Risk Standard Fire Yes Safety Precautions Followed Last Modified By: Lupis Guzman RN 05/12/21 10:17:50 [facility] IntraOp General Case Qa Automation Engineer 1 Case Information OR Cysto 01 [facility] Case Level 1 Room Verified Yes Wound Class I - Clean Specialty Urology Anesthesia Type General ASA Class 3 Diagnosis Preop Diagnosis BENIGN PROSTATIC HYPERTROPHY IWHT BLADDER OUTLET OBSTRUCTION Postop Same As Preop Yes Postop Diagnosis BENIGN PROSTATIC HYPERTROPHY IWHT BLADDER OUTLET OBSTRUCTION Last Modified By: Lupis Guzman RN 05/12/21 10:21:53 [facility] IntraOp Intraoperative Assessment Entry 1 Valid History / Yes Physical in Chart Preoperative Yes Checklist Reviewed/Evaluated Allergies Reviewed Yes Patient is Latex No Sensitive Isolation Not applicable Precautions Noted Level of WDL Consciousness (WDL = Alert, Oriented to Person, Place, and Time) Skin Assessment Yes Verified Present Upon IVs Arrival to OR Last Modified By: Lupis Guzman RN 05/12/21 10:20:58 [facility] IntraOp Intraoperative Equipment Entry 1 Type Monitoring Equipment Intraop Monitoring Electrocardiogram Three lead placement (ECG) Electrode Placement Blood Pressure Non-Invasive BP Device Source Antiembolic Devices Antiembolic Devices Sequential compression device, knee high Antiembolic Device Bilateral Location Antiembolic Device [id number] ID Number Scopes Photo/Video Documentation Photo No Video No Intraop Equipment Sequential compression Comment devices on and in operation prior to induction of anesthesia. Last Modified By: Lupis Guzman RN 05/12/21 10:23:58 [facility] IntraOp Medication Admin Entry 1 Entry 2 Medication/Irrigant SHAWNEE IRR 0.9% NACL B&O 16A Suppository - 1000ML --[id number] Combo Med List Time Administered 05/12/21 10:15:00 05/12/21 11:10:00 Route of Irrigation (for laser) SUPPKOSITORY Administration Dose Dose [id number] Unit of Measure ml Volume Administered By DINORA DUQUE, DINORA DUQUE MD-URO -URO Procedure Irrigation Irrigant Volume In Irrigant Volume Out Last Modified By: Lupis Guzman RN Shannon, Karen, RN 05/12/21 11:19:36 05/12/21 11:10:48 [facility] IntraOp Medication Admin Audit 05/12/21 11:19:36 Ribbon Tier: LUCIANO Modifier: YAMILKANOKM <+> 1 Dose <+> 1 Time Administered <+> 1 Unit of Measure 05/12/21 11:10:48 Ribbon Tier: LUCIANO Modifier: YAMILKANOKM 2 <*> Medication/Irrigant B&O 16A Suppository - [id number] <*> Time Administered 05/12/21 11:00:00 05/12/21 10:27:54 Ribbon Tier: YAMILKANOKOLBY Modifier: SHANNOKM <+> 2 Medication/Irrigant <+> 2 Route of Administration <+> 2 Administered By <+> 2 Dose <+> 2 Time Administered [facility] IntraOp Patient Positioning Entry 1 Procedure Prostate Green Light Laser Body Position Lithotomy Left Arm Position Resting at side Right Arm Position Resting at side Left Leg Position Secured in Leg Guzman Right Leg Position Secured in Leg Guzman Feet Uncrossed Yes Pressure Points Yes Checked Positioning Devices Head Rest, Pad, Elbow, Pad, Elbow, Stirrups/Leg Guzman, Cysto, Table, Cysto Positioned By Lupis Guzman, TIA, DINORA DUQUE MD-URO, Lisa Freire, Rambo, AMALIA LUCERO, OTHER, ATTENDEE #1 Position Verified Positioning Yes Verified by Anesthesia Positioning Yes Verified by Surgeon Last Modified By: Lupis Guzman RN 05/12/21 10:24:28 [facility] IntraOp Sign In Entry 1 Patient, Site, Yes Procedure Identified Surgical Consent Yes Confirmed Relevant Surgical Yes Documents Available Surgical Site N/A Marked by person performing procedure Anesthesia Machine Yes Check Completed Medication Checks Yes Completed Allergies Yes Airway Difficult Yes Airway/Aspiration Risk Difficult Yes Airway/Aspiration Intervention Equipment Available Blood Loss Risk Yes Blood Loss Yes Intervention Equipment Prepared and Ready Hypothermia Risk Yes Warming Measures Yes Taken Last Modified By: Lupis Guzman RN 05/12/21 10:24:41 [facility] IntraOp Sign Out Entry 1 RN Confirmation Surgical Yes Procedure(s) Identified Instrument, Sponge N/A and Sharps Counts Correct/Documented Equipment Problems N/A Documented Specimen Labeled N/A Correctly Urinary Catheter Yes Documented in IView Neal Patient Yes Recovery Concerns Reviewed with Anesthesia Provider, Surgeon and RN Neal Patient Yes Management Concerns Reviewed with Anesthesia Provider, Surgeon and RN Safety Checklist Yes Elements Complete? RN Sign Out Lupis Guzman RN Signature RN Sign Out 05/12/21 11:22:00 Signature Date/Time Plan of Care Outcome - Fire Risk OUTCOME STATEMENT: Goal met Patient is free from injury related to surgical fire Plan of Care Outcome - Pt Positioning OUTCOME STATEMENT: Goal met Absence of signs and symptoms of positioning injury. Plan of Care Outcome - Skin Prep OUTCOME STATEMENT: Goal met Intraoperative care is consistent with measures to prevent infection Plan of Care Outcome - Xray/Images OUTCOME STATEMENT: N/A Absence of observable signs or symptoms of radiation injury Plan of Care Outcome - Counts OUTCOME STATEMENT: Goal met Absence of signs and symptoms of injury related to extraneous objects Last Modified By: Lupis Guzman RN 05/12/21 11:23:11 [facility] IntraOp Skin Prep Entry 1 Procedure Prostate Green Light Laser Prescribed Yes Pre-Surgical Prep Completed Prep Area Genitalia Intraop Prep Integumentary WDL Assessment WDL Prep Agents Betadine solution Prep by Lupis Guzman RN Hair Removal Last Modified By: Lupis Guzman RN 05/12/21 10:23:34 [facility] IntraOp Surgical Procedures Entry 1 Procedure Prostate Green Light Laser Additional (GREEN LIGHT Procedure LASER,VAPORIZATION OF Description PROSTATE) Primary Procedure Yes Primary Surgeon DINORA DUQUE MD-URO Start 05/12/21 10:13:00 Stop 05/12/21 11:10:00 Anesthesia Type General Specialty Urology Wound Class I - Clean Last Modified By: Lupis Guzman RN 05/12/21 11:23:29 [facility] IntraOp Surgical Procedures Audit 05/12/21 11:23:29 Ribbon Tier: LUCIANO Modifier: LUCIANO <+> 1 Stop 05/12/21 10:24:30 Ribbon Tier: LUCIANO Modifier: LUCIANO <+> 1 Primary Procedure <+> 1 Primary Surgeon <+> 1 Specialty <+> 1 Start <+> 1 Wound Class <+> 1 Anesthesia Type <+> 1 Additional Procedure Description [facility] IntraOp Temp Regulation Devices Entry 1 Temp Regulation Temperature Warm blankets, Forced Regulation Device Air Warming device, Room temperature Temperature Upper body Regulation Site Temperature Patient's temperature Regulation Comment monitored by anesthesia provider. Forced air warming device settings controlled by anesthesia provider. Last Modified By: Lupis Guzman RN 05/12/21 10:24:02 [facility] IntraOP Time Out Entry 1 Procedure to be Prostate Green Light Performed Laser Time Out Time Out Pause Time 05/12/21 10:10:00 All activity Yes suspended (unless life threatening emergency) Team Verbally Correct patient Confirms Information identity, Consent form is present and accurate, Agreement on the procedure to be done, Correct patient position, Confirm antibiotics have been administered, Confirm prosthesis/implant/devic e is present, Performed in location of procedure after prepped/draped Antibiotic Yes Prophylaxis Administered Or In Progress Within the Last 60 Minutes Beta Miguelito N/A Administered Venous Yes Thromboembolism Prophylaxis Required Anticipated Critical Events Surgeon None expected Anesthesia Provider None expected Nursing Assures Sterility of instruments Essential Imaging Yes Labeled and Displayed Last Modified By: Lupis Guzman RN 05/12/21 10:25:16 [facility] IntraOP Time Out Audit 05/12/21 10:25:16 Ribbon Tier: LUCIANO Modifier: LUCIANO 1 <+> Time Out Pause Time 1 <*> Procedure to be Performed Prostate Green Light Laser Case Comments <None> Finalized By: KAMLESH BENNETT Document Signatures Signed By: Lupis Guzman RN 05/12/21 11:25 KAMLESH BENNETT 05/24/21 09:44 Unfinalized History Date/Time Username Reason for Unfinalizing Freetext Reason for Unfinalizing 05/24/21 09:43 WATTSDR Correct Billing Electronically signed by [facility] Conversion Head Sampler Cerner at 03/16/2023 1:32 PM CDT documented in this encounter Plan of Treatment Not on file documented as of this encounter Visit Diagnoses Not on filedocumented in this encounter
--- OUTSIDE RECORDS SUMMARY | 2025-10-16 09:52 | XMS_ITS | Clinical Summary ---
Author Organization [employer] ([place], [place], [place], [place], [place]) Address [address] [place] [address] Care Team Providers Care Aesthetician Name Role Phone Unavailable Primary Care Provider Unavailabl e Social History Tobacco Use Types Packs/Day Years Used Date Smoking Tobacco: Never Assessed Sex and Gender Information Value Date Recorded Sex Assigned at Male 05/25/2022 4:08 PM CDT Legal Sex Male 7:21 PM CDT Gender Identity Male 05/25/2022 4:08 PM CDT Sexual Orientation Not on file Plan of Treatment Not on file
--- OUTSIDE RECORDS SUMMARY | 2025-10-16 09:52 | XMS_ITS | Encounter Summary ---
Author Organization [employer] ([place], [place], [place], [place], [place]) Address [address] [place] [address] Care Team Providers Care Mold Car Pusher Name Role Phone Unavailable Primary Care Provider Unavailabl e Encounter Details Date Type Department Care Team (Late st Contact Info) Description 05/12/2021 Transcribed Document [facility] – [place], [place] Family Medicine [facility] [place] [address] ProviderJess MD [address] [place] [address] Social History Tobacco Use Types [...] Note - Jess Rubin MD - 05/12/2021 11:31 AM CDT DATE OF PROCEDURE: 05/12/2021 SURGEON: Oracio Turner MD PREOPERATIVE DIAGNOSIS: Obstructive urinary symptoms secondary to benign prostatic hypertrophy. POSTOPERATIVE DIAGNOSIS: Obstructive urinary symptoms secondary to benign prostatic hypertrophy. PROCEDURE PERFORMED: Cystoscopy with GreenLight laser vaporization of the prostate. ANESTHESIA: General. DRAINS: 22-Czech 2-way Badillo catheter. SPECIMENS: None. ESTIMATED BLOOD LOSS: Minimal. BRIEF HISTORY: The patient is a 70-year-old general with progressive obstructive urinary symptoms. He has been on maximum medical therapy for several years and basically has measurable obstruction symptoms with frequency, urgency, and nocturia multiple times. He has had a recent cystoscopy which revealed a moderate median lobe and trilobar hypertrophy. He presents today for intervention using the GreenLight laser vaporization technique. He understands he will be discharged home with Badillo catheter in place for a few days postoperatively. Risks were discussed including bleeding and infection. He understands and wished to proceed. DESCRIPTION OF PROCEDURE: After satisfactory anesthesia, he was carefully placed in lithotomy position. Sequential compression garments were placed and functioned at the time of induction. Genitalia was prepped and draped in a normal fashion. The 24-Czech continuous-flow resectoscope sheath was introduced over the obturator. The prostatic urethra was reinspected. He has a large median lobe mostly arising from the left side of his bladder neck. This caused considerable obstruction. Lateral lobe tissue is also obstructing his bladder, inspected and was coarsely trabeculated throughout. The laser initially was at 80 zarco working around the bladder neck. Median lobe was incised bilaterally at 5 and 7 o'clock down towards the veru. Now, the tissue was then vaporized 125 zarco down to the floor of the bladder carefully. Lateral tissue was evaporated as well. Prostatic urethra was widely patent at completion. Resectoscope was withdrawn. Catheter placed mL in the balloon. The irrigant was crystal clear without evidence of significant hematuria. He was placed on Macrobid 100 mg b.i.d. He will follow up in our office in 3 days for catheter removal and voiding trial. /[id number] Oracio Turner MD TDA/AQ / TDA / MODL /[id number] CC: MD Oracio Sweeney MD Electronically signed by [facility] Conversion Philosophy Instructor Cerner at 03/16/2023 1:12 PM CDT documented in this encounter Plan of Treatment Not on file documented as of this encounter Visit Diagnoses Not on filedocumented in this encounter
--- OUTSIDE RECORDS SUMMARY | 2025-10-16 09:52 | XMS_ITS | Encounter Summary ---
Author Organization [employer] ([place], [place], [place], [place], [place]) Address [address] [place] [address] Care Team Providers Care Glass Cut Off Tender Name Role Phone Unavailable Primary Care Provider Unavailabl e Encounter Details Date Type Department Care Team (Late st Contact Info) Description 05/12/2021 Transcribed Document [facility] [place] Family Medicine [address] [place] [address] ProviderJess MD [address] [place] [address] Social History Tobacco Use Types [...] Conversion Note - Jess ProviderMD - 05/12/2021 1:04 PM CDT [facility] [place] [address] LACY COWART :1950 Visit Time:05/12/2021 What to do next Your Diagnosis Benign prostatic hyperplasia with lower urinary tract symptoms, Benign prostatic hyperplasia with lower urinary tract symptoms Instructions From Your Care Team Diet after Discharge: Resume usual diet as tolerated, Do not drink any alcoholic beverages, Drink at least 8-10 glasses of water per day_ Activity after Discharge: As tolerated, Rest and relax today, No strenuous activity, walk 3-4 times daily Driving after Discharge: Do not drive until 24 hours after no longer taking pain medications Showering/Bathing: May shower, No tub bathing, soaking or swimming Notify Provider of: signs of infection, Temp >101, inability to urinate, excessive bleeding, some blood in urine is normal Catheter care: Clean gently around the tip of the penis twice a day. take pain medications with food Stool softeners 2 times daily to prevent constipation Discharge Follow Up Instructions: pierre catheter to leg bag drainage Follow Up Instructions: Follow up for catheter removal Follow-Up Appointments Follow Up with DINORA DUQUE MD-URO When Within 3 to 5 days Comments Follow up appointment scheduled for Sunday05/16/21 at 12:45pm Where: [address] [place] [address]- Medications What How Much When Instructions Next Dose acetaminophen-hydrocodone ([place] 5 mg-325 mg oral tablet) 1 Tablet(s) Oral Every 6 Hours as needed for for pain Pickup at [facility] nitrofurantoin (Macrobid 100 mg oral capsule) 1 Capsule(s) Oral Two Times A Day Duration: 14 Day(s) Pickup at [facility] albuterol (albuterol 2.5 mg/ 3 mL (0.083%) inhalation solution) 3 Milliliter(s) Inhalation Two Times A Day cyanocobalamin (Vitamin B12 1000 mcg oral tablet) 1 Tablet(s) Oral Every Day ergocalciferol (Vitamin D2 2000 intl units (50 mcg) oral capsule) 1 Capsule(s) Oral Every Day finasteride (finasteride 5 mg oral tablet) 1 Tablet(s) Oral Every Day fluticasone/ umeclidinium/ vilanterol (Trelegy Ellipta 100 mcg-62.5 mcg-25 mcg/ inh inhalation powder) 1 Puff(s) Inhalation Every Day folic acid (folic acid 0.8 mg oral tablet) 1 Tablet(s) Oral Every Day indapamide (indapamide 1.25 mg oral tablet) 1 Tablet(s) Oral Every Morning meloxicam (meloxicam 7.5 mg oral tablet) 2 Tablet(s) Oral Every Day oxyCODONE (oxyCODONE 30 mg oral tablet) 1 Tablet(s) Oral Every 6 Hours as needed for as needed for pain rosuvastatin (rosuvastatin 20 mg oral tablet) 1 Tablet(s) Oral Every Day terazosin (terazosin 1 mg oral capsule) 1 Capsule(s) Oral Once a day (at bedtime) zinc sulfate (Zinc) 140 Milligram(s) Oral Every Day Pharmacy Information [facility]: [id number] [place] [phone] Take your medications faithfully. Do NOT skip medication. Do NOT stop taking medications without the direction of a physician. Carry a list of your medications with you at all times, and take this medication list with you to your first follow up visit. Report any side effects. Avoid herbal remedies unless discussed with your physician. As part of your treatment plan, your physician may have prescribed a limited course of a controlled substance. This medication may be given to help people with moderate or severe pain or for other medical conditions, but there are risks involved with treatment. Common side effects may include nausea, constipation, drowsiness, sweating, itching, dry mouth, and rash. More serious side effects may include cognitive and motor impairment, like problems with thinking, concentrating, alertness, and movement (e.g. slowed reflexes), and driving and operating heavy machinery can be dangerous. It is important for you to talk to your physician if you have these side effects or questions. These controlled substances can produce physical dependence and be habit-forming if taken for an extended period of time, which means that the body has gotten used to them and may experience withdrawal symptoms if they are abruptly stopped. Withdrawal symptoms can include runny nose, sweating, goose bumps, diarrhea, abdominal cramping, rapid heartbeat, difficulty sleeping, and nervousness. Please dispose of unused and medications per pharmacy guidance. Education Materials Green Light Laser Prostate Treatment, Care After [...] these instructions at home: Medicines ??? Take jsrk-svh-mtrjmpc and prescription medicines only as told by [...] Emptying your drainage bag when it is ? full, or emptying it at least 2???3 times a day. ? Keeping the area [...] provider. Document Revised: 03/04/2020 Document Reviewed: 05/23/2018 [employer] Patient Education ?? 2020 [employer]. Outpatient Surgery, Adult, Care After These instructions [...] and water are not available, use hand chef passenger vessel. ? Change your dressing as told by [...] or a bad smell. Medicines ??? Take zhpl-rxf-kwipagb and prescription medicines only as told by [...] provider. Document Revised: 02/10/2019 Document Reviewed: 03/04/2017 [employer] Patient Education ?? 2020 [employer]. Outpatient Surgery, Adult, Care After These instructions [...] and water are not available, use hand chef passenger vessel. ? Change your dressing as told by [...] or a bad smell. Medicines ??? Take kqbp-dbm-eevuooz and prescription medicines only as told by [...] provider. Document Revised: 02/10/2019 Document Reviewed: 03/04/2017 [employer] Patient Education ?? 2020 [employer] General Anesthesia, Adult, Care After This sheet [...] activities are safe for you. ??? Take tbfj-mdp-kurbpem and prescription medicines only as told by [...] provider. Document Revised: 11/15/2018 Document Reviewed: 06/28/2018 [employer] Patient Education ?? 2020 [employer]. Emergency Awareness and Preventative Care STROKE is an EMERGENCY Every Minute Counts Act FAST and Check for these signs: FACE Does the face look uneven? ARM Does one arm drift down? SPEECH Does their speech sound strange? TIME Call at any sign of stroke Stroke Risk Factors Atrial Fibrillation (irregular heartbeat) Diabetes Family history of stroke Heart Disease Heavy alcohol use High Blood Pressure High Cholesterol Physical inactivity and obesity Smoking Cigarette Smoking The facts are clear, cigarette smoking will shorten your life. Smoking can cause many illnesses along the way. As a healthcare provider, we recommend that you stop smoking. Assistance with quitting is available by contacting 0-936-FRUZNOW. This is a free resource providing counseling, support, and referral. Or you may contact your personal physician. National Suicide Prevention Lifeline: The National Suicide Prevention Lifeline is a national network of local crisis centers that provides free and confidential emotional support to people in suicidal crisis or emotional distress 24 hours a day, 7 days a week. Don't Wait! Stop a Heart Attack Before it Starts What is a heart attack? A heart attack is damage or to a part of the heart from severely decreased or lack of blood flow to the heart. Over time, arteries can become narrow from the buildup of fat and cholesterol, which is called plaque. The plaque can rupture causing a blood clot to form. When the blood clot forms, the artery can become severely narrowed or completely blocked, causing a heart attack. Heart attack is the leading cause of in the [place]. 85% of muscle damage occurs within the first 2 hours. Delay in the recognition of heart attack symptoms increases the chances of . Know the early symptoms of a heart attack: Nausea Feeling of fullness in chest Jaw Pain Pain that travels down one or both arms Fatigue/being tired Anxiety Back Pain Chest pressure, squeezing, or discomfort Shortness of breath Sweating, or a cold sweat Feeling of impending doom There are unusual signs of a heart attack, too! Women, the elderly, and diabetics may present with atypical symptoms: Fainting/dizziness Weakness Confusion Risk Factors for a Heart Attack Some heart disease risk factors, such as age and family history, cannot be changed. Others, like smoking and lack of exercise, can be changed. Smoking High Cholesterol High Blood Pressure Family History Obesity Age Gender (Males are at higher risk) Lack of Exercise Diabetes Diet Stress Excessive Alcohol Intake If you or someone you know is experiencing the signs and symptoms of a heart attack, DON???T DELAY. Call immediately and seek help. If someone collapses, perform CPR! Do not attempt to drive if you are having symptoms of heart attack. Hands-Only CPR Why Hands-Only CPR? Hands-Only CPR has been shown to be as effective as conventional CPR for cardiac arrests that occur outside of a hospital. Survival depends on immediately receiving CPR from someone nearby. How do you perform Hands-Only CPR? There are two easy steps: Call if you see a teen or adult collapse Push hard and fast in the center of the chest at a beat of 100 beats per minute. Save a life! 4 WAYS TO GET AHEAD OF SEPSIS SEPSIS is a MEDICAL EMERGENCY. Time matters! Infections put you and your family at risk for a life-threatening condition called sepsis. Sepsis is the body's extreme response to an infection. It is life-threatening, and without timely treatment, sepsis can rapidly lead to tissue damage, organ failure, and . Sepsis happens when an infection you already have-in your skin, lungs, urinary tract or somewhere else-triggers a chain reaction throughout your body. 1 PREVENT INFECTIONS Take good care of chronic conditions. Talk to your doctor about getting the recommended vaccines. 2 PRACTICE GOOD HYGIENE Wash your hands frequently. Keep cuts or open sores clean and covered until they are healed. 3 KNOW THE SYMPTOMS Confusion or disorientation Shortness of breath High heart rate Fever, shivering, or feeling very cold Extreme pain or discomfort Clammy or sweaty skin 4 ACT FAST Get medical care IMMEDIATELY if you suspect sepsis or if you have an infection that is not getting better or is getting worse. To learn more about sepsis and how to prevent infections, visit www.cdc.gov/sepsis. Test Results Laboratory or Other Results This Visit (last charted value for your 05/12/2021 visit) Microbiology 05/10/2021 11:32 AM SARS-CoV-2 (COVID19 PCR): Negative General Chemistry 05/12/2021 8:47 AM Glucose POC2: 157 mg/dL -- Normal range between ( 70 and 110 ) Device Comment 1: Device Comment 1 Patient Name:LACY COWART I have received this information and was given the opportunity to ask questions. Patient/Charging Machine Operator Name: Patient/Charging Machine Operator Signature: Relationship to Patient: Clinician/Hospital Charging Machine Operator Signature: Date: documented in this encounter Plan of Treatment Not on file documented as of this encounter Visit Diagnoses Not on filedocumented in this encounter
--- OUTSIDE RECORDS SUMMARY | 2025-10-16 09:52 | XMS_ITS | Encounter Summary ---
Author Organization [employer] ([place], [place], [place], [place], [place]) Address [address] [place] [address] Care Team Providers Care Senior Center Director Name Role Phone Unavailable Primary Care Provider Unavailabl e Encounter Details Date Type Department Care Team (Late st Contact Info) Description 05/12/2021 Transcribed Document [facility] [place] Family Medicine [facility] [place] [address] ProviderJess MD [address] [place] [address] Social History Tobacco Use Types Packs/Day Years Used Date Smoking Tobacco: Never Assessed Sex and Gender Information Value Date Recorded Sex Assigned at Male 05/25/2022 4:08 PM CDT Legal Sex Male 7:21 PM CDT Gender Identity Male 05/25/2022 4:08 PM CDT Sexual Orientation Not on file documented as of this encounter Miscellaneous Notes * Cerner Conversion Note - Historical ProviderMD - 05/12/2021 8:19 AM CDT PAT Adult Entered On: 05/12/2021 8:20 EDT Performed On: 05/12/2021 8:19 EDT by Sera Mirza RN Height and Weight, Clinical Dosing Height Source : Measured Height Entry Format : [place] Height, Feet : 6 ft(Converted to: 183 cm, 72 Inch) Height, Inches : 2 Inch(Converted to: 0 ft 2 Inch, 5.08 cm) Clinical Height : 187.96 cm Weight Source : Standing scale Weight Entry Format : [place] Clinical Dosing Weight : 122.55 kg Weight, Pounds : 269.6 lb Body Surface Area (BSA) : 2.47 m2 Body Mass Index : 34.7 kg/m2 (HI) [place] Body Weight : 81 kg Sera Mirza RN - 05/12/2021 8:19 EDT Health Histories Smoking Status : 4 or less cigarettes(less than 1/4 pack)/day in last 30 days Smokeless Tobacco Status : Never Desires Tobacco Cessation Medication : No Reason for No Tobacco Cessation Medication : Refuses FDA approved medications Sera Mirza RN - 05/12/2021 8:19 EDT Social History (As Of: 05/12/2021 08:20:15 EDT) Tobacco: 4 or less cigarettes(less than 1/4 pack)/day in last 30 days Smoking Status. Never Smokeless Tobacco Status. None Smokeless Tobacco Use History. (Last Updated: 05/12/2021 08:18:29 EDT by Sera Mirza, RN) Alcohol: Alcohol Use History No. Use in Last 12 Months: No. Alcohol Use Comment quit drinking 3 years ago. (Last Updated: 05/12/2021 08:18:44 EDT by Sera Mirza, RN) Substance Abuse: Drug Use Hx: No. Use in Last 12 Months: No. (Last Updated: 05/12/2021 08:18:54 EDT by Sera Mirza, TIA) Infectious Disease History Has the patient ever been tested for COVID-19? : Yes, Patient stated results Negative Where was the COVID-19 Testing completed? : [facility] Where are the test results? : In EMR Results Date of COVID-19 test known? : Yes Date of COVID-19 Test : 05/10/2021 EDT Does patient have symptoms of COVID-19? : No COVID19 Screening : No Experiencing Infectious Disease Symptoms : No symptoms Physical contact outside [place] in the last 30 days : No Infectious Disease History : None Tuberculosis Symptoms : None Sera Mirza RN - 05/12/2021 8:20 EDT COVID19 PreProcedure Screening Is this an Emergent or Add on Procedure? : No Date PreProcedure COVID-19 test known? : Yes Date of PreProcedure COVID-19 : 05/10/2021 EDT Has patient been isolated since the test : No Exposed to COVID19 symptoms since test? : No Sera Mirza RN - 05/12/2021 8:20 EDT Anesthesia/Transfusion History Family History of Anesthesia Reaction : No prior transfusion(s) Transfusion History : Prior anesthesia without reaction Family History of Anesthesia Reaction : None Sera Mirza RN - 05/12/2021 8:20 EDT Advance Directive Patient has Advance Directive *Q : Yes, Advance Directive not with the patient Advance Directive Type : Living will Copy Advance Directive Verified/on Chart : Sera Tariq RN - 05/12/2021 8:20 EDT [place] Suicide Severity Rating Scale (C-SSRS) CSSRS Past Month Wish to be : No CSSRS Past Month Suicidal Thoughts : No CSSRS Lifetime Suicide Behavior : No Suicide Severity Rating Score : 0 Suicide Severity Rating : No Additional Care Required at this time Sera Mirza RN - 05/12/2021 8:20 EDT Psychosocial History Currently in Unsafe Situation : No Sera Mirza RN - 05/12/2021 8:20 EDT General Info Preferred Name : Daquan Arrived From : Home Support Person/Pt Rep Name : Sharifa Tovar Support Person/Pt Rep Contact Information : [phone] Want Family/Rep/Phys Notified of Admit : No Emergency Contact #1 : Sharifa Tovar Emergency Contact #1 Emergency Contact #1 Relationship : daughter Emergency Contact #2 : , Emergency Contact #2 Phone Number : , Emergency Contact #2 Relationship : , Primary Language : Cameroonian Communication Barrier : None Medical Stenographer Needed : No Sera Mirza RN - 05/12/2021 8:20 EDT Hector Scale Hector Sensory Perception : Slightly limited Hector Moisture : Occasionally moist Hector Activity : Walks occasionally Hector Mobility : Slightly limited Hector Nutrition : Adequate Hector Friction and Shear : Potential problem Hector Score : 17 Sera Mirza RN - 05/12/2021 8:20 EDT Sleep Apnea Risk Assmt Hx of Obstructive Sleep Apnea Diagnosis : No Snore Loudly : No Tired, Fatigued, or Sleepy During Day : Yes Observed Stopping Breathing During Sleep : No Have/Are Being Treated for Hypertension : Yes BMI Greater Than 35 kg/m2 : No Age over 50 Years Old : Yes Neck Circumference Greater Than 40 cm : No Gender Male : Yes STOP-BANG Sleep Apnea Risk Level Score : 4 Sera Mirza RN - 05/12/2021 8:20 EDT documented in this encounter Plan of Treatment Not on file documented as of this encounter Visit Diagnoses Not on filedocumented in this encounter
--- OUTSIDE RECORDS SUMMARY | 2025-10-16 09:52 | XMS_ITS | Clinical Summary ---
Author Organization [facility] [address] Address [address] [place] [address] Phone Care Team Providers Care Carpenter Repairer Name Role Phone Nonstaff, Referring Primary Care Provider Deepika cortes Social History Tobacco Use Types Packs/Day Years Used Date Smoking Tobacco: Never Assessed Sex and Gender Information Value Date Recorded Sex Assigned at Not on file Legal Sex Male 4:14 AM EDT Gender Identity Not on file Sexual Orientation Not on file Plan of Treatment Health Maintenance Due Date Last Done Comments Wellness Exam Medicare 1953 Hepatitis C Screening 1968 DTaP/TDaP/Td (1 - Tdap) 1969 Cologuard 1995 Colon Cancer Screening 1995 Colonoscopy 1995 FIT 1995 Sigmoidoscopy 1995 Virtual Colonography 1995 Pneumococcal Vaccine 50+ (1 of 1 - PCV) 2000 Zoster (1 of 2) 2000 COVID-19 Vaccine (2024-2 6 season) 2025 Influenza Vaccine (#1) 2025 Hepatitis B Vaccine Aged Out No longe r eligible based on patient's age to complete this topic Meningococcal B Vaccine Aged Out No l onger eligible based on patient's age to complete this topic Insurance [place] [address] ANTH PPO Care Teams Carpenter Repairer Relationship Specialty Start Date End Date Nonstaff, Referring PCP - General 03/28/12
--- OUTSIDE RECORDS SUMMARY | 2025-10-16 09:52 | XMS_ITS | Referral Summary ---
Author Organization [employer] ([place], [place], [place], [place], [place]) Address [address] [place] [address] Care Team Providers Care Apartment Rental Clerk Name Role Phone Unavailable Primary Care Provider [...]
--- OUTSIDE RECORDS SUMMARY | 2025-10-16 09:52 | XMS_ITS | Encounter Summary ---
Author Organization [facility] Address [address] [place] [address] Care Team Providers Care Supply Chain Manager Name Role Phone Rayo Jimenes MD Primary Care Provider [phone] Encounter Details Date Type Department Care Team (Late st Contact Info) Description 08/17/2022 [facility] [address] [place] [address] Cyn Hamilton MD [address] [facility] [address] [place] [address] Positive LIZ (antinuclear antibody) (Primary Dx) Social History Tobacco Use Types Packs/Day Years Used Date Smoking Tobacco: Never Assessed Sex and Gender Information Value Date Recorded Sex Assigned at Not on file Legal Sex Male 8:06 PM EDT Gender Identity Not on file Sexual Orientation Not on file documented as of this encounter Plan of Treatment Not on file documented as of this encounter Visit Diagnoses Diagnosis Positive LIZ (antinuclear antibody)- Primary Other and unspecified nonspecific immunological findings documented in this encounter Care Teams Supply Chain Manager Relationship Specialty Start Date End Date Rayo Jimenes MD [address] [place] [address] PCP - General 04/08/21 documented as of this encounter
--- OUTSIDE RECORDS SUMMARY | 2025-10-16 09:52 | XMS_ITS | Encounter Summary ---
Author Organization [employer] ([place], [place], [place], [place], [place]) Address [address] [place] [address] Care Team Providers Care Worm Farm Laborer Name Role Phone Unavailable Primary Care Provider Unavailabl e Encounter Details Date Type Department Care Team (Late st Contact Info) Description 05/12/2021 Transcribed Document [facility] [place] Family Medicine [address] [place] [address] ProviderJess MD [address] [place] [address] Social History Tobacco Use Types [...] - 05/12/2021 10:13 AM CDT [facility] Main OR PostOp Summary Primary Physician: DINORA DUQUE MD-URO Finalized Date/Time: 05/12/21 13:50:53 Pt. Name: LACY COWARTO.B./Sex: 1950 Male Med Rec #: [id number] Physician: DINORA DUQUE MD-URO Financial #: [id number] Pt. Type: O Room/Bed: Admit/Disch: 05/12/21 07:11:00 - Institution: [facility] Main OR PostOp Case Times Entry 1 In PACU II 05/12/21 12:35:00 Ready for PACU II 05/12/21 13:33:00 Discharge Discharge from PACU 05/12/21 13:33:00 II Last Modified By: BOBO OLIVERA RN 05/12/21 13:50:50 Finalized By: BOBO OLIVERA, RN Document Signatures Signed By: BOBO OLIVERA RN 05/12/21 13:50 Electronically signed by Ezio [facility] Conversion Automobile Upholsterer Cerner at 03/16/2023 1:16 PM CDT documented in this encounter Plan of Treatment Not on file documented as of this encounter Visit Diagnoses Not on filedocumented in this encounter
--- OUTSIDE RECORDS SUMMARY | 2025-10-16 09:52 | XMS_ITS | Encounter Summary ---
Author Organization [employer] ([place], [place], [place], [place], [place]) Address [address] [place] [address] Care Team Providers Care Escalator Operator Name Role Phone Unavailable Primary Care Provider Unavailabl e Encounter Details Date Type Department Care Team (Late st Contact Info) Description 05/12/2021 Transcribed Document [facility] [place] [address] ProviderJess MD [address] [place] [address] Social History Tobacco Use Types [...] Conversion Note - Jess ProviderMD - 05/12/2021 8:30 AM CDT Patient: LACY COWART Age: 70 years Sex: Male : 1950 Associated Diagnoses: None Author: LEONARD DUDLEY APRN Chief Complaint BPH Review of Systems ROS reviewed as documented in chart no change since last seen by surgeon Health Status Allergies: Allergic Reactions (Selected) No Known Medication Allergies, Allergies (1) Active Reaction No Known Medication Allergies None Documented Current medications: (Selected) Inpatient Medications Ordered Rocephin + Sodium Chloride 0.9% intravenous solution 50 mL: 2,000 mg, 100 mL/Hr, IV Piggyback, 1-Time Documented Medications Documented Trelegy Ellipta 100 mcg-62.5 mcg-25 mcg/inh inhalation powder: 1 Puff, Inhalation, Daily, 0 Refill(s) Vitamin B12 1000 mcg oral tablet: 1 Tab, Oral, Daily, 90 Tab, 0 Refill(s) Vitamin D2 2000 intl units (50 mcg) oral capsule: 1 Cap, Oral, Daily, 0 Refill(s) Zinc: 140 mg, Oral, Daily, 0 Refill(s) albuterol 2.5 mg/3 mL (0.083%) inhalation solution: 3 mL, Inhalation, BID, 120 Each, 0 Refill(s) finasteride 5 mg oral tablet: 1 Tab, Oral, Daily, 0 Refill(s) folic acid 0.8 mg oral tablet: 1 Tab, Oral, Daily, 1000 Tab, 0 Refill(s) indapamide 1.25 mg oral tablet: 1 Tab, Oral, QAM, 0 Refill(s) meloxicam 7.5 mg oral tablet: 2 Tab, Oral, Daily, 0 Refill(s) oxyCODONE 30 mg oral tablet: 1 Tab, Oral, Q6H, PRN: as needed for pain, 0 Refill(s) rosuvastatin 20 mg oral tablet: 1 Tab, Oral, Daily, 30 Tab, 0 Refill(s) terazosin 1 mg oral capsule: 1 Cap, Oral, Once a day (at bedtime), 30 Cap, 0 Refill(s), Home Medications (12) Active albuterol 2.5 mg/3 mL (0.083%) inhalation solution 2.5 mg = 3 mL, Inhalation, BID finasteride 5 mg oral tablet 5 mg = 1 Tab, Oral, Daily folic acid 0.8 mg oral tablet 0.8 mg = 1 Tab, Oral, Daily indapamide 1.25 mg oral tablet 1.25 mg = 1 Tab, Oral, QAM meloxicam 7.5 mg oral tablet 15 mg = 2 Tab, Oral, Daily oxyCODONE 30 mg oral tablet 30 mg = 1 Tab, PRN, Oral, Q6H rosuvastatin 20 mg oral tablet 20 mg = 1 Tab, Oral, Daily terazosin 1 mg oral capsule 1 mg = 1 Cap, Oral, Once a day (at bedtime) Trelegy Ellipta 100 mcg-62.5 mcg-25 mcg/inh inhalation powder 1 Puff, Inhalation, Daily Vitamin B12 1000 mcg oral tablet 1,000 mcg = 1 Tab, Oral, Daily Vitamin D2 2000 intl units (50 mcg) oral capsule 2,000 Int Units = 1 Cap, Oral, Daily Zinc 140 mg, Oral, Daily , Medications (1) Active Scheduled: (1) cefTRIAXone + NaCl 0.9% 50 mL 2,000 mg, IV Piggyback, 1-Time Continuous: (0) PRN: (0) Problem list: All Problems Type 2 diabetes mellitus - diet controlled / SNOMED CT 494434801 / Confirmed Smoker / SNOMED CT 782244495 / Confirmed Hypertension / SNOMED CT 9077441379 / Confirmed GERD / SNOMED CT 656583016 / Confirmed Prostate disorder / SNOMED CT 01567878 / Confirmed COPD / SNOMED CT 13963717 / Confirmed Cataracts, bilateral / SNOMED CT 847038727 / Confirmed Back pain / SNOMED CT 528097112 / Confirmed At risk for sleep apnea / IMO 79064804 / Confirmed, Active Problems (9) At risk for sleep apnea Back pain Cataracts, bilateral COPD GERD Hypertension Prostate disorder BPH Smoker Type 2 diabetes mellitus - diet controlled Histories Past Medical History: No active or resolved past medical history items have been selected or recorded. Family History: No family history items have been selected or recorded. Procedure history: Cataracts ([id number]) in the month of 04/2020 at 69 Years. lap band procedure in 2009 at 59 Years. Vertebra fusion in 1997 at 47 Years. Social History Social & Psychosocial Habits Alcohol 05/12/2021 Alcohol Use History, Social Habits No Alcohol Use in Last Twelve Months No Alcohol Use Comment quit drinking 3 years ago Substance Abuse 05/12/2021 Recreational Drug Use History No Recreational Drug Use Last 12 Months No Tobacco 05/12/2021 Smoking Status 4 or less cigarettes(less Smokeless Tobacco Status Never Smokeless Tobacco Use History None . Physical Examination VS/Measurements No qualifying data available, Measurements from flowsheet : Measurements 05/12/2021 8:19 EDT Height Source Measured Height Entry Format [place] Height/Length, DOMINICAN (ft) 6 ft Height/Length DOMINICAN 2 Inch CLINICALHEIGHT 187.96 cm [place] Body Weight 81 kg Weight Source Standing scale Weight Entry Format [place] Weight Georgian lb 269.6 lb CLINICALWEIGHT 122.55 kg Body Surface Area (BSA) 2.47 m2 Body Mass Index 34.7 kg/m2 HI General: Alert and oriented, No acute distress, obese. Eye: Pupils are equal, round and reactive to light, Extraocular movements are intact. HENT: Normocephalic, Normal hearing. Neck: Supple, Non-tender. Respiratory: Lungs are clear to auscultation, Respirations are non-labored. Cardiovascular: Normal rate, Regular rhythm, No murmur, No gallop, No edema. Gastrointestinal: Soft, Non-tender, RUQ lap band port noted. Genitourinary: No costovertebral angle tenderness. Lymphatics: No lymphadenopathy neck, axilla, groin. Musculoskeletal: Normal range of motion, Normal strength. Integumentary: Warm, Dry, [place]. Neurologic: Alert, Oriented. Psychiatric: Cooperative, Appropriate mood & affect. Review / Management Results review: No qualifying data available. Impression and Plan Condition: Stable. Electronically signed by Kylie Holguin Conversion Sheet Metal Work Furnace Installer Cerner at 03/16/2023 1:14 PM CDT documented in this encounter Plan of Treatment Not on file documented as of this encounter Visit Diagnoses Not on filedocumented in this encounter
== END 2025-10-16 23:59 | disposition home or self-care (01) ==
LOC: RAD 09:50
PROVIDERS: PCP Internal Medicine; Visit Provider Internal Medicine
DX: M25.562 Pain in left knee (principal); M25.561 Pain in right knee; M25.662 Stiffness of left knee, not elsewhere classified; M25.661 Stiffness of right knee, not elsewhere classified; I10 Essential (primary) hypertension; E78.5 Hyperlipidemia, unspecified; E11.42 Type 2 diabetes mellitus with diabetic polyneuropathy; M15.0 Primary generalized (osteo)arthritis; Z12.5 Encounter for screening for malignant neoplasm of prostate; R79.89 Other specified abnormal findings of blood chemistry
CPT/HCPCS: 73562; 80053; 80061; 83036; 84403; G0103

== ENCOUNTER 2025-11-23 11:39 | Emergency (ER) | payer OTHER, MEDICARE, SELFPAY ==
[2025-11-23 11:52] VITALS: BP 120/69; PULSE 77; RESP 18; TEMP 37.2; O2SAT 98; BMI 33.3
--- OUTSIDE RECORDS SUMMARY | 2025-11-23 12:15 | XMS_ITS | Encounter Summary ---
Author Organization [employer] ([place], [place], [place], [place], [place]) Address [address] [place] [address] Care Team Providers Care Stretch Box Tender Name Role Phone Unavailable Primary Care Provider Unavailabl e Encounter Details Date Type Department Care Team (Late st Contact Info) Description 05/12/2021 Transcribed Document [facility] [place] Family Medicine [address] [place] [address] ProviderJess MD [address] [place] [address] Social History Tobacco Use Types [...] Jess ProviderMD - 05/12/2021 10:13 AM CDT [facility] Main OR Preop Summary Primary Physician: DINORA DUQUE MD-URO Finalized Date/Time: 05/12/21 11:43:08 Pt. Name: LACY COWARTO.B./Sex: 1950 Male Med Rec #: [id number] Physician: DINORA DUQUE MD-URO Financial #: [id number] Pt. Type: O Room/Bed: Admit/Disch: 05/12/21 07:11:00 - Institution: [facility] PreOp Case Times Entry 1 In Preop 05/12/21 07:47:00 Ready for Holding n/a Room Patient Ready for 05/12/21 08:55:00 Surgery Patient Out of Preop 05/12/21 09:45:00 Patient Out of n/a Holding Room Last Modified By: Sera Mirza RN 05/12/21 11:43:06 [facility] PreOp Case Times Audit 05/12/21 11:43:06 Supervisor Game Farm: [id number] Modifier: [id number] <+> 1 Patient Out of Preop Finalized By: Sera Mirza RN Document Signatures Signed By: Sera Mirza RN 05/12/21 11:43 Electronically signed by Ezio [facility] Conversion Circulating Nurse Cerner at 03/16/2023 1:16 PM CDT documented in this encounter Plan of Treatment Not on file documented as of this encounter Visit Diagnoses Not on filedocumented in this encounter
--- OUTSIDE RECORDS SUMMARY | 2025-11-23 12:15 | XMS_ITS | Clinical Summary ---
Author Organization [facility] Address [address] [place] [address] Care Team Providers Care Yeast Fermentation Attendant Name Role Phone Edgar Lopez MD Primary Care Provider [phone] Allergies No known active allergies Medications cyclobenzaprine [...] history exists Insurance [facility] Care Teams Yeast Fermentation Attendant Relationship Specialty Start Date End Date Edgar Lopez MD [address] [facility] [address] [place] [address] PCP - General Internal Medicine 01/13/19
--- OUTSIDE RECORDS SUMMARY | 2025-11-23 12:15 | XMS_ITS | Encounter Summary ---
Author Organization [employer] ([place], [place], [place], [place], [place]) Address [address] [place] [address] Care Team Providers Care Director Of Market Analysis Name Role Phone Unavailable Primary Care Provider Unavailabl e Encounter Details Date Type Department Care Team (Late st Contact Info) Description 05/12/2021 Transcribed Document [facility] [place] Family Medicine [facility] [place] [address] ProviderJess MD [address] [place] [address] Social History Tobacco Use Types [...] and water are not available, use hand iuss analyst. ? Change your dressing as told by [...] or a bad smell. Medicines ??? Take iehp-nvk-mildmzx and prescription medicines only as told by [...] provider. Document Revised: 02/10/2019 Document Reviewed: 03/04/2017 [employer] Patient Education ? 2020 [employer] Pharmacology General Anesthesia, Adult, Care After [...] activities are safe for you. ??? Take knnm-glr-uhudpvd and prescription medicines only as told by [...] provider. Document Revised: 11/15/2018 Document Reviewed: 06/28/2018 [employer] Patient Education ? 2020 [employer] Procedures Outpatient Surgery, Adult, Care After [...] and water are not available, use hand iuss analyst. ? Change your dressing as told by [...] or a bad smell. Medicines ??? Take vjnc-egc-meuswri and prescription medicines only as told by [...] provider. Document Revised: 02/10/2019 Document Reviewed: 03/04/2017 [employer] Patient Education ? 2020 [employer]. Urology Green Light Laser Prostate Treatment, Care [...] these instructions at home: Medicines ??? Take bxbo-xdc-zenulvd and prescription medicines only as told by [...] provider. Document Revised: 03/04/2020 Document Reviewed: 05/23/2018 [employer] Patient Education ? 2019 [employer] documented in this encounter Plan of Treatment Not on file documented as of this encounter Visit Diagnoses Not on filedocumented in this encounter
--- OUTSIDE RECORDS SUMMARY | 2025-11-23 12:15 | XMS_ITS | Encounter Summary ---
Author Organization [employer] ([place], [place], [place], [place], [place]) Address [address] [place] [address] Care Team Providers Care Social Services Specialist Name Role Phone Unavailable Primary Care Provider Unavailabl e Encounter Details Date Type Department Care Team (Late st Contact Info) Description 05/12/2021 Transcribed Document [facility] [place] Family Medicine Replaced by [facility] [place] [address] ProviderJess MD [address] [place] [address] Social History Tobacco Use Types [...] vaporization of the prostate. ANESTHESIA: General. DRAINS: 22-Micronesian 2-way Badillo catheter. SPECIMENS: None. ESTIMATED BLOOD [...] and draped in a normal fashion. The 24-Micronesian continuous-flow resectoscope sheath was introduced over the [...] days for catheter removal and voiding trial. /[id number] Oracio Turner MD TDA/AQ / TDA / MODL /[id number] CC: MD Oracio Sweeney MD Electronically signed by Ezio [facility] Conversion Seam Presser Cerner at 03/16/2023 1:12 PM CDT documented in this encounter Plan of Treatment Not on file documented as of this encounter Visit Diagnoses Not on filedocumented in this encounter
--- OUTSIDE RECORDS SUMMARY | 2025-11-23 12:15 | XMS_ITS | Encounter Summary ---
Author Organization [employer] ([place], [place], [place], [place], [place]) Address [address] [place] [address] Care Team Providers Care Husbandry Person Name Role Phone Unavailable Primary Care Provider Unavailabl e Encounter Details Date Type Department Care Team (Late st Contact Info) Description 05/12/2021 Transcribed Document [facility] [place] [facility] [place] [address] ProviderJess MD [address] [place] [address] Social History Tobacco Use Types [...] mellitus - diet controlled / SNOMED CT 404830919 / Confirmed Smoker / SNOMED CT 525475818 / Confirmed Hypertension / SNOMED CT 9372663404 / Confirmed GERD / SNOMED CT 942251068 / Confirmed Prostate disorder / SNOMED CT 75451944 / Confirmed COPD / SNOMED CT 95002762 / Confirmed Cataracts, bilateral / SNOMED CT 164738198 / Confirmed Back pain / SNOMED CT 832589858 / Confirmed At risk for sleep apnea / IMO 05763848 / Confirmed, Active Problems (9) At risk for sleep apnea Back pain Cataracts, bilateral COPD GERD Hypertension Prostate disorder BPH Smoker Type 2 diabetes mellitus - diet controlled Histories Past Medical History: No active or resolved past medical history items have been selected or recorded. Family History: No family history items have been selected or recorded. Procedure history: Cataracts ([id number]) in the month of 04/2020 at 69 [...] EDT Height Source Measured Height Entry Format [place] Height/Length, MAURITIAN (ft) 6 ft Height/Length MAURITIAN 2 Inch CLINICALHEIGHT 187.[address] [place] [address] Body Weight 81 kg Weight Source Standing scale Weight Entry Format [place] Weight Ethiopian lb 269.6 lb CLINICALWEIGHT 122.55 kg Body [...] of motion, Normal strength. Integumentary: Warm, Dry, [place]. Neurologic: Alert, Oriented. Psychiatric: Cooperative, Appropriate mood & affect. Review / Management Results review: No qualifying data available. Impression and Plan Condition: Stable. documented in this encounter Plan of Treatment Not on file documented as of this encounter Visit Diagnoses Not on filedocumented in this encounter
--- OUTSIDE RECORDS SUMMARY | 2025-11-23 12:16 | XMS_ITS | Encounter Summary ---
Author Organization [employer] ([place], [place], [place], [place], [place]) Address [address] [place] [address] Care Team Providers Care Estimator Lumber Name Role Phone Unavailable Primary Care Provider Unavailabl e Encounter Details Date Type Department Care Team (Late st Contact Info) Description 05/12/2021 Transcribed Document [facility] [place] [address] ProviderJess MD [address] [place] [address] Social History Tobacco Use Types [...] Source : Measured Height Entry Format : [place] Height, Feet : 6 ft(Converted to: 183 cm, 72 Inch) Height, Inches : 2 Inch(Converted to: 0 ft 2 Inch, 5.08 cm) Clinical Height : 187.96 cm Weight Source : Standing scale Weight Entry Format : [place] Clinical Dosing Weight : 122.55 kg Weight, Pounds : 269.6 lb Body Surface Area (BSA) : 2.47 m2 Body Mass Index : 34.7 kg/m2 (HI) [place] Body Weight : 81 kg Sera Mirza [...] Sera Tariq RN - 05/12/2021 8:20 EDT [place] Suicide Severity Rating Scale (C-SSRS) CSSRS Past [...] Tovar Support Person/Pt Rep Contact Information : [phone] Want Family/Rep/Phys Notified of Admit : No Emergency Contact #1 : Sharifa Tovar Emergency Contact #1 Emergency Contact #1 Relationship : daughter Emergency Contact #2 : , Emergency Contact #2 Phone Number : , Emergency Contact #2 Relationship : , Primary Language : Turkmen Communication Barrier : None Watch Inspector Needed : No Sera Mirza RN - [...]
--- OUTSIDE RECORDS SUMMARY | 2025-11-23 12:16 | XMS_ITS | Encounter Summary ---
Author Organization [employer] ([place], [place], [place], [place], [place]) Address [address] [place] [address] Care Team Providers Care Director Of Business Development Name Role Phone Unavailable Primary Care Provider Unavailabl e Encounter Details Date Type Department Care Team (Late st Contact Info) Description 05/12/2021 Transcribed Document [facility] [place] [address] [place] [address] ProviderJess MD [address] [place] [address] Social History Tobacco Use Types [...] Jess ProviderMD - 05/12/2021 10:13 AM CDT [facility] Main OR PostOp Summary Primary Physician: DINORA DUQUE MD-URO Finalized Date/Time: 05/12/21 13:50:53 Pt. Name: LACY COWARTO.B./Sex: 1950 Male Med Rec #: [id number] Physician: DINORA DUQUE MD-URO Financial #: [id number] Pt. Type: O Room/Bed: Admit/Disch: 05/12/21 07:11:00 - Institution: [facility] Main OR PostOp Case Times Entry 1 In PACU II 05/12/21 12:35:00 Ready for PACU II 05/12/21 13:33:00 Discharge Discharge from PACU 05/12/21 13:33:00 II Last Modified By: BOBO OLIVERA RN 05/12/21 13:50:50 Finalized By: BOBO OLIVERA, RN Document Signatures Signed By: BOBO OLIVERA RN 05/12/21 13:50 Electronically signed by Ezio [facility] Conversion Nutritionalist Cerner at 03/16/2023 1:16 PM CDT documented in this encounter Plan of Treatment Not on file documented as of this encounter Visit Diagnoses Not on filedocumented in this encounter
--- OUTSIDE RECORDS SUMMARY | 2025-11-23 12:16 | XMS_ITS | Clinical Summary ---
Author Organization [facility] Address [address] [place] [address] Phone Care Team Providers Care Wind Tunnel Engineer Name Role Phone Nonstaff, Referring Primary Care [...] [place] [address] ANTH PPO Care Teams Wind Tunnel Engineer Relationship Specialty Start Date End Date Nonstaff, Referring PCP - General 03/28/12
--- OUTSIDE RECORDS SUMMARY | 2025-11-23 12:16 | XMS_ITS | Encounter Summary ---
Author Organization [employer] ([place], [place], [place], [place], [place]) Address [address] [place] [address] Care Team Providers Care Collator Operator Name Role Phone Unavailable Primary Care Provider Unavailabl e Encounter Details Date Type Department Care Team (Late st Contact Info) Description 05/12/2021 Transcribed Document [facility] [place] Family Medicine [address] [place] [address] ProviderJess MD [address] [place] [address] Social History Tobacco Use Types [...] Jess ProviderMD - 05/12/2021 10:13 AM CDT [facility] Main OR IntraOp Summary Primary Physician: DINORA DUQUE MD-URO Finalized Date/Time: 05/24/21 09:44:39 Pt. Name: LACY COWARTO.B./Sex: 1950 Male Med Rec #: [id number] Physician: DINORA DUQUE MD-URO Financial #: [id number] Pt. Type: O Room/Bed: Admit/Disch: 05/12/21 07:11:00 - 05/12/21 13:33:00 Institution: [facility] IntraOp Case Attendance Entry 1 Entry 2 Entry 3 Case Attendee DINORA DUQUE, Lisa Freire Crna OTHER, ATTENDEE #1 MARLI Role Performed Surgeon/Proceduralist, MACHINE CLOTHING WORKER/Nurse Engine Monitor Student First Time In 05/12/21 09:48:00 05/12/21 09:48:00 05/12/21 09:48:00 Time Out 05/12/21 11:22:00 05/12/21 11:22:00 05/12/21 11:22:00 Procedure Prostate Green Light Prostate Green Light Prostate Green Light Laser Laser Laser Other Attendee VENKATESH JACOBS, MACHINE CLOTHING WORKER STUDENT Superficial Wound Closed By: Last Modified By: Lupis Guzman, Lupis Porter RN Shannon, Karen, RN 05/12/21 11:23:22 05/12/21 11:23:22 05/12/21 11:23:22 Entry 4 Entry 5 Entry 6 Case Attendee WILLIAM KING MD-ANS CONWAY, CANDY L. Shannon, Karen, TIA Role Performed Anesthesiologist of Scrub, First Matrix Repairer, First Record Time In 05/12/21 09:48:00 05/12/21 [...] Attendee OTHER, ATTENDEE #2 Role Performed Laser Exhibits Curator Time In 05/12/21 09:48:00 Time Out 05/12/21 11:22:00 Procedure Prostate Green Light Laser Other Attendee DAVE SEXTON Superficial Wound Closed By: Last Modified By: Lupis Guzman, TIA 05/12/21 11:23:22 [facility] IntraOp Case Attendance Audit 05/12/21 11:23:22 Director Of Speech Pathology: LUCIANO Modifier: LUCIANO 1 <+> Time Out [...] Procedure Prostate Green Light Laser 05/12/21 10:24:30 Director Of Speech Pathology: YAMILKANOKM Modifier: SHANNOKM <+> 1 Procedure 2 <*> Procedure Prostate Green Light Laser 3 <*> Procedure Prostate Green Light Laser 4 <*> Procedure Prostate Green Light Laser 5 <*> Procedure Prostate Green Light Laser 6 <*> Procedure Prostate Green Light Laser 7 <*> Procedure Prostate Green Light Laser 05/12/21 10:17:21 Director Of Speech Pathology: YAMILKANOKM Modifier: SHANNOKM <+> 1 Time In [...] 7 <*> Procedure Prostate Green Light Laser [facility] IntraOp Case Times Entry 1 Patient In Room Time 05/12/21 09:48:00 Out Room Time 05/12/21 11:22:00 Anesthesia Start Time 05/12/21 09:48:00 Stop Time 05/12/21 11:22:00 Surgery / Procedure Times Start Time 05/12/21 10:13:00 Stop Time 05/12/21 11:10:00 Last Modified By: Lupis Guzman RN 05/12/21 11:22:30 [facility] IntraOp Case Times Audit 05/12/21 11:22:30 Director Of Speech Pathology: YAMILKANOKM Modifier: SHANNOKM <+> 1 Out Room Time <+> 1 Stop Time 05/12/21 11:10:28 Director Of Speech Pathology: YAMILKANOKM Modifier: SHANNOKM <+> 1 Stop Time 05/12/21 10:29:25 Director Of Speech Pathology: YAMILKANOKM Modifier: SHANNOKM <+> 1 Start Time [facility] IntraOp Communication Entry 1 Communication To Family/Significant other Comment START Communication By Lupis Guzman RN Date and Time 05/12/21 10:17:00 Last Modified By: Lupis Guzman RN 05/12/21 10:17:13 [facility] IntraOp Delays Entry 1 Delay Reason Instrument delay Duration 10 Minute(s) Last Modified By: Lupis Guzman RN 05/12/21 10:25:39 [facility] IntraOp Departure from OR Entry 1 Integumentary Assessment Integumentary WDL Assessment WDL Transfer/Handoff Transfer to PACU Phase I Handoff Method Phone call Post-op Transport Stretcher/Gurney Via Patient Transport Lisa Freire Crna, Accompanied by OTHER, ATTENDEE #1 Last Modified By: Lupis Guzman RN 05/12/21 11:22:38 [facility] IntraOp Departure from OR Audit 05/12/21 11:22:38 Director Of Speech Pathology: LUCIANO Modifier: YAMILKANOKM 1 <*> Patient Transport Accompanied by OTHER, ATTENDEE #1 05/12/21 10:36:25 Director Of Speech Pathology: LUCIANO Modifier: GRAYKM <+> 1 Patient Transport Accompanied by [facility] IntraOp Fire Risk Assessment Entry 1 Fire [...] Modified By: Lupis Guzman RN 05/12/21 10:17:50 [facility] IntraOp General Case Natural Resources Manager 1 Case Information OR Cysto 01 [facility] Case Level 1 Room Verified Yes Wound Class I - Clean Specialty Urology Anesthesia Type General ASA Class 3 Diagnosis Preop Diagnosis BENIGN PROSTATIC HYPERTROPHY IWHT BLADDER OUTLET OBSTRUCTION Postop Same As Preop Yes Postop Diagnosis BENIGN PROSTATIC HYPERTROPHY IWHT BLADDER OUTLET OBSTRUCTION Last Modified By: Lupis Guzman RN 05/12/21 10:21:53 [facility] IntraOp Intraoperative Assessment Entry 1 Valid History / Yes Physical in Chart Preoperative Yes Checklist Reviewed/Evaluated Allergies Reviewed Yes Patient is Latex No Sensitive Isolation Not applicable Precautions Noted Level of WDL Consciousness (WDL = Alert, Oriented to Person, Place, and Time) Skin Assessment Yes Verified Present Upon IVs Arrival to OR Last Modified By: Lupis Guzman RN 05/12/21 10:20:58 [facility] IntraOp Intraoperative Equipment Entry 1 Type Monitoring Equipment Intraop Monitoring Electrocardiogram Three lead placement (ECG) Electrode Placement Blood Pressure Non-Invasive BP Device Source Antiembolic Devices Antiembolic Devices Sequential compression device, knee high Antiembolic Device Bilateral Location Antiembolic Device [id number] ID Number Scopes Photo/Video Documentation Photo No Video No Intraop Equipment Sequential compression Comment devices on and in operation prior to induction of anesthesia. Last Modified By: Lupis Guzman RN 05/12/21 10:23:58 [facility] IntraOp Medication Admin Entry 1 Entry 2 Medication/Irrigant SHAWNEE IRR 0.9% NACL B&O 16A Suppository - 1000ML --[id number] Combo Med List Time Administered 05/12/21 10:15:00 05/12/21 11:10:00 Route of Irrigation (for laser) SUPPKOSITORY Administration Dose Dose [id number] 1 Unit of Measure ml Volume Administered By DINORA DUQUE, DINORA DUQUE MD-URO -URO Procedure Irrigation Irrigant Volume In Irrigant Volume Out Last Modified By: Lupis Guzman RN Shannon, Karen, RN 05/12/21 11:19:36 05/12/21 11:10:48 [facility] IntraOp Medication Admin Audit 05/12/21 11:19:36 Director Of Speech Pathology: LUCIANO Modifier: YAMILKANOKM <+> 1 Dose <+> 1 Time Administered <+> 1 Unit of Measure 05/12/21 11:10:48 Director Of Speech Pathology: LUCIANO Modifier: YAMILKANOKM 2 <*> Medication/Irrigant B&O 16A Suppository - [id number] 2 <*> Time Administered 05/12/21 11:00:00 05/12/21 10:27:54 Director Of Speech Pathology: YAMILKANOKOLBY Modifier: SHANNOKM <+> 2 Medication/Irrigant <+> 2 Route of Administration <+> 2 Administered By <+> 2 Dose <+> 2 Time Administered [facility] IntraOp Patient Positioning Entry 1 Procedure Prostate [...] Modified By: Lupis Guzman RN 05/12/21 10:24:28 [facility] IntraOp Sign In Entry 1 Patient, Site, [...] Modified By: Lupis Guzman RN 05/12/21 10:24:41 [facility] IntraOp Sign Out Entry 1 RN Confirmation [...] Modified By: Lupis Guzman RN 05/12/21 11:23:11 [facility] IntraOp Skin Prep Entry 1 Procedure Prostate Green Light Laser Prescribed Yes Pre-Surgical Prep Completed Prep Area Genitalia Intraop Prep Integumentary WDL Assessment WDL Prep Agents Betadine solution Prep by Lupis Guzman RN Hair Removal Last Modified By: Lupis Guzman RN 05/12/21 10:23:34 [facility] IntraOp Surgical Procedures Entry 1 Procedure Prostate Green Light Laser Additional (GREEN LIGHT Procedure LASER,VAPORIZATION OF Description PROSTATE) Primary Procedure Yes Primary Surgeon DINORA DUQUE MD-URO Start 05/12/21 10:13:00 Stop 05/12/21 11:10:00 Anesthesia Type General Specialty Urology Wound Class I - Clean Last Modified By: Lupis Guzman RN 05/12/21 11:23:29 [facility] IntraOp Surgical Procedures Audit 05/12/21 11:23:29 Director Of Speech Pathology: LUCIANO Modifier: LUCIANO <+> 1 Stop 05/12/21 10:24:30 Director Of Speech Pathology: LUCIANO Modifier: LUCIANO <+> 1 Primary Procedure <+> 1 Primary Surgeon <+> 1 Specialty <+> 1 Start <+> 1 Wound Class <+> 1 Anesthesia Type <+> 1 Additional Procedure Description [facility] IntraOp Temp Regulation Devices Entry 1 Temp Regulation Temperature Warm blankets, Forced Regulation Device Air Warming device, Room temperature Temperature Upper body Regulation Site Temperature Patient's temperature Regulation Comment monitored by anesthesia provider. Forced air warming device settings controlled by anesthesia provider. Last Modified By: Lupis Guzman RN 05/12/21 10:24:02 [facility] IntraOP Time Out Entry 1 Procedure to [...] Modified By: Lupis Guzman RN 05/12/21 10:25:16 [facility] IntraOP Time Out Audit 05/12/21 10:25:16 Director Of Speech Pathology: LUCIANO Modifier: LUCIANO 1 <+> Time Out Pause Time 1 <*> Procedure to be Performed Prostate Green Light Laser Case Comments <None> Finalized By: KAMLESH BENNETT Document Signatures Signed By: Lupis Guzman RN 05/12/21 11:25 KAMLESH BENNETT 05/24/21 09:44 Unfinalized History Date/Time Username Reason for Unfinalizing Freetext Reason for Unfinalizing 05/24/21 09:43 WATTSDR Correct Billing Electronically signed by [facility] Conversion Desulfurizer Machine Cerner at 03/16/2023 1:32 PM CDT documented in this encounter Plan of Treatment Not on file documented as of this encounter Visit Diagnoses Not on filedocumented in this encounter
--- OUTSIDE RECORDS SUMMARY | 2025-11-23 12:16 | XMS_ITS | Encounter Summary ---
Author Organization [employer] ([place], [place], [place], [place], [place]) Address [address] [place] [address] Care Team Providers Care Flush Tester Name Role Phone Unavailable Primary Care Provider Unavailabl e Encounter Details Date Type Department Care Team (Late st Contact Info) Description 05/12/2021 Transcribed Document [facility] [place] [address] [place] [address] ProviderJess MD [address] [place] [address] Social History Tobacco Use Types [...] Jess ProviderMD - 05/12/2021 10:13 AM CDT [facility] Main OR PACU Summary Primary Physician: DINORA DUQUE MD-URO Finalized Date/Time: 05/12/21 13:10:25 Pt. Name: LACY COWARTO.B./Sex: 1950 Male Med Rec #: [id number] Physician: DINORA DUQUE MD-URO Financial #: [id number] Pt. Type: O Room/Bed: Admit/Disch: 05/12/21 07:11:00 - Institution: [facility] Main OR PACU I Case Times Entry 1 In PACU I 05/12/21 11:24:00 Ready for PACU 05/12/21 12:00:00 Discharge Discharge from PACU 05/12/21 12:30:00 I Last Modified By: ARNULFO BUSTILLO RN 05/12/21 13:09:56 [facility] Main OR PACU Acuity Entry 1 Start Time 05/12/21 12:00:00 Stop Time 05/12/21 12:30:00 Acuity Level [facility] PACU Acuity I Last Modified By: ARNULFO BUSTILLO RN 05/12/21 13:10:23 Finalized By: ARNULFO BUSTILLO, RN Document Signatures Signed By: ARNULFO BUSTILLO RN 05/12/21 13:10 Electronically signed by [facility]io [facility] Conversion Distribution Specialist Cerner at 03/16/2023 1:19 PM CDT documented in this encounter Plan of Treatment Not on file documented as of this encounter Visit Diagnoses Not on filedocumented in this encounter
--- OUTSIDE RECORDS SUMMARY | 2025-11-23 12:16 | XMS_ITS | Clinical Summary ---
Author Organization Healthcare Address [address] [place] [address] Care Team Providers Care Net Mobile Developer Name Role Phone Rayo Jimenes MD Primary Care Provider [phone] Social History Tobacco Use Types Packs/Day Years Used Date Smoking Tobacco: Never Assessed Sex and Gender Information Value Date Recorded Sex Assigned at Not on file Legal Sex Male 8:06 PM EDT Gender Identity Not on file Sexual Orientation Not on file Plan of Treatment Not on file Care Teams Net Mobile Developer Relationship Specialty Start Date End Date Rayo Jimenes MD [facility] [id number] PCP - General 04/08/21
--- OUTSIDE RECORDS SUMMARY | 2025-11-23 12:16 | XMS_ITS | Referral Summary ---
Author Organization [employer] ([place], [place], [place], [place], [place]) Address [address] [place] [address] Care Team Providers Care Commodity Lead Name Role Phone Unavailable Primary Care Provider [...]
--- OUTSIDE RECORDS SUMMARY | 2025-11-23 12:16 | XMS_ITS | Clinical Summary ---
Author Organization [employer] ([place], [place], [place], [place], [place]) Address [address] [place] [address] Care Team Providers Care Cytogeneticist Name Role Phone Unavailable Primary Care Provider [...]
--- OUTSIDE RECORDS SUMMARY | 2025-11-23 12:16 | XMS_ITS | Encounter Summary ---
Author Organization Healthcare Address [address] [place] [address] Care Team Providers Care Smelter Liner Name Role Phone Rayo Jimenes MD Primary Care Provider [phone] Encounter Details Date Type Department Care Team (Late st Contact Info) Description 08/17/2022 [facility] [address] [place] [address] Cyn Hamilton MD [address] [facility] [address] [place] [address] Positive LIZ (antinuclear antibody) (Primary [...] findings documented in this encounter Care Teams Smelter Liner Relationship Specialty Start Date End Date Rayo Jimenes MD [facility] [address] [address] PCP - General 04/08/21 documented as of this encounter
--- OUTSIDE RECORDS SUMMARY | 2025-11-23 12:16 | XMS_ITS | Encounter Summary ---
Author Organization [employer] ([place], [place], [place], [place], [place]) Address [address] [place] [address] Care Team Providers Care Software Support Technician Name Role Phone Unavailable Primary Care Provider Unavailabl e Encounter Details Date Type Department Care Team (Late st Contact Info) Description 05/12/2021 Transcribed Document [facility] [place] Family Medicine [address] [place] [address] ProviderJess MD [address] [place] [address] Social History Tobacco Use Types [...] Jess ProviderMD - 05/12/2021 1:04 PM CDT [place] [address] LACY COWART :1950 Visit Time:05/12/2021 What [...] appointment scheduled for Sunday05/16/21 at 12:45pm Where: [address] [place] [address]- Medications What How Much When Instructions Next Dose acetaminophen-hydrocodone (Harriet 5 mg-325 mg oral tablet) 1 Tablet(s) Oral Every 6 Hours as needed for for pain Pickup at [facility] nitrofurantoin (Macrobid 100 mg oral capsule) 1 Capsule(s) Oral Two Times A Day Duration: 14 Day(s) Pickup at [facility] albuterol (albuterol 2.5 mg/ 3 mL (0.083%) [...] Milligram(s) Oral Every Day Pharmacy Information [facility]: [address] [address] [address] [place] [phone] Take your medications faithfully. Do NOT skip [...] these instructions at home: Medicines ??? Take zkod-rbp-gwkuhrn and prescription medicines only as told by [...] provider. Document Revised: 03/04/2020 Document Reviewed: 05/23/2018 [employer] Patient Education ?? 2020 [employer]. Outpatient Surgery, Adult, Care After These instructions [...] and water are not available, use hand single ending machine operator. ? Change your dressing as told by [...] or a bad smell. Medicines ??? Take nvss-xip-vakscuv and prescription medicines only as told by [...] provider. Document Revised: 02/10/2019 Document Reviewed: 03/04/2017 [employer] Patient Education ?? 2020 [employer]. Outpatient Surgery, Adult, Care After These instructions [...] and water are not available, use hand single ending machine operator. ? Change your dressing as told by [...] or a bad smell. Medicines ??? Take fhcy-fso-hsbjtse and prescription medicines only as told by [...] provider. Document Revised: 02/10/2019 Document Reviewed: 03/04/2017 [employer] Patient Education ?? 2020 [employer] General Anesthesia, Adult, Care After This [...] activities are safe for you. ??? Take tuqj-esr-unhldyz and prescription medicines only as told by [...] provider. Document Revised: 11/15/2018 Document Reviewed: 06/28/2018 [employer] Patient Education ?? 2020 [employer]. Emergency Awareness and Preventative Care STROKE is [...] Assistance with quitting is available by contacting 5-415-UDNDNOW. This is a free resource providing counseling, [...] was given the opportunity to ask questions. Patient/Body Builder Apprentice Name: Patient/Body Builder Apprentice Signature: Relationship to Patient: Clinician/Hospital Body Builder Apprentice Signature: Date: Electronically signed by Ezio, [facility] Conversion Personal Financial Representative Cerner at 03/16/2023 1:20 PM CDT documented in this encounter Plan of Treatment Not on file documented as of this encounter Visit Diagnoses Not on filedocumented in this encounter
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
[2025-11-23 12:52] VITALS: BP 145/85; PULSE 68; RESP 16; TEMP 36.9; O2SAT 99
== END 2025-11-23 12:52 | disposition home or self-care (01) ==
PROVIDERS: Emergency Provider Student in an Organized Health Care Education/Training Program; PCP Internal Medicine
DX: T22.212A Burn of second degree of left forearm, initial encounter (principal); X19.XXXA Contact with other heat and hot substances, initial encounter
CPT/HCPCS: 99282